=== PATIENT | male | born 1965 | race Caucasian/White ===

== ENCOUNTER 2020-06-16 08:06 | Outpatient (RCR) | payer OTHER, SELFPAY | END 2020-07-05 09:11 | disposition home or self-care (01) | LOC: HO.WCC 08:06 | PROVIDERS: PCP Internal Medicine; Visit Provider Physician Assistant | DX: E11.621 Type 2 diabetes mellitus with foot ulcer (principal); L97.522 Non-pressure chronic ulcer of other part of left foot with fat layer exposed; E11.65 Type 2 diabetes mellitus with hyperglycemia; E11.40 Type 2 diabetes mellitus with diabetic neuropathy, unspecified; I10 Essential (primary) hypertension; L08.9 Local infection of the skin and subcutaneous tissue, unspecified; L84 Corns and callosities; F17.210 Nicotine dependence, cigarettes, uncomplicated; F12.90 Cannabis use, unspecified, uncomplicated; Z72.89 Other problems related to lifestyle; Z71.6 Tobacco abuse counseling | CPT/HCPCS: 97597; 99212 ==

== ENCOUNTER 2020-07-17 09:23 | Emergency (ER) | payer OTHER, SELFPAY ==
--- NOTE | ~2020-07-17 | XR_ITS ---
EXAMINATION: XR FOOT, LEFT CLINICAL INFORMATION: [Toe osteomyelitis. COMPARISON: None TECHNIQUE: AP, lateral, and oblique views of the left foot. FINDINGS: There is no visible acute fracture, periosteal thickening or lytic process. Mild soft tissue swelling seen surrounding the left great toe and first MTP joint. Rest of the left foot is unremarkable. The ankle mortise and subtalar joints are normal. There is a small calcaneal heel and retrocalcaneal enthesophytes. Mild dorsal talonavicular and posterior cuboid spurring is seen. XR/XR foot LT min 3V IMPRESSION: No evidence of osteomyelitis left foot except for mild medial great toe soft tissue swelling. Small calcaneal heel and retrocalcaneal enthesophytes.
[2020-07-17 09:27] VITALS: BP 142/80; PULSE 94; RESP 16; TEMP 37.4; O2SAT 94; BMI 44.4
--- NOTE | 2020-07-17 10:51 | ED_ITS ---
HPI - General Adult General Chief complaint: Wound/Laceration Stated complaint: TOE INFECTION Time Seen by Provider: 07/17/20 10:33 Source: patient Mode of arrival: ambulatory Limitations: no limitations History of Present Illness HPI narrative: Patient presents to ED for left big toes redness since yesterday with fever. Patient has history of cellulitis that he states improved with antibiotics 20 days ago but then came back yesterday. Patient is a diabetic. Patient states his glucose has been well controlled. Patient denies any recent trauma to the foot. Patient admits to ulcer on plantar surface of big toe but negative for any weeping or drainage. Related Data Previous Rx's Medication Instructions Recorded cephalexin 500 mg PO QID #28 cap 07/17/20 doxycycline hyclate 100 mg PO BID #14 cap 07/17/20 Allergies Allergy/AdvReac Type Severity Reaction Status Date / Time bee pollen [BEE STINGS] Allergy Unknown UNKNOWN Unverified 11/04/19 16:32 penicillin V Allergy Unknown Verified 01/31/15 00:00 Penicillins [PENICILLINS] Allergy Unknown UNKNOWN Unverified 11/04/19 16:32 Review of Systems Review of Systems: Yes all other systems are reviewed and are negative Constitutional: Constitutional: Reports as per HPI and Reports no additional constitutional complaints Eyes: Eyes: Reports as per HPI and Reports no additional eye complaints ENT: Reports system reviewed and no additional complaints, except as documented and Reports as per HPI Cardiovascular: Cardiovascular: Reports as per HPI and Reports no additional cardiovascular complaints Respiratory: Respiratory: Reports as per HPI and Reports no additional respiratory complaints Gastrointestinal: Gastrointestinal: Reports as per HPI and Reports no a dditional gastrointestinal complaints Genitourinary: Genitourinary: Reports no additional male genitourinary complaints and Reports as per HPI Musculoskeletal: Musculoskeletal: Reports no additional musculoskeletal compl aints, Reports as per HPI and Reports arthralgias (Left big toe/redness/swelling) Neurologic: Reports system reviewed and no additional complaints, except as documented and Reports as per HPI Psychiatric: Psychiatric: Reports no additional psychiatric complaints and Reports as per HPI [facility] Past Medical History Medical History (Updated 07/17/20 @ 13:25 by RYANN Hall) Diabetic neuropathy Social History Social History Alcohol intake: current Alcohol intake frequency: 0-2 drinks per day Patient Tobacco Use Status: Current everyday Tobacco user Use of substances other than those prescribed or required for medical reasons: Yes Substance Use Type: Marijuana Advance Directives: Yes Advance Directives Information Provided: Yes Advance Directives on File: No Physical Exam Vital Signs: Vital Signs: Last Vital Signs Temp 99.0 F 07/17/20 13:36 Pulse 98 07/17/20 13:36 Resp 18 07/17/20 13:36 BP 121/76 07/17/20 13:36 Pulse Ox 93 07/17/20 13:36 Body Mass Index 44.4 Const: General: cooperative, healthy appearing, comfortable, no acute dist ress, well developed, alert and awake; No Physically active Orientation/consciousness: patient oriented x3 HENMT: Head: Yes normal to inspection, Yes No palpable skull fracture present, Yes normocephalic, Yes atraumatic, No abrasion, No Acrocyanosis present, No Hurd's sign, No contusion, No cranial bruits, No hematoma, No laceration, No occipital foramen tenderness, No palpable skull fracture, No raccoon eyes, No scalp lesion, No scalp tenderness, No Temporal artery tenderness present and No periorbital ecchymosis Eyes: General: appearance normal, both eyes and all related structures Neck: Neck: Yes normal visual inspection, Yes full ROM, Yes no lymphadenopathy, Yes no meningeal signs, Yes trachea midline, Yes supple and No tender Chest: Chest palpation & inspection: normal inspection of the chest and normal palpation of entire chest wall Resp: Effort & Inspection: normal respiratory effort and able to speak in complete sentences Auscultation: clear to auscultation bilaterally Cardio: Jugular venous distension: no JVD Heart sounds: S1 normal heart sound present and S2 normal heart sound present GI: Inspection: Yes normal to inspection Palpation (GI): Soft to palpation, not firm, nontender, no guarding and not rigid : General: No CVA tenderness and Yes no CVA tenderness Back/Spine/Pelvis: Back: no CVA tenderness, No CVA tenderness and No back tenderness Skin: Other: Left big pills cellulitis/redness Neuro: General: patient oriented x3, no meningeal signs and CN's II-XI intact bilaterally Cranial nerves: Yes CN's II-XII intact bilaterally Extrem: Other: left big toe Have been to cellulitis/redness Psych: Appearance: grossly normal, well kempt and not disheveled Course Course Course Narrative: Will order labs, x-ray, lactate, and blood cultures. Patient most likely will need IV antibiotics. Reevaluation(s) Reevaluation #1: Patient does not want to be admitted for IV antibiotics. ESR CRP not elevated. X-ray negative for osteomyelitis but and believe patient still could benefit for IV antibiotics for foot cellulitis as recommended by his associate medical director. Patient is a diabetic This was discussed with patient he refused. Patient states if he worsens he will he will come back tomorrow. Markers made around wound. Patient agreed to sign out against medical advice knowing risk of , sepsis/infection, disability, and decreased quality of life. Medical Decision Making MDM Narrative Medical decision making narrative: Cellulitis Lab Data Result diagrams: 07/17/20 11:02 07/17/20 11:03 Labs: Lab Results 07/17/20 07/17/20 07/17/20 Range/Units 11:02 11:02 11:02 WBC 8.6 (4.8-10.8) X10*3/uL RBC 5.17 (4.60-5.80) X10*6/uL Hgb 16.3 (14.0-18.0) g/dl Hct 49.0 (42-52) % MCV 94.8 (80-98) fL MCH 31.5 (27.0-33.0) pg MCHC 33.3 (31.0-36.0) g/dl RDW 12.4 (11.0-16.0) % Plt Count 181 (160-400) X10*3/uL MPV 9.1 L (9.4-12.4) fL Immature Gran % (Auto) 0.2 (0.0-0.4) % Neut % (Auto) 66.5 (45-73) % Lymph % (Auto) 17.1 L (20-40) % Tyrrell % (Auto) 15.7 H (2-11) % Eos % (Auto) 0.1 (0-4) % Baso % (Auto) 0.4 (0-2) % Lymph # (Auto) 1.5 (1.2-4.9) X10*3/uL Tyrrell # (Auto) 1.3 H (0.1-1.2) X10*3/uL Eos # (Auto) 0.0 (0.0-0.4) X10*3/uL Baso # (Auto) 0.0 (0.0-0.2) X10*3/uL Abs Immat Gran (auto) 0.02 (0.00-0.03) X10*3/uL Absolute Neuts (auto) 5.7 (2.0-8.3) X10*3/uL Absolute Nucleated RBC 0.000 (0.0-0.012) X10*3/uL Nucleated RBC % (auto) 0.0 (0.0-0.2) /100WBC ESR 8 (0-15) MM/HR PT (10.8-13.0) SEC INR (0.9-1.1) APTT (24.1-38.0) SEC Sodium (135-145) mmol/L Potassium (3.3-5.1) mmol/L Chloride (96-108) mmol/L Carbon Dioxide (22-29) mmol/L Anion Gap (12-20) BUN (9-16) mg/dL Creatinine (0.5-1.4) mg/dL Estim Creat Clear Calc Estimated GFR Random Glucose (60-115) mg/dL Lactic Acid 1.5 (0.5-2.0) mmol/L Calcium (8.4-10.2) mg/dL Total Bilirubin (0.0-1.0) mg/dL AST (5-37) U/L ALT (0-40) U/L Alkaline Phosphatase (39-117) U/L C-Reactive Protein (< or = 0.50) mg/dL Total Protein (6.5-8.0) g/dL Albumin (3.5-5.0) g/dL 07/17/20 07/17/20 Range/Units 11:02 11:03 WBC (4.8-10.8) X10*3/uL RBC (4.60-5.80) X10*6/uL Hgb (14.0-18.0) g/dl Hct (42-52) % MCV (80-98) fL MCH (27.0-33.0) pg MCHC (31.0-36.0) g/dl RDW (11.0-16.0) % Plt Count (160-400) X10*3/uL MPV (9.4-12.4) fL Immature Gran % (Auto) (0.0-0.4) % Neut % (Auto) (45-73) % Lymph % (Auto) (20-40) % Tyrrell % (Auto) (2-11) % Eos % (Auto) (0-4) % Baso % (Auto) (0-2) % Lymph # (Auto) (1.2-4.9) X10*3/uL Tyrrell # (Auto) (0.1-1.2) X10*3/uL Eos # (Auto) (0.0-0.4) X10*3/uL Baso # (Auto) (0.0-0.2) X10*3/uL Abs Immat Gran (auto) (0.00-0.03) X10*3/uL Absolute Neuts (auto) (2.0-8.3) X10*3/uL Absolute Nucleated RBC (0.0-0.012) X10*3/uL Nucleated RBC % (auto) (0.0-0.2) /100WBC ESR (0-15) MM/HR PT 13.2 H (10.8-13.0) SEC INR 1.1 (0.9-1.1) APTT 30.5 (24.1-38.0) SEC Sodium 136 (135-145) mmol/L Potassium 4.3 (3.3-5.1) mmol/L Chloride 99 (96-108) mmol/L Carbon Dioxide 28 (22-29) mmol/L Anion Gap 13 (12-20) BUN 13 (9-16) mg/dL Creatinine 0.88 (0.5-1.4) mg/dL Estim Creat Clear Calc 162.9 Estimated GFR > 60 Random Glucose 223 H (60-115) mg/dL Lactic Acid (0.5-2.0) mmol/L Calcium 9.2 (8.4-10.2) mg/dL Total Bilirubin 0.4 (0.0-1.0) mg/dL AST 21 (5-37) U/L ALT 32 (0-40) U/L Alkaline Phosphatase 67 (39-117) U/L C-Reactive Protein 10.61 H (< or = 0.50) mg/dL Total Protein 7.1 (6.5-8.0) g/dL Albumin 4.1 (3.5-5.0) g/dL Discharge Plan Discharge Clinical Impression: Cellulitis Patient Disposition: Left Against Medical Advice Instructions: Cellulitis (ED) Additional Instructions: Return to ED for worsening swelling, redness, spreading of redness beyond marker, leg swelling, calf pain, red streaks, fever, chills, chest pain, latoya rtness of breath, or any other concerning symptoms. Prescriptions: New doxycycline hyclate 100 mg capsule 100 mg PO BID Qty: 14 RF: 0 cephalexin 500 mg capsule 500 mg PO QID Qty: 28 RF: 0 Referrals: Dm Mckeon MD [Primary Care Provider] - 2 days (Left toe cellulitis) Stand Alone Forms: Against Medical Advice Interventions: ED Discharge Assessment Last Done: 07/17/20 13:32 Discharge Date/Time: 07/17/20 13:34 Print Language: Cook Islander
[2020-07-17 11:08] LABS: MANUAL DIFF FLAG NO
[2020-07-17 11:10] LABS: Basophils Percent Auto 0.4 % (0-2); Eosinophils Percent Auto 0.1 % (0-4); Hemoglobin 16.3 g/dl (14.0-18.0); Imm Gran Abs Auto 0.02 X10*3/uL (0.00-0.03); Imm Gran Pct Auto 0.2 % (0.0-0.4); Lymphocytes Absolute Auto 1.5 X10*3/uL (1.2-4.9); Lymphocytes Percent Auto 17.1 % (20-40); Mean Corpuscular HGB Conc 33.3 g/dl (31.0-36.0); Mean Corpuscular Hemoglobin 31.5 pg (27.0-33.0); Mean Corpuscular Volume 94.8 fL (80-98); Mean Platelet Volume 9.1 fL (9.4-12.4); Monocytes Absolute Auto 1.3 X10*3/uL (0.1-1.2); Monocytes Percent Auto 15.7 % (2-11); Neutrophils Absolute Auto 5.7 X10*3/uL (2.0-8.3); Neutrophils Percent Auto 66.5 % (45-73); Platelet Count 181 X10*3/uL (160-400); Red Blood Count 5.17 X10*6/uL (4.60-5.80); Red Cell Distribution Width 12.4 % (11.0-16.0); White Blood Count 8.6 X10*3/uL (4.8-10.8)
[2020-07-17 11:19] LABS: INTERNATIONAL NORM RATIO 1.1 (0.9-1.1); Prothrombin Time 13.2 SEC (10.8-13.0)
[2020-07-17 11:22] LABS: Partial Thromboplastin Time 30.5 SEC (24.1-38.0)
[2020-07-17 11:32] LABS: Lactic Acid 1.5 mmol/L (0.5-2.0)
--- NOTE | 2020-07-17 11:33 | PC.NURSE ---
dry necrotic shallow wound underside of lateral right great toe. entire toe is red, swollen, warm.
[2020-07-17 11:36] LABS: Alanine Aminotransferase 32 U/L (0-40); Albumin Level 4.1 g/dL (3.5-5.0); Alkaline Phosphatase 67 U/L (39-117); Anion Gap 13 (12-20); Aspartate Amino Transferase 21 U/L (5-37); Bilirubin Total 0.4 mg/dL (0.0-1.0); Blood Urea Nitrogen 13 mg/dL (9-16); C Reactive Protein 10.61 mg/dL (< or = 0.50); Calcium 9.2 mg/dL (8.4-10.2); Carbon Dioxide 28 mmol/L (22-29); Chloride 99 mmol/L (96-108); Creatinine Clr Calc Pharmacy 162.9; Estimated Glomerular Filt Rate > 60; Glucose Random 223 mg/dL (60-115); Potassium 4.3 mmol/L (3.3-5.1); Sodium 136 mmol/L (135-145); Total Protein 7.1 g/dL (6.5-8.0)
[2020-07-17 11:38] VITALS: BP 129/83; PULSE 97; RESP 18; TEMP 37.4; O2SAT 93
[2020-07-17 12:05] LABS: Erythrocyte Sedimentation Rate 8 MM/HR (0-15)
[2020-07-17 13:36] VITALS: BP 121/76; PULSE 98; RESP 18; TEMP 37.2; O2SAT 93
== END 2020-07-17 13:34 | disposition left against medical advice (07) ==
PROVIDERS: Physician Assistant; Emergency Provider Emergency Medicine Emergency Medical Services; PCP Internal Medicine
DX: L03.032 Cellulitis of left toe (principal); E11.9 Type 2 diabetes mellitus without complications; F17.210 Nicotine dependence, cigarettes, uncomplicated; F12.90 Cannabis use, unspecified, uncomplicated
CPT/HCPCS: 36415; 73630; 80053; 83605; 85025; 85610; 85652; 85730; 86140; 87040; 99284; 99285

== ENCOUNTER 2020-09-11 12:50 | Outpatient (RCR) | payer OTHER, SELFPAY ==
[2020-09-26 12:58] LABS: MANUAL DIFF FLAG NO
[2020-09-26 13:06] LABS: Basophils Absolute Auto 0.1 X10*3/uL (0.0-0.2); Basophils Percent Auto 0.7 % (0-2); Eosinophils Absolute Auto 0.2 X10*3/uL (0.0-0.4); Eosinophils Percent Auto 2.1 % (0-4); Hematocrit 49.2 % (42-52); Hemoglobin 16.3 g/dl (14.0-18.0); Imm Gran Abs Auto 0.02 X10*3/uL (0.00-0.03); Imm Gran Pct Auto 0.3 % (0.0-0.4); Lymphocytes Absolute Auto 2.3 X10*3/uL (1.2-4.9); Lymphocytes Percent Auto 31.9 % (20-40); Mean Corpuscular HGB Conc 33.1 g/dl (31.0-36.0); Mean Corpuscular Hemoglobin 30.9 pg (27.0-33.0); Mean Corpuscular Volume 93.4 fL (80-98); Monocytes Percent Auto 14.5 % (2-11); Neutrophils Absolute Auto 3.6 X10*3/uL (2.0-8.3); Neutrophils Percent Auto 50.5 % (45-73); Platelet Count 259 X10*3/uL (160-400); Red Blood Count 5.27 X10*6/uL (4.60-5.80); Red Cell Distribution Width 12.8 % (11.0-16.0); White Blood Count 7.1 X10*3/uL (4.8-10.8)
[2020-09-26 13:15] LABS: Estimated Average Glucose 183 mg/dL
[2020-09-26 13:28] LABS: Anion Gap 13 (12-20); Blood Urea Nitrogen 15 mg/dL (9-16); C Reactive Protein 0.73 mg/dL (< or = 0.50); Calcium 10.1 mg/dL (8.4-10.2); Carbon Dioxide 32 mmol/L (22-29); Chloride 99 mmol/L (96-108); Estimated Glomerular Filt Rate > 60; Glucose Random 193 mg/dL (60-115); Potassium 4.8 mmol/L (3.3-5.1); Sodium 139 mmol/L (135-145)
[2020-09-26 13:50] LABS: Erythrocyte Sedimentation Rate 4 MM/HR (0-15)
== END 2020-10-12 10:42 | disposition home or self-care (01) ==
LOC: HO.WCC 12:50
PROVIDERS: PCP Internal Medicine; Visit Provider Physician Assistant
DX: E11.621 Type 2 diabetes mellitus with foot ulcer (principal); L97.522 Non-pressure chronic ulcer of other part of left foot with fat layer exposed; S80.811A Abrasion, right lower leg, initial encounter; I10 Essential (primary) hypertension; F17.210 Nicotine dependence, cigarettes, uncomplicated; I87.2 Venous insufficiency (chronic) (peripheral); L84 Corns and callosities; Z71.6 Tobacco abuse counseling
CPT/HCPCS: 11042; 36415; 80048; 83036; 84134; 85025; 85652; 86140; 99212

== ENCOUNTER 2020-10-24 11:03 | Outpatient (RCR) | payer OTHER, SELFPAY | END 2020-11-01 15:46 | disposition home or self-care (01) | LOC: HO.WCC 11:03 | PROVIDERS: PCP Internal Medicine; Visit Provider Physician Assistant | DX: E11.621 Type 2 diabetes mellitus with foot ulcer (principal); L97.522 Non-pressure chronic ulcer of other part of left foot with fat layer exposed; E11.40 Type 2 diabetes mellitus with diabetic neuropathy, unspecified; E11.51 Type 2 diabetes mellitus with diabetic peripheral angiopathy without gangrene; I10 Essential (primary) hypertension; R60.0 Localized edema; Z72.89 Other problems related to lifestyle; F12.90 Cannabis use, unspecified, uncomplicated; I87.2 Venous insufficiency (chronic) (peripheral); F17.210 Nicotine dependence, cigarettes, uncomplicated; Z79.2 Long term (current) use of antibiotics | CPT/HCPCS: 11042; 99212 ==

== ENCOUNTER 2020-10-26 12:58 | Outpatient (REF) | payer OTHER, SELFPAY ==
--- NOTE | ~2020-10-26 | US_ITS ---
EXAMINATION: BILATERAL LOWER EXTREMITY VENOUS ULTRASOUND (Reflux Exam) CLINICAL INDICATION: This is a 55-year-old male with venous insufficiency and varicose veins appear COMPARISON: None. TECHNIQUE: Color flow triplex imaging and compression Doppler was performed to evaluate both the deep and the superficial systems bilaterally. To evaluate the superficial system, the examination was performed in the upright position. Color-flow Doppler ultrasound and compression ultrasound were utilized. In addition, maneuvers were utilized to demonstrate reflux. FINDINGS: 1. DEEP VENOUS ULTRASOUND OF THE RIGHT LOWER EXTREMITY: Common Femoral Vein: Compressible, normal respiratory variation and augmented flow. Femoral vein: Compressible, normal color flow and augmentation. Popliteal Vein: There is reflux within the left popliteal vein with the reflux time of 1012 ms. Deep Reflux: There is no evidence of reflux in the deep system in the left popliteal vein only. There is no evidence of a Ugalde's cyst. 2. SUPERFICIAL ULTRASOUND WITH DOPPLER OF RIGHT LOWER EXTREMITY GREAT SAPHENOUS VEIN: Saphenofemoral junction: 1.2 cm. There is reflux at the junction with the reflux time of 580 ms. Mid thigh: 0.6 cm. There is no reflux. Above knee: 0.3 cm. There is no reflux. Below knee: 0.3 cm. There is no reflux. Mid calf: 0.3 cm. The reflux time is 2900 ms. Ankle: 0.4 cm. There is no reflux. GSV REFLUX: There is reflux in the great saphenous vein at the saphenofemoral junction. DUPLICATED GREAT SAPHENOUS VEIN: There is a 0.6 cm lateral duplicated great saphenous vein without reflux SMALL SAPHENOUS VEIN: Upper: 0.3 cm Lower: Your 0.3 cm SSV REFLUX: No evidence of reflux. VEIN OF GIACOMINI: None Imaged. PERFORATORS: There are 0.3 cm perforators without reflux. VARICOSITIES: There are 0.4 cm mid thigh varicose veins without reflux. There are 0.3 cm mid calf varicose veins without reflux. 3. DEEP VENOUS ULTRASOUND OF THE LEFT LOWER EXTREMITY: Common Femoral Vein: Compressible, normal respiratory variation and augmented flow. Femoral vein: Compressible, normal color flow and augmentation. Popliteal Vein: Compressible, normal augmentation. Deep Reflux: There is no evidence of reflux in the deep system in either the common femoral vein or the popliteal vein. There is no evidence of a Ugalde's cyst. 4. SUPERFICIAL ULTRASOUND WITH DOPPLER OF LEFT LOWER EXTREMITY GREAT SAPHENOUS VEIN: Saphenofemoral junction: 1.2 cm. There is no reflux. Mid thigh: 0.4 cm. There is no reflux. Above knee: 0.3 cm. There is no reflux. Below knee: 0.5 cm. There is no reflux. Mid calf: 0.2 cm Ankle: 0.5 cm GSV REFLUX: There is a short segment of reflux at the knee. Otherwise, there is no significant reflux in the great saphenous vein. DUPLICATED GREAT SAPHENOUS VEIN: There is a 0.5 cm lateral duplicated great saphenous vein without evidence of reflux. SMALL SAPHENOUS VEIN: Upper: 0.4 cm Lower: 0.2 cm SSV REFLUX: No evidence of reflux. VEIN OF GIACOMINI: None Imaged. PERFORATORS: There is a 0.4 cm distal calf varicose vein without evidence of reflux to VARICOSITIES: There are 0.4 cm proximal thigh varicose veins without reflux. US/US venous duplex LE BI IMPRESSION: 1. There is a patent right great saphenous vein with reflux at the saphenofemoral junction. Below that level there is no reflux until there is a short segment in the mid calf. 2. There is a duplicated right lateral great saphenous vein without reflux. 3. There is a right small saphenous vein without evidence of reflux. 4. There are varicose veins measuring 0.4 cm in the mid thigh without reflux. 5. There is a patent left great saphenous vein without evidence of reflux at the junction or in the thigh. 6. There is a duplicated left lateral great saphenous vein without evidence of reflux. 7. There is a patent left small saphenous vein without evidence of reflux. 8. There are proximal left thigh varicose veins without evidence of reflux.
== END 2020-10-26 12:59 | disposition home or self-care (01) ==
LOC: HO.US 12:58
PROVIDERS: PCP Internal Medicine; Visit Provider Physician Assistant
DX: I87.2 Venous insufficiency (chronic) (peripheral) (principal)
CPT/HCPCS: 93970

== ENCOUNTER 2020-12-12 19:15 | Inpatient (IN) | payer OTHER, SELFPAY ==
[2020-12-12] VITALS (7 sets, daily range): BP systolic 73–96; BP diastolic 44–63; PULSE 95–132; RESP 16–22; TEMP 37.2–39.4; O2SAT 90–96; BMI 43.4
--- NOTE | 2020-12-12 | ECG_ITS ---
Test Reason : R/O SEPSIS Blood Pressure : / mmHG Vent. Rate : 119 BPM Atrial Rate : 119 BPM P-R Int : 148 ms QRS Dur : 100 ms QT Int : 324 ms P-R-T Axes : 050 -23 058 degrees QTc Int : 455 ms Sinus tachycardia Intra-ventricular conduction delay Inferior infarct (cited on or before 22-APR-2006) Abnormal ECG When compared with ECG of 22-APR-2006 15:50, No significant change was found Referred By: Melany Rosenthal Electronically Signed By:PHIL CLARK MD
--- NOTE | ~2020-12-12 | CT_ITS ---
EXAMINATION: CT FOOT, LEFT WITH CONTRAST CLINICAL INFORMATION: Rule out osteomyelitis. COMPARISON: 12/12/2020 TECHNIQUE: Multidetector volumetric imaging of the left foot is performed after administration of 85 mL of Omnipaque 350 IV contrast. Coronal and sagittal reformatted images are obtained and reviewed. This CT examination was performed using dose optimization techniques as appropriate, variously including the following: *Automated exposure control *Adjustment of mA and/or kV according to patient size (this includes techniques or standardized protocols for targeted exams where dose is matched to indication/reason for exam; i.e. extremities or head) *Use of iterative reconstruction technique DLP: 233 mGy-cm FINDINGS: There is no fracture. Alignment is anatomic. Joint spaces are maintained. Degenerative changes at the talonavicular joint with osteophyte formation noted. No osseous erosions. Moderate hypertrophic spurring at the plantar aponeurosis and Achilles insertion to the calcaneus. There is mild dorsal soft tissue swelling of the forefoot. Soft tissue swelling surrounds the ankle. The visualized ankle tendons appear grossly intact. There is also focal soft tissue swelling along the plantar aspect of the foot near the first and fifth metatarsal heads.. There is focal soft tissue swelling of the first digit with small ulceration medially and internal focus of gas as seen on series 5 image 548. No underlying bony changes. CT/CT foot LT w con IMPRESSION: Diffuse soft tissue swelling with the most focal area along the medial aspect of the first digit with associated soft tissue gas suggestive of ulceration. No underlying osseous erosion.
--- NOTE | ~2020-12-12 | CT_ITS ---
EXAMINATION: CT ANGIOGRAM OF THE CHEST WITH AND WITHOUT CONTRAST (CT PULMONARY ANGIOGRAM FOR PE) CLINICAL INFORMATION: Reason for Exam hypoxia COMPARISON: Chest x-ray 12/12/2020 TECHNIQUE: Prior to contrast administration, noncontrast localization images were obtained. Subsequently, multidetector volumetric imaging was performed from the thoracic inlet to below the diaphragms following the administration of 85 mL Omnipaque 350 intravenous contrast. No contrast reaction reported Sagittal, coronal, and MIP oblique sagittal reformatted images were obtained on the CT workstation, uploaded to PACS, and reviewed. This CT examination was performed using dose optimization techniques as appropriate, variously including the following: *Automated exposure control *Adjustment of mA and/or kV according to patient size (this includes techniques or standardized protocols for targeted exams where dose is matched to indication/reason for exam; i.e. extremities or head) *Use of iterative reconstruction technique Total exam dose-length product 1139 mGy-cm FINDINGS: QUALITY OF STUDY/CONTRAST BOLUS: Suboptimal. PULMONARY ARTERIES: Suboptimal assessment due to bolus timing. While no central pulmonary embolus is seen, the possibility of segmental or subsegmental emboli cannot be excluded. THORACIC AORTA: No aneurysm or dissection. LUNG: Limited detailed assessment of the lung parenchyma in some regions due to motion artifact. No regions of consolidation identified bilaterally. There is a 5 mm lateral right lower lobe nodule on image 271/588. PLEURA: No pleural effusion or pneumothorax. MEDIASTINUM: Partially visualized thyroid gland appears grossly unremarkable. There are subcentimeter mediastinal lymph nodes within the range of normal variation. Cardiac size is within normal limits; no pericardial effusion. Coronary artery calcifications are present. No evidence of septal bowing or right heart strain. CHEST WALL/AXILLA: No axillary or internal mammary lymphadenopathy. OSSEOUS STRUCTURES: There are changes of diffuse idiopathic skeletal hyperostosis in the spine. UPPER ABDOMEN: There is hypoattenuation of the liver suggesting steatosis. An approximately 1 cm hypodensity in the spleen is nonspecific and may represent a cyst. No reflux of contrast into the hepatic veins to suggest elevated right heart pressures. CT/CT angio chest PE protocol IMPRESSION: 1. No central pulmonary embolus identified. However, the possibility of segmental or subsegmental emboli cannot be excluded, as exam quality is suboptimal due to bolus timing. 2. Coronary artery calcifications. Correlation with cardiac risk factors is recommended. 3. Nonspecific right lower lobe 5 mm lung nodule. According to the UPDATED 2017 Fleischner Society recommendations, the advised follow-up imaging for solid nodules < 6 mm is: LOW RISK PATIENT: No routine follow-up. HIGH RISK PATIENT: Optional CT at 12 months. VTE: negative
--- NOTE | ~2020-12-12 | XR_ITS ---
EXAMINATION: XR FOOT, LEFT CLINICAL INFORMATION: Foot pain. COMPARISON: 07/17/2020 TECHNIQUE: AP, lateral, and oblique views of the left foot. FINDINGS: Moderate sized enthesopathic spurs are present at the Achilles tendon insertion and plantar fascial origin on the calcaneus. There is soft tissue swelling at the great toe with mild osteoarthritis of the IP joint. There is mild multifocal osteoarthritis at other interphalangeal joints as well. Old healed second toe proximal phalangeal fracture. Mild multifocal osteoarthritis in the midfoot is most notable at the talonavicular joint with subchondral cystic change at the navicular. No acute fractures are identified. XR/XR foot LT 2V IMPRESSION: Mild multifocal osteoarthritis in the foot, especially at the talonavicular joint and interphalangeal joints. Soft tissue swelling at the great toe.
--- NOTE | ~2020-12-12 | IR_ITS ---
PROCEDURE: IR INSERTION OF PICC CLINICAL INFORMATION: Foot infection. Long-term IV antibiotic requirement. COMPARISON: None. TECHNIQUE: Procedure risks and benefits including bleeding, infection and blood clot were discussed with the patient and informed consent was obtained. All elements of maximal sterile barrier technique followed including use of cap, mask, sterile gown, sterile gloves, a sterile full body drape and hand hygiene. Also followed skin preparation with 2% chlorhexidine for cutaneous antisepsis, and sterile ultrasound preparation with sterile gel and probe cover when applicable. The right upper arm was prepped and draped in usual sterile fashion. The skin and soft tissues were anesthetized with 1% lidocaine plain. Using ultrasound guidance, right basilic vein access was obtained. Over a 0.018 wire through a peel-away sheath, a single [place] PICC line was positioned. Catheter tip is in the SVC. Catheter length is 60 cm. Real-time ultrasound guidance was used to document vein patency and for needle entry. A formal ultrasound picture was recorded. Fluoroscopy time 0.1 minutes. 1 saved fluoroscopic image. DAP 513 cGy-cm2. FINDINGS: There is a right upper extremity PICC line with catheter tip projecting over the SVC. IR/IR cvc insert peripheral IMPRESSION: Right upper extremity PICC line placement.
--- NOTE | ~2020-12-12 | XR_ITS ---
EXAMINATION: XR CHEST CLINICAL INFORMATION: Shortness of breath COMPARISON: Chest x-ray April 22, 2006 TECHNIQUE: Frontal portable view of the chest was obtained. 2024 FINDINGS: No significant abnormality is noted involving the heart, lungs, mediastinum, bony thorax or soft tissues. XR/XR chest 1V IMPRESSION: Unremarkable examination.
[2020-12-12 19:49] LABS: Basophils Percent Auto 0.3 % (0-2); Hematocrit 48.5 % (42-52); Hemoglobin 16.5 g/dl (14.0-18.0); Imm Gran Abs Auto 0.12 X10*3/uL (0.00-0.03); Imm Gran Pct Auto 0.8 % (0.0-0.4); Lymphocytes Absolute Auto 0.3 X10*3/uL (1.2-4.9); Lymphocytes Percent Auto 1.6 % (20-40); MANUAL DIFF FLAG SCAN; Mean Corpuscular Hemoglobin 31.8 pg (27.0-33.0); Mean Corpuscular Volume 93.4 fL (80-98); Mean Platelet Volume 9.1 fL (9.4-12.4); Monocytes Percent Auto 6.3 % (2-11); Neutrophils Absolute Auto 14.2 X10*3/uL (2.0-8.3); Platelet Count 159 X10*3/uL (160-400); Red Blood Count 5.19 X10*6/uL (4.60-5.80); Red Cell Distribution Width 12.2 % (11.0-16.0); SCAN SMEAR FLAG 1; White Blood Count 15.6 X10*3/uL (4.8-10.8)
[2020-12-12] MEDS: Acetaminophen 325 MG TABLET 975 MG PO (19:55)
[2020-12-12 20:06] LABS: SLIDE REVIEW VERIFIED
[2020-12-12 20:09] LABS: Alanine Aminotransferase 47 U/L (0-40); Alkaline Phosphatase 57 U/L (39-117); Anion Gap 15 (12-20); Aspartate Amino Transferase 28 U/L (5-37); Bilirubin Total 0.6 mg/dL (0.0-1.0); Blood Urea Nitrogen 18 mg/dL (9-16); Calcium 9.3 mg/dL (8.4-10.2); Carbon Dioxide 26 mmol/L (22-29); Chloride 100 mmol/L (96-108); Creatinine Clr Calc Pharmacy 116.7; Estimated Glomerular Filt Rate > 60; Glucose Random 157 mg/dL (60-115); Potassium 4.5 mmol/L (3.3-5.1); Sodium 136 mmol/L (135-145)
[2020-12-12 20:12] LABS: COVID-19 Test Negative (Negative)
[2020-12-12] MEDS: cefEPime HCl 2 GM in 0.9 % Sodium Chloride 50 ML IV (20:46)
[2020-12-12] MEDS: vancomycin HCL 1,000 MG in 0.9 % Sodium Chloride 250 ML 270 MG IV (20:53)
[2020-12-12 20:59] LABS: Lactic Acid 2.7 mmol/L (0.5-2.0)
--- NOTE | 2020-12-12 21:11 | ED_ITS ---
HPI - Fever General Chief Complaint: Fever Stated Complaint: possible sepsis Time Seen by Provider: 12/12/20 19:35 History of Present Illness HPI Narrative: Patient is a 55-year-old male with a long history of diabetes. History of cellulitis. History of hypertension. History of smoking. Complaining of generalized malaise weakness. Pain to the left foot worsen the great toe. Patient from home. Positive generalized malaise. Noted by triage have a low blood pressure. Patient also noted positive coughing. This is been fairly chronic for patient. He has been immunized for COVID x3. Related Data Previous Rx's Medication Instructions Recorded cephalexin 500 mg capsule 500 mg PO QID #28 cap 07/17/20 doxycycline hyclate 100 mg capsule 100 mg PO BID #14 cap 07/17/20 Allergies Allergy/AdvReac Type Severity Reaction Status Date / Time bee pollen [BEE STINGS] Allergy Unknown UNKNOWN Verified 12/12/20 19:52 Review of Systems Review of Systems: Positive fever positive generalized malaise positive redness to the left toe. Yes all other systems are reviewed and are negative PMFSH Past Medical History Attestation statement: The following information was validated with the patient. Medical History Diabetic neuropathy Social History Social History Alcohol intake: never Patient Tobacco Use Status: Current everyday Tobacco user Use of substances other than those prescribed or required for medical reasons: No Substance Use Type: Marijuana Advance Directives: No Advance Directives Information Provided: Yes Physical Exam Vital Signs: Vital Signs: Last Vital Signs Temp 98.7 F 12/13/20 00:15 Pulse 89 12/13/20 00:15 Resp 18 12/13/20 00:15 BP 84/58 L 12/13/20 00:15 Pulse Ox 95 12/13/20 00:15 Body Mass Index 43.4 Appearance: Alert. Oriented X3. No acute distress. Eyes: Pupils equal, round and reactive to light. ENT: Pharynx normal. Neck: Normal inspection. Neck supple. No lymph nodes noted. No crepitus CVS: Normal heart rate and rhythm. Pulses normal. Normal S1 and S2 Respiratory: No respiratory distress. Breath sounds normal. No Wheezing. No rales Abdomen: Soft and nontender. No rigidity. No distention. good BS x4 Skin: Skin warm and dry. Normal skin color. Normal skin turgor. Extremities: No lower extremity edema. Neurovascular intact to all extremities. No Lacerations. Positive redness to the left great toe, 2nd 3rd 4th toe. There is an ulcer to the plantar aspect. This seems to be scarred over. Neuro: Oriented X 3. No motor deficit. No sensory deficit. Moving all extermities. No slurred speech MDM - Fever MDM Narrative Medical decision making narrative: Patient had an elevated white count of 16. Had low blood pressure with a high fever. Lactate was elevated at 2.7. 30 cc/kilos IV fluids started. Patient started on vancomycin and cefepime for possible cellulitis/osteomyelitis. Blood pressure improving. Heart rate is coming down to 115 range. Blood pressure still remained low. Will monitor very carefully. Patient given 30 cc/kilos of IV fluid. Blood pressure improved to 95/50. Patient's repeat lactate is now 1.7. He is trying to urinate. He ate here. Symptom improved dramatically. Will admit for cellulitis. Chest x-ray was negative for infiltrate. Currently in stable condition waiting admissions. Differential Diagnosis Differential diagnosis: Likely cellulitis Medical Records Attestation: I reviewed the patient's medical records. Lab Data Attestation: I reviewed the patient's lab results. Result diagrams: 12/12/20 19:38 12/12/20 19:38 Labs: Lab Results 12/12/20 12/12/20 12/12/20 Range/Units 19:37 19:38 19:38 WBC 15.6 H (4.8-10.8) X10*3/uL RBC 5.19 (4.60-5.80) X10*6/uL Hgb 16.5 (14.0-18.0) g/dl Hct 48.5 (42-52) % MCV 93.4 (80-98) fL MCH 31.8 (27.0-33.0) pg MCHC 34.0 (31.0-36.0) g/dl RDW 12.2 (11.0-16.0) % Plt Count 159 L D (160-400) X10*3/uL MPV 9.1 L (9.4-12.4) fL Immature Gran % (Auto) 0.8 H (0.0-0.4) % Neut % (Auto) 91.0 H (45-73) % Lymph % (Auto) 1.6 L (20-40) % [place]utherford % (Auto) 6.3 (2-11) % Eos % (Auto) 0.0 (0-4) % Baso % (Auto) 0.3 (0-2) % Lymph # (Auto) 0.3 L (1.2-4.9) X10*3/uL [place]ford # (Auto) 1.0 (0.1-1.2) X10*3/uL Eos # (Auto) 0.0 (0.0-0.4) X10*3/uL Baso # (Auto) 0.0 (0.0-0.2) X10*3/uL Abs Immat Gran (auto) 0.12 H (0.00-0.03) X10*3/uL Absolute Neuts (auto) 14.2 H (2.0-8.3) X10*3/uL Absolute Nucleated RBC 0.000 (0.0-0.012) X10*3/uL Nucleated RBC % (auto) 0.0 (0.0-0.2) /100WBC Smear Tech's Comments VERIFIED ESR (0-15) MM/HR Sodium 136 (135-145) mmol/L Potassium 4.5 (3.3-5.1) mmol/L Chloride 100 (96-108) mmol/L Carbon Dioxide 26 (22-29) mmol/L Anion Gap 15 (12-20) BUN 18 H (9-16) mg/dL Creatinine 1.20 (0.5-1.4) mg/dL Estim Creat Clear Calc 116.7 Estimated GFR > 60 Random Glucose 157 H (60-115) mg/dL Lactic Acid (0.5-2.0) mmol/L Lactic Acid Fup @ 2Hr (0.5-2.0) mmol/L Calcium 9.3 D (8.4-10.2) mg/dL Total Bilirubin 0.6 (0.0-1.0) mg/dL AST 28 (5-37) U/L ALT 47 H (0-40) U/L Alkaline Phosphatase 57 (39-117) U/L C-Reactive Protein (< or = 0.50) mg/dL Total Protein 7.0 (6.5-8.0) g/dL Albumin 4.0 (3.5-5.0) g/dL COVID-19 (SRINIVASA) Negative (Negative) COVID-19 Clin Com See Note 12/12/20 12/12/20 12/12/20 Range/Units 20:17 20:17 20:25 WBC (4.8-10.8) X10*3/uL RBC (4.60-5.80) X10*6/uL Hgb (14.0-18.0) g/dl Hct (42-52) % MCV (80-98) fL MCH (27.0-33.0) pg MCHC (31.0-36.0) g/dl RDW (11.0-16.0) % Plt Count (160-400) X10*3/uL MPV (9.4-12.4) fL Immature Gran % (Auto) (0.0-0.4) % Neut % (Auto) (45-73) % Lymph % (Auto) (20-40) % [place]utherford % (Auto) (2-11) % Eos % (Auto) (0-4) % Baso % (Auto) (0-2) % Lymph # (Auto) (1.2-4.9) X10*3/uL [place] # (Auto) (0.1-1.2) X10*3/uL Eos # (Auto) (0.0-0.4) X10*3/uL Baso # (Auto) (0.0-0.2) X10*3/uL Abs Immat Gran (auto) (0.00-0.03) X10*3/uL Absolute Neuts (auto) (2.0-8.3) X10*3/uL Absolute Nucleated RBC (0.0-0.012) X10*3/uL Nucleated RBC % (auto) (0.0-0.2) /100WBC Smear Tech's Comments ESR 2 (0-15) MM/HR Sodium (135-145) mmol/L Potassium (3.3-5.1) mmol/L Chloride (96-108) mmol/L Carbon Dioxide (22-29) mmol/L Anion Gap (12-20) BUN (9-16) mg/dL Creatinine (0.5-1.4) mg/dL Estim Creat Clear Calc Estimated GFR Random Glucose (60-115) mg/dL Lactic Acid 2.7 H* (0.5-2.0) mmol/L Lactic Acid Fup @ 2Hr (0.5-2.0) mmol/L Calcium (8.4-10.2) mg/dL Total Bilirubin (0.0-1.0) mg/dL AST (5-37) U/L ALT (0-40) U/L Alkaline Phosphatase (39-117) U/L C-Reactive Protein 5.80 H (< or = 0.50) mg/dL Total Protein (6.5-8.0) g/dL Albumin (3.5-5.0) g/dL COVID-19 (SRINIVASA) (Negative) COVID-19 Clin Com 12/12/20 Range/Units 22:43 WBC (4.8-10.8) X10*3/uL RBC (4.60-5.80) X10*6/uL Hgb (14.0-18.0) g/dl Hct (42-52) % MCV (80-98) fL MCH (27.0-33.0) pg MCHC (31.0-36.0) g/dl RDW (11.0-16.0) % Plt Count (160-400) X10*3/uL MPV (9.4-12.4) fL Immature Gran % (Auto) (0.0-0.4) % Neut % (Auto) (45-73) % Lymph % (Auto) (20-40) % [place] % (Auto) (2-11) % Eos % (Auto) (0-4) % Baso % (Auto) (0-2) % Lymph # (Auto) (1.2-4.9) X10*3/uL [place] # (Auto) (0.1-1.2) X10*3/uL Eos # (Auto) (0.0-0.4) X10*3/uL Baso # (Auto) (0.0-0.2) X10*3/uL Abs Immat Gran (auto) (0.00-0.03) X10*3/uL Absolute Neuts (auto) (2.0-8.3) X10*3/uL Absolute Nucleated RBC (0.0-0.012) X10*3/uL Nucleated RBC % (auto) (0.0-0.2) /100WBC Smear Tech's Comments ESR (0-15) MM/HR Sodium (135-145) mmol/L Potassium (3.3-5.1) mmol/L Chloride (96-108) mmol/L Carbon Dioxide (22-29) mmol/L Anion Gap (12-20) BUN (9-16) mg/dL Creatinine (0.5-1.4) mg/dL Estim Creat Clear Calc Estimated GFR Random Glucose (60-115) mg/dL Lactic Acid (0.5-2.0) mmol/L Lactic Acid Fup @ 2Hr 1.7 (0.5-2.0) mmol/L Calcium (8.4-10.2) mg/dL Total Bilirubin (0.0-1.0) mg/dL AST (5-37) U/L ALT (0-40) U/L Alkaline Phosphatase (39-117) U/L C-Reactive Protein (< or = 0.50) mg/dL Total Protein (6.5-8.0) g/dL Albumin (3.5-5.0) g/dL COVID-19 (SRINIVASA) (Negative) COVID-19 Clin Com Critical Care Time Critical Care Time Total Critical Care Time: 40 Attestation: I have personally provided 40 minutes of critical care time exclusive of time spent on separately billable procedures. Time includes review of lab data, radiology results, discussion with consultants, and monitoring for potential decompensation. Interventions were performed as documented above Discharge Plan Discharge Clinical Impression: Cellulitis Patient Disposition: Admitted As Inpatient
[2020-12-12] MEDS: Ketorolac Tromethamine 15 MG/ML VIAL 30 MG IVPUSH (21:13)
[2020-12-12 21:19] LABS: Erythrocyte Sedimentation Rate 2 MM/HR (0-15)
[2020-12-12 22:28] LABS: Reflex Lactate? Lactic Acid Added
[2020-12-12 22:56] LABS: ~Lactic Acid-LAB USE ONLY 1.7 mmol/L (0.5-2.0)
[2020-12-12] MEDS: Nicotine 21 MG PATCH.TD24 TRANSDERMA (23:01)
[2020-12-12] MEDS: 0.9 % Sodium Chloride 1,000 ML 999 ML IV (23:19)
[2020-12-13] VITALS (10 sets, daily range): BP systolic 84–168; BP diastolic 54–87; PULSE 89–117; RESP 16–20; TEMP 36.8–39.5; O2SAT 90–95; BMI 46.9
--- NOTE | 2020-12-13 | P.HPHOSP_ITS ---
History of Present Illness Date of Service: 12/13/20 Chief Complaint: Fever 55-year-old male with a past medical history of hypertension, diabetes, obesity, diabetic neuropathy, history of diabetic foot ulcer presented to the hospital with a chief complaint of fever. Patient reported that he was doing fine until this morning when he suddenly developed chills/fever and he slept all day; the his notices fever was 105? F and subsequently called EMS and brought into the hospital for further evaluation. Patient reports that he feels tired and exhausted. Denies any cough or sputum production. Reports he smokes cigarettes. And has smoker's cough. Denies having history of COPD; denies using any home oxygen. Patient reports that he has diabetic foot ulcer on the left great toe and is following with the wound clinic. Which is currently healing. Mentions that he had an MRI done for the foot about a month ago and was negative for bone infection as per the patient. Patient also showed the pictures of right great toe cellulitis/ulcer in the past-the pictures showed the left great toe was red angry looking at an open ulcer; reports these pictures were weeks to months ago. Currently denies any new complaints with the left great toe; Denies any sick contacts. Mentioned that he has COVID-19 vaccinated. A review of all other systems is negative except mentioned above ER course: ER team Dr Rosenthal mentioned the patient on presentation noted a temperature of 103? F; appear dry; blood pressure was 89/-->73/48; patient was given 30 cc/kg of IV fluids. With improvement in blood pressure to 95/44; evgeny jonny initially had a lactate of 2.5 which subsequently improved. Patient was given IV vancomycin and cefepime given Concern for cellulitis of the foot. A had a foot x-ray done which showed no acute findings except for soft tissue swelling. Chest x-ray was negative.. COVID-19 was negative. UA was negative. Spoke to the DAIRY NUTRITION CONSULTANT; patient after some time she became hypoxic and was saturating 88-90 %; patient was subsequently placed on supplemental oxygen. [facility] Medical History (Updated 12/14/20 @ 10:51 by Gee Juan MD) Diabetes mellitus Diabetic foot ulcer Diabetic neuropathy HTN (hypertension) Morbid obesity Severe sepsis Pertinent family history: Denies any family history of chronic medical conditions; reports his mother has bowel surgery Social History Household Members: Spouse Housing: House Do you presently have visiting nurse or other home services: No Alcohol intake: never Patient Tobacco Use Status: Current everyday Tobacco user Tobacco use type: Cigarette Cigarette Packs Per Day: 1 Cigarettes Per Day: 20.0 Years Smoked: 40 Substance Use Type: Marijuana service: No Current occupational status: unemployed Meds Allergies Allergy/AdvReac Type Severity Reaction Status Date / Time bee pollen [BEE STINGS] Allergy Unknown UNKNOWN Verified 12/12/20 19:52 Penicillins Allergy Unknown Unknown Verified 12/13/20 08:37 Active Medications: Current Medications Sodium Chloride (Ns) 1,000 mls @ 999 mls/hr IV .Q1H1M ZEFERINO Stop: 12/13/20 00:15 Last Admin: 12/12/20 23:19 Dose: 999 mls/hr Documented by: Pharmacy Consult (Consult Rx Perform Med Rec) 1 each MISCELLANE ONCE PRN PRN Reason: Consult order Home Medications Medication Instructions Recorded Confirmed Last Taken Type canagliflozin 300 mg tablet 1 tab PO DAILY 12/13/20 12/13/20 Unknown History (Invokana) gabapentin 300 mg capsule 600 mg PO BEDTIME 12/13/20 12/13/20 Unknown History hydrochlorothiazide 25 mg tablet 1 tab PO DAILY 12/13/20 12/13/20 Unknown History insulin glargine 100 unit/mL (3 51 unit SUBCUT DAILY 12/13/20 12/13/20 Unknown History mL) subcutaneous pen (Lantus Solostar U-100 Insulin) lisinopril 20 mg tablet 1 tab PO BID 12/13/20 12/13/20 Unknown History metformin 1,000 mg tablet 1 tab PO BID 12/13/20 12/13/20 Unknown History qxcmdgxzdkro-tzgsgiqi-yyxjne tablet 1 tab PO DAILY 12/13/20 12/13/20 Unknown History omega-3 fatty acids 1,000 mg PO DAILY 12/13/20 12/13/20 Unknown History Physical Exam Vital Signs and Narrative: Vital Signs: Last Vital Signs Temp 99 F 12/12/20 22:23 Pulse 95 12/12/20 23:19 Resp 18 12/12/20 23:19 BP 95/44 L 12/12/20 23:19 Pulse Ox 96 12/12/20 23:19 Body Mass Index 43.4 Gen: Appears be in no acute distress; obese. On supplemental oxygen. Breathing comfortable. Speaks in full sentences. Obese HEENT: NCAT, Moist mucosa. Pulmonary: Vesicular breath sounds, fair air entry; no wheezing noted. CVS: Normal S1-S2 Abdomen: BS+, Soft, Nontender Extremities: Warm well perfused; left great toe noted to have mildly swollen; had healing granulation tissue; no erythema; no warmth or tenderness noted. Neuro: Alert and awake.. Grossly nonfocal Results Labs CBC and Chem 7: 12/15/20 06:14 12/18/20 06:56 Labs: Laboratory Results - last 24 hr 12/12/20 12/12/20 12/12/20 19:37 19:38 19:38 MCV 93.4 MCH 31.8 MCHC 34.0 RDW 12.2 Plt Count 159 L D MPV 9.1 L Immature Gran % (Auto) 0.8 H Neut % (Auto) 91.0 H Lymph % (Auto) 1.6 L [place] % (Auto) 6.3 Eos % (Auto) 0.0 Baso % (Auto) 0.3 Lymph # (Auto) 0.3 L [place] # (Auto) 1.0 Eos # (Auto) 0.0 Baso # (Auto) 0.0 Abs Immat Gran (auto) 0.12 H Absolute Neuts (auto) 14.2 H Absolute Nucleated RBC 0.000 Nucleated RBC % (auto) 0.0 Smear Tech's Comments VERIFIED ESR Anion Gap 15 Estim Creat Clear Calc 116.7 Estimated GFR > 60 Random Glucose 157 H Lactic Acid Lactic Acid Fup @ 2Hr Calcium 9.3 D Total Bilirubin 0.6 AST 28 ALT 47 H Alkaline Phosphatase 57 C-Reactive Protein Total Protein 7.0 Albumin 4.0 COVID-19 (SRINIVASA) Negative COVID-19 Clin Com See Note 12/12/20 12/12/20 12/12/20 20:17 20:17 20:25 MCV MCH MCHC RDW Plt Count MPV Immature Gran % (Auto) Neut % (Auto) Lymph % (Auto) [place] % (Auto) Eos % (Auto) Baso % (Auto) Lymph # (Auto) [place] # (Auto) Eos # (Auto) Baso # (Auto) Abs Immat Gran (auto) Absolute Neuts (auto) Absolute Nucleated RBC Nucleated RBC % (auto) Smear Tech's Comments ESR 2 Anion Gap Estim Creat Clear Calc Estimated GFR Random Glucose Lactic Acid 2.7 H* Lactic Acid Fup @ 2Hr Calcium Total Bilirubin AST ALT Alkaline Phosphatase C-Reactive Protein 5.80 H Total Protein Albumin COVID-19 (SRINIVASA) COVID-19 Clin Com 12/12/20 22:43 MCV MCH MCHC RDW Plt Count MPV Immature Gran % (Auto) Neut % (Auto) Lymph % (Auto) [place] % (Auto) Eos % (Auto) Baso % (Auto) Lymph # (Auto) [place] # (Auto) Eos # (Auto) Baso # (Auto) Abs Immat Gran (auto) Absolute Neuts (auto) Absolute Nucleated RBC Nucleated RBC % (auto) Smear Tech's Comments ESR Anion Gap Estim Creat Clear Calc Estimated GFR Random Glucose Lactic Acid Lactic Acid Fup @ 2Hr 1.7 Calcium Total Bilirubin AST ALT Alkaline Phosphatase C-Reactive Protein Total Protein Albumin COVID-19 (SRINIVASA) COVID-19 Clin Com Imaging Radiologist's Impressions: Impressions Chest X-Ray 12/12/20 19:42 IMPRESSION: Unremarkable examination. Foot X-Ray 12/12/20 20:29 IMPRESSION: Mild multifocal osteoarthritis in the foot, especially at the talonavicular joint and interphalangeal joints. Soft tissue swelling at the great toe. Assessment and Plan (1) Severe sepsis: Status: Acute 55-year-old male with a past medical history of hypertension, diabetes, obesity, diabetic neuropathy, history of diabetic foot ulcer presented to the hospital with a chief complaint of fever. Fever: Unclear source. Patient had prior history of diabetic foot ulcer of the left great toe. Currently does not appear to be infected (patient showed features of left great toe few weeks back when it was infected- he was red, angry-looking with an ulcer in the base); currently has healing granulation tissue. Continue IV vancomycin and cefepime. Id consult for further recommendations. Follow-up cultures Severe sepsis: Patient on presentation noted to be hypotensive, tachycardic, has lactic acidosis. Received fluids at 30 cc/kg in the ER. Blood pressure currently improved. Latest being 108/60. Patient denies any lightheadedness or dizziness. Will closely monitor vitals. Hypoxia: Patient was saturating 88-90% on room air after all the above treatments. Will obtain a CT chest Patient currently not in respiratory distress. Will continue to monitor. Supplemental oxygen p.r.n.. History of diabetes: Will give the patient on Lantus 20 units and insulin sliding scale. History of hypertension: Will hold home lisinopril for now given hypotension on presentation. Tobacco dependence: Counseled on smoking cessation DVT prophylaxis: Lovenox Code status: Full code Off note: Things to follow by the day hospitalist once care resumed at 7:00 a.m. on 12/13/2020: ID recommendations Close monitoring of vitals CT results pending Quality Stroke Does the patient have a stroke diagnosis?: No VTE Prior VTE?: No VTE Risk Level:: Medical - low VTE Device Contraindication: Treatment Not Indicated VTE Drug Contraindication: Treatment Not Indicated
[2020-12-13] MEDS: 0.9 % Sodium Chloride 1,000 ML 100 ML IVCONT (00:18)
[2020-12-13] MEDS: 0.9 % Sodium Chloride Flush 3 ML SYRINGE IVFLUSH ×2 (00:19→20:07)
[2020-12-13] MEDS: Enoxaparin Sodium 40 MG/0.4 ML SYRINGE SUBCUT (01:12)
[2020-12-13 02:21] LABS: Appearance Urine CLEAR; Color Urine YELLOW; Glucose Urine UA 500 MG/DL (NEG); Leukocyte Esterase Urine NEG (NEG); Nitrite Urine NEG (NEG); PH 5.5 (5.0-8.0); UACC Culture Trigger NO; Urine Blood NEG (NEG); Urine Ketones 5 MG/DL (NEG); Urine Protein 1+ MG/DL (NEG-TRACE)
[2020-12-13 02:29] LABS: Amorphous Sediment Urine 1+ /LPF; Granular Casts Urine 0-2 /LPF; Hyaline Casts Urine 0-2 /LPF; Mucus Urine 2+ /LPF; RBC Urine 0 /HPF (0); Squamous Epithelial Cell Urine 1+ /LPF; WBC Urine 0-2 /HPF (0-4)
[2020-12-13] MEDS: Acetaminophen 325 MG TABLET 650 MG PO (03:20)
[2020-12-13] MEDS: vancomycin HCL 1,000 MG in 0.9 % Sodium Chloride 250 ML 270 MG IV ×2 (03:22→14:59)
[2020-12-13] MEDS: iohexoL 350 MG/ML 100 ML INFUS..BTL 85 ML IV (03:53)
--- NOTE | 2020-12-13 05:41 | PC.NURSE ---
PT REPORT FROM [facility] AT 03:00. PT CAME IN BY EMS FROM HOME. SLIGHT DISCOMFORT TO LEFT BIG TOE FOR WEEKS. REPORTS HE WAS CONFUSED AT HOME AND A FEVER OF 105. PT HYPOTENTIVE AND TACHYCARDIC UPON ARRIVAL, SPO2 89% ROOM AIR. PT SPIKED A TEMP 103 RECTAL, AFTER HE WAS FOUND SHIVERING AROUND 3AM. PT'S BP HAS IMPROVED FOLLOWING SEVERAL LITERS OF NORMAL SALINE. PT ABLE TO HYDRATE, HAS ALREADY CONSUMED 2 BIG PITCHERS OF WATER. OUTPUT DOES NOT MATCH INPUT. PT IS UNCOMFORTABLE. RESTLESS DUE TO FEVER. PT'S LATEST TEMPERATURE WAS 100, PT NO LONGER FEELING CHILLED AND IS SWEATING. PT ABLE TO USE URINAL, SEATED ON SIDE OF BED. PT DENIES DIZZINESS OR FEELING LIGHTHEADED. PT HAS REQUESTED AND CONSUMED 3 SANDWICHES.
--- NOTE | 2020-12-13 05:56 | PC.NURSE ---
PT REPORT GIVEN TO RN ON FLOOR, PT READY FOR TRANSPORT.
--- NOTE | 2020-12-13 07:10 | PHA.PROG ---
Admission Date/Time: December 12, 2020 23:58 Indication: FEVER - UNCLEAR SOURCE Weight in k.6 kg Adjusted body weight in K.3 [place] body weight in K.1 Obesity Dosing Indication % IBW: Serum Creatinine - Last 168 Hours 12/12/20 19:38 Creatinine 1.20 Estimated CrCl and GFR - Last 168 Hours 12/12/20 19:38 Estim Creat Clear Calc 116.7 Estimated GFR > 60 Vancomycin Loading Dose: 1000 MG GIVEN IN ED ON 12/12 @2052 AND 1000 MG 12/13 @0322 ( 6 HOURS APART) Current Vancomycin Dosing Regimen: 1000 MG Q 12H Vancomycin Monitoring using AUC goal of 400 - 600 range with trough as surrogate marker: PREDICTED AUC OF 455,TROUGH 12.2 Date and Time for next Vancomycin Level to be drawn: 12/14/20 @0200 Pharmacist Comments on Vancomycin Plan: CALLED AND VERIFIED HT AND WT WITH CHIVO MATIAS. WAITING ON SCR FOR 12/13 Vancomycin dosing will take advantage of [employer] as a clinical decision support tool that uses Bayesian modeling to calculate individual patient's pharmacokinetic parameters and forecast the patient's drug concentration time course with the target goal AUC 24 range of 400 - 600 mg/L/hr.
[2020-12-13 07:18] LABS: Glucose, Whole Blood 142 mg/dL (60-115)
[2020-12-13] MEDS: cefEPime HCl 1 GM in 0.9 % Sodium Chloride 50 ML IV ×3 (07:38→22:31)
[2020-12-13 08:07] LABS: Basophils Percent Auto 0.3 % (0-2); Eosinophils Absolute Auto 0.1 X10*3/uL (0.0-0.4); Eosinophils Percent Auto 0.6 % (0-4); Hematocrit 44.4 % (42-52); Hemoglobin 14.7 g/dl (14.0-18.0); Imm Gran Abs Auto 0.06 X10*3/uL (0.00-0.03); Imm Gran Pct Auto 0.5 % (0.0-0.4); Lymphocytes Absolute Auto 0.4 X10*3/uL (1.2-4.9); Lymphocytes Percent Auto 3.3 % (20-40); MANUAL DIFF FLAG SCAN; Mean Corpuscular HGB Conc 33.1 g/dl (31.0-36.0); Mean Corpuscular Hemoglobin 31.4 pg (27.0-33.0); Mean Corpuscular Volume 94.9 fL (80-98); Mean Platelet Volume 9.4 fL (9.4-12.4); Monocytes Absolute Auto 0.6 X10*3/uL (0.1-1.2); Neutrophils Absolute Auto 10.8 X10*3/uL (2.0-8.3); Neutrophils Percent Auto 90.3 % (45-73); Platelet Count 149 X10*3/uL (160-400); Red Blood Count 4.68 X10*6/uL (4.60-5.80); Red Cell Distribution Width 12.8 % (11.0-16.0); SCAN SMEAR FLAG 1
[2020-12-13 08:20] LABS: Anion Gap 13 (12-20); Blood Urea Nitrogen 22 mg/dL (9-16); Calcium 8.1 mg/dL (8.4-10.2); Carbon Dioxide 25 mmol/L (22-29); Chloride 103 mmol/L (96-108); Creatinine Clr Calc Pharmacy 134.1; Estimated Glomerular Filt Rate > 60; Glucose Random 142 mg/dL (60-115); Potassium 4.5 mmol/L (3.3-5.1); Sodium 136 mmol/L (135-145)
--- NOTE | 2020-12-13 08:40 | PHA.MEDREC ---
Pharmacy Consult ? Medication Reconciliation Pharmacy has completed the medication reconciliation. I spoke to the patient who states he is allergic to bee stings and PCN. He states he was taking metformin before the CT Scan along with Lantus.
[2020-12-13 08:41] LABS: SLIDE REVIEW VERIFIED
--- NOTE | 2020-12-13 09:52 | MHC.CM.PN ---
pt lives c in their home. he reports that he is independent in his care. his can help him if he needs it and will include a ride home at dc. pt denies the need for vna at dc . dc plan is home no svcs. cm to cont. to follow.
[2020-12-13 11:19] LABS: Glucose, Whole Blood 161 mg/dL (60-115)
[2020-12-13] MEDS: Insulin Lispro 100 UNIT/ML 3 ML VIAL SUBCUT ×3 (12:20→20:05)
[2020-12-13] MEDS: guaiFENesin LA 600 MG TAB.ER.12H PO ×2 (14:59→20:05)
[2020-12-13 16:04] LABS: Glucose, Whole Blood 161 mg/dL (60-115)
[2020-12-13] MEDS: iohexoL 350 MG/ML 100 ML INFUS..BTL IV (18:01)
[2020-12-13 19:22] LABS: Glucose, Whole Blood 188 mg/dL (60-115)
[2020-12-13] MEDS: Insulin Glargine,Hum.rec.anlog 100 UNIT/ML 10 ML VIAL 20 UNIT SUBCUT (20:05)
[2020-12-13] MEDS: Gabapentin 300 MG CAPSULE 600 MG PO (20:06)
[2020-12-13] MEDS: Nicotine 21 MG PATCH.TD24 TRANSDERMA (20:08)
--- NOTE | 2020-12-13 21:26 | W.PM.IDCN ---
History of Present Illness Data of Consult Service Date: 12/13/20 Requesting physician: Gee Juan Primary Care Provider: Dm Mckeon MD HPI Reason for consult: left foot redness He presents with weakness and fever to 105 He has hypotension on arrival. He has left foot redness left great toe where ulcer is He has had several recurrences with po antibiotics and sees Wound Care for debridements. Review of Systems Review of Systems: Yes all other systems are reviewed and are negative PMFSH Past Medical History Medical History (Updated 12/14/20 @ 10:51 by Gee Juan MD) Diabetes mellitus Diabetic foot ulcer Diabetic neuropathy HTN (hypertension) Morbid obesity Severe sepsis Social History Social History Household Members: Spouse Housing: House Do you presently have visiting nurse or other home services: No Alcohol intake: never Patient Tobacco Use Status: Current everyday Tobacco user Tobacco use type: Cigarette Cigarette Packs Per Day: 1 Cigarettes Per Day: 20.0 Years Smoked: 40 Substance Use Type: Marijuana service: No Current occupational status: unemployed Meds Allergies Allergy/AdvReac Type Severity Reaction Status Date / Time bee pollen [BEE STINGS] Allergy Unknown UNKNOWN Verified 12/12/20 19:52 Penicillins Allergy Unknown Unknown Verified 12/13/20 08:37 Active Medications: Current Medications Acetaminophen (Acetaminophen 325 Mg Tablet) 650 mg PO Q6H PRN PRN Reason: Pain, Mild (Pain Scale 1-3) Last Admin: 12/13/20 03:20 Dose: 650 mg Documented by: Dextrose (Dextrose 50 % 25 Gm/50 Ml Vial) 25 gm IVPUSH Q15M PRN; Protocol PRN Reason: per Hypoglycemia Standing Ord. Enoxaparin Sodium (Enoxaparin Sodium 40 Mg/0.4 Ml Syringe) 40 mg SUBCUT Q24H [facility] Last Admin: 12/13/20 01:12 Dose: 40 mg Documented by: Gabapentin (Gabapentin 300 Mg Capsule) 600 mg PO BEDTIME ZEFERINO Last Admin: 12/13/20 20:06 Dose: 600 mg Documented by: Glucose (Glucose Gel 15 Gm Gel..Gram.) 15 gm PO Q15M PRN; Protocol PRN Reason: per Hypoglycemia Standing Ord. Guaifenesin (Guaifenesin La 600 Mg Tab.Er.12h) 600 mg PO BID [facility] Last Admin: 12/13/20 20:05 Dose: 600 mg Documented by: Cefepime HCl 1 gm/ Sodium (Chloride) 50 mls @ 100 mls/hr IV Q8H [facility] Last Infusion: 12/13/20 14:57 Dose: Infused Documented by: Vancomycin HCl 1,000 mg/ (Sodium Chloride) 270 mls @ 270 mls/hr IV Q12H [facility] Last Infusion: 12/13/20 16:00 Dose: Infused Documented by: Insulin Glargine (Insulin Glargine,Hum.Rec.Anlog 100 Unit/Ml 10 Ml Vial) 20 unit SUBCUT BEDTIME [facility] Last Admin: 12/13/20 20:05 Dose: 20 unit Documented by: Insulin Human Lispro (Insulin Lispro 100 Unit/Ml 3 Ml Vial) 0 unit SUBCUT QIDACHS [facility]; Protocol Last Admin: 12/13/20 20:05 Dose: 2 unit Documented by: Melatonin (Melatonin 3 Mg Tablet) 6 mg PO BEDTIME PRN PRN Reason: Insomnia Nicotine (Nicotine 21 Mg Patch.Td24) 21 mg TRANSDERMA DAILY [facility] Last Admin: 12/13/20 20:08 Dose: 21 mg Documented by: Pharmacy Consult (Consult Rx Perform Med Rec) 1 each MISCELLANE ONCE PRN PRN Reason: Consult order Pharmacy Consult (Consult Rx Vancomycin Dosing) 1 each MISCELLANE DAILY PRN PRN Reason: Consult order Senna (Sennosides 8.6 Mg Tablet) 17.2 mg PO BEDTIME PRN PRN Reason: Constipation Sodium Chloride (0.9 % Sodium Chloride Flush 3 Ml Syringe) 3 ml IVFLUSH QSHIFT [facility] Last Admin: 12/13/20 20:07 Dose: 3 ml Documented by: Home Medications Medication Instructions Recorded Confirmed Last Taken Type canagliflozin 300 mg tablet 1 tab PO DAILY 12/13/20 12/13/20 Unknown History (Invokana) gabapentin 300 mg capsule 600 mg PO BEDTIME 12/13/20 12/13/20 Unknown History hydrochlorothiazide 25 mg tablet 1 tab PO DAILY 12/13/20 12/13/20 Unknown History insulin glargine 100 unit/mL (3 51 unit SUBCUT DAILY 12/13/20 12/13/20 Unknown History mL) subcutaneous pen (Lantus Solostar U-100 Insulin) lisinopril 20 mg tablet 1 tab PO BID 12/13/20 12/13/20 Unknown History metformin 1,000 mg tablet 1 tab PO BID 12/13/20 12/13/20 Unknown History eqlnxolafzxy-emwdfkag-zfyvov tablet 1 tab PO DAILY 12/13/20 12/13/20 Unknown History omega-3 fatty acids 1,000 mg PO DAILY 12/13/20 12/13/20 Unknown History Physical Exam Vital Signs: Vital Signs: Last Vital Signs Temp 99.4 F 12/13/20 19:16 Pulse 97 12/13/20 19:16 Resp 18 12/13/20 19:16 BP 129/63 12/13/20 19:16 Pulse Ox 92 12/13/20 19:16 Body Mass Index 46.9 Const: General: cooperative HENMT: Head: Yes normal to inspection Mouth: Normal oral and palatal mucosa present Resp: Effort & Inspection: normal respiratory effort Cardio: Rate: regular rate Rhythm: regular rhythm GI: Palpation (GI): Soft to palpation and nontender Extrem: Other: redness and swelling left great toe with ulcer plantar Results Labs CBC & Chem 7: 12/15/20 06:14 12/18/20 06:56 Labs: Short CBC 12/13/20 Range/Units 07:54 WBC 12.0 H (4.8-10.8) X10*3/uL Hgb 14.7 (14.0-18.0) g/dl Hct 44.4 (42-52) % Plt Count 149 L (160-400) X10*3/uL BMP 12/13/20 07:54 Sodium 136 Potassium 4.5 Chloride 103 Carbon Dioxide 25 BUN 22 H Creatinine 1.09 Calcium 8.1 L D Urine 12/13/20 Range/Units 02:10 Urine Color YELLOW Urine Appearance CLEAR Urine pH 5.5 (5.0-8.0) Ur Specific [place] 1.020 (1.005-1.025) Urine Protein 1+ H (NEG-TRACE) MG/DL Urine Glucose (UA) 500 H (NEG) MG/DL Microbiology Microbiology Results: Microbiology 12/12/20 20:17 Blood - Venous Blood Culture - Preliminary Gram positive cocci 12/12/20 19:47 Blood - Venous Blood Culture - Preliminary Prelim: GPC Gram Stain only Assessment and Plan (1) Cellulitis: Status: Acute He has cellulitis with gas foot He has ulcer Although it doesnt show osteomyelitis on CT there is concern over deep infection Would continue Vancomycin and Cefepime at this time Would have Vascular see patient due to possible gas in toe. There is suspicion for deep infection even with low ESR He may need six weeks Vancomycin and Levaquin with two weeks Metronidazole.
[2020-12-14] MEDS: Enoxaparin Sodium 40 MG/0.4 ML SYRINGE SUBCUT (00:18)
[2020-12-14 02:25] LABS: Vancomycin Trough 3.3 mcg/mL (10.0-20.0)
[2020-12-14] MEDS: vancomycin HCL 1,000 MG in 0.9 % Sodium Chloride 250 ML 270 MG IV (02:29)
[2020-12-14 03:47] VITALS: BP 152/81; PULSE 99; RESP 19; TEMP 36.7; O2SAT 92
--- NOTE | 2020-12-14 04:42 | PC.NURSE ---
At 2:20 am pt. alerted me to his left great toe bleeding. Area was cleaned and a band aid was placed on the area. Pt reports no pain in toe.
[2020-12-14] MEDS: cefEPime HCl 1 GM in 0.9 % Sodium Chloride 50 ML IV ×3 (05:47→22:35)
[2020-12-14 06:28] LABS: Uric Acid 5.9 mg/dL (3.4-7.0)
[2020-12-14 07:08] VITALS: BP 155/90; PULSE 68; RESP 20; TEMP 37.5; O2SAT 93
[2020-12-14 07:15] LABS: Glucose, Whole Blood 166 mg/dL (60-115)
--- NOTE | 2020-12-14 07:30 | CA_ITS ---
Transthoracic Echocardiogram Patient (Last, First, Middle): Jeff Romero C Gender: Male Date of : 1965 Age: 55 Procedure Date: 12/14/2020 Procedure Type: Transthoracic Echocardiogram [place] [facility] [place] Height: 195.58 cm Weight: 179.17 kg BSA: 2.99 m2 Heart Rate: bpm BP: 152 / 81 mmHg Dry Talc Racker: BHAVYA Suresh MD: Gee Juan MD Symptoms: gram positive bacteremia Study Quality: Technically Difficult/Contrast Conclusions: - Technically limited study. - In limited views LV and RV function appears preserved. - RWMA not excluded. - Limited assessment of cardiac valves. Findings Procedure Information Contrast agent, definity, is being given per protocol without apparent complications. Left Ventricle Normal left ventricular size, thickness, and systolic function. The visually estimated ejection fraction is between 55-60%. Regional wall motion abnormalities can not be excluded due to suboptimal endocardial definition. Diastolic function is normal for age. Right Ventricle The right ventricle was not well visualized. Atria Both atria are normal in size. Aortic Valve The aortic valve was not well visualized. There is no aortic valve stenosis. There is no aortic valve regurgitation. Mitral Valve The mitral valve was not well visualized. Pulmonic Valve The pulmonic valve was not well visualized. Tricuspid Valve The tricuspid valve was not well visualized. Great Vessels There is mild dilatation of the ascending aorta. Venous The inferior vena cava was not well visualized. Pericardium/Pleural There is no evidence of pericardial effusion. Prior Study Comparison No prior study available for comparison. Measurements 2D Linear Measurements IVSd: 1.08 0.6-0.9/0.6-1.0 cm LVIDd: 5.55 3.9-5.3/4.2-5.9 cm LVIDd Index: 1.86 2.4-3.2/2.2-3.1 cm/m2 LVIDs: 4.21 2.0-3.6 cm LVPWd: 1.09 0.7-1.1 cm Ao Root: 3.70 2.1-3.5 cm LA Diam: 4.40 2.7-3.8/3.0-4.0 cm LAIDs Index: 1.47 1.5-2.3 cm/m2 LV Mass: 300.71 67-162/88-224 g LV Mass Index: 100.57 43-95/49-115 g/m2 LVOT Diam: 2.30 3.0+(-)1.3 cm Mitral Valve MV Pk E: 0.90 MV PK A: 0.75 MV Decel Time: 206.00 E/A: 1.20 E'Lateral: 11.40 E'Medial: 9.46 E/E' Med: 9.50 E/E' Lat: 7.90 PHT: 60.00 MVA PHT: 3.67 Decel [place]: 4.36 Aortic Valve AoV Pk Vijay: 1.62 AoV Mn Vijay: 1.17 AoV VTI: 0.27 AoV Pk Grad: 10.00 Aov Mn Grad: 6.00 CARYL Cont.VTI: 2.24 LVOT LVOT Pk Vijay: 0.84 LVOT Mn Vijay: 0.60 LVOT VTI: 0.15 LVOT Pk Grad: 3.00 LVOT Mn Grad: 2.00 LVOT Diam: 2.30 LVOT Area: 4.15 Diastolic Function MV Pk E: 0.90 MV Pk A: 0.75 E/A: 1.20 E'Medial: 9.46 E/E' Med: 9.50 E' Laterial: 11.40 E/E' Lat: 7.90 Right Ventricle TAPSE (mm): 2.01 TVS' Vijay: 11.10 Tricuspid Valve RA Press: 8.00 Great Vessels Aorta Ao Root-2D: 3.70 2.0-3.7 cm Ao Asc: 3.70 2.1-3.4 cm Updated in Other Vendor System with Status of Final Jerry Turner MD electronically signed on 12/14/2020 8:45:37 PM with status of Final
[2020-12-14] MEDS: Insulin Lispro 100 UNIT/ML 3 ML VIAL SUBCUT ×3 (07:37→16:33)
[2020-12-14] MEDS: guaiFENesin LA 600 MG TAB.ER.12H PO ×2 (07:48→20:24)
[2020-12-14] MEDS: Nicotine 21 MG PATCH.TD24 TRANSDERMA (07:48)
[2020-12-14] MEDS: 0.9 % Sodium Chloride Flush 3 ML SYRINGE IVFLUSH ×3 (07:48→20:29)
[2020-12-14 08:44] LABS: Creatinine Clr Calc Pharmacy 180.4; Estimated Glomerular Filt Rate > 60
--- NOTE | 2020-12-14 09:42 | P.CDIC_ITS ---
CDI Concurrent Query Documentation Clarification: PHYSICIAN'S DOCUMENTATION REQUEST Date of Query: 12/14/20 0943 Patient Name: Jeff Romero Admit Date: 12/12/20 Dear Doctor, A review of the medical record indicates additional documentation may be needed. Please review below and update the documentation accordingly. Clinical Indicators: Risk Factors/Clinical Indicators/Treatments Sepsis Diabetes with left great toe ulcer. ID: Cellulitis with gas foot. IV Vancomycin, Levaquin. POC glucose 188 H Insulin 20 units subcu. Please clarify the following regarding Diabetes Mellitus (DM): Type/Etiology: * Type I DM * Type II DM * Other type of DM (please specify) * Unable to determine Complications of DM: Cellulitis/left toe ulcer * Hypoglycemia * Hyperglycemia * Inadequately controlled, poorly controlled, uncontrolled * Other complication ? please specify * Unable to determine Use of terms such as suspected, likely, concern for, or probable (associated with a specific diagnosis that is being evaluated, monitored, or treated as if it exists) are acceptable and can be coded in the inpatient setting, when documented at the time of discharge. Thank you, Margo Ch [facility], CDIS Extension: [phone] Please use your independent medical judgment in providing your response. THIS QUERY IS PART OF THE PERMANENT MEDICAL RECORD Provider Response: Other Other Diagnosis: DM 2 associated with foot ulcer
--- NOTE | 2020-12-14 10:19 | PHA.PROG ---
Admission Date/Time: December 12, 2020 23:58 Indication: Skin infection Weight in k.6 kg Adjusted body weight in K.3 [place] body weight in K.1 Obesity Dosing Indication % IBW: Serum Creatinine - Last 168 Hours 12/12/20 12/13/20 12/14/20 19:38 07:54 05:38 Creatinine 1.20 1.09 0.81 Estimated CrCl and GFR - Last 168 Hours 12/12/20 12/13/20 12/14/20 19:38 07:54 05:38 Estim Creat Clear Calc 116.7 134.1 180.4 Estimated GFR > 60 > 60 > 60 Vancomycin Loading Dose: Current Vancomycin Dosing Regimen: Vancomycin Monitoring using AUC goal of 400 - 600 range with trough as surrogate marker: Date and Time for next Vancomycin Level to be drawn: Vancomycin Trough 3.3 mcg/mL (10.0-20.0) L 12/14/20 01:51 Pharmacist Comments on Vancomycin Plan: Increase dose since level was 3.3 after getting two doses of vanco 6 hours apart. Per pt is at risk for deep infection. Patients renal function has also improved. Increase dose, watch scr. Vancomycin dosing will take advantage of [employer] as a clinical decision support tool that uses Bayesian modeling to calculate individual patient's pharmacokinetic parameters and forecast the patient's drug concentration time course with the target goal AUC 24 range of 400 - 600 mg/L/hr.
--- NOTE | 2020-12-14 10:35 | P.PNIM_ITS ---
Subjective Subjective Date of Service: 12/14/20 Interval History: cc: fever, chills interval history: still febrile yesterday, but overall feeling better Respiratory Respiratory: Reports no additional respiratory complaints Gastrointestinal Gastrointestinal: Reports no additional gastrointestinal complaints Physical Exam Vital Signs: Vital Signs: Last Vital Signs Temp 99.5 F 12/14/20 07:08 Pulse 68 12/14/20 07:08 Resp 20 12/14/20 07:08 BP 155/90 H 12/14/20 07:08 Pulse Ox 93 12/14/20 07:08 Body Mass Index 46.9 General: AO X 3, no acute distress Resp: CTA bilateral, no accessory muscles used CVS: S1,S2,RRR GI: soft, non tender, non distended Neuro: motor grossly intact, alert Psych: appropriate affect, appropriate insight left first toe ulcer and erythema Objective Data Active Medications Acetaminophen (Acetaminophen 325 Mg Tablet) 650 mg PO Q6H PRN PRN Reason: Pain, Mild (Pain Scale 1-3) Last Admin: 12/13/20 03:20 Dose: 650 mg Documented by: ORACIO Dextrose (Dextrose 50 % 25 Gm/50 Ml Vial) 25 gm IVPUSH Q15M PRN; Protocol PRN Reason: per Hypoglycemia Standing Ord. Enoxaparin Sodium (Enoxaparin Sodium 40 Mg/0.4 Ml Syringe) 40 mg SUBCUT Q24H [facility] Last Admin: 12/14/20 00:18 Dose: 40 mg Documented by: GRAYSON Gabapentin (Gabapentin 300 Mg Capsule) 600 mg PO BEDTIME [facility] Last Admin: 12/13/20 20:06 Dose: 600 mg Documented by: GRAYSON Glucose (Glucose Gel 15 Gm Gel..Gram.) 15 gm PO Q15M PRN; Protocol PRN Reason: per Hypoglycemia Standing Ord. Guaifenesin (Guaifenesin La 600 Mg Tab.Er.12h) 600 mg PO BID [facility] Last Admin: 12/14/20 07:48 Dose: 600 mg Documented by: MAX Cefepime HCl 1 gm/ Sodium (Chloride) 50 mls @ 100 mls/hr IV Q8H [facility] Last Infusion: 12/14/20 06:16 Dose: 0 mls/hr Documented by: GRAYSON Vancomycin HCl 1,500 mg/ (Sodium Chloride) 500 mls @ 333.333 mls/hr IV Q12H [facility] Insulin Glargine (Insulin Glargine,Hum.Rec.Anlog 100 Unit/Ml 10 Ml Vial) 20 unit SUBCUT BEDTIME [facility] Last Admin: 12/13/20 20:05 Dose: 20 unit Documented by: GRAYSON Insulin Human Lispro (Insulin Lispro 100 Unit/Ml 3 Ml Vial) 0 unit SUBCUT QIDACHS [facility]; Protocol Last Admin: 12/14/20 07:37 Dose: 2 unit Documented by: MAX Melatonin (Melatonin 3 Mg Tablet) 6 mg PO BEDTIME PRN PRN Reason: Insomnia Nicotine (Nicotine 21 Mg Patch.Td24) 21 mg TRANSDERMA DAILY [facility] Last Admin: 12/14/20 07:48 Dose: 21 mg Documented by: MAX Pharmacy Consult (Consult Rx Perform Med Rec) 1 each MISCELLANE ONCE PRN PRN Reason: Consult order Pharmacy Consult (Consult Rx Vancomycin Dosing) 1 each MISCELLANE DAILY PRN PRN Reason: Consult order Senna (Sennosides 8.6 Mg Tablet) 17.2 mg PO BEDTIME PRN PRN Reason: Constipation Sodium Chloride (0.9 % Sodium Chloride Flush 3 Ml Syringe) 3 ml IVFLUSH QSHIFT [facility] Last Admin: 12/14/20 07:48 Dose: 3 ml Documented by: MAX Labs CBC & Chem 7: 12/13/20 07:54 12/14/20 05:38 Labs: Laboratory Results - last 24 hr 12/13/20 12/13/20 12/13/20 11:15 16:01 19:18 Estim Creat Clear Calc Estimated GFR POC Glucose 161 H 161 H 188 H Uric Acid Vancomycin Trough 12/14/20 12/14/20 12/14/20 01:51 05:38 07:08 Estim Creat Clear Calc 180.4 Estimated GFR > 60 POC Glucose 166 H Uric Acid 5.9 Vancomycin Trough 3.3 L Microbiology Microbiology Results: Microbiology 12/12/20 19:47 Blood Culture - Preliminary Blood - Venous Prelim: GPC Gram Stain only 12/12/20 20:17 Blood Culture - Preliminary Blood - Venous Gram positive cocci Assessment and Plan (1) Cellulitis: Status: Acute (2) Diabetes mellitus: Status: Acute (3) Diabetic foot ulcer: Status: Acute (4) Morbid obesity: Status: Acute (5) HTN (hypertension): Status: Acute (6) Severe sepsis: Status: Acute (7) Bacteremia: Status: Acute Assessment and Plan: 55M presented with fever, chills severe sepsis due to Diabetic foot ulcer complicated by gram positive bacteremia continue vanco, cefepime, follow up cultures, ID, vascular monitor vanc trough DM basal bolus insulin HTN lisinopril initially held for hypotension, monitor, restart if BP persistently high acute hyoxic repsiraotry failure transient, due to sepsis, no primary pulmonary process at this time, now on room air dvt prophylaxis - lovenox full code Quality Stroke Does the patient have a stroke diagnosis?: No VTE Prior VTE?: No VTE Risk Level:: Medical - low VTE Device Contraindication: Treatment Not Indicated VTE Drug Contraindication: Treatment Not Indicated
[2020-12-14 11:06] VITALS: BP 158/77; PULSE 96; RESP 19; TEMP 38; O2SAT 94
[2020-12-14 11:11] LABS: Glucose, Whole Blood 177 mg/dL (60-115)
--- NOTE | 2020-12-14 13:22 | PM.CNGS ---
History of Present Illness Consult details Consult date: 12/14/20 Reason for consult: wound care Narrative: Pleasant morbidly obese diabetic 55-year-old gentleman presented the hospital with acute onset sepsis from a nonhealing left great toe ulcer. He had been in his usual state of health with this recurrent ulcer of the left great toe it has been going on and off for the last 6 months and he reports that it has closed nearly 5 times and then subsequently reopened is. This time he had high fever and noted some chills which caused his to call paramedics and he was subsequently admitted to the hospital. He has been worked up by the medical team. He is currently on antibiotics. He reports he is doing much better. He now presents for vascular evaluation. Review of Systems ENT: Reports Normal hearing present Neurologic: Reports Normal hearing present [facility] Past Medical History Medical History (Updated 12/14/20 @ 10:51 by Gee Juan MD) Diabetes mellitus Diabetic foot ulcer Diabetic neuropathy HTN (hypertension) Morbid obesity Severe sepsis Social History Social History Household Members: Spouse Housing: House Do you presently have visiting nurse or other home services: No Alcohol intake: never Patient Tobacco Use Status: Current everyday Tobacco user Tobacco use type: Cigarette Cigarette Packs Per Day: 1 Cigarettes Per Day: 20.0 Years Smoked: 40 Smoked in Last 30 Days: Yes Patient Interested in Nicotine Replacement: Yes Patient Given Instructions on How to Stop Smoking: No (pt states not interested in quitting) Use of substances other than those prescribed or required for medical reasons: No Substance Use Type: Marijuana Substance Use Type Other:: edibles daily Substance Use Frequency: Daily Last Used Substance: Days (ago) Currently Displaying Signs/Symptoms of Drug Intoxication Withdrawal: No Have you been hit, kicked, punched, or otherwise hurt by someone within the past year? If so, by whom?: No Do you feel safe in your current relationship?: Yes Is there a partner from a previous relationship who is making you feel unsafe now?: No Are you made to feel afraid or neglected: No Advance Directives: No Advance Directives Information Provided: Yes Do you have thoughts of harming others: None Do you have a plan to hurt others: No Plan Recently lost weight without trying: No Nutrition Risks: No Nutritional Risk Poor oral hygiene: No service: No Current occupational status: unemployed Meds Allergies Allergy/AdvReac Type Severity Reaction Status Date / Time bee pollen [BEE STINGS] Allergy Unknown UNKNOWN Verified 12/12/20 19:52 Penicillins Allergy Unknown Unknown Verified 12/13/20 08:37 Active Medications: Current Medications Acetaminophen (Acetaminophen 325 Mg Tablet) 650 mg PO Q6H PRN PRN Reason: Pain, Mild (Pain Scale 1-3) Last Admin: 12/13/20 03:20 Dose: 650 mg Documented by: Dextrose (Dextrose 50 % 25 Gm/50 Ml Vial) 25 gm IVPUSH Q15M PRN; Protocol PRN Reason: per Hypoglycemia Standing Ord. Enoxaparin Sodium (Enoxaparin Sodium 40 Mg/0.4 Ml Syringe) 40 mg SUBCUT Q24H [facility] Last Admin: 12/14/20 00:18 Dose: 40 mg Documented by: Gabapentin (Gabapentin 300 Mg Capsule) 600 mg PO BEDTIME [facility] Last Admin: 12/13/20 20:06 Dose: 600 mg Documented by: Glucose (Glucose Gel 15 Gm Gel..Gram.) 15 gm PO Q15M PRN; Protocol PRN Reason: per Hypoglycemia Standing Ord. Guaifenesin (Guaifenesin La 600 Mg Tab.Er.12h) 600 mg PO BID [facility] Last Admin: 12/14/20 07:48 Dose: 600 mg Documented by: Cefepime HCl 1 gm/ Sodium (Chloride) 50 mls @ 100 mls/hr IV Q8H [facility] Last Infusion: 12/14/20 06:16 Dose: Infused Documented by: Vancomycin HCl 1,500 mg/ (Sodium Chloride) 500 mls @ 333.333 mls/hr IV Q12H [facility] Insulin Glargine (Insulin Glargine,Hum.Rec.Anlog 100 Unit/Ml 10 Ml Vial) 20 unit SUBCUT BEDTIME [facility] Last Admin: 12/13/20 20:05 Dose: 20 unit Documented by: Insulin Human Lispro (Insulin Lispro 100 Unit/Ml 3 Ml Vial) 0 unit SUBCUT QIDACHS [facility]; Protocol Last Admin: 12/14/20 11:25 Dose: 2 unit Documented by: Melatonin (Melatonin 3 Mg Tablet) 6 mg PO BEDTIME PRN PRN Reason: Insomnia Nicotine (Nicotine 21 Mg Patch.Td24) 21 mg TRANSDERMA DAILY [facility] Last Admin: 12/14/20 07:48 Dose: 21 mg Documented by: Pharmacy Consult (Consult Rx Perform Med Rec) 1 each MISCELLANE ONCE PRN PRN Reason: Consult order Pharmacy Consult (Consult Rx Vancomycin Dosing) 1 each MISCELLANE DAILY PRN PRN Reason: Consult order Senna (Sennosides 8.6 Mg Tablet) 17.2 mg PO BEDTIME PRN PRN Reason: Constipation Sodium Chloride (0.9 % Sodium Chloride Flush 3 Ml Syringe) 3 ml IVFLUSH QSHIFT [facility] Last Admin: 12/14/20 07:48 Dose: 3 ml Documented by: Home Medications Medication Instructions Recorded Confirmed Last Taken Type canagliflozin 300 mg tablet 1 tab PO DAILY 12/13/20 12/13/20 Unknown History (Invokana) gabapentin 300 mg capsule 600 mg PO BEDTIME 12/13/20 12/13/20 Unknown History hydrochlorothiazide 25 mg tablet 1 tab PO DAILY 12/13/20 12/13/20 Unknown History insulin glargine 100 unit/mL (3 51 unit SUBCUT DAILY 12/13/20 12/13/20 Unknown History mL) subcutaneous pen (Lantus Solostar U-100 Insulin) lisinopril 20 mg tablet 1 tab PO BID 12/13/20 12/13/20 Unknown History metformin 1,000 mg tablet 1 tab PO BID 12/13/20 12/13/20 Unknown History ajtudtzlsxte-phanbnno-nuzjan tablet 1 tab PO DAILY 12/13/20 12/13/20 Unknown History omega-3 fatty acids 1,000 mg PO DAILY 12/13/20 12/13/20 Unknown History Physical Exam Vital Signs: Vital Signs: Last Vital Signs Temp 100.4 F 12/14/20 11:06 Pulse 96 12/14/20 11:06 Resp 19 12/14/20 11:06 BP 158/77 H 12/14/20 11:06 Pulse Ox 94 12/14/20 11:06 Body Mass Index 46.9 Const: General: cooperative, healthy appearing and comfortable Orientation/consciousness: oriented to person, oriented to place and oriented to time HENMT: Head: Yes normal to inspection Neck: Neck: Yes normal visual inspection Carotids: no bruits Chest: Chest palpation & inspection: normal inspection of the chest Resp: Effort & Inspection: normal respiratory effort and able to speak in complete sentences Auscultation: clear to auscultation bilaterally, no crackles, no rales, no rhonchi and no wheezes Cardio: Rate: regular rate Rhythm: regular rhythm Heart sounds: S1 normal heart sound present and S2 normal heart sound present Bruits: no carotid bruits Peripheral pulses: Peripheral pulses 2+ throughout GI: Inspection: Yes normal to inspection Skin: Wounds: wounds noted (Left great toe approximately 0.5 cm in diameter) Hair: normal Neuro: General: oriented to person, oriented to place and oriented to time Cranial nerves: Yes CN's II-XII intact bilaterally and Yes Normal hearing present Cognition (Neuro): normal cognition Motor exam (neuro): 5/5 motor strength present throughout Extrem: Other: venous exam: No significant superficial varicosities or spider telangiectasias, minimal edema General: No clubbing, No cyanosis and No edema Psych: Appearance: grossly normal Mental Status: mental status grossly normal Speech and movement: Normal speech and movement present Results Labs Result diagrams: 12/13/20 07:54 12/14/20 05:38 Labs: Abnormal lab results 12/13/20 12/13/20 12/14/20 Range/Units 16:01 19:18 01:51 POC Glucose 161 H 188 H (60-115) mg/dL Vancomycin Trough 3.3 L (10.0-20.0) mcg/mL 12/14/20 12/14/20 Range/Units 07:08 11:07 POC Glucose 166 H 177 H (60-115) mg/dL Vancomycin Trough (10.0-20.0) mcg/mL BMP 12/14/20 05:38 Creatinine 0.81 Urine 12/13/20 Range/Units 02:10 Urine Color YELLOW Urine Appearance CLEAR Urine pH 5.5 (5.0-8.0) Ur Specific [place] 1.020 (1.005-1.025) Urine Protein 1+ H (NEG-TRACE) MG/DL Urine Glucose (UA) 500 H (NEG) MG/DL All other labs normal. Assessment and Plan (1) Diabetic foot ulcer: Status: Acute In short patient has nonhealing left great toe ulcer. The patient has palpable arterial pulses. In addition has had prior venous insufficiency testing which has shown to be negative. I do believe that this is truly a diabetic foot ulcer. I did discuss with him the importance of meticulous wound care and offloading as much as possible. The patient will follow up with us on an as-needed basis. Thank you for allowing us to assist in his care. If there are any questions or concerns please do not hesitate to contact us Procedures Date of Service Date of Service: 12/14/20
[2020-12-14] MEDS: vancomycin HCL 1,500 MG in 0.9 % Sodium Chloride 500 ML 333.33 MG IV (14:40)
[2020-12-14 15:33] VITALS: BP 150/81; PULSE 88; RESP 18; TEMP 36.6; O2SAT 93
[2020-12-14 16:18] LABS: Glucose, Whole Blood 196 mg/dL (60-115)
--- NOTE | 2020-12-14 18:03 | PC.NURSE ---
DENIES PAIN. WOUND RN BEDSIDE TO DRESS WOUND: SILVER ALGINATE, GAUZE AND GAUZE ROLL. CURRENT DRESSING C/D/I.
[2020-12-14 20:00] VITALS: BP 158/80; PULSE 90; RESP 16; TEMP 37.3; O2SAT 93
[2020-12-14] MEDS: Gabapentin 300 MG CAPSULE 600 MG PO (20:24)
[2020-12-14] MEDS: Insulin Glargine,Hum.rec.anlog 100 UNIT/ML 10 ML VIAL 20 UNIT SUBCUT (20:25)
[2020-12-15] VITALS (7 sets, daily range): BP systolic 137–172; BP diastolic 64–88; PULSE 82–99; RESP 18–22; TEMP 36–38.4; O2SAT 90–94
[2020-12-15] MEDS: vancomycin HCL 1,500 MG in 0.9 % Sodium Chloride 500 ML 333.33 MG IV ×2 (01:49→13:47)
[2020-12-15] MEDS: Enoxaparin Sodium 40 MG/0.4 ML SYRINGE SUBCUT (01:51)
[2020-12-15] MEDS: Acetaminophen 325 MG TABLET 650 MG PO (01:53)
[2020-12-15] MEDS: cefEPime HCl 1 GM in 0.9 % Sodium Chloride 50 ML IV (06:06)
[2020-12-15 07:05] LABS: Hematocrit 44.1 % (42-52); Hemoglobin 14.6 g/dl (14.0-18.0); Mean Corpuscular HGB Conc 33.1 g/dl (31.0-36.0); Mean Corpuscular Hemoglobin 31.4 pg (27.0-33.0); Mean Corpuscular Volume 94.8 fL (80-98); Mean Platelet Volume 10.1 fL (9.4-12.4); Platelet Count 118 X10*3/uL (160-400); Red Blood Count 4.65 X10*6/uL (4.60-5.80); Red Cell Distribution Width 12.5 % (11.0-16.0); White Blood Count 8.9 X10*3/uL (4.8-10.8)
[2020-12-15 07:13] LABS: Glucose, Whole Blood 183 mg/dL (60-115)
[2020-12-15 07:14] LABS: Anion Gap 13 (12-20); Blood Urea Nitrogen 11 mg/dL (9-16); Calcium 8.3 mg/dL (8.4-10.2); Carbon Dioxide 25 mmol/L (22-29); Chloride 102 mmol/L (96-108); Creatinine Clr Calc Pharmacy 189.8; Estimated Glomerular Filt Rate > 60; Glucose Fasting 164 mg/dL (60-99); Potassium 4.1 mmol/L (3.3-5.1); Sodium 136 mmol/L (135-145)
[2020-12-15] MEDS: guaiFENesin LA 600 MG TAB.ER.12H PO ×2 (08:00→21:23)
[2020-12-15] MEDS: Nicotine 21 MG PATCH.TD24 TRANSDERMA (08:01)
[2020-12-15] MEDS: Insulin Lispro 100 UNIT/ML 3 ML VIAL SUBCUT ×4 (08:02→21:24)
[2020-12-15] MEDS: 0.9 % Sodium Chloride Flush 3 ML SYRINGE IVFLUSH ×3 (08:17→21:24)
[2020-12-15 11:10] LABS: Glucose, Whole Blood 167 mg/dL (60-115)
--- NOTE | 2020-12-15 11:10 | MHC.CM.PN ---
dc plan is home c picc, iv abx x 6wks via bioscripts, and hvna. refs for vna and abx vendor have been made. cm to cont. to follow.
[2020-12-15 16:11] LABS: Glucose, Whole Blood 210 mg/dL (60-115)
[2020-12-15 20:47] LABS: Glucose, Whole Blood 214 mg/dL (60-115)
[2020-12-15] MEDS: Gabapentin 300 MG CAPSULE 600 MG PO (21:23)
[2020-12-15] MEDS: Insulin Glargine,Hum.rec.anlog 100 UNIT/ML 10 ML VIAL 20 UNIT SUBCUT (21:23)
[2020-12-16] VITALS (7 sets, daily range): BP systolic 136–172; BP diastolic 65–97; PULSE 80–93; RESP 16–20; TEMP 35.9–37.4; O2SAT 88–97
[2020-12-16 01:25] LABS: Vancomycin Trough 5.3 mcg/mL (10.0-20.0)
[2020-12-16] MEDS: Enoxaparin Sodium 40 MG/0.4 ML SYRINGE SUBCUT (02:45)
[2020-12-16] MEDS: vancomycin HCL 1,500 MG in 0.9 % Sodium Chloride 500 ML 333.33 MG IV (02:45)
--- NOTE | 2020-12-16 06:58 | PHA.PROG ---
Admission Date/Time: December 12, 2020 23:58 Indication: Weight in k.6 kg Adjusted body weight in K KG Robson body weight in K KG Obesity Dosing Indication % IBW: Serum Creatinine - Last 168 Hours 12/12/20 12/13/20 12/14/20 19:38 07:54 05:38 Creatinine 1.20 1.09 0.81 12/15/20 06:14 Creatinine 0.77 Estimated CrCl and GFR - Last 168 Hours 12/12/20 12/13/20 12/14/20 19:38 07:54 05:38 Estim Creat Clear Calc 116.7 134.1 180.4 Estimated GFR > 60 > 60 > 60 12/15/20 06:14 Estim Creat Clear Calc 189.8 Estimated GFR > 60 Vancomycin Loading Dose: Current Vancomycin Dosing Regimen: 1500 MG Q12H Vancomycin Monitoring using AUC goal of 400 - 600 range with trough as surrogate marker: Date and Time for next Vancomycin Level to be drawn: Vancomycin Trough 5.3 mcg/mL (10.0-20.0) L 12/16/20 00:48 Pharmacist Comments on Vancomycin Plan: NEW LEVEL DRAWN OVERNIGHT; PATIENT STILL WELL BELOW WHERE WE NEED TO BE FOR THERAPEUTIC EFFECT (5.5). GOING TO CONTACT ID MD AT A MORE REASONABLE HOUR TO CONSIDER CHANGING PATIENT TO DAPTOMYCIN. Vancomycin dosing will take advantage of [employer] as a clinical decision support tool that uses Bayesian modeling to calculate individual patient's pharmacokinetic parameters and forecast the patient's drug concentration time course with the target goal AUC 24 range of 400 - 600 mg/L/hr.
[2020-12-16 07:42] LABS: Glucose, Whole Blood 193 mg/dL (60-115)
[2020-12-16 08:19] LABS: Creatinine Clr Calc Pharmacy 189.8; Estimated Glomerular Filt Rate > 60
[2020-12-16] MEDS: Insulin Lispro 100 UNIT/ML 3 ML VIAL SUBCUT (08:25)
[2020-12-16] MEDS: 0.9 % Sodium Chloride Flush 3 ML SYRINGE IVFLUSH ×2 (08:25→20:31)
[2020-12-16] MEDS: Nicotine 21 MG PATCH.TD24 TRANSDERMA (08:26)
[2020-12-16] MEDS: guaiFENesin LA 600 MG TAB.ER.12H PO (08:26)
--- NOTE | 2020-12-16 15:12 | HO.PM.IMPN ---
Subjective Subjective Date of Service: 12/15/20 Interval History: cc: fever interval history: back to baseline Cardiovascular Cardiovascular: Reports no additional cardiovascular complaints Respiratory Respiratory: Reports no additional respiratory complaints Physical Exam Vital Signs: Vital Signs: Last Vital Signs Temp 97.2 F 12/16/20 12:00 Pulse 88 12/16/20 12:00 Resp 19 12/16/20 12:00 BP 162/93 H 12/16/20 12:00 Pulse Ox 93 12/16/20 12:00 Body Mass Index 46.9 General: AO X 3, no acute distress Resp:? CTA bilateral, no accessory muscles used CVS: S1,S2,RRR GI: soft, non tender, non distended Neuro:? motor grossly intact, alert Psych: appropriate affect, appropriate insight? left first toe ulcer and erythema Objective Data Active Medications Acetaminophen (Acetaminophen 325 Mg Tablet) 650 mg PO Q6H PRN PRN Reason: Pain, Mild (Pain Scale 1-3) Last Admin: 12/15/20 01:53 Dose: 650 mg Documented by: GRAYSON Dextrose (Dextrose 50 % 25 Gm/50 Ml Vial) 25 gm IVPUSH Q15M PRN; Protocol PRN Reason: per Hypoglycemia Standing Ord. Enoxaparin Sodium (Enoxaparin Sodium 40 Mg/0.4 Ml Syringe) 40 mg SUBCUT Q24H [facility] Last Admin: 12/16/20 02:45 Dose: 40 mg Documented by: DERIAN Gabapentin (Gabapentin 300 Mg Capsule) 600 mg PO BEDTIME [facility] Last Admin: 12/15/20 21:23 Dose: 600 mg Documented by: DERIAN Glucose (Glucose Gel 15 Gm Gel..Gram.) 15 gm PO Q15M PRN; Protocol PRN Reason: per Hypoglycemia Standing Ord. Guaifenesin (Guaifenesin La 600 Mg Tab.Er.12h) 600 mg PO BID [facility] Last Admin: 12/16/20 08:26 Dose: 600 mg Documented by: EDE Daptomycin 750 mg/ Sodium (Chloride) 65 mls @ 130 mls/hr IV Q24H [facility] Last Infusion: 12/16/20 11:33 Dose: 0 mls/hr Documented by: EDE Insulin Glargine (Insulin Glargine,Hum.Rec.Anlog 100 Unit/Ml 10 Ml Vial) 20 unit SUBCUT BEDTIME [facility] Last Admin: 12/15/20 21:23 Dose: 20 unit Documented by: DERIAN Insulin Human Lispro (Insulin Lispro 100 Unit/Ml 3 Ml Vial) 0 unit SUBCUT QIDACHS [facility]; Protocol Last Admin: 12/16/20 11:32 Dose: Not Given Documented by: EDE Non-Admin Reason: Patient Refused Melatonin (Melatonin 3 Mg Tablet) 6 mg PO BEDTIME PRN PRN Reason: Insomnia Nicotine (Nicotine 21 Mg Patch.Td24) 21 mg TRANSDERMA DAILY [facility] Last Admin: 12/16/20 08:26 Dose: 21 mg Documented by: EDE Pharmacy Consult (Consult Rx Perform Med Rec) 1 each MISCELLANE ONCE PRN PRN Reason: Consult order Senna (Sennosides 8.6 Mg Tablet) 17.2 mg PO BEDTIME PRN PRN Reason: Constipation Sodium Chloride (0.9 % Sodium Chloride Flush 3 Ml Syringe) 3 ml IVFLUSH QSHIFT [facility] Last Admin: 12/16/20 12:58 Dose: Not Given Documented by: EDE Non-Admin Reason: Patient Refused Labs CBC & Chem 7: 12/15/20 06:14 12/16/20 06:33 Labs: Laboratory Results - last 24 hr 12/15/20 12/15/20 12/16/20 16:02 20:43 00:48 Estim Creat Clear Calc Estimated GFR POC Glucose 210 H 214 H Vancomycin Trough 5.3 L 12/16/20 12/16/20 06:33 07:35 Estim Creat Clear Calc 189.8 Estimated GFR > 60 POC Glucose 193 H Vancomycin Trough Microbiology Microbiology Results: Microbiology 12/12/20 20:17 Blood Culture - Final Blood - Venous Methicillin Res Staph Aureus Streptococcus mitis/oralis 12/12/20 19:47 Blood Culture - Final Blood - Venous Methicillin Res Staph Aureus Streptococcus mitis/oralis 12/14/20 05:38 Blood Culture - Preliminary Blood - Venous No growth after 48 hours. 12/14/20 05:38 Blood Culture - Preliminary Blood - Venous No growth after 48 hours. Assessment and Plan (1) Cellulitis: Status: Acute (2) Diabetes mellitus: Status: Acute (3) Diabetic foot ulcer: Status: Acute (4) Morbid obesity: Status: Acute (5) HTN (hypertension): Status: Acute (6) Severe sepsis: Status: Acute (7) Bacteremia: Status: Acute Assessment and Plan: 55M presented with fever, chills severe sepsis due to Diabetic foot ulcer complicated by gram positive bacteremia continue vanco follow up cultures monitor vanc trough DM basal bolus insulin HTN lisinopril initially held for hypotension, monitor, restart if BP persistently high acute hyoxic repsiraotry failure transient, due to sepsis, no primary pulmonary process at this time, now on room air dvt prophylaxis - lovenox full code Quality Stroke Does the patient have a stroke diagnosis?: No VTE Prior VTE?: No VTE Risk Level:: Medical - low VTE Device Contraindication: Treatment Not Indicated VTE Drug Contraindication: Treatment Not Indicated
--- NOTE | 2020-12-16 15:15 | HO.PM.IMPN ---
Subjective Subjective Date of Service: 12/16/20 Interval History: cc: fever interval history: back to baseline Cardiovascular Cardiovascular: Reports no additional cardiovascular complaints Respiratory Respiratory: Reports no additional respiratory complaints Physical Exam Vital Signs: Vital Signs: Last Vital Signs Temp 97.2 F 12/16/20 12:00 Pulse 88 12/16/20 12:00 Resp 19 12/16/20 12:00 BP 162/93 H 12/16/20 12:00 Pulse Ox 93 12/16/20 12:00 Body Mass Index 46.9 General: AO X 3, no acute distress Resp:? CTA bilateral, no accessory muscles used CVS: S1,S2,RRR GI: soft, non tender, non distended Neuro:? motor grossly intact, alert Psych: appropriate affect, appropriate insight? left first toe ulcer and erythema Objective Data Active Medications Acetaminophen (Acetaminophen 325 Mg Tablet) 650 mg PO Q6H PRN PRN Reason: Pain, Mild (Pain Scale 1-3) Last Admin: 12/15/20 01:53 Dose: 650 mg Documented by: GRAYSON Dextrose (Dextrose 50 % 25 Gm/50 Ml Vial) 25 gm IVPUSH Q15M PRN; Protocol PRN Reason: per Hypoglycemia Standing Ord. Enoxaparin Sodium (Enoxaparin Sodium 40 Mg/0.4 Ml Syringe) 40 mg SUBCUT Q24H [facility] Last Admin: 12/16/20 02:45 Dose: 40 mg Documented by: DERIAN Gabapentin (Gabapentin 300 Mg Capsule) 600 mg PO BEDTIME [facility] Last Admin: 12/15/20 21:23 Dose: 600 mg Documented by: DERIAN Glucose (Glucose Gel 15 Gm Gel..Gram.) 15 gm PO Q15M PRN; Protocol PRN Reason: per Hypoglycemia Standing Ord. Guaifenesin (Guaifenesin La 600 Mg Tab.Er.12h) 600 mg PO BID [facility] Last Admin: 12/16/20 08:26 Dose: 600 mg Documented by: EDE Daptomycin 750 mg/ Sodium (Chloride) 65 mls @ 130 mls/hr IV Q24H [facility] Last Infusion: 12/16/20 11:33 Dose: 0 mls/hr Documented by: EDE Insulin Glargine (Insulin Glargine,Hum.Rec.Anlog 100 Unit/Ml 10 Ml Vial) 20 unit SUBCUT BEDTIME [facility] Last Admin: 12/15/20 21:23 Dose: 20 unit Documented by: DERIAN Insulin Human Lispro (Insulin Lispro 100 Unit/Ml 3 Ml Vial) 0 unit SUBCUT QIDACHS [facility]; Protocol Last Admin: 12/16/20 11:32 Dose: Not Given Documented by: EDE Non-Admin Reason: Patient Refused Melatonin (Melatonin 3 Mg Tablet) 6 mg PO BEDTIME PRN PRN Reason: Insomnia Nicotine (Nicotine 21 Mg Patch.Td24) 21 mg TRANSDERMA DAILY [facility] Last Admin: 12/16/20 08:26 Dose: 21 mg Documented by: EDE Pharmacy Consult (Consult Rx Perform Med Rec) 1 each MISCELLANE ONCE PRN PRN Reason: Consult order Senna (Sennosides 8.6 Mg Tablet) 17.2 mg PO BEDTIME PRN PRN Reason: Constipation Sodium Chloride (0.9 % Sodium Chloride Flush 3 Ml Syringe) 3 ml IVFLUSH QSHIFT [facility] Last Admin: 12/16/20 12:58 Dose: Not Given Documented by: EDE Non-Admin Reason: Patient Refused Labs CBC & Chem 7: 12/15/20 06:14 12/16/20 06:33 Labs: Laboratory Results - last 24 hr 12/15/20 12/15/20 12/16/20 16:02 20:43 00:48 Estim Creat Clear Calc Estimated GFR POC Glucose 210 H 214 H Vancomycin Trough 5.3 L 12/16/20 12/16/20 06:33 07:35 Estim Creat Clear Calc 189.8 Estimated GFR > 60 POC Glucose 193 H Vancomycin Trough Microbiology Microbiology Results: Microbiology 12/12/20 20:17 Blood Culture - Final Blood - Venous Methicillin Res Staph Aureus Streptococcus mitis/oralis 12/12/20 19:47 Blood Culture - Final Blood - Venous Methicillin Res Staph Aureus Streptococcus mitis/oralis 12/14/20 05:38 Blood Culture - Preliminary Blood - Venous No growth after 48 hours. 12/14/20 05:38 Blood Culture - Preliminary Blood - Venous No growth after 48 hours. Assessment and Plan (1) Cellulitis: Status: Acute (2) Diabetes mellitus: Status: Acute (3) Diabetic foot ulcer: Status: Acute (4) Morbid obesity: Status: Acute (5) HTN (hypertension): Status: Acute (6) Severe sepsis: Status: Acute (7) Bacteremia: Status: Acute Assessment and Plan: 55M presented with fever, chills severe sepsis due to Diabetic foot ulcer complicated by MRSA and strep mitis/oralis bacteremia Blood cultures from 12/14/20 Difficult to get proper Vanco trough, therefore switched to daptomycin Plan for 6 weeks of IV, day 3 of 42, end 01/24/2021. awaiting picc, plan to do antibiotics at home echo unremarkable DM basal bolus insulin HTN bp now elevated, will restart hctz, lisinopril dvt prophylaxis - lovenox full code Quality Stroke Does the patient have a stroke diagnosis?: No VTE Prior VTE?: No VTE Risk Level:: Medical - low VTE Device Contraindication: Treatment Not Indicated VTE Drug Contraindication: Treatment Not Indicated
[2020-12-16] MEDS: Gabapentin 300 MG CAPSULE 600 MG PO (20:31)
[2020-12-16] MEDS: lisinopriL 20 MG TABLET PO (20:31)
[2020-12-17 03:35] VITALS: BP 168/83; PULSE 81; RESP 18; TEMP 36.4; O2SAT 95
[2020-12-17 08:00] VITALS: BP 168/89; PULSE 79; RESP 18; TEMP 36.4; O2SAT 95
--- NOTE | 2020-12-17 10:23 | P.PNIM_ITS ---
Subjective Subjective Date of Service: 12/17/20 Interval History: cc: toe redness, fever interval history: feels well Cardiovascular Cardiovascular: Reports no additional cardiovascular complaints Respiratory Respiratory: Reports no additional respiratory complaints Physical Exam Vital Signs: Vital Signs: Last Vital Signs Temp 97.6 F 12/17/20 08:00 Pulse 79 12/17/20 08:00 Resp 18 12/17/20 08:00 BP 168/89 H 12/17/20 08:00 Pulse Ox 95 12/17/20 08:00 Body Mass Index 46.9 General: AO X 3, no acute distress Resp:? CTA bilateral, no accessory muscles used CVS: S1,S2,RRR GI: soft, non tender, non distended Neuro:? motor grossly intact, alert Psych: appropriate affect, appropriate insight? left first toe ulcer and erythema Objective Data Active Medications Acetaminophen (Acetaminophen 325 Mg Tablet) 650 mg PO Q6H PRN PRN Reason: Pain, Mild (Pain Scale 1-3) Last Admin: 12/15/20 01:53 Dose: 650 mg Documented by: GRAYSON Dextrose (Dextrose 50 % 25 Gm/50 Ml Vial) 25 gm IVPUSH Q15M PRN; Protocol PRN Reason: per Hypoglycemia Standing Ord. Enoxaparin Sodium (Enoxaparin Sodium 40 Mg/0.4 Ml Syringe) 40 mg SUBCUT Q24H [facility] Last Admin: 12/16/20 20:33 Dose: Not Given Documented by: DERIAN Non-Admin Reason: Patient Refused Gabapentin (Gabapentin 300 Mg Capsule) 600 mg PO BEDTIME [facility] Last Admin: 12/16/20 20:31 Dose: 600 mg Documented by: DERIAN Glucose (Glucose Gel 15 Gm Gel..Gram.) 15 gm PO Q15M PRN; Protocol PRN Reason: per Hypoglycemia Standing Ord. Guaifenesin (Guaifenesin La 600 Mg Tab.Er.12h) 600 mg PO BID [facility] Last Admin: 12/16/20 20:32 Dose: Not Given Documented by: DERIAN Non-Admin Reason: Patient Refused Hydrochlorothiazide (Hydrochlorothiazide 25 Mg Tablet) 25 mg PO DAILY [facility]; Protocol Daptomycin 750 mg/ Sodium (Chloride) 65 mls @ 130 mls/hr IV Q24H [facility] Last Infusion: 12/16/20 11:33 Dose: 0 mls/hr Documented by: EDE Insulin Glargine (Insulin Glargine,Hum.Rec.Anlog 100 Unit/Ml 10 Ml Vial) 20 unit SUBCUT BEDTIME [facility] Last Admin: 12/16/20 20:33 Dose: Not Given Documented by: DERIAN Non-Admin Reason: not given pt refusing POC Insulin Human Lispro (Insulin Lispro 100 Unit/Ml 3 Ml Vial) 0 unit SUBCUT QIDACHS [facility]; Protocol Last Admin: 12/17/20 07:58 Dose: Not Given Documented by: HENRY Non-Admin Reason: Patient Refused Lisinopril (Lisinopril 20 Mg Tablet) 20 mg PO BID [facility]; Protocol Last Admin: 12/16/20 20:31 Dose: 20 mg Documented by: DERIAN Melatonin (Melatonin 3 Mg Tablet) 6 mg PO BEDTIME PRN PRN Reason: Insomnia Nicotine (Nicotine 21 Mg Patch.Td24) 21 mg TRANSDERMA DAILY [facility] Last Admin: 12/16/20 08:26 Dose: 21 mg Documented by: EDE Pharmacy Consult (Consult Rx Perform Med Rec) 1 each MISCELLANE ONCE PRN PRN Reason: Consult order Senna (Sennosides 8.6 Mg Tablet) 17.2 mg PO BEDTIME PRN PRN Reason: Constipation Sodium Chloride (0.9 % Sodium Chloride Flush 3 Ml Syringe) 3 ml IVFLUSH QSHIFT [facility] Last Admin: 12/16/20 20:31 Dose: 3 ml Documented by: DERIAN Labs CBC & Chem 7: 12/15/20 06:14 12/16/20 06:33 Microbiology Microbiology Results: Microbiology 12/12/20 20:17 Blood Culture - Final Blood - Venous Methicillin Res Staph Aureus Streptococcus mitis/oralis 12/12/20 19:47 Blood Culture - Final Blood - Venous Methicillin Res Staph Aureus Streptococcus mitis/oralis 12/14/20 05:38 Blood Culture - Preliminary Blood - Venous No growth after 48 hours. 12/14/20 05:38 Blood Culture - Preliminary Blood - Venous No growth after 48 hours. Assessment and Plan (1) Cellulitis: Status: Acute (2) Diabetes mellitus: Status: Acute (3) Diabetic foot ulcer: Status: Acute (4) Morbid obesity: Status: Acute (5) HTN (hypertension): Status: Acute (6) Severe sepsis: Status: Acute (7) Bacteremia: Status: Acute Assessment and Plan: 55M presented with fever, chills severe sepsis due to Diabetic foot ulcer complicated by MRSA and strep jules is/oralis bacteremia Blood cultures from 12/14/20 Difficult to get proper Vanco trough, therefore switched to daptomycin Plan for 6 weeks of IV, day 4 of 42, end 01/24/2021. awaiting picc, plan to do antibiotics at home echo unremarkable DM basal bolus insulin HTN hctz, lisinopril dvt prophylaxis - lovenox full code Quality Stroke Does the patient have a stroke diagnosis?: No VTE Prior VTE?: No VTE Risk Level:: Medical - low VTE Device Contraindication: Treatment Not Indicated VTE Drug Contraindication: Treatment Not Indicated
[2020-12-17] MEDS: hydroCHLOROthiazide 25 MG TABLET PO (11:07)
[2020-12-17] MEDS: lisinopriL 20 MG TABLET PO ×2 (11:07→21:21)
[2020-12-17] MEDS: 0.9 % Sodium Chloride Flush 3 ML SYRINGE IVFLUSH ×3 (11:08→21:23)
[2020-12-17] MEDS: Nicotine 21 MG PATCH.TD24 TRANSDERMA (11:08)
[2020-12-17] MEDS: guaiFENesin LA 600 MG TAB.ER.12H PO (11:08)
--- NOTE | 2020-12-17 11:18 | MHC.CM.PN ---
Male 55 DX DM toe ulcer/infection DP is IV ABX @ home. 12/15/20 Contact [facility] for pt's financial responsibility 6 Weeks Dapto. There is no cost to patient. No response from [facility] thru [employer]. The Prescription has been faxed. Met with the patient who is extremely anxious to leave. T/W explained the process for IV ABX administration. T/W will continue to reach out to the [facility] for confirmation SOC.
[2020-12-17 11:54] VITALS: BP 173/93; PULSE 73; RESP 18; TEMP 36.4; O2SAT 94
--- NOTE | 2020-12-17 12:25 | PC.NURSE ---
Pt noncompliant with hospital policy and left floor 08:00 to meet his at the front door of the hospital. Nurse stated expectation to stay on the floor due to IV placement and hospital policy. Patient left the unit and went to meet his . Security and Executive Coach called and made aware. made aware. Pt returned to room 08:20. Nurse reinforced teaching of hospital safety and hospital environment. Pt seen by case management and explained plan to place IV PICC line when procedure can be scheduled. Pt received IV antibiotics Daptomycin 750mg. Upon ending the infusion 12:10, patient was reminded of care plan and expectation to stay on medical floor. Pt again left the floor and stated he was going outside and will return. Security called and cook room supervisor notified. notified
[2020-12-17 15:09] VITALS: BP 175/93; PULSE 73; RESP 20; TEMP 36.4; O2SAT 94
--- NOTE | 2020-12-17 21:20 | PC.NURSE ---
Addendum entered by Mitchell Jones RN 12/17/20 21:41: Patient then agreed to take lantus even though refusing POC blood sugars. Patient reports takes 51 units a night and does not test blood sugar at home. Patient having large snack - 20 units given. Unable to scan wristband for meds - have to enter manually - patient refusing new name band at this time. Patient educated about plan for PICC line in morning. Patient cooperative with plan. Original Note: Patient refusing vital signs at 2000 & POC - patient reports being very frustrated about not getting pICC on Friday and having to stay through weekend. Attempted to encourage and educate patient about need to check BP r/t being so high at 3pm reading, but patient still refusing. Patient did agree to take lisinopril & gabapentin and able to flush IV. Reports does not want vital signs done through night. Holding insulin r/t unable to check blood sugars.
[2020-12-17] MEDS: Gabapentin 300 MG CAPSULE 600 MG PO (21:22)
[2020-12-17] MEDS: Insulin Glargine,Hum.rec.anlog 100 UNIT/ML 10 ML VIAL 20 UNIT SUBCUT (21:36)
[2020-12-18 03:03] VITALS: BP 156/84; PULSE 90; RESP 16; TEMP 36.1; O2SAT 92
[2020-12-18 06:58] VITALS: BP 168/83; PULSE 85; RESP 19; TEMP 36.2; O2SAT 92
[2020-12-18 07:46] LABS: Estimated Glomerular Filt Rate > 60
[2020-12-18 08:09] VITALS: BP 168/83; PULSE 85
[2020-12-18] MEDS: 0.9 % Sodium Chloride Flush 3 ML SYRINGE IVFLUSH (08:09)
[2020-12-18] MEDS: lisinopriL 20 MG TABLET PO (08:09)
[2020-12-18] MEDS: guaiFENesin LA 600 MG TAB.ER.12H PO (08:09)
[2020-12-18] MEDS: hydroCHLOROthiazide 25 MG TABLET PO (08:10)
--- NOTE | 2020-12-18 10:21 | W.MHC.F2F ---
Service Date Service Date: 12/18/20 Encounter Date of encounter: 12/18/20 Reasons for Services Reason for senior living: CV/CP assess and/or care, medication management, medication treatment and teach disease management Homebound: Leaving the home is medically contraindicated at this time without the asist of a device and/or another person due th the listed conditions above and below. Certification: Based on the above findings, I certify that this patient is confined to the home and needs intermittent senior living care, physical therapy and/or speech therapy, or continues to need occupational therapy. The patient is under my care, and I have initiated the establishment of the plan of care. The patient will be followed by a physician who will periodically review the plan of care.
--- NOTE | 2020-12-18 10:22 | PM.DS ---
DS: Providers Provider Date of Service: 12/18/20 Date of admission: 12/12/20 23:58 Primary care physician: Dm Mckeon MD Consults: 12/13/20 02:14 Consult to Infectious Diseases Routine Consulting Provider: Tali Russo Reason for consultation: hx DM foot infection; now p/w Fever/hypotension; ?source 12/14/20 09:28 Consult to Vascular Surgery Routine Consulting Provider: Carroll Antunez Reason for consultation: Diabetic toe infection, bacterenmia, gas on CT DS: Diagnosis Discharge Diagnosis (1) Cellulitis: Status: Acute (2) Diabetes mellitus: Status: Acute (3) Diabetic foot ulcer: Status: Acute (4) Morbid obesity: Status: Acute (5) HTN (hypertension): Status: Acute (6) Severe sepsis: Status: Acute (7) Bacteremia: Status: Acute DS: Summary Hospital Course Hospital Course: Patient was admitted for severe sepsis due to diabetic foot ulcer complicated by MRSA and strep mitis/oralis bacteremia. Patient was initially treated with vancomycin, but due to difficulty maintaining therapeutic trough this was changed to daptomycin. Patient's blood cultures have been negative since 12/14/2020, and he has been afebrile since that date as well. He is feeling much better. His diabetic foot ulcer was seen by vascular who recommended continuing systemic treatment with IV antibiotics, patient did not require any debridement, his pulses were good. Patient will continue IV daptomycin and tele 01/24/2021. He will complete antibiotic course at home. He should have weekly labs and follow-up with infectious disease. Time Spent with Patient Time attestation: Total time spent providing and/or coordinating discharge services: Discharge coordination time: Greater than 30 minutes Quality: Stroke Does the patient have a stroke diagnosis?: No Physical Exam Vital Signs: Vital Signs: Last Vital Signs Temp 97.2 F 12/18/20 06:58 Pulse 85 12/18/20 08:09 Resp 19 12/18/20 06:58 BP 168/83 H 12/18/20 08:09 Pulse Ox 92 12/18/20 06:58 Body Mass Index 46.9 General: AO X 3, no acute distress Resp:? CTA bilateral, no accessory muscles used CVS: S1,S2,RRR GI: soft, non tender, non distended Neuro:? motor grossly intact, alert Psych: appropriate affect, appropriate insight? left first toe ulcer and erythema DS: Data Data Completed and Pending Labs on day of discharge: Laboratory Results - last 24 hr 12/18/20 06:56 Creatinine 0.79 Estim Creat Clear Calc 185.0 Estimated GFR > 60 Preliminary micro results at discharge 12/14/20 05:38 Blood Culture - Preliminary Blood - Venous No growth after 48 hours. 12/14/20 05:38 Blood Culture - Preliminary Blood - Venous No growth after 48 hours. Discharge Plan Discharge Patient Disposition: Home Health Service Discharge Diagnosis: sepsis, bacteremia Referrals: Tali Russo MD [Physician] - 1 Week Dm Mckeon MD [Primary Care Provider] - 1 Week Discharge Medications: New daptomycin 500 mg recon soln 750 mg IV Q24H 37 Days Qty: 10 RF: 0 Continued lisinopril 20 mg tablet 1 tab PO BID RF: 0 gabapentin 300 mg capsule 600 mg PO BEDTIME RF: 0 hydrochlorothiazide 25 mg tablet 1 tab PO DAILY RF: 0 Lantus Solostar U-100 Insulin 100 unit/mL (3 mL) insulin pen 51 unit subcut DAILY RF: 0 Invokana 300 mg tablet 1 tab PO DAILY RF: 0 metformin 1,000 mg tablet 1 tab PO BID RF: 0 [id number]-wuvviezd-ugitvk Tablet 1 tab PO DAILY RF: 0 omega-3 fatty acids Capsule 1,000 mg PO DAILY RF: 0 Discharge Orders: Discharge Order (Routine); Ordered 12/18/20 Ordered By: Gee Juan Diet: advance to usual diet Activity on Discharge: As tolerated Stand Alone Forms: Patient Portal Discharge page Care Plan Goals: Recovery Health Concerns: Bacteremia Plan of Treatment: 6 weeks dapto IV, weekly labs, follow up with ID Assessment: see above
--- NOTE | 2020-12-18 11:05 | HO.RADPN ---
RADIOLOGY Narrative Narrative: 5Fr single lumen right Picc line placed. catheter tip in SVC. Catheter length 60 cm.
== END 2020-12-18 12:47 | disposition home health service (06) | DRG 720 ==
LOC: HO.ED 21:17 → HO.EDOVER 12-13 00:03 → HO.IMC 12-13 05:26
PROVIDERS: Admitting Provider Hospitalist; Emergency Provider Emergency Medicine Emergency Medical Services; PCP Internal Medicine; Visit Provider Internal Medicine
DX: A41.02 Sepsis due to Methicillin resistant Staphylococcus aureus (principal); J96.01 Acute respiratory failure with hypoxia; L97.529 Non-pressure chronic ulcer of other part of left foot with unspecified severity; E11.40 Type 2 diabetes mellitus with diabetic neuropathy, unspecified; E11.621 Type 2 diabetes mellitus with foot ulcer; L03.032 Cellulitis of left toe; R65.20 Severe sepsis without septic shock; F17.210 Nicotine dependence, cigarettes, uncomplicated; Z20.822 Contact with and (suspected) exposure to COVID-19; E66.01 Morbid (severe) obesity due to excess calories; Z68.42 Body mass index [BMI] 45.0-49.9, adult; Z23 Encounter for immunization; Z71.6 Tobacco abuse counseling; Z88.0 Allergy status to penicillin; Z79.4 Long term (current) use of insulin; Z79.899 Other long term (current) drug therapy
CPT/HCPCS: 36415; 36573; 71045; 71275; 73620; 73701; 80048; 80053; 80202; 81001; 82565; 82947; 83605; 84550; 85025; 85027; 85652; 86140; 87040; 87077; 87147; 87186; 87205; 87635; 90686; 93005; 93306; 96361; 96365; 96375; 99285; 99291; C1751; J0692; J0878; J1650; J1885; J3370; Q9957; Q9967

== ENCOUNTER 2020-12-25 09:00 | Outpatient (RCR) | payer OTHER, SELFPAY | END 2021-01-16 09:17 | disposition home or self-care (01) | LOC: HO.WCC 09:00 | PROVIDERS: PCP Internal Medicine; Visit Provider Physician Assistant | DX: E11.621 Type 2 diabetes mellitus with foot ulcer (principal); E11.51 Type 2 diabetes mellitus with diabetic peripheral angiopathy without gangrene; L97.522 Non-pressure chronic ulcer of other part of left foot with fat layer exposed; E11.69 Type 2 diabetes mellitus with other specified complication; M86.272 Subacute osteomyelitis, left ankle and foot; E11.40 Type 2 diabetes mellitus with diabetic neuropathy, unspecified; F17.210 Nicotine dependence, cigarettes, uncomplicated; I10 Essential (primary) hypertension; Z79.2 Long term (current) use of antibiotics | CPT/HCPCS: 11042; 99212 ==

== ENCOUNTER 2020-12-26 11:55 | Outpatient (REF) | payer OTHER, SELFPAY ==
[2020-12-26 11:59] LABS: MANUAL DIFF FLAG NO
[2020-12-26 12:08] LABS: Basophils Absolute Auto 0.1 X10*3/uL (0.0-0.2); Basophils Percent Auto 0.7 % (0-2); Eosinophils Absolute Auto 0.2 X10*3/uL (0.0-0.4); Eosinophils Percent Auto 1.8 % (0-4); Hematocrit 50.3 % (42.0-52.0); Hemoglobin 16.7 g/dl (14.0-18.0); Imm Gran Abs Auto 0.04 X10*3/uL (0.00-0.03); Imm Gran Pct Auto 0.5 % (0.0-0.4); Lymphocytes Absolute Auto 2.4 X10*3/uL (1.2-4.9); Lymphocytes Percent Auto 28.2 % (20-40); Mean Corpuscular HGB Conc 33.2 g/dl (31.0-36.0); Mean Corpuscular Hemoglobin 31.2 pg (27.0-33.0); Mean Corpuscular Volume 93.8 fL (80.0-98.0); Mean Platelet Volume 9.6 fL (9.4-12.4); Monocytes Absolute Auto 1.2 X10*3/uL (0.1-1.2); Monocytes Percent Auto 13.8 % (2-11); Neutrophils Absolute Auto 4.6 x10*3/uL (2.0-8.3); Platelet Count 375 X10*3/uL (160-400); Red Blood Count 5.36 X10*6/uL (4.60-5.80); Red Cell Distribution Width 12.1 % (11.0-16.0); White Blood Count 8.3 X10*3/uL (4.8-10.8)
[2020-12-26 12:34] LABS: Alanine Aminotransferase 76 U/L (0-40); Albumin Level 3.9 g/dL (3.5-5.0); Alkaline Phosphatase 70 U/L (39-117); Anion Gap 16 (12-20); Aspartate Amino Transferase 49 U/L (5-37); Bilirubin Total 0.7 mg/dL (0.0-1.0); Blood Urea Nitrogen 15 mg/dL (9-16); C Reactive Protein 0.69 mg/dL (< or = 0.50); Calcium 9.1 mg/dL (8.4-10.2); Carbon Dioxide 26 mmol/L (22-29); Chloride 99 mmol/L (96-108); Estimated Glomerular Filt Rate > 60; Glucose Random 163 mg/dL (60-115); Potassium 5.3 mmol/L (3.3-5.1); Sodium 136 mmol/L (135-145); Total Protein 7.5 g/dL (6.5-8.0)
== END 2020-12-26 11:56 | disposition home or self-care (01) ==
LOC: HO.HVNA 11:55
PROVIDERS: Visit Provider Internal Medicine
DX: A41.02 Sepsis due to Methicillin resistant Staphylococcus aureus (principal)
CPT/HCPCS: 36415; 80053; 85025; 86140

== ENCOUNTER 2021-01-02 18:31 | Outpatient (REF) | payer OTHER, SELFPAY ==
[2021-01-02 18:35] LABS: MANUAL DIFF FLAG NO
[2021-01-02 18:54] LABS: Alanine Aminotransferase 66 U/L (0-40); Albumin Level 3.9 g/dL (3.5-5.0); Alkaline Phosphatase 62 U/L (39-117); Anion Gap 15 (12-20); Aspartate Amino Transferase 44 U/L (5-37); Basophils Absolute Auto 0.1 X10*3/uL (0.0-0.2); Bilirubin Total 0.2 mg/dL (0.0-1.0); Blood Urea Nitrogen 13 mg/dL (9-16); Calcium 9.2 mg/dL (8.4-10.2); Carbon Dioxide 26 mmol/L (22-29); Chloride 101 mmol/L (96-108); Eosinophils Absolute Auto 0.1 X10*3/uL (0.0-0.4); Estimated Glomerular Filt Rate > 60; Glucose Random 134 mg/dL (60-115); Hematocrit 48.9 % (42.0-52.0); Hemoglobin 16.5 g/dl (14.0-18.0); Imm Gran Abs Auto 0.04 X10*3/uL (0.00-0.03); Imm Gran Pct Auto 0.6 % (0.0-0.4); Lymphocytes Absolute Auto 2.4 X10*3/uL (1.2-4.9); Lymphocytes Percent Auto 33.3 % (20-40); Mean Corpuscular HGB Conc 33.7 g/dl (31.0-36.0); Mean Corpuscular Hemoglobin 31.6 pg (27.0-33.0); Mean Corpuscular Volume 93.7 fL (80.0-98.0); Monocytes Absolute Auto 0.9 X10*3/uL (0.1-1.2); Monocytes Percent Auto 12.3 % (2-11); Neutrophils Absolute Auto 3.6 x10*3/uL (2.0-8.3); Neutrophils Percent Auto 50.8 % (45-73); Platelet Count 291 X10*3/uL (160-400); Potassium 4.8 mmol/L (3.3-5.1); Red Blood Count 5.22 X10*6/uL (4.60-5.80); Red Cell Distribution Width 12.3 % (11.0-16.0); Sodium 137 mmol/L (135-145); Total Protein 7.5 g/dL (6.5-8.0); White Blood Count 7.1 X10*3/uL (4.8-10.8)
== END 2021-01-02 18:32 | disposition home or self-care (01) ==
LOC: HO.HVNA 18:31
PROVIDERS: Visit Provider Internal Medicine
DX: A41.02 Sepsis due to Methicillin resistant Staphylococcus aureus (principal)
CPT/HCPCS: 36415; 80053; 82550; 85025

== ENCOUNTER 2021-01-09 11:35 | Outpatient (REF) | payer OTHER, SELFPAY ==
[2021-01-09 11:40] LABS: MANUAL DIFF FLAG NO
[2021-01-09 11:45] LABS: Basophils Percent Auto 0.6 % (0-2); Eosinophils Absolute Auto 0.2 X10*3/uL (0.0-0.4); Eosinophils Percent Auto 2.8 % (0-4); Hematocrit 47.6 % (42.0-52.0); Hemoglobin 15.8 g/dl (14.0-18.0); Imm Gran Abs Auto 0.04 X10*3/uL (0.00-0.03); Imm Gran Pct Auto 0.6 % (0.0-0.4); Lymphocytes Absolute Auto 2.1 X10*3/uL (1.2-4.9); Lymphocytes Percent Auto 29.9 % (20-40); Mean Corpuscular HGB Conc 33.2 g/dl (31.0-36.0); Mean Corpuscular Hemoglobin 31.5 pg (27.0-33.0); Mean Corpuscular Volume 94.8 fL (80.0-98.0); Mean Platelet Volume 9.6 fL (9.4-12.4); Monocytes Absolute Auto 0.9 X10*3/uL (0.1-1.2); Monocytes Percent Auto 12.1 % (2-11); Neutrophils Absolute Auto 3.8 x10*3/uL (2.0-8.3); Platelet Count 189 X10*3/uL (160-400); Red Blood Count 5.02 X10*6/uL (4.60-5.80); Red Cell Distribution Width 12.5 % (11.0-16.0); White Blood Count 7.1 X10*3/uL (4.8-10.8)
[2021-01-09 12:04] LABS: Alanine Aminotransferase 57 U/L (0-40); Albumin Level 3.9 g/dL (3.5-5.0); Alkaline Phosphatase 58 U/L (39-117); Anion Gap 17 (12-20); Aspartate Amino Transferase 44 U/L (5-37); Bilirubin Total 0.3 mg/dL (0.0-1.0); Blood Urea Nitrogen 12 mg/dL (9-16); Calcium 9.4 mg/dL (8.4-10.2); Carbon Dioxide 25 mmol/L (22-29); Chloride 100 mmol/L (96-108); Estimated Glomerular Filt Rate > 60; Glucose Random 262 mg/dL (60-115); Potassium 5.5 mmol/L (3.3-5.1); Sodium 136 mmol/L (135-145); Total Protein 7.6 g/dL (6.5-8.0)
== END 2021-01-09 11:36 | disposition home or self-care (01) ==
LOC: HO.LNP 11:35
PROVIDERS: Visit Provider Internal Medicine
DX: A41.02 Sepsis due to Methicillin resistant Staphylococcus aureus (principal)
CPT/HCPCS: 80053; 82550; 85025

== ENCOUNTER 2021-01-16 10:41 | Outpatient (REF) | payer OTHER, SELFPAY ==
[2021-01-16 10:45] LABS: MANUAL DIFF FLAG NO
[2021-01-16 10:53] LABS: Basophils Percent Auto 0.6 % (0-2); Eosinophils Absolute Auto 0.2 X10*3/uL (0.0-0.4); Eosinophils Percent Auto 2.7 % (0-4); Hematocrit 48.8 % (42.0-52.0); Hemoglobin 16.3 g/dl (14.0-18.0); Imm Gran Abs Auto 0.01 X10*3/uL (0.00-0.03); Imm Gran Pct Auto 0.1 % (0.0-0.4); Lymphocytes Absolute Auto 2.3 X10*3/uL (1.2-4.9); Lymphocytes Percent Auto 33.3 % (20-40); Mean Corpuscular HGB Conc 33.4 g/dl (31.0-36.0); Mean Corpuscular Hemoglobin 31.4 pg (27.0-33.0); Mean Platelet Volume 9.3 fL (9.4-12.4); Monocytes Absolute Auto 1.1 X10*3/uL (0.1-1.2); Neutrophils Absolute Auto 3.4 x10*3/uL (2.0-8.3); Neutrophils Percent Auto 48.3 % (45-73); Platelet Count 211 X10*3/uL (160-400); Red Blood Count 5.19 X10*6/uL (4.60-5.80); Red Cell Distribution Width 12.8 % (11.0-16.0)
[2021-01-16 11:38] LABS: Alanine Aminotransferase 48 U/L (0-40); Albumin Level 3.6 g/dL (3.5-5.0); Alkaline Phosphatase 53 U/L (39-117); Anion Gap 15 (12-20); Aspartate Amino Transferase 37 U/L (5-37); Bilirubin Total 0.4 mg/dL (0.0-1.0); Blood Urea Nitrogen 14 mg/dL (9-16); Calcium 8.8 mg/dL (8.4-10.2); Carbon Dioxide 25 mmol/L (22-29); Chloride 105 mmol/L (96-108); Estimated Glomerular Filt Rate > 60; Glucose Random 175 mg/dL (60-115); Potassium 5.1 mmol/L (3.3-5.1); Sodium 140 mmol/L (135-145); Total Protein 6.9 g/dL (6.5-8.0)
== END 2021-01-16 10:42 | disposition home or self-care (01) ==
LOC: HO.HVNA 10:41
PROVIDERS: Visit Provider Internal Medicine
DX: A41.02 Sepsis due to Methicillin resistant Staphylococcus aureus (principal)
CPT/HCPCS: 36415; 80053; 82550; 85025

== ENCOUNTER 2021-06-14 07:03 | Emergency (ER) | payer OTHER, SELFPAY ==
--- NOTE | ~2021-06-14 | CT_ITS ---
EXAMINATION: CT ABDOMEN AND PELVIS WITHOUT CONTRAST CLINICAL INFORMATION: Right flank pain COMPARISON: CT angiogram chest from 12/13/2020 TECHNIQUE: Multidetector volumetric imaging was performed from the superior aspect of the liver through the pubic symphysis. Sagittal and coronal reformatted images were obtained on the technologist's workstation. This CT examination was performed using dose optimization techniques as appropriate, variously including the following: *Automated exposure control *Adjustment of mA and/or kV according to patient size (this includes techniques or standardized protocols for targeted exams where dose is matched to indication/reason for exam; i.e. extremities or head) *Use of iterative reconstruction technique DLP: 1462 mGy-cm FINDINGS: LUNG BASES: Heart is not enlarged. No pericardial effusion no large pleural effusion. LIVER, GALLBLADDER, AND BILIARY TREE: The liver is enlarged and demonstrates decreased hepatic attenuation suggesting hepatic steatosis with regions of focal fatty sparing adjacent to the gallbladder fossa. No focal hepatic lesion or biliary ductal dilatation is present. Intraluminal gallbladder calculi are noted without wall thickening or pericholecystic fluid PANCREAS: Unremarkable. SPLEEN: Redemonstration of a hypodense focus in the upper pole of the spleen, stable. ADRENAL GLANDS: Unremarkable. KIDNEYS AND URETERS: Nonobstructive calculus in the right renal pole measuring 3 mm without hydronephrosis. No left-sided nephrolithiasis or hydronephrosis. BLADDER: Unremarkable. GASTROINTESTINAL TRACT: Small hiatal hernia. The small and large bowel are unremarkable. The appendix is unremarkable. ABDOMINAL WALL: Small fat filled umbilical hernia. LYMPH NODES: No enlarged lymph nodes per size criteria. VASCULAR: Abdominal aorta is nonaneurysmal. Atherosclerotic calcifications of the abdominal aorta and its branches. PELVIC VISCERA: Prostate measures 5.2 cm with coarse calcifications within its body. OSSEOUS STRUCTURES: Moderate to severe multilevel degenerative changes of the thoracolumbar lumbosacral spine greatest at L4-L5 with disc space narrowing, endplate sclerosis, vacuum disc phenomenon, osteophyte formation, and facet arthropathy. Levocurvature of the upper lumbar spine. No large lytic or blastic lesions are noted. Degenerative changes of the bilateral sacroiliac joints, right greater than left. CT/CT abdomen pelvis wo con IMPRESSION: 1. No acute process of the abdomen and pelvis identified. 2. Enlarged liver with decreased hepatic attenuation suggesting hepatic steatosis with regions of focal fatty sparing adjacent to the gallbladder fossa. 3. Cholelithiasis without acute cholecystitis. 4. Hypodense focus in the superior pole of the spleen, stable. 5. Right-sided nephrolithiasis measuring up to 3 mm without hydronephrosis. 6. Enlarged prostate measuring up to 5.2 cm with coarse calcifications within its body. 7. Moderate to severe multilevel degenerative changes of the thoracolumbar lumbosacral spine greatest at L4-L5.
[2021-06-14 07:07] VITALS: BP 189/103; PULSE 102; RESP 18; TEMP 37.3; O2SAT 100; BMI 45.6
--- NOTE | 2021-06-14 07:12 | ED.BACK ---
HPI - Back Pain/Injury General Chief Complaint: Back Pain/Injury Stated Complaint: lower back pain Time Seen by Provider: 06/14/21 07:11 Source: patient and old records reviewed Mode of arrival: ambulatory Limitations: no limitations History of Present Illness MD elicited complaint: back pain Onset (ago): week(s) (1) Timing: progressively worsening Severity: severe Similar Symptoms Previously: No Quality: sharp Location: lumbar spine Radiation: none Exacerbating factors: movement, walking and coughing/sneezing Relieving factors: none Context: unknown Associated symptoms: denies other symptoms Treatments prior to arrival: NSAIDS Work related injury: No Related Data Home Medications Medication Instructions Recorded Confirmed canagliflozin 300 mg tablet 1 tab PO DAILY 12/13/20 12/13/20 (Invokana) gabapentin 300 mg capsule 600 mg PO BEDTIME 12/13/20 12/13/20 hydrochlorothiazide 25 mg tablet 1 tab PO DAILY 12/13/20 12/13/20 insulin glargine 100 unit/mL (3 51 unit SUBCUT DAILY 12/13/20 12/13/20 mL) subcutaneous pen (Lantus Solostar U-100 Insulin) lisinopril 20 mg tablet 1 tab PO BID 12/13/20 12/13/20 metformin 1,000 mg tablet 1 tab PO BID 12/13/20 12/13/20 ihoaxkdykxyp-nutsiwqj-utfwpf tablet 1 tab PO DAILY 12/13/20 12/13/20 omega-3 fatty acids 1,000 mg PO DAILY 12/13/20 12/13/20 Previous Rx's Medication Instructions Recorded daptomycin 500 mg intravenous 750 mg IV Q24H 37 Days #10 ea 12/17/20 solution diazepam 5 mg tablet (Valium) 5 mg PO TID PRN #12 tab 06/14/21 lidocaine 5 % topical patch 1 patch TOPICAL DAILY PRN #30 ea 06/14/21 (Lidoderm) morphine 15 mg immediate release 15 mg PO Q6H PRN #15 tab 06/14/21 tablet prednisone 20 mg tablet 20 mg PO DAILY 5 Days #5 tab 06/14/21 Allergies Allergy/AdvReac Type Severity Reaction Status Date / Time bee pollen [BEE STINGS] Allergy Unknown UNKNOWN Verified 12/12/20 19:52 Penicillins Allergy Unknown Unknown Verified 12/13/20 08:37 Review of Systems Review of Systems: Constitutional : No Weight loss, No Fever, No Chills, ENT/Mouth : No Hearing loss, No Ear Pain, No Nasal Congestion, No Sinus Pain, No Hoarseness, No sore throat, No Rhinorrhea, No Swallowing Difficulty Cardiovascular : No Chest Pain, No SOB Respiratory : No Cough, No Dyspnea Gastrointestinal : No Nausea, No Vomiting, No Diarrhea, No abdominal Pain, No Hematochezia, No Melena Genitourinary : No Dysuria, No Urinary Frequency, No Hematuria, No Urinary Incontinence, Musculoskeletal : positive back pain Skin : No Skin Lesions, No rash Neuro : No Weakness, No Numbness, No Paresthesias, no loss of bowel or bladder incontinence, no saddle anesthesia All other systems reviewed and are negative [facility] Past Medical History Attestation statement: The following information was validated with the patient. Medical History Diabetes mellitus Diabetic foot ulcer Diabetic neuropathy HTN (hypertension) Morbid obesity Severe sepsis Social History Social History Household Members: Spouse Housing: House Do you presently have visiting nurse or other home services: No Alcohol intake: current Alcohol intake frequency: 0-2 drinks per day Alcohol type: beer Patient Tobacco Use Status: Current everyday Tobacco user Tobacco use type: Cigarette Cigarette Packs Per Day: 1 Cigarettes Per Day: 20.0 Years Smoked: 40 Smoked in Last 30 Days: Yes Use of substances other than those prescribed or required for medical reasons: Yes Substance Use Type: Marijuana Advance Directives: No Advance Directives Information Provided: No service: No Current occupational status: unemployed Physical Exam Vital Signs: Vital Signs: Last Vital Signs Temp 99.1 F 06/14/21 07:07 Pulse 96 06/14/21 07:30 Resp 20 06/14/21 07:30 BP 144/82 H 06/14/21 08:12 Pulse Ox 94 06/14/21 07:30 BMI result Body Mass Index 45.6 Appearance: Alert. Oriented X3. No acute distress. Eyes: Pupils equal, round and reactive to light. ENT: Pharynx normal. Neck: Normal inspection. Neck supple. CVS: Normal heart rate and rhythm. Pulses normal. Respiratory: No respiratory distress. Breath sounds normal. Abdomen: Soft and nontender. obese Back: localized ttp along R iliac crest into posterior lower lumbar area no midline ttp Skin: Skin warm and dry. Normal skin color. Normal skin turgor. Extremities: No lower extremity edema. No calf ttp Neuro: Oriented X 3. No motor deficit. No sensory deficit. antalgic gait, L5 5/5 in RLE, 2+ DP pulse in RLE 2+ DTR in achilles and patella in RLE, SILT both inner thigh Course Course Course Narrative: does feel better suspect disc disease with spasm MDM - Back Pain/Injury MDM Narrative Medical decision making narrative: 55 yo male with hx of HTN, obesity, DM, cellulitis here with atraumatic R lower lumbar pain with no AC therapy, IVDA, no b/b incontinence/saddle anesthesia. He is distally neuro intact. He has pain anytime he tries to move. Contrary to the triage it is not radicular and is well localized to the R lower lumbar and flank area. At this time seems possibly a spasm - will obtain labs, PO medications and CT scan for renal colic. Dispo per results and findings. Lab Data Result diagrams: 06/14/21 07:33 06/14/21 07:33 Labs: Lab Results 06/14/21 06/14/21 06/14/21 Range/Units 07:33 07:33 10:15 WBC 6.9 (4.8-10.8) X10*3/uL RBC 5.60 (4.60-5.80) X10*6/uL Hgb 17.3 (14.0-18.0) g/dl Hct 52.6 H (42.0-52.0) % MCV 93.9 (80.0-98.0) fL MCH 30.9 (27.0-33.0) pg MCHC 32.9 (31.0-36.0) g/dl RDW 12.4 (11.0-16.0) % Plt Count 258 (160-400) X10*3/uL MPV 8.6 L (9.4-12.4) fL Immature Gran % (Auto) 0.7 H (0.0-0.4) % Neut % (Auto) 51.0 (45-73) % Lymph % (Auto) 29.5 (20-40) % Lamar % (Auto) 14.5 H (2-11) % Eos % (Auto) 3.6 (0-4) % Baso % (Auto) 0.7 (0-2) % Lymph # (Auto) 2.0 (1.2-4.9) X10*3/uL Lamar # (Auto) 1.0 (0.1-1.2) X10*3/uL Eos # (Auto) 0.3 (0.0-0.4) X10*3/uL Baso # (Auto) 0.1 (0.0-0.2) X10*3/uL Abs Immat Gran (auto) 0.05 H (0.00-0.03) X10*3/uL Absolute Neuts (auto) 3.5 (2.0-8.3) x10*3/uL Absolute Nucleated RBC 0.000 (0.0-0.012) X10*3/uL Nucleated RBC % (auto) 0.0 (0.0-0.2) /100WBC Sodium 139 (135-145) mmol/L Potassium 5.4 H (3.3-5.1) mmol/L Chloride 99 (96-108) mmol/L Carbon Dioxide 31 H (22-29) mmol/L Anion Gap 14 (12-20) BUN 12 (9-16) mg/dL Creatinine 0.88 (0.5-1.4) mg/dL Estim Creat Clear Calc 159.2 Estimated GFR > 60 Random Glucose 219 H (60-115) mg/dL Calcium 9.9 D (8.4-10.2) mg/dL Urine Color YELLOW Urine Appearance CLEAR Urine pH 6.0 (5.0-8.0) Ur Specific [place] 1.025 (1.005-1.025) Urine Protein NEG (NEG-TRACE) MG/DL Urine Glucose (UA) >=1000 H (NEG) MG/DL Urine Ketones NEG (NEG) MG/DL Urine Blood NEG (NEG) Urine Nitrite NEG (NEG) Ur Leukocyte Esterase NEG (NEG) Discharge Plan Discharge Clinical Impression: DDD (degenerative disc disease), lumbosacral, Muscle spasm Patient Disposition: Home, Self-Care Instructions: Muscle Spasm (ED), Degenerative Disc Disease (ED) Additional Instructions: return to ED for any worsening symptoms or concerns follow up incidental findings with your doctor be very careful mixing valium and pain medications do not take both before bed Prescriptions: New diazepam [Valium] 5 mg tablet 5 mg PO TID PRN (Reason: muscle spasm) Qty: 12 0RF lidocaine [Lidoderm] 5 % adhesive patch,medicated 1 patch topical DAILY PRN (Reason: pain) Qty: 30 0RF Rx Instructions: leave on most painful area for up to 12 hrs prednisone 20 mg tablet 20 mg PO DAILY 5 Days Qty: 5 0RF morphine 15 mg tablet 15 mg PO Q6H PRN (Reason: pain) Qty: 15 0RF No Action lisinopril 20 mg tablet 1 tab PO BID 0RF gabapentin 300 mg capsule 600 mg PO BEDTIME 0RF hydrochlorothiazide 25 mg tablet 1 tab PO DAILY 0RF Lantus Solostar U-100 Insulin 100 unit/mL (3 mL) insulin pen 51 unit subcut DAILY 0RF Invokana 300 mg tablet 1 tab PO DAILY 0RF metformin 1,000 mg tablet 1 tab PO BID 0RF ipcyrfcgigng-uorpwvlf-usevbd Tablet 1 tab PO DAILY 0RF omega-3 fatty acids Capsule 1,000 mg PO DAILY 0RF daptomycin 500 mg recon soln 750 mg IV Q24H 37 Days Qty: 10 0RF Rx Instructions: administer over 30 mins end jan 24, 2021 Referrals: Dm Mckeon MD [Primary Care Provider] - 5 days (if not better get MRI) Stand Alone Forms: Work/School Release
[2021-06-14] MEDS: Morphine Sulfate Immed Release 15 MG TABLET PO (07:29)
[2021-06-14] MEDS: diazePAM 2 MG TABLET 5 MG PO (07:29)
[2021-06-14 07:30] VITALS: PULSE 96; RESP 20; O2SAT 94
[2021-06-14 07:37] LABS: MANUAL DIFF FLAG NO
[2021-06-14 07:38] LABS: Basophils Absolute Auto 0.1 X10*3/uL (0.0-0.2); Basophils Percent Auto 0.7 % (0-2); Eosinophils Absolute Auto 0.3 X10*3/uL (0.0-0.4); Eosinophils Percent Auto 3.6 % (0-4); Hematocrit 52.6 % (42.0-52.0); Hemoglobin 17.3 g/dl (14.0-18.0); Imm Gran Abs Auto 0.05 X10*3/uL (0.00-0.03); Imm Gran Pct Auto 0.7 % (0.0-0.4); Lymphocytes Percent Auto 29.5 % (20-40); Mean Corpuscular HGB Conc 32.9 g/dl (31.0-36.0); Mean Corpuscular Hemoglobin 30.9 pg (27.0-33.0); Mean Corpuscular Volume 93.9 fL (80.0-98.0); Mean Platelet Volume 8.6 fL (9.4-12.4); Monocytes Percent Auto 14.5 % (2-11); Neutrophils Absolute Auto 3.5 x10*3/uL (2.0-8.3); Platelet Count 258 X10*3/uL (160-400); Red Cell Distribution Width 12.4 % (11.0-16.0); White Blood Count 6.9 X10*3/uL (4.8-10.8)
[2021-06-14 07:55] LABS: Anion Gap 14 (12-20); Blood Urea Nitrogen 12 mg/dL (9-16); Calcium 9.9 mg/dL (8.4-10.2); Carbon Dioxide 31 mmol/L (22-29); Chloride 99 mmol/L (96-108); Creatinine Clr Calc Pharmacy 159.2; Estimated Glomerular Filt Rate > 60; Glucose Random 219 mg/dL (60-115); Potassium 5.4 mmol/L (3.3-5.1); Sodium 139 mmol/L (135-145)
[2021-06-14] MEDS: Sodium Zirconium Cyclosilicate 5 GM POWD.PACK PO (08:09)
[2021-06-14 08:12] VITALS: BP 144/82
[2021-06-14] MEDS: Ketorolac Tromethamine 60 MG/2 ML VIAL IM (10:12)
[2021-06-14 10:45] LABS: Appearance Urine CLEAR; Color Urine YELLOW; Glucose Urine UA >=1000 MG/DL (NEG); Leukocyte Esterase Urine NEG (NEG); Nitrite Urine NEG (NEG); Specific Gravity - Urine 1.025 (1.005-1.025); Urine Blood NEG (NEG); Urine Ketones NEG (NEG); Urine Protein NEG (NEG-TRACE)
[2021-06-14 11:16] LABS: Squamous Epithelial Cell Urine TRACE /LPF
[2021-06-14 11:17] LABS: RBC Urine 0 /HPF (0); WBC Urine 0-2 /HPF (0-4)
== END 2021-06-14 11:12 | disposition home or self-care (01) ==
PROVIDERS: Emergency Provider Emergency Medicine; PCP Internal Medicine
DX: M51.37 Other intervertebral disc degeneration, lumbosacral region (principal); M62.830 Muscle spasm of back; E11.9 Type 2 diabetes mellitus without complications; I10 Essential (primary) hypertension
CPT/HCPCS: 36415; 74176; 80048; 81001; 85025; 96372; 99284; J1885

== ENCOUNTER 2024-03-20 08:54 | Inpatient (IN) | payer BC, SELFPAY ==
[2024-03-20] VITALS (7 sets, daily range): BP systolic 119–153; BP diastolic 70–86; PULSE 101–106; RESP 16–20; TEMP 36.6–37.4; O2SAT 92–97; BMI 48.4
--- NOTE | ~2024-03-20 | XR_ITS ---
CLINICAL HISTORY: LLE wound r o osteo 2 views left tibia-fibula Comparison: None Findings: No fractures or malalignment. No periostitis or bony destruction. Normal bone mineralization. Incidental phleboliths. Soft tissue swelling around the ankle. No soft tissue gas or soft tissue defects. No radiopaque foreign body. Impression: 1. No bony destructive processes to suggest osteomyelitis. This document has been electronically signed by: Terry Anguiano MD on 03/20/2024 12:29:49
--- NOTE | ~2024-03-20 | US_ITS ---
CLINICAL HISTORY: LLE sweling erythema, pain Bilateral lower extremity duplex venous Doppler Comparison: US/MT - US VENOUS DUPLEX LE BI - 10/26/20 13:22 EDT Technique: Grayscale/Color/Duplex Doppler sonographic evaluation of the deep venous system within both lower extremities. Findings: Right lower extremity Common femoral vein: Patent CFV/GSV junction: Patent Femoral vein: Patent Popliteal vein: Patent Infrapopliteal veins: Patent where seen Soft tissue: Calf edema. Left lower extremity Common femoral vein: Patent CFV/GSV junction: Patent Femoral vein: Patent Popliteal vein: Patent Infrapopliteal veins: Patent where seen Soft tissues: Enlarged left inguinal lymph node measuring 4.6 x 2.2 x 1.1 cm. Calf edema Impression: 1. Negative for bilateral lower extremity DVT 2. No Ugalde's cyst 3. Bilateral calf edema. 4. Enlarged left inguinal lymph node with benign morphologic features. This document has been electronically signed by: Terry Anguiano MD on 03/20/2024 11:53:58
--- NOTE | ~2024-03-20 | US_ITS ---
EXAMINATION: US VENOUS ULTRASOUND WITH DOPPLER LOWER EXTREMITY, LEFT CLINICAL INFORMATION: Venous insufficiency, stasis ulcers; please evaluate for superficial venous stasis. COMPARISON: DVT US assessment bilateral lower extremities to 02/19/2024. TECHNIQUE: Ultrasound of the deep veins is performed from the LEFT hip to the calf with compression sonography and color and pulse Doppler assessment. Spectral analysis with color-flow imaging is performed. FINDINGS: LEFT SIDE: GREATER SAPHENOUS VEIN: The left saphenofemoral junction diameter is 0.7 cm. There is no reflux. The left proximal thigh diameter is 0.5 cm. There is no reflux. The left mid thigh diameter is 0.6 cm. There is no reflux. The left above-knee diameter is 0.3 cm. There is no reflux. The left at-knee diameter is 0.3 cm. There is no reflux. The left below-knee diameter is 0.2 cm. There is no reflux. The left mid calf diameter is 0.1 cm. There is no reflux. The left ankle is not visualized. MEDIAL ACCESSORY GREATER SAPHENOUS VEIN: The left saphenofemoral junction diameter is 0.5 cm. There is no reflux The left mid thigh diameter is 0.5 cm. There is no reflux. LESSER SAPHENOUS VEIN: The left saphenopopliteal junction diameter is 0.3 cm. There is no reflux. The left mid calf diameter is 0.3 cm. There is no reflux. The left distal calf diameter is 0.3 cm. There is no reflux. LEFT DEEP VENOUS SYSTEMS: There is no reflux on the left. OTHER: -Left greater saphenous vein within the distal calf not visualized due to overlying bandages. The patient refused bandage removal. -There is left subcutaneous calf edema. US/US venous duplex LE IMPRESSION: 1. No hemodynamically significant reflux is seen of the left greater or lesser saphenous veins. Electronically signed by: Leonides Bajwa MD 03/22/2024 10:28 AM [facility]
--- NOTE | ~2024-03-20 | XR_ITS ---
CLINICAL HISTORY: cough 2 view chest x-ray. Comparison: None Findings: Normal lung volumes. Interstitial and bronchial wall thickening. No pneumothorax or pleural effusion. Heart size normal. Subsegmental atelectasis left lower lobe No midline shift or tracheal deviation. No acute fracture. Impression: 1. Interstitial and bronchial wall thickening. Subsegmental atelectasis left This document has been electronically signed by: Terry Anguiano MD on 03/20/2024 10:35:26
[2024-03-20 09:36] LABS: MANUAL DIFF FLAG NO
--- OUTSIDE RECORDS SUMMARY | 2024-03-20 09:37 | XMS_ITS | Encounter Summary ---
Author Organization [facility] Address [address] [place] [address] Care Team Providers Care Truck Assembler Name Role Phone Dm Mckeon MD Primary Care Provider [phone] Reason for Visit * Reason Comments Follow-up Hallux rigidus of ri ght foot (Primary Dx); Diabetic mononeuropathy simplex (HCC); Type II diabetes mellitus with peripheral circulatory disorder (HCC); Hallux rigidus of left foot; Dermatophytosis of nail; Pain in toe of right foot; Pain in toe of left foot; Corns and callosities Encounter Details Date Type Department Care Team (Late st Contact Info) Description 03/09/2024 8:30 AM EST Office Visit Orthopedic Surgery - [place] [address] [phone] Jon Bryson DPM [address] [address] 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) (Primary Dx); Peripheral venous insufficiency; Dermatophytosis of nail; Pain in toe of right foot; Pain in toe of left foot; Corns and callosities; Type II diabetes mellitus with peripheral circulatory disorder (CMS/HCC); Diabetic mononeuropathy simplex (CMS/HCC); Metatarsalgia of both feet; Hammer toe of left foot; Acquired hammer toe of right foot; Arthritis of both ankles Social History Tobacco Use Types Packs/Day Years Used Date Smoking Tobacco: Every Day Smokeless Tobacco: Current Sex and Gender Information Value Date Recorded Sex Assigned at Not on file Gender Identity Not on file Sexual Orientation Not on file Job Start Date Occupation Industry Not on file Not on file Not on file documented as of this encounter Progress Notes * Jon Bryson DPM - 03/09/2024 8:30 AM EST Last PCP visit: Dr lianet LORENZO 08/27/23 S Patient presents today complaining of pain in his feet he reports that he has missed several follow-up appointments does have a new wound on the outside of his left foot and leg he states that he went to vacation in [place] and it had become more inflamed irritated he states he is worried about is been going on for several months greater than 2-3 his nails are long and painful thickened his calluses are painful thickened does have a history of need to be admitted for IV antibiotics from infection denies nausea vomit fever chills shortness of breath ROS: GENERAL: Pt denies nausea, fever, vomiting, chills, or shortness of breath. Pt in NAD. CARDIOLOGY: pt denies chest pain, palpitations LUNGS: pt denies shortness of breath MUSCULOSKELETAL: See HPI, otherwise no joint pain or swelling, back pain, or muscle pain. SKIN: see HPI, otherwise no lesions, rash or itching NEURO: No persistent headache, weakness or numbness The remainder of the review of systems is noncontributory PAST MEDICAL HISTORY: There is no problem list on file for this patient. SOCIAL HISTORY: Social History Tobacco Use Smoking status: Every Day Smokeless tobacco: Current Substance Use Topics Alcohol use: Not on file History Last Reviewed by Jazmyn Bustillos on 01/02/2021 at 1:42 PM Sections Reviewed Tobacco, Family, Medical, Surgical, Alcohol, Drug Use ACTIVE MEDICATIONS: Current Outpatient Medications Medication Sig Dispense Refill ammonium lactate (LAC-HYDRIN) 12 % lotion Apply to soles of feet daily. At night wear socks to bed 400 g 2 lisinopril (PRINIVIL,ZESTRIL) 20 MG tablet Take 20 mg by mouth 2 times daily. metformin (GLUCOPHAGE) 1000 MG tablet Take 1,000 mg by mouth 2 times daily (with meals). Canagliflozin 300 MG Tab Take 300 mg by mouth 2 times daily. hydrochlorothiazide (MICROZIDE) 12.5 MG capsule Take 10 mg by mouth daily. insulin glargine (LANTUS) 100 UNIT/ML injection Inject 50 Units into the skin at bedtime. Insulin Glargine (Lantus SoloStar) 100 UNIT/ML Solution Pen-injector Inject 50 Units into the skin. Multiple Vitamins-Minerals (Centrum Silver 50+Men) Tab Take by mouth. MegaRed [place]-3 Krill Oil 350 MG Cap Take by mouth. gabapentin (NEURONTIN) 600 MG tablet Take 600 mg by mouth daily. No current facility-administered medications for this visit. ALLERGIES: Bees [bee stings] and Penicillins PHYSICAL EXAM: Height 6' 5 (1.956 m), weight 355 lb (161 kg). Estimated body mass index is 42.1 kg/m?? as calculated from the following: Height as of this encounter: 6' 5 (1.956 m). Weight as of this encounter: 355 lb (161 kg). BMI PLAN BMI BMI is greater than 25.0 (above the normal range) - see Plan PODIATRIC EXAMINATION: GENERAL: Patient appears well nourished, with NAD. VASCULAR: Dorsalis pedis pulses are 0/4 bilaterally and Posterior tibial pulses are 2/4 bilaterally. Capillary filling time within normal limits the digits. No pallor on elevation or rubor on dependency. Absent hair growth. No varicosities. Denies rest pain or claudication pain. Blue discoloration bilateral toes feet are cool to touch skin is thinning and texture shiny in appearance NEUROLOGICAL: Sharp/dull sensation , protective sensation 0/10 with 5.07 semmes galilea bilaterally, vibratory sensation with tuning fork intact to the tibial tuberosity. ORTHOPEDIC: Good muscle strength 5/5 of all flexors and extensors. Dorsi flexion of ankle ,10 degrees, plantar flexion WNL. No muscle atrophy. DERMATOLOGICAL:. Ulceration left leg measuring 5 cm x 1 cm x 3 mm with subcutaneous tissue exposed centrally severe venous stasis disease Callus formation subfirst metatarsal bilaterally subfifth metatarsal bilateral subheel bilaterally Total of 6 lesions Toenails: Left Toenail(s) 1-5: Crumbling upon debridement, subungual debris, discoloration, dystrophy, elongation, mycotic appearance, onychomycosis, pain and thickening. Right Toenail(s) 1-5: Crumbling upon debridement, subungual debris, discoloration, dystrophy, elongation, mycotic appearance, onychomycosis, pain and thickening. BIOMECHANICS: STJ ROM wnl, MTJ ROM wnl, 1st MPJ ROM limitus bilaterally. [facility] Result Report Patient: Jeff Romero Date of Service: 01/02/21 Patient Gender: Male Ordering Provider: Jon Bryson : 1965 Final ORTHO X-RAY FOOT (3 VIEWS) Exam Date: 01/02/2021 1:35 PM Ordering Diagnosis: Foot pain, left 3 views left foot Relatively rectus normal foot type there is increased prominence of the distal phalanx of the hallux proximal portion medial condyle which is hypertrophied Heel spurs Findings Relatively normal radiographs left foot with heel spurring Reading Physician: Signed by: Jon Bryson DPM on 01/02/2021 1:50 PM This report was sent to: Jon Bryson at [address] [place] [address] [place] [id number] I personally viewed the MRI study from the patient's CD from [place] I do not know any osseous changes or signs of osteomyelitis of the sesamoidal apparatus of the first metatarsophalangeal joint imaging study of the bones appears to be normal without signs of increased swelling of the bones of the foot IMPRESSION: 1. 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) 2. Peripheral venous insufficiency 3. Dermatophytosis of nail 4. Pain in toe of right foot 5. Pain in toe of left foot 6. Corns and callosities 7. Type II diabetes mellitus with peripheral circulatory disorder (CMS/HCC) 8. Diabetic mononeuropathy simplex (CMS/HCC) 9. Metatarsalgia of both feet 10. Hammer toe of left foot 11. Acquired hammer toe of right foot 12. Arthritis of both ankles ' PLAN: Pt was seen and examined, history reviewed. New worsening problem ulcer of left leg with venous congestive disease discussed and reviewed Treatment options were discussed patient states he follows with vascular service After lengthy discussion of treatment options would recommend Unna boot application and compression Diabetic insoles recommended patient printout given from [place] [facility] Discussed with patient surgical wound to be pursued would recommend exostectomy removal of hypertrophied bone formation Discussed with patient that if he gets another infection he should present himself like he did lasttime to the hospital system if he chooses to present himself to the [facility] I will beconsulted on his admission Discussed with patient regarding proper glucose control, exercise, and diet. Explained to patient proper shoe gear, and importance of daily foot checks. I reviewed neuropathy and why it occurs in diabetics. I educated the patient on proper blood sugar control and the importance of an HgBA1c of less than 7.0%. I reviewed the signs and symptoms of neuropathy with the patient Follow-up in 1 week Ammonium lactate prescribed for xerosis Radiographs reviewed printed with patient in detail patient has very mild great toe arthritis is limitus is most likely consistent with functional limitus he does have significant midfoot arthritis noted but visualized on lateral view but otherwise has pretty normal joint space alignment of his forefoot plain radiographs reviewed in detail his arthritis predominantly is driven in the midtarsal joint and TN joint at this time his pain is minimal secondary to baseline neuropathy of both feet arthritic treatment options include steroid injections as well as surgical decompression removal of heterotrophic bone which should only be pursued for symptomatic relief Procedure 1 Hyperkeratotic tissue debrided pared #15 scalpel blade x6 2 Debridement of mycotic toenails 6-10: Verbal informed consent was obtained from the patient. 3 Greater than 6 nails were aseptically debrided in thickness and length with nail nippers 4 Unna boot application to left lower extremity secured with Coban 5 Open wound Open wound selective debridement of devitalized soft tissue, fibrin, epidermis, dermis, thru skin and subcutaneous tissue, first 20 sq cm or less, using sterile sharp dissection #15 scalpel blade. Pt. deferred anesthesia. . Devitalized tissue was not sent to pathology. Jon Bryson DPM documented in this encounter Plan of Treatment Upcoming Encounters Date Type Department Care Team (Late st Contact Info) Description 04/07/2024 8:45 AM EST Office Visit Orthopedic Surgery - [place] [address] [phone] Jon Bryson DPM [address] [phone] documented as of this encounter Visit Diagnoses Diagnosis 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)- Primary Peripheral venous insufficiency Unspecified venous (peripheral) insufficiency Dermatophytosis of nail Pain in toe of right foot Pain in soft tissues of limb Pain in toe of left foot Pain in soft tissues of limb Corns and callosities Type II diabetes mellitus with peripheral circulatory disorder (CMS/HCC) Type II or unspecified type diabetes mellitus with peripheral circulatory disorders, not stated as uncontrolled Diabetic mononeuropathy simplex (CMS/HCC) Type II or unspecified type diabetes mellitus with neurological manifestations, not stated as uncontrolled Metatarsalgia of both feet Hammer toe of left foot Acquired hammer toe of right foot Arthritis of both ankles documented in this encounter Care Teams Truck Assembler Relationship Specialty Start Date End Date Dm Mckeon MD 100 [facility] [address] [place], [place] PCP - General Internal Medicine 12/25/20 documented as of this encounter
--- OUTSIDE RECORDS SUMMARY | 2024-03-20 09:37 | XMS_ITS | Encounter Summary ---
Author Organization [facility] Address [address] [place] [address] Care Team Providers Care Development Disability Specialist Name Role Phone Dm Mckeon MD Primary Care Provider [phone] Reason for Visit * Reason Comments Follow-up Left foot wound chec k Encounter Details Date Type Department Care Team (Late st Contact Info) Description 03/16/2024 8:15 AM EST Office Visit Orthopedic Surgery - [place] [address] [phone] Jon Bryson DPM [address] [address] Peripheral venous insufficiency (Primary Dx); 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); Metatarsalgia of both feet Social History Tobacco Use Types Packs/Day Years Used Date Smoking Tobacco: Every Day Smokeless Tobacco: Current Sex and Gender Information Value Date Recorded Sex Assigned at Not on file Gender Identity Not on file Sexual Orientation Not on file Job Start Date Occupation Industry Not on file Not on file Not on file documented as of this encounter Last Filed Vital Signs Vital Sign Reading Time Taken Comments Blood Pressure - - Pulse - - Temperature - - Respiratory Rate - - Oxygen Saturation - - Inhaled Oxygen Concentration - - Weight 161 kg (355 lb) 03/16/2024 8:13 AM EST Height 195.6 cm (6' 5 ) 03/16/2024 8:13 AM EST Body Mass Index 42.1 03/16/2024 8:13 AM EST documented in this encounter Ordered Prescriptions Prescription Sig Dispensed Refills Start Date End Da te silver sulfADIAZINE (Silvadene) 1 % cream Apply topically 1 (one) time each day. 50 g 03/16/2024 03/16/2025 documented in this encounter Progress Notes * Jon Bryson DPM - 03/16/2024 8:15 AM EST Last PCP visit: Dr lianet LORENZO 08/27/23 S Patient presents today states he has been somewhat better he does note that his left leg is hopefulthat the wound has healed he states that is very difficult for him to not believe not get his feet or legs wet denies nausea vomit fever chills does not he has been able to tolerate the Unna boot application his left lower extremity still has baseline numbness burning tingling both feet ROS: GENERAL: Pt denies nausea, fever, vomiting, [...] Silver 50+Men) Tab Take by mouth. MegaRed [place]-3 Krill Oil 350 MG Cap Take by [...] muscle atrophy. DERMATOLOGICAL:. Ulceration left leg measuring 4 cm x 1 cm x 3 mm [...] wnl, 1st MPJ ROM limitus bilaterally. IMAGING: [facility] [id number] Imaging Result Report Patient: Jeff Romero Date [...] report was sent to: Jon Bryson at 175 [facility] [address] [place] [address] I personally viewed the MRI study from the patient's CD from [place] I do not know any osseous changes or signs of osteomyelitis of the sesamoidal apparatus of the first metatarsophalangeal joint imaging study of the bones appears to be normal without signs of increased swelling of the bones of the foot IMPRESSION: 1. Peripheral venous insufficiency 2. 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) 3. Ulcer of toe of right foot, limited to breakdown of skin (CMS/HCC) 4. Metatarsalgia of both feet ' PLAN: Pt was seen and examined, history reviewed. ulcer of left leg with venous congestive disease discussed and reviewed Treatment options were discussed patient states he follows with vascular service After lengthy discussion of treatment options would recommend Unna boot application and compressionpatient declined -Silvadene prescribed Bilayer Constantin bandage applied to be reapplied at home Discussed with patient regarding proper glucose control, exercise, and diet. Explained to patient proper shoe gear, and importance of daily foot checks. I reviewed neuropathy and why it occurs in diabetics. I educated the patient on proper blood sugar control and the importance of an HgBA1c of less than 7.0%. I reviewed the signs and symptoms of neuropathy with the patient Follow-up in 1-2week Procedure 1 Open wound Open wound selective debridement of [...] AM EST Office Visit Orthopedic Surgery - [place] [address] 175 [facility] [address] [place] [phone] Jon Bryson DPM 175 [facility] 250 [place] [address] documented as of this encounter Visit Diagnoses Diagnosis Peripheral venous insufficiency- Primary Unspecified venous (peripheral) insufficiency 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) Metatarsalgia of both feet documented in this encounter Care Teams Development Disability Specialist Relationship Specialty Start Date End Date Dm Mckeon MD 100 [facility] [address] [place], [place] PCP - General Internal Medicine 12/25/20 documented as of this encounter
--- OUTSIDE RECORDS SUMMARY | 2024-03-20 09:37 | XMS_ITS | Clinical Summary ---
Author Organization [address] [place] [address] Address 175 [place] [address] Phone Care Team Providers Care Preassembler Printed Circuit Board Name Role Phone Dm Mckeon MD Primary Care Provider [phone] Allergies Active Allergy Reactions Criticality Noted Date Comments Bee Venom Protein (Honey Bee) 2020 Penicillins 01/02/2021 Medications Medication Sig Dispensed Refills Start Date End Date Status ammonium lactate (LAC-HYDRIN) 12 % lotion Apply to soles of feet daily. At night wear socks to bed 10/01/2023 Active canagliflozin (INVOKANA) 300 mg tablet Take 300 mg by mouth 2 times daily. Active gabapentin (NEURONTIN) 600 mg tablet Take 600 mg by mouth daily. Active hydroCHLOROthiazide (MICROZIDE) 12.5 mg capsule Take 10 mg by mouth daily. Active insulin glargine (Lantus Solostar U-100 Insulin) 100 unit/mL (3 mL) injection pen Inject 50 Units into the skin. Active insulin glargine (LANTUS) 100 unit/mL injection Inject 50 Units into the skin at bedtime. Active lisinopriL (PRINIVIL,ZESTRIL) 20 mg tablet Take 20 mg by mouth 2 times daily. Active metFORMIN (GLUCOPHAGE) 1,000 mg tablet Take 1,000 mg by mouth 2 times daily (with meals). Active mv-min/folic/K1/lycop en/lutein (CENTRUM SILVER MEN ORAL) Take by mouth. Acti ve nzfvv-uk-1-dha-epa-ph ospho-ast (MegaRed [place]-3 Krill Oil) 799-64-51-50 mg capsule Take by mouth. Active silver sulfADIAZINE (Silvadene) 1 % cream Apply topically 1 (one) time each day. 50 g 03/16/2024 03/16/2025 Active Encounters Date Type Department Care Team Description 03/16/2024 8:15 AM EST Office Visit Orthopedic [facility] [address] [phone] Jon Bryson DPM Peripheral venous insufficiency (Primary Dx); 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); Metatarsalgia of both feet 03/09/2024 8:30 AM EST Office Visit Orthopedic [facility] [address] [phone] Jon Bryson DPM Non-pressure chronic ulcer of left ankle with [...] of right foot; Arthritis of both ankles from Last 3 Months Social History Tobacco Use Types Packs/Day Years Used Date Smoking Tobacco: Every Day Smokeless Tobacco: Current Sex and Gender Information Value Date Recorded Sex Assigned at Not on file Gender Identity Not on file Sexual Orientation Not on file Job Start Date Occupation Industry Not on file Not on file Not on file Obstetrics History Last Filed Vital Signs Vital Sign Reading Time Taken Comments Blood Pressure - - Pulse - - Temperature - - Respiratory Rate - - Oxygen Saturation - - Inhaled Oxygen Concentration - - Weight 161 kg (355 lb) 03/16/2024 8:13 AM EST Height 195.6 cm (6' 5 ) 03/16/2024 8:13 AM EST Body Mass Index 42.1 03/16/2024 8:13 AM EST Plan of Treatment Upcoming Encounters Date Type Department Care Team (Late st Contact Info) Description 04/07/2024 8:45 AM EST Office Visit Orthopedic [place] [address] [phone] Jon Bryson DPM [address] [address] Health Maintenance Due Date Last Done Comments Diabetes: Annual GFR (Glomerular Filtration Rate) 1965 Pneumococcal Vaccine: Pediatrics (0 to 5 Years) and At-Risk Patients (6 to 64 Years) (1 of 2 - PCV) 1970 Diabetes: Annual Foot Exam 1974 Diabetes: Annual Retina Eye Exam 1974 Hepatitis A Vaccines (1 of 2 - Risk 2-dose series) 09/05/1983 Hepatitis B Vaccines (1 of 3 - 19+ 3-dose series) 09/05/1983 Zoster Vaccines (1 of 2) 2014 Cholesterol Screening (Lipid Panel) 01/16/2022 Colorectal Cancer Screening: Colonoscopy 01/16/2022 Depression Screening 01/16/2022 HIV Screening 01/16/2022 Hepatitis C Screening 01/16/2022 Social Influencers of Health Screening 01/16/2022 Diabetes: Annual Urine Albumin-Creatinine Ratio (uACR) 12/01/2023 Diabetes: Blood Sugar Control Test (HGBA1C) 12/01/2023 Hypertension/CHF/CAD Annual BMP Blood Test 03/09/2024 DTaP,Tdap,and Td Vaccines (2 - Td or Tdap) 05/15/2028 05/15/2018 RSV Immunization Patients 60+ Years Old (1 - 1-dose 75+ series) 09/05/2039 COVID-19 Vaccine Completed 12/02/2023, 03/2022, 12/05/2021, Additional history exists Influenza Vaccine Completed 12/02/2023, , 12/05/2021, Additional history exists HIB Vaccines Aged Out No longer eligi ble based on patient's age to complete this topic HPV Vaccines Aged Out No longer eligi ble based on patient's age to complete this topic IPV Vaccines Aged Out No longer eligi ble based on patient's age to complete this topic MMR Vaccines Aged Out No longer eligi ble based on patient's age to complete this topic Meningococcal ACWY Vaccine Aged Out N o longer eligible based on patient's age to complete this topic RSV Immunization Patients Under 20 months Aged Out No longer eligible based on patient's age to complete this topic Varicella Vaccines Aged Out No longer eligible based on patient's age to complete this topic Care Teams Preassembler Printed Circuit Board Relationship Specialty Start Date End Date Dm Mckeon MD 100 [facility] [address] [place], [place] PCP - General Internal Medicine 12/25/20
[2024-03-20 09:50] LABS: Anion Gap 14 (12-20); Blood Urea Nitrogen 14 mg/dL (9-16); Calcium 9.5 mg/dL (8.4-10.2); Carbon Dioxide 30 mmol/L (22-29); Chloride 98 mmol/L (96-108); Estimated Glomerular Filt Rate > 60; Glucose Random 180 mg/dL (60-115); Potassium 4.4 mmol/L (3.3-5.1); Sodium 138 mmol/L (135-145)
[2024-03-20 10:10] LABS: Basophils Percent Auto 0.3 % (0-2); Eosinophils Absolute Auto 0.1 X10*3/uL (0.0-0.4); Eosinophils Percent Auto 1.3 % (0-4); Hemoglobin 16.1 g/dl (14.0-18.0); Imm Gran Abs Auto 0.03 X10*3/uL (0.00-0.03); Imm Gran Pct Auto 0.3 % (0.0-0.4); Lymphocytes Percent Auto 21.8 % (20-40); Mean Corpuscular HGB Conc 32.9 g/dl (31.0-36.0); Mean Corpuscular Hemoglobin 31.5 pg (27.0-33.0); Mean Corpuscular Volume 95.9 fL (80.0-98.0); Mean Platelet Volume 9.1 fL (9.4-12.4); Monocytes Absolute Auto 1.5 X10*3/uL (0.1-1.2); Monocytes Percent Auto 16.1 % (2-11); Neutrophils Absolute Auto 5.5 x10*3/uL (2.0-8.3); Neutrophils Percent Auto 60.2 % (45-73); Platelet Count 203 X10*3/uL (160-400); Red Blood Count 5.11 X10*6/uL (4.60-5.80); Red Cell Distribution Width 12.4 % (11.0-16.0); White Blood Count 9.1 X10*3/uL (4.8-10.8)
[2024-03-20 10:20] LABS: Influenza A PCR NEGATIVE (Negative); Influenza B PCR NEGATIVE (Negative); Resp Syncy Virus RNA Qual PCR NEGATIVE (Negative); SARS COV2 PCR INHOUSE NEGATIVE (Negative)
--- NOTE | 2024-03-20 10:51 | ED.LOWEXIN ---
HPI - Extremity Injury (Lower) General Chief Complaint: Extremity Injury, Lower Stated Complaint: l leg inj Time Seen by Provider: 03/20/24 10:10 Source: patient, RN notes reviewed and old records reviewed Mode of arrival: ambulatory History of Present Illness ED Provider: Anupama Nj PA-C HPI Narrative: 58-year-old male with a past medical history of HTN, obesity, diabetes, presenting to the ED complaining of worsening LLE wound since January s/p scraping leg on pool bar stool while in [facility]. 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 Reports increasing redness/swelling and drainage over the past few days. Denies known fever, chills, weakness, SOB. Related Data Home Medications ?Medication ?Instructions ?Recorded ?Confirmed canagliflozin 300 mg tablet 1 tab PO DAILY 12/13/20 12/13/20 (Invokana) gabapentin 300 mg capsule 600 mg PO BEDTIME 12/13/20 12/13/20 hydrochlorothiazide 25 mg tablet 1 tab PO DAILY 12/13/20 12/13/20 insulin glargine 100 unit/mL (3 51 unit subcut DAILY 12/13/20 12/13/20 mL) subcutaneous pen (Lantus Solostar U-100 Insulin) lisinopril 20 mg tablet 1 tab PO BID 12/13/20 12/13/20 metformin 1,000 mg tablet 1 tab PO BID 12/13/20 12/13/20 lptihzobgics-gfllhfwl-pkhvku tablet 1 tab PO DAILY 12/13/20 12/13/20 omega-3 fatty acids 1,000 mg PO DAILY 12/13/20 12/13/20 Previous Rx's ?Medication ?Instructions ?Recorded daptomycin 500 mg intravenous 750 mg IV Q24H 37 days #10 ea 12/17/20 solution diazepam 5 mg tablet (Valium) 5 mg PO TID PRN muscle spasm #12 06/14/21 tabs lidocaine 5 % topical patch 1 patch topical DAILY PRN pain #30 06/14/21 (Lidoderm) ea morphine 15 mg immediate release 15 mg PO Q6H PRN pain #15 tabs 06/14/21 tablet prednisone 20 mg tablet 20 mg PO DAILY 5 days #5 tabs 06/14/21 Allergies Allergy/AdvReac Type Severity Reaction Status Date / Time bee pollen [BEE STINGS] Allergy Unknown UNKNOWN Verified 03/20/24 08:58 Penicillins Allergy Unknown Unknown Verified 03/20/24 08:58 Review of Systems Review of Systems: Yes all other systems are reviewed and are negative Constitutional: Constitutional: Reports as per [facility] Past Medical History Attestation statement: The following information was validated with the patient. Source: old records reviewed Medical History Severe sepsis HTN (hypertension) Morbid obesity Diabetic foot ulcer Diabetes mellitus Diabetic neuropathy Social History Social History Household Members: Spouse Housing: House Do you presently have visiting nurse or other home services: No Alcohol intake: current Alcohol intake frequency: 3 or more drinks per day Alcohol type: beer Patient Tobacco Use Status: Current everyday Tobacco user Tobacco use type: Cigarette Cigarette Packs Per Day: 1 Cigarettes Per Day: 20.0 Years Smoked: 40 Smoked in Last 30 Days: No Use of substances other than those prescribed or required for medical reasons: Yes Substance Use Type: Marijuana Substance Use Frequency: Daily Last Used Substance: Days (ago) Advance Directives: No Advance Directives Information Provided: No service: No Current occupational status: unemployed Physical Exam Vital Signs: Vital Signs: Last Vital Signs Temp 98.3 F 03/20/24 10:06 Pulse 105 H 03/20/24 12:21 Resp 20 03/20/24 12:21 BP 131/77 03/20/24 12:21 Pulse Ox 95 03/20/24 12:21 O2 Del Method Room Air 03/20/24 12:21 BMI result Body Mass Index 48.4 Const: General: cooperative, healthy appearing and no acute distress Orientation/consciousness: patient oriented x3 Limitations: no limitations HEENT: Head: Yes normal to inspection and Yes atraumatic Ears: hearing grossly normal bilaterally General nose exam: Normal external nose present Face and sinus: Yes normal facial exam Eyes: General: appearance normal, both eyes and all related structures EOM: EOMs intact bilaterally Neck: Neck: Yes normal visual inspection and Yes no meningeal signs Resp: Effort & Inspection: normal respiratory effort and no respiratory distress Auscultation: clear to auscultation bilaterally Cardio: Rate: regular rate Heart sounds: S1 normal heart sound present and S2 normal heart sound present GI: Inspection: Yes normal to inspection Palpation (GI): Soft to palpation, nontender, no guarding and not rigid Skin: Rashes: no rashes Neuro: General: patient oriented x3, tone normal and no meningeal signs Cranial nerves: Yes CN's II-XII intact bilaterally Gait exam (Neuro): Normal gait present Extrem: Other: Please refer to images above. Bilateral LE pitting edema > LLE. Appreciable wound surrounding hematoma, bloody/serosanguineous drainage. Exquisitely tender to palpation. Neurovascularly intact distally. Warm. Erythema is circumferential. No fluctuance or induration Course Course Course Narrative: -1057--no leukocytosis. AST/ALT mildly elevated. CRP elevated to 9.1 XR chest 2V Impression: 1. Interstitial and bronchial wall thickening. Subsegmental atelectasis left -1306--BNP WNL US venous duplex LE BI Impression: 1. Negative for bilateral lower extremity DVT 2. No Ugalde's cyst 3. Bilateral calf edema. 4. Enlarged left inguinal lymph node with benign morphologic features. XR tibia fibula LT 2V Impression: 1. No bony destructive processes to suggest osteomyelitis. > plan to admit for further management Medications Administered Discontinued Medications Generic Name Dose Route Start Last Admin Trade Name Freq PRN Reason Stop Dose Admin Ceftriaxone Sodium 1 gm 03/20/24 10:34 03/20/24 11:17 Ceftriaxone Sodium 1 Gm Vial IVPUSH 03/20/24 10:35 1 gm ONCE ONE Administration Vancomycin HCl 2,000 mg in 500 mls @ 250 mls/hr 03/20/24 10:47 03/20/24 11:18 Vancomycin/Ns IV 03/20/24 12:46 250 mls/hr ONCE ONE Administration Medical Decision Making Medical Decision Making [facility] Narrative: 58-year-old male with a past medical history of HTN, obesity, diabetes, presenting to the ED complaining of worsening LLE wound since January s/p scraping leg on pool bar stool while in [facility]. On exam tachycardic, NAD, nontoxic appearing, physical exam as noted above, please refer to images. Concern for persistent cellulitis vs osteomyelitis vs DVT vs CHF. Lower suspicion for acute abscess or drainable collection at this time. Compartments soft. Low suspicion for severe sepsis at this time Plan: Labs, blood Cx, x-ray, ultrasound, empiric IV antibiotics, anticipated admission Please refer to course for remaining clinical decision making, interpretation of labs/imaging results, and discussions with consultants and/or family members. Differential Diagnosis Differential Diagnoses: The differential diagnosis associated with the presentation includes As above Admission/Observation Consideration of admission/observation: Escalation of care including admission/observation considered Consult Healthcare Provider Management of the patient was discussed with: Hospitalist Lab Data MDM Lab Attestation statement: I reviewed the patient's lab results. 03/20/24 09:18 03/20/24 09:18 Labs: Lab Results 03/20/24 03/20/24 Range/Units 09:18 11:12 WBC 9.1 (4.8-10.8) X10*3/uL RBC 5.11 (4.60-5.80) X10*6/uL Hgb 16.1 (14.0-18.0) g/dl Hct 49.0 (42.0-52.0) % MCV 95.9 (80.0-98.0) fL MCH 31.5 (27.0-33.0) pg MCHC 32.9 (31.0-36.0) g/dl RDW 12.4 (11.0-16.0) % Plt Count 203 (160-400) X10*3/uL MPV 9.1 L (9.4-12.4) fL Immature Gran % (Auto) 0.3 (0.0-0.4) % Neut % (Auto) 60.2 (45-73) % Lymph % (Auto) 21.8 (20-40) % [place] % (Auto) 16.1 H (2-11) % Eos % (Auto) 1.3 (0-4) % Baso % (Auto) 0.3 (0-2) % Lymph # (Auto) 2.0 (1.2-4.9) X10*3/uL [place] # (Auto) 1.5 H (0.1-1.2) X10*3/uL Eos # (Auto) 0.1 (0.0-0.4) X10*3/uL Baso # (Auto) 0.0 (0.0-0.2) X10*3/uL Abs Immat Gran (auto) 0.03 (0.00-0.03) X10*3/uL Absolute Neuts (auto) 5.5 (2.0-8.3) x10*3/uL Absolute Nucleated RBC 0.000 (0.0-0.012) X10*3/uL Nucleated RBC % (auto) 0.0 (0.0-0.2) /100WBC ESR 13 (0-15) MM/HR Sodium 138 (135-145) mmol/L Potassium 4.4 (3.3-5.1) mmol/L Chloride 98 (96-108) mmol/L Carbon Dioxide 30 H (22-29) mmol/L Anion Gap 14 (12-20) BUN 14 (9-16) mg/dL Creatinine 0.81 (0.5-1.4) mg/dL Estim Creat Clear Calc 177.0 Estimated GFR > 60 Random Glucose 180 H (60-115) mg/dL Calcium 9.5 (8.4-10.2) mg/dL Magnesium 2.3 (1.6-2.6) mg/dL Total Bilirubin 0.6 (0.0-1.0) mg/dL Direct Bilirubin 0.3 (0.0-0.5) mg/dL AST 38 H (5-37) U/L ALT 59 H (0-40) U/L Alkaline Phosphatase 72 (39-117) U/L C-Reactive Protein 9.19 H (< or = 0.50) mg/dL B-Natriuretic Peptide 22 (<100) pg/mL Total Protein 8.2 H (6.5-8.0) g/dL Albumin 4.2 (3.5-5.0) g/dL Influenza Type A (PCR) NEGATIVE (Negative) Influenza Type B (PCR) NEGATIVE (Negative) RSV RNA Qual (PCR) NEGATIVE (Negative) SARS-CoV-2 RNA (RT-PCR) NEGATIVE (Negative) Independent Interpretation I performed an independent interpretation of an: Plain X-Ray and Ultrasound Radiology Impression Discussion of test interpretation with radiology: I have reviewed the radiologist's reading. Independent Historian Clinical information obtained from an independent historian. History obtained from or confirmed by: Spouse External Record Review External record reviewed: Inpatient record, Office record, Outpatient record, Prior outpatient labs, Prior outpatient radiology, Primary care record and Outside ED record Tests considered The following testing was considered but not selected: As above Prescription Management I considered prescription management with: Pain Medication and Antibiotic Chronic Conditions Patient?s care impacted by: Diabetes, Hypertension and Other Social Determinants Patient?s care significantly limited by Social Determinants of Health including: Other Social Determinant of Health Critical Care Time Critical Care Time Critical Care Time: Yes Total Critical Care Time: 35 Attestation: I have personally provided critical care time exclusive of time spent on separately billable procedures. Time includes review of lab data, radiology results, discussion with consultants, and monitoring for potential decompensation. Intervention performed as documented. Discharge Plan Discharge Clinical Impression: Cellulitis, Edema, pitting Prescriptions: No Action lisinopril 20 mg tablet 1 tab PO BID gabapentin 300 mg capsule 600 mg PO BEDTIME hydrochlorothiazide 25 mg tablet 1 tab PO DAILY Lantus Solostar U-100 Insulin 100 unit/mL (3 mL) insulin pen 51 unit subcut DAILY Invokana 300 mg tablet 1 tab PO DAILY metformin 1,000 mg tablet 1 tab PO BID yrafcveiljle-kycjyztp-vwndkv Tablet 1 tab PO DAILY omega-3 fatty acids Capsule 1,000 mg PO DAILY daptomycin 500 mg recon soln 750 mg IV Q24H 37 Days Qty: 10 0RF Rx Instructions: administer over 30 mins end jan 24, 2021 diazepam [Valium] 5 mg tablet 5 mg PO TID PRN (Reason: muscle spasm) Qty: 12 0RF lidocaine [Lidoderm] 5 % adhesive patch,medicated 1 patch topical DAILY PRN (Reason: pain) Qty: 30 0RF Rx Instructions: leave on most painful area for up to 12 hrs prednisone 20 mg tablet 20 mg PO DAILY 5 Days Qty: 5 0RF morphine 15 mg tablet 15 mg PO Q6H PRN (Reason: pain) Qty: 15 0RF Print Language: Lithuanian
[2024-03-20 10:56] LABS: Alanine Aminotransferase 59 U/L (0-40); Albumin Level 4.2 g/dL (3.5-5.0); Alkaline Phosphatase 72 U/L (39-117); Aspartate Amino Transferase 38 U/L (5-37); Bilirubin Direct 0.3 mg/dL (0.0-0.5); Bilirubin Total 0.6 mg/dL (0.0-1.0); C Reactive Protein 9.19 mg/dL (< or = 0.50); Magnesium 2.3 mg/dL (1.6-2.6); Total Protein 8.2 g/dL (6.5-8.0)
[2024-03-20] MEDS: cefTRIAXone sodium 1 GM VIAL IVPUSH (11:17)
[2024-03-20] MEDS: vancomycin/NS 2,000 MG/500 ML PLAST..BAG 250 MG IV (11:18)
[2024-03-20 11:19] LABS: Erythrocyte Sedimentation Rate 13 MM/HR (0-15)
[2024-03-20 11:37] LABS: B Type Natriuretic Peptide 22 pg/mL (<100)
--- NOTE | 2024-03-20 13:42 | PM.IMHP ---
History of Present Illness Date of Service: 03/20/24 Attending physician on admission: [facility] Chief Complaint: Left leg cellulitis Pt is a 58-year-old male with a PMH significant for HTN, insulin-dependent type 2 diabetes, and peripheral neuropathy who presents to the ED for evaluation of worsening left lower leg wound. Pt reports initially sustained injury on 02/13/2024 when he scraped his leg on a stool at a swim-up bar while vacationing in [facility] in the [facility]. Pull was chlorinated and fresh water. Did not enter the ocean during his trip. Initially no significant pain or erythema, but wound did not heal over the next few weeks and pt did not seek any medical evaluation until Podiatry appointment on 03/09/2024. Podiatry thought wound was not healing secondary to chronic edema and separation of skin layers, so placed pt in a Unna boot x1 week. Wound was then re-evaluated by Podiatry and noted to have no improvement but still no signs of infection, so pt was treated with silver sulfasalazine and wrapped in an Constantin wrapping. Two days ago wound began worsening with developing erythema, mild pain, and drainage. Pt separately complains of mild non-productive cough and mild URI symptoms. No fever or chills. Shortness or breath or difficulty breathing. No chest pain/pressure, palpitations. Denies nausea, vomiting, abdominal pain. In the ED pt was tachycardic up to 106 vitals otherwise stable. Labs were significant for AST 38, ALT 59, and CRP 9.19. No leukocytosis. Stable H&H. No significant electrolyte abnormalities. Renal function baseline. Tested negative for flu, COVID, RSV. CXR showed interstitial and bronchial wall thickening and left subsegmental atelectasis. Bilateral venous duplex negative for DVT, but showed bilateral calf edema. X-ray of left tibia and fibula negative for evidence of osteomyelitis. Pt was treated with vancomycin and ceftriaxone. Pt will be admitted to the hospital for treatment and further evaluation of worsening left lower extremity cellulitis from chronic wound that has failed outpatient therapy. Review of Systems Review of Systems: Negative except for that which is stated in the [facility] Medical History Severe sepsis HTN (hypertension) Morbid obesity Diabetic foot ulcer Diabetes mellitus Diabetic neuropathy Social History Household Members: Spouse Housing: House Do you presently have visiting nurse or other home services: Yes Alcohol intake: current Alcohol intake frequency: 3 or more drinks per day Alcohol type: beer Patient Tobacco Use Status: Never used Tobacco Tobacco use type: Cigarette Cigarette Packs Per Day: 1 Cigarettes Per Day: 20.0 Years Smoked: 40 Smoked in Last 30 Days: No e-Cigarette/Vaping Use: Former Use Use of substances other than those prescribed or required for medical reasons: Yes Substance Use Type: Marijuana Substance Use Frequency: Daily Last Used Substance: Days (ago) Currently Displaying Signs/Symptoms of Drug Intoxication Withdrawal: No Have you been hit, kicked, punched, or otherwise hurt by someone within the past year? If so, by whom?: No Do you feel safe in your current relationship?: No Current Relationship Is there a partner from a previous relationship who is making you feel unsafe now?: No Are you made to feel afraid or neglected: No Advance Directives: No Advance Directives Information Provided: No Do you have a plan to hurt others: No Plan Recently lost weight without trying: No How much weight loss: Not applicable Eating poorly because of decreased appetite: No Nutrition screen score: 0 Nutrition Risks: No Nutritional Risk Poor oral hygiene: No service: No Current occupational status: unemployed Meds Allergies Allergy/AdvReac Type Severity Reaction Status Date / Time bee pollen [BEE STINGS] Allergy Unknown UNKNOWN Verified 03/20/24 08:58 Penicillins Allergy Unknown Unknown Verified 03/20/24 08:58 Home Medications ?Medication ?Instructions ?Recorded ?Confirmed ?Last Taken ?Type gabapentin 300 mg capsule 300 mg PO BID 12/13/20 03/20/24 03/20/24 History hydrochlorothiazide 25 mg tablet 1 tab PO DAILY 12/13/20 03/20/24 03/20/24 History insulin glargine 100 unit/mL (3 51 unit subcut DAILY@0900 12/13/20 03/20/24 03/20/24 History mL) subcutaneous pen (Lantus Solostar U-100 Insulin) lisinopril 20 mg tablet 1 tab PO BID 12/13/20 03/20/24 03/20/24 History metformin 1,000 mg tablet 1 tab PO BID 10/03/20/24 03/20/24 History albuterol sulfate 90 mcg/actuation 2 puff inhalation QID PRN wheezing 03/20/24 03/20/24 Unknown History aerosol inhaler dapagliflozin propanediol 10 mg 10 mg PO DAILY 03/20/24 03/20/24 03/20/24 History tablet (Farxiga) multivitamin 1 tab PO DAILY 03/20/24 03/20/24 03/20/24 History omega 7-kzz-ghv-fish oil 1,000 mg 1 cap PO DAILY 03/20/24 03/20/24 03/20/24 History (120 mg-180 mg) capsule (Fish Oil) rosuvastatin 10 mg tablet 10 mg PO DAILY 03/20/24 03/20/24 03/20/24 History semaglutide 2 mg/dose (8 mg/3 mL) 2 mg subcut SA 03/20/24 03/20/24 03/20/24 History subcutaneous pen injector (Ozempic) silver sulfadiazine 1 % topical 1 appl topical ONCE 03/20/24 03/20/24 03/20/24 History cream Physical Exam Vital Signs and Narrative: Vital Signs: Last Vital Signs Temp 98.3 F 03/20/24 10:06 Pulse 105 H 03/20/24 12:21 Resp 20 03/20/24 12:21 BP 131/77 03/20/24 12:21 Pulse Ox 95 03/20/24 12:21 O2 Del Method Room Air 03/20/24 12:21 BMI result Body Mass Index 48.4 General: AOx3, no acute distress Resp: CTA bilaterally CVS: S1, S2, RRR GI: +BS, NT, no distention Skin: Warm, dry Neuro: Cranial nerves II-XII grossly intact bilaterally. Motor grossly intact bilaterally Extremities: Bilateral pitting edema of lower extremities, L>R. Left leg with wound with serosanguineous and bloody discharge, with surrounding erythema, edema, warmth, and tenderness. As pictured below Psych: Appropriate affect Results Labs 03/20/24 09:18 03/21/24 07:02 Labs: Laboratory Results - last 24 hr 03/20/24 03/20/24 09:18 11:12 MCV 95.9 MCH 31.5 MCHC 32.9 RDW 12.4 Plt Count 203 MPV 9.1 L Immature Gran % (Auto) 0.3 Neut % (Auto) 60.2 Lymph % (Auto) 21.8 [place] % (Auto) 16.1 H Eos % (Auto) 1.3 Baso % (Auto) 0.3 Lymph # (Auto) 2.0 [place] # (Auto) 1.5 H Eos # (Auto) 0.1 Baso # (Auto) 0.0 Abs Immat Gran (auto) 0.03 Absolute Neuts (auto) 5.5 Absolute Nucleated RBC 0.000 Nucleated RBC % (auto) 0.0 ESR 13 Anion Gap 14 Estim Creat Clear Calc 177.0 Estimated GFR > 60 Random Glucose 180 H Calcium 9.5 Magnesium 2.3 Total Bilirubin 0.6 Direct Bilirubin 0.3 AST 38 H ALT 59 H Alkaline Phosphatase 72 C-Reactive Protein 9.19 H B-Natriuretic Peptide 22 Total Protein 8.2 H Albumin 4.2 Influenza Type A (PCR) NEGATIVE Influenza Type B (PCR) NEGATIVE RSV RNA Qual (PCR) NEGATIVE SARS-CoV-2 RNA (RT-PCR) NEGATIVE Assessment and Plan (1) Cellulitis: Qualifiers: Laterality: left Site of cellulitis: extremity Site of cellulitis of extremity: lower extremity Qualified Code(s): L03.116 - Cellulitis of left lower limb Status: Acute Plan Pt is a 58-year-old male with a PMH significant for HTN, insulin-dependent type 2 diabetes, and peripheral neuropathy who presents to the ED for evaluation of worsening left lower leg wound. Pt will be admitted to the hospital for treatment and further evaluation of worsening left lower extremity cellulitis from chronic wound that has failed outpatient therapy. Left leg cellulitis Secondary to wound sustained on 02/13/2024 that did not heal Seen by Podiatry on 03/09/2024, initially wrapped in Unna boot x1 week and then with silver sulfadiazine and Constantin wrapping to little effect Two days ago developed erythema drainage from No sepsis: Tachycardia, but no fever, leukocytosis, or tachypnea Will treat with ceftriaxone and vancomycin, started 04/08/2024 General surgery consult for possible debridement and wound care recommendations Insulin-dependent type 2 diabetes Hold Farxiga and Metformin Sliding-scale insulin, Lantus Diabetic diet Hypertension Continue hydrochlorothiazide, lisinopril Peripheral neuropathy Continue gabapentin Alcoholic dependence Pt reports drinking 3 beers daily Monitor on CIWA Full Code Attending:?Dr. Guerrero DVT Prophylaxis: Lovenox Pt will require a hospitalization of at least two nights for treatment of?left lower extremity cellulitis in the setting of nonhealing wound. Given the extent of cellulitis and worsening patient's nonhealing wound, they will require hospital level care for administration of IV antibiotics as well as specialist consultation with General surgery for possible debridement. Quality Stroke Does the patient have a stroke diagnosis?: No VTE Prior VTE?: No VTE Risk Level:: Medical - moderate - high VTE Device Contraindication: Treatment Not Indicated VTE Drug Contraindication: N/A - Med Ordered
[2024-03-20] MEDS: Enoxaparin Sodium 40 MG/0.4 ML SYRINGE SUBCUT (15:01)
--- NOTE | 2024-03-20 15:03 | PHA.PROG ---
Admission Date/Time: March 20, 2024 14:45 Indication: Skin Weight in k kg Adjusted body weight in Kg: [place] body weight in Kg: Obesity Dosing Indication % IBW: Serum Creatinine - Last 168 Hours 03/20/24 09:18 Creatinine 0.81 Estimated CrCl and GFR - Last 168 Hours 03/20/24 09:18 Estim Creat Clear Calc 177.0 Estimated GFR > 60 Vancomycin Loading Dose: 2000mg x 1 Current Vancomycin Dosing Regimen: 1500mg Q12H Vancomycin Monitoring using AUC goal of 400 - 600 range with trough as surrogate marker: 438 mg/L Date and Time for next Vancomycin Level to be drawn: 03/21 @2100 Pharmacist Comments on Vancomycin Plan: Predicted trough of 12.8 mg/L. Obese model being used Vancomycin dosing will take advantage of [employer] as a clinical decision support tool that uses Bayesian modeling to calculate individual patient's pharmacokinetic parameters and forecast the patient's drug concentration time course with the target goal AUC 24 range of 400 - 600 mg/L/hr.
--- NOTE | 2024-03-20 15:19 | PHA.MEDREC ---
Addendum entered by Krsitina Gross RPh 03/20/24 15:39: [facility] reviewed Original Note: Pharmacy Consult ? Medication Reconciliation Pharmacy has completed the medication reconciliation. Spoke with patient to confirm medications. He reports 51 units of lantus in the morning. Ozempic 2 mg is on Saturdays, administered this morning. He took all of his medications today.
[2024-03-20 17:29] LABS: Glucose, Whole Blood 136 mg/dL (60-115)
[2024-03-20] MEDS: 0.9 % Sodium Chloride Flush 3 ML SYRINGE IVFLUSH ×2 (17:59→20:26)
[2024-03-20] MEDS: lisinopriL 20 MG TABLET PO (20:25)
[2024-03-20] MEDS: Gabapentin 300 MG CAPSULE PO (20:25)
[2024-03-20] MEDS: metFORMIN HCl 1,000 MG TABLET 1000 MG PO (20:52)
[2024-03-20] MEDS: vancomycin HCL 1,500 MG in 0.9 % Sodium Chloride 500 ML 333.33 MG IV (23:02)
[2024-03-21 05:50] VITALS: BP 145/81; PULSE 95; RESP 18; TEMP 36.8; O2SAT 92
[2024-03-21 07:56] LABS: Creatinine Clr Calc Pharmacy 183.8; Estimated Glomerular Filt Rate > 60
--- NOTE | 2024-03-21 07:59 | HO.PM.IMPN ---
Subjective Subjective Date of Service: 03/21/24 Interval History: f/u on cellulitis of the left leg no new issues Physical Exam Vital Signs: Vital Signs: Last Vital Signs Temp 98.2 F 03/21/24 05:50 Pulse 95 03/21/24 05:50 Resp 18 03/21/24 05:50 BP 145/81 H 03/21/24 05:50 Pulse Ox 92 03/21/24 05:50 O2 Del Method Room Air 03/21/24 05:50 BMI result Body Mass Index 48.4 Const: Other: General: AO X 3, no acute distress Resp: CTA bilateral CVS: S1,S2,RRR GI: +BS, NT, no distention Skin: see pic from h and p Neuro: motor grossly intact Psych: appropriate affect Objective Data Active Medications Acetaminophen (Acetaminophen 325 Mg Tablet) 650 mg PO Q6H PRN PRN Reason: Pain, Mild 1-3,fever,headache Albuterol Sulfate (Albuterol Sulfate 90 Mcg 8 Gm Inhaler) 2 puff INHALE QID PRN PRN Reason: wheezing Atorvastatin Calcium (Atorvastatin Calcium 40 Mg Tablet) 40 mg PO DAILY [facility] Calcium Carbonate (Calcium Carbonate 750 Mg Tab.Chew) 750 mg PO Q4H PRN PRN Reason: Heartburn Ceftriaxone Sodium (Ceftriaxone Sodium 1 Gm Vial) 1 gm IVPUSH Q24H [facility] Dextrose (Dextrose 50 % 25 Gm/50 Ml Syringe) 25 gm IVPUSH Q15M PRN; Protocol PRN Reason: per Hypoglycemia Standing Ord. Enoxaparin Sodium (Enoxaparin Sodium 40 Mg/0.4 Ml Syringe) 40 mg SUBCUT Q24H [facility] Last Admin: 03/20/24 15:01 Dose: 40 mg Documented By: JULISSA Gabapentin (Gabapentin 300 Mg Capsule) 300 mg PO BID [facility] Last Admin: 03/20/24 20:25 Dose: 300 mg Documented By: JULISSA Glucose (Glucose Gel 15 Gm Gel..Gram.) 15 gm PO Q15M PRN; Protocol PRN Reason: per Hypoglycemia Standing Ord. Hydrochlorothiazide (Hydrochlorothiazide 25 Mg Tablet) 25 mg PO DAILY [facility]; Protocol Vancomycin HCl 1,500 mg/ (Sodium Chloride) 500 mls @ 333.333 mls/hr IV Q12H [facility] Last Infusion: 03/21/24 00:33 Dose: Infused Documented By: JULISSA Insulin Glargine (Insulin Glargine,Hum.Rec.Anlog 100 Unit/Ml 10 Ml Vial) 35 unit SUBCUT DAILY [facility] Insulin Glargine (Insulin Glargine,Hum.Rec.Anlog 100 Unit/Ml 10 Ml Vial) 35 unit SUBCUT DAILY@0900 [facility] Insulin Human Lispro (Insulin Lispro 100 Unit/Ml 3 Ml Vial) 0 unit SUBCUT QIDACHS [facility]; Protocol Ketorolac Tromethamine (Ketorolac Tromethamine 30 Mg/Ml Vial) 30 mg IVPUSH Q6H PRN PRN Reason: Pain, Moderate(Pain Scale 4-6) Stop: 03/25/24 14:44 Lisinopril (Lisinopril 20 Mg Tablet) 20 mg PO BID [facility]; Protocol Last Admin: 03/20/24 20:25 Dose: 20 mg Documented By: JULISSA Magnesium Hydroxide (Milk Of Magnesia 30 Ml Oral.Susp) 30 ml PO DAILY PRN PRN Reason: Constipation Melatonin (Melatonin 3 Mg Tablet) 6 mg PO BEDTIME PRN PRN Reason: Insomnia Metformin HCl (Metformin Hcl 1,000 Mg Tablet) 1,000 mg PO BID [facility] Last Admin: 03/20/24 20:52 Dose: 1,000 mg Documented By: JULISSA Multivitamins/Vitamin C (Multivitamin Tablet) 1 tab PO DAILY [facility] Ondansetron HCl (Ondansetron Hcl 4 Mg/2 Ml Vial) 4 mg IVPUSH Q8H PRN PRN Reason: Nausea and Vomiting Pharmacy Consult (Consult Rx Vancomycin Dosing) 1 each MISCELLANE DAILY PRN PRN Reason: Consult order Sodium Chloride (0.9 % Sodium Chloride Flush 3 Ml Syringe) 3 ml IVFLUSH QSHIFT [facility] Last Admin: 03/20/24 20:26 Dose: 3 ml Documented By: JULISSA Labs 03/20/24 09:18 03/21/24 07:02 Labs: Laboratory Results - last 24 hr 03/20/24 03/20/24 03/20/24 09:18 11:12 17:25 MCV 95.9 MCH 31.5 MCHC 32.9 RDW 12.4 Plt Count 203 MPV 9.1 L Immature Gran % (Auto) 0.3 Neut % (Auto) 60.2 Lymph % (Auto) 21.8 [place] % (Auto) 16.1 H Eos % (Auto) 1.3 Baso % (Auto) 0.3 Lymph # (Auto) 2.0 [place] # (Auto) 1.5 H Eos # (Auto) 0.1 Baso # (Auto) 0.0 Abs Immat Gran (auto) 0.03 Absolute Neuts (auto) 5.5 Absolute Nucleated RBC 0.000 Nucleated RBC % (auto) 0.0 ESR 13 Anion Gap 14 Estim Creat Clear Calc 177.0 Estimated GFR > 60 POC Glucose 136 H Random Glucose 180 H Calcium 9.5 Magnesium 2.3 Total Bilirubin 0.6 Direct Bilirubin 0.3 AST 38 H ALT 59 H Alkaline Phosphatase 72 C-Reactive Protein 9.19 H B-Natriuretic Peptide 22 Total Protein 8.2 H Albumin 4.2 Influenza Type A (PCR) NEGATIVE Influenza Type B (PCR) NEGATIVE RSV RNA Qual (PCR) NEGATIVE SARS-CoV-2 RNA (RT-PCR) NEGATIVE 03/21/24 07:02 MCV MCH MCHC RDW Plt Count MPV Immature Gran % (Auto) Neut % (Auto) Lymph % (Auto) [place] % (Auto) Eos % (Auto) Baso % (Auto) Lymph # (Auto) [place] # (Auto) Eos # (Auto) Baso # (Auto) Abs Immat Gran (auto) Absolute Neuts (auto) Absolute Nucleated RBC Nucleated RBC % (auto) ESR Anion Gap Estim Creat Clear Calc 183.8 Estimated GFR > 60 POC Glucose Random Glucose Calcium Magnesium Total Bilirubin Direct Bilirubin AST ALT Alkaline Phosphatase C-Reactive Protein B-Natriuretic Peptide Total Protein Albumin Influenza Type A (PCR) Influenza Type B (PCR) RSV RNA Qual (PCR) SARS-CoV-2 RNA (RT-PCR) Assessment and Plan (1) Cellulitis: Status: Acute Plan 58-year-old male with a PMH significant for HTN, insulin-dependent type 2 diabetes, and peripheral neuropathy admit for left lower extremity cellulitis from chronic wound that has failed outpatient therapy. Left leg cellulitis d/t wound sustained on 02/13/2024 that did not heal, Seen by Podiatry on 03/09/2024, initially wrapped in Unna boot x1 week and then with silver sulfadiazine and Constantin wrapping to little effect vanco and ceftriaxone started 03/20 surgery consutl for possible debridment Insulin-dependent type 2 diabetes Hold Wyatt Baker if able to bring from home Sliding-scale insulin, Lantus Diabetic diet Hypertension Continue hydrochlorothiazide, lisinopril Peripheral neuropathy Continue gabapentin Alcoholic dependence Pt reports drinking 3 beers daily Monitor on CIWA Full Code DVT Prophylaxis: Lovenox Pt will require a hospitalization of at least two nights for treatment of?left lower extremity cellulitis in the setting of nonhealing wound. Given the extent of cellulitis and worsening patient's nonhealing wound, they will require hospital level care for administration of IV antibiotics as well as specialist consultation with General surgery for possible debridement. Quality Stroke Does the patient have a stroke diagnosis?: No VTE Prior VTE?: No VTE Risk Level:: Medical - moderate - high VTE Device Contraindication: Treatment Not Indicated VTE Drug Contraindication: N/A - Med Ordered
[2024-03-21 08:31] LABS: Glucose, Whole Blood 160 mg/dL (60-115)
--- NOTE | 2024-03-21 08:46 | PM.CNGS ---
History of Present Illness Consult details Consult date: 03/21/24 Requesting physician: Tee Guerrero Narrative: 58-year-old male patient with morbid obesity, type 2 diabetes, hypertension, peripheral neuropathy and chronic left lower leg wounds presenting for worsening left leg cellulitis. This apparently began in January while on vacation in the [facility] [place]. He was initially treated by Podiatry with an Unna boot which did not help followed by Silvadene which seemed to aggravate his wounds. He has a long history of bilateral leg swelling left greater than right but denies a history of varicosities. He was previously evaluated by vascular surgery in 2020 and felt not to have venous stasis. Recently Doppler studies of the deep venous system was negative for DVT. No recent superficial venous Dopplers are noted. Surgical consultation was requested for wound management of his left leg cellulitis. He was admitted to the hospitalist service for IV antibiotics. Review of Systems Review of Systems: Yes all other systems are reviewed and are negative PMFSH Past Medical History Medical History Severe sepsis HTN (hypertension) Morbid obesity Diabetic foot ulcer Diabetes mellitus Diabetic neuropathy Social History Social History Household Members: Spouse Housing: House Do you presently have visiting nurse or other home services: Yes Alcohol intake: current Alcohol intake frequency: 3 or more drinks per day Alcohol type: beer Patient Tobacco Use Status: Never used Tobacco Tobacco use type: Cigarette Cigarette Packs Per Day: 1 Cigarettes Per Day: 20.0 Years Smoked: 40 Smoked in Last 30 Days: No e-Cigarette/Vaping Use: Former Use Use of substances other than those prescribed or required for medical reasons: Yes Substance Use Type: Marijuana Substance Use Frequency: Daily Last Used Substance: Days (ago) Currently Displaying Signs/Symptoms of Drug Intoxication Withdrawal: No Have you been hit, kicked, punched, or otherwise hurt by someone within the past year? If so, by whom?: No Do you feel safe in your current relationship?: No Current Relationship Is there a partner from a previous relationship who is making you feel unsafe now?: No Are you made to feel afraid or neglected: No Advance Directives: No Advance Directives Information Provided: No Do you have a plan to hurt others: No Plan Recently lost weight without trying: No How much weight loss: Not applicable Eating poorly because of decreased appetite: No Nutrition screen score: 0 Nutrition Risks: No Nutritional Risk Poor oral hygiene: No service: No Current occupational status: unemployed Meds Allergies Allergy/AdvReac Type Severity Reaction Status Date / Time bee pollen [BEE STINGS] Allergy Unknown UNKNOWN Verified 03/20/24 08:58 Penicillins Allergy Unknown Unknown Verified 03/20/24 08:58 Active Medications: Current Medications Acetaminophen (Acetaminophen 325 Mg Tablet) 650 mg PO Q6H PRN PRN Reason: Pain, Mild 1-3,fever,headache Albuterol Sulfate (Albuterol Sulfate 90 Mcg 8 Gm Inhaler) 2 puff INHALE QID PRN PRN Reason: wheezing Atorvastatin Calcium (Atorvastatin Calcium 40 Mg Tablet) 40 mg PO DAILY [facility] OF [facility] Calcium Carbonate (Calcium Carbonate 750 Mg Tab.Chew) 750 mg PO Q4H PRN PRN Reason: Heartburn Ceftriaxone Sodium (Ceftriaxone Sodium 1 Gm Vial) 1 gm IVPUSH Q24H [facility] Dextrose (Dextrose 50 % 25 Gm/50 Ml Syringe) 25 gm IVPUSH Q15M PRN; Protocol PRN Reason: per Hypoglycemia Standing Ord. Enoxaparin Sodium (Enoxaparin Sodium 40 Mg/0.4 Ml Syringe) 40 mg SUBCUT Q24H [facility] Last Admin: 03/20/24 15:01 Dose: 40 mg Gabapentin (Gabapentin 300 Mg Capsule) 300 mg PO BID [facility] Last Admin: 03/20/24 20:25 Dose: 300 mg Glucose (Glucose Gel 15 Gm Gel..Gram.) 15 gm PO Q15M PRN; Protocol PRN Reason: per Hypoglycemia Standing Ord. Hydrochlorothiazide (Hydrochlorothiazide 25 Mg Tablet) 25 mg PO DAILY [facility]; Protocol Vancomycin HCl 1,500 mg/ (Sodium Chloride) 500 mls @ 333.333 mls/hr IV Q12H [facility] Last Infusion: 03/21/24 00:33 Dose: Infused Insulin Glargine (Insulin Glargine,Hum.Rec.Anlog 100 Unit/Ml 10 Ml Vial) 35 unit SUBCUT DAILY [facility] Insulin Glargine (Insulin Glargine,Hum.Rec.Anlog 100 Unit/Ml 10 Ml Vial) 35 unit SUBCUT DAILY@0900 [facility] OF [facility] Insulin Human Lispro (Insulin Lispro 100 Unit/Ml 3 Ml Vial) 0 unit SUBCUT QIDACHS [facility]; Protocol Ketorolac Tromethamine (Ketorolac Tromethamine 30 Mg/Ml Vial) 30 mg IVPUSH Q6H PRN PRN Reason: Pain, Moderate(Pain Scale 4-6) Stop: 03/25/24 14:44 Lisinopril (Lisinopril 20 Mg Tablet) 20 mg PO BID [facility]; Protocol Last Admin: 03/20/24 20:25 Dose: 20 mg Magnesium Hydroxide (Milk Of Magnesia 30 Ml Oral.Susp) 30 ml PO DAILY PRN PRN Reason: Constipation Melatonin (Melatonin 3 Mg Tablet) 6 mg PO BEDTIME PRN PRN Reason: Insomnia Metformin HCl (Metformin Hcl 1,000 Mg Tablet) 1,000 mg PO BID [facility] Last Admin: 03/20/24 20:52 Dose: 1,000 mg Multivitamins/Vitamin C (Multivitamin Tablet) 1 tab PO DAILY [facility] Ondansetron HCl (Ondansetron Hcl 4 Mg/2 Ml Vial) 4 mg IVPUSH Q8H PRN PRN Reason: Nausea and Vomiting Pharmacy Consult (Consult Rx Vancomycin Dosing) 1 each MISCELLANE DAILY PRN PRN Reason: Consult order Sodium Chloride (0.9 % Sodium Chloride Flush 3 Ml Syringe) 3 ml IVFLUSH QSHIFT ON [facility] Last Admin: 03/20/24 20:26 Dose: 3 ml Home Medications ?Medication ?Instructions ?Recorded ?Confirmed ?Last Taken ?Type gabapentin 300 mg capsule 300 mg PO BID 12/13/20 03/20/24 03/20/24 History hydrochlorothiazide 25 mg tablet 1 tab PO DAILY 12/13/20 03/20/24 03/20/24 History insulin glargine 100 unit/mL (3 51 unit subcut DAILY@0900 12/13/20 03/20/24 03/20/24 History mL) subcutaneous pen (Lantus Solostar U-100 Insulin) lisinopril 20 mg tablet 1 tab PO BID 12/13/20 03/20/24 03/20/24 History metformin 1,000 mg tablet 1 tab PO BID 12/13/20 03/20/24 03/20/24 History albuterol sulfate 90 mcg/actuation 2 puff inhalation QID PRN wheezing 03/20/24 03/20/24 Unknown History aerosol inhaler dapagliflozin propanediol 10 mg 10 mg PO DAILY 03/20/24 03/20/24 03/20/24 History tablet (Farxiga) multivitamin 1 tab PO DAILY 03/20/24 03/20/24 03/20/24 History omega 1-syk-rjs-fish oil 1,000 mg 1 cap PO DAILY 03/20/24 03/20/24 03/20/24 History (120 mg-180 mg) capsule (Fish Oil) rosuvastatin 10 mg tablet 10 mg PO DAILY 03/20/24 03/20/24 03/20/24 History semaglutide 2 mg/dose (8 mg/3 mL) 2 mg subcut SA 03/20/24 03/20/24 03/20/24 History subcutaneous pen injector (Ozempic) silver sulfadiazine 1 % topical 1 appl topical ONCE 03/20/24 03/20/24 03/20/24 History cream Physical Exam Vital Signs: Vital Signs: Last Vital Signs Temp 98.2 F 03/21/24 05:50 Pulse 95 03/21/24 05:50 Resp 18 03/21/24 05:50 BP 145/81 H 03/21/24 05:50 Pulse Ox 92 03/21/24 05:50 O2 Del Method Room Air 03/21/24 05:50 BMI result Body Mass Index 48.4 Const: General: no acute distress Nutritional Appearance: obese Orientation/consciousness: patient oriented x3 Resp: Effort & Inspection: normal respiratory effort GI: Inspection: Yes normal to inspection Skin: Other: Warm and dry Neuro: General: patient oriented x3 Extrem: Other: Bilateral leg edema left greater than right; brawny edema involving the left lower extremity [id number] with open wound as previously documented. Varicosities are difficult to see on the left leg however on the right side a markedly dilated great saphenous vein is easily identified extending below the knee with superficial varicosities. Results Labs 03/20/24 09:18 03/21/24 07:02 Labs: Abnormal lab results 03/20/24 03/20/24 03/21/24 Range/Units 09:18 17:25 08:22 MPV 9.1 L (9.4-12.4) fL Nash % (Auto) 16.1 H (2-11) % Nash # (Auto) 1.5 H (0.1-1.2) X10*3/uL Carbon Dioxide 30 H (22-29) mmol/L POC Glucose 136 H 160 H (60-115) mg/dL Random Glucose 180 H (60-115) mg/dL AST 38 H (5-37) U/L ALT 59 H (0-40) U/L C-Reactive Protein 9.19 H (< or = 0.50) mg/dL Total Protein 8.2 H (6.5-8.0) g/dL Short CBC 03/20/24 Range/Units 09:18 WBC 9.1 (4.8-10.8) X10*3/uL Hgb 16.1 (14.0-18.0) g/dl Hct 49.0 (42.0-52.0) % Plt Count 203 (160-400) X10*3/uL BMP 03/20/24 03/21/24 09:18 07:02 Sodium 138 Potassium 4.4 Chloride 98 Carbon Dioxide 30 H BUN 14 Creatinine 0.81 0.78 Calcium 9.5 Liver Function 03/20/24 Range/Units 09:18 Total Bilirubin 0.6 (0.0-1.0) mg/dL Direct Bilirubin 0.3 (0.0-0.5) mg/dL AST 38 H (5-37) U/L ALT 59 H (0-40) U/L Alkaline Phosphatase 72 (39-117) U/L Albumin 4.2 (3.5-5.0) g/dL All other labs normal. Assessment and Plan (1) Venous stasis ulcer of left lower leg: Status: Acute Plan 58-year-old markedly obese male patient with diabetes and evidence of chronic venous stasis with ulceration of the left leg after an injury while in [facility]. There is marked edema in the left leg compared to the right leg. Recommend wound care consultation. Would benefit from venous Doppler studies of the superficial veins (not deep venous system) to re-evaluate for venous insufficiency. If this is present, he may benefit from venous ablation by vascular surgery. Procedures Date of Service Date of Service: 03/21/24
[2024-03-21 09:01] VITALS: BP 149/76
[2024-03-21] MEDS: hydroCHLOROthiazide 25 MG TABLET PO (09:01)
[2024-03-21] MEDS: metFORMIN HCl 1,000 MG TABLET 1000 MG PO ×2 (09:01→21:16)
[2024-03-21] MEDS: Multivitamin TABLET 1 TAB PO (09:01)
[2024-03-21] MEDS: Gabapentin 300 MG CAPSULE PO ×2 (09:01→21:16)
[2024-03-21] MEDS: lisinopriL 20 MG TABLET PO ×2 (09:02→21:16)
[2024-03-21] MEDS: Insulin Glargine,Hum.rec.anlog 100 UNIT/ML 10 ML VIAL 35 UNIT SUBCUT (09:02)
[2024-03-21] MEDS: 0.9 % Sodium Chloride Flush 3 ML SYRINGE IVFLUSH ×3 (09:12→22:03)
[2024-03-21 09:30] VITALS: BP 149/76; PULSE 94; RESP 18; TEMP 36.4; O2SAT 93
[2024-03-21 09:59] LABS: Anion Gap 15 (12-20); Carbon Dioxide 30 mmol/L (22-29); Chloride 99 mmol/L (96-108); Potassium 4.3 mmol/L (3.3-5.1); Sodium 140 mmol/L (135-145)
--- NOTE | 2024-03-21 10:22 | MHC.CM.PN ---
CM met with Patient and his /HCP/Charis at bedside. Patient lives in a house with his and required no DME [employer]. Patient's goal is home with [facility] vs new [facility]; CM has initiated and will follow for dc planning. PCP is Dr. Dm Mckeon and will transport home.
[2024-03-21] MEDS: vancomycin HCL 1,500 MG in 0.9 % Sodium Chloride 500 ML 333.33 MG IV (11:32)
[2024-03-21] MEDS: cefTRIAXone sodium 1 GM VIAL IVPUSH (11:33)
[2024-03-21] MEDS: DAPAGLIFLOZIN PROPANEDIOL 10 MG 10 EACH PO (11:49)
[2024-03-21] MEDS: Acetaminophen 325 MG TABLET 650 MG PO (14:56)
[2024-03-21] MEDS: Enoxaparin Sodium 40 MG/0.4 ML SYRINGE SUBCUT (14:57)
[2024-03-21 16:00] VITALS: BP 155/81; PULSE 90; RESP 20; TEMP 37.3; O2SAT 94
[2024-03-21 19:40] VITALS: BP 127/81; PULSE 93; RESP 20; O2SAT 94
[2024-03-21] MEDS: Atorvastatin Calcium 40 MG TABLET PO (21:16)
[2024-03-21 21:32] LABS: Vancomycin Trough 8.4 mcg/mL (10.0-20.0)
--- NOTE | 2024-03-21 21:38 | HE.PHANOTE ---
RE: vanco Trough on 03/21 came back at 8.4; increased dose to 1250mg Q8H with predicted trough of 14.6, AUC of 454. Next level to be drawn 03/22 @2100. Due to patient's BMI, cautious of dose dumping
[2024-03-21] MEDS: vancomycin HCL 1,250 MG in 0.9 % Sodium Chloride 250 ML 166.67 MG IV (22:02)
[2024-03-22] VITALS (7 sets, daily range): BP systolic 145–159; BP diastolic 74–87; PULSE 86–97; RESP 16–20; TEMP 36–37.6; O2SAT 92–94
[2024-03-22 06:30] LABS: Creatinine Clr Calc Pharmacy 201.9; Estimated Glomerular Filt Rate > 60
[2024-03-22] MEDS: vancomycin HCL 1,250 MG in 0.9 % Sodium Chloride 250 ML 166.67 MG IV ×3 (06:44→21:59)
[2024-03-22 07:44] LABS: Glucose, Whole Blood 141 mg/dL (60-115)
[2024-03-22 08:16] LABS: MANUAL DIFF FLAG NO
[2024-03-22] MEDS: metFORMIN HCl 1,000 MG TABLET 1000 MG PO ×2 (08:16→19:47)
[2024-03-22] MEDS: Gabapentin 300 MG CAPSULE PO ×2 (08:16→19:47)
[2024-03-22] MEDS: lisinopriL 20 MG TABLET PO ×2 (08:16→19:47)
[2024-03-22] MEDS: hydroCHLOROthiazide 25 MG TABLET PO (08:16)
[2024-03-22] MEDS: Multivitamin TABLET 1 TAB PO (08:16)
[2024-03-22] MEDS: DAPAGLIFLOZIN PROPANEDIOL 10 MG 10 EACH PO (08:17)
[2024-03-22] MEDS: Insulin Glargine,Hum.rec.anlog 100 UNIT/ML 10 ML VIAL 35 UNIT SUBCUT (08:18)
[2024-03-22 08:22] LABS: Basophils Percent Auto 0.5 % (0-2); Eosinophils Absolute Auto 0.2 X10*3/uL (0.0-0.4); Eosinophils Percent Auto 3.2 % (0-4); Hematocrit 46.8 % (42.0-52.0); Hemoglobin 15.6 g/dl (14.0-18.0); Imm Gran Abs Auto 0.02 X10*3/uL (0.00-0.03); Imm Gran Pct Auto 0.3 % (0.0-0.4); Lymphocytes Absolute Auto 1.5 X10*3/uL (1.2-4.9); Lymphocytes Percent Auto 20.2 % (20-40); Mean Corpuscular HGB Conc 33.3 g/dl (31.0-36.0); Mean Corpuscular Hemoglobin 31.9 pg (27.0-33.0); Mean Corpuscular Volume 95.7 fL (80.0-98.0); Mean Platelet Volume 8.9 fL (9.4-12.4); Monocytes Absolute Auto 1.4 X10*3/uL (0.1-1.2); Monocytes Percent Auto 19.3 % (2-11); Neutrophils Absolute Auto 4.2 x10*3/uL (2.0-8.3); Neutrophils Percent Auto 56.5 % (45-73); Platelet Count 214 X10*3/uL (160-400); Red Blood Count 4.89 X10*6/uL (4.60-5.80); Red Cell Distribution Width 12.1 % (11.0-16.0); White Blood Count 7.5 X10*3/uL (4.8-10.8)
[2024-03-22 08:27] LABS: Anion Gap 14 (12-20); Carbon Dioxide 29 mmol/L (22-29); Chloride 100 mmol/L (96-108); Potassium 3.8 mmol/L (3.3-5.1); Sodium 139 mmol/L (135-145)
--- NOTE | 2024-03-22 11:09 | HO.PM.IMPN ---
Subjective Subjective Date of Service: 03/22/24 Interval History: f/u on cellulitis of the left leg no new issues, leg looks better Physical Exam Vital Signs: Vital Signs: Last Vital Signs Temp 96.8 F 03/22/24 07:11 Pulse 90 03/22/24 07:11 Resp 18 03/22/24 07:11 BP 145/79 H 03/22/24 08:16 Pulse Ox 93 03/22/24 07:11 O2 Del Method Room Air 03/22/24 07:11 BMI result Body Mass Index 48.4 Const: Other: General: AO X 3, no acute distress Resp: CTA bilateral CVS: S1,S2,RRR GI: +BS, NT, no distention Skin: 2/3 Neuro: motor grossly intact Psych: appropriate affect Objective Data Active Medications Acetaminophen (Acetaminophen 325 Mg Tablet) 650 mg PO Q6H PRN PRN Reason: Pain, Mild 1-3,fever,headache Last Admin: 03/21/24 14:56 Dose: 650 mg Documented By: BEJNI Albuterol Sulfate (Albuterol Sulfate 90 Mcg 8 Gm Inhaler) 2 puff INHALE QID PRN PRN Reason: wheezing Atorvastatin Calcium (Atorvastatin Calcium 40 Mg Tablet) 40 mg PO BEDTIME [facility] Last Admin: 03/21/24 21:16 Dose: 40 mg Documented By: DAVID Calcium Carbonate (Calcium Carbonate 750 Mg Tab.Chew) 750 mg PO Q4H PRN PRN Reason: Heartburn Ceftriaxone Sodium (Ceftriaxone Sodium 1 Gm Vial) 1 gm IVPUSH Q24H [facility] Last Admin: 03/21/24 11:33 Dose: 1 gm Documented By: BENJI Dextrose (Dextrose 50 % 25 Gm/50 Ml Syringe) 25 gm IVPUSH Q15M PRN; Protocol PRN Reason: per Hypoglycemia Standing Ord. Enoxaparin Sodium (Enoxaparin Sodium 40 Mg/0.4 Ml Syringe) 40 mg SUBCUT Q24H [facility] Last Admin: 03/21/24 14:57 Dose: 40 mg Documented By: BENJI Gabapentin (Gabapentin 300 Mg Capsule) 300 mg PO BID [facility] Last Admin: 03/22/24 08:16 Dose: 300 mg Documented By: JENNIFER Glucose (Glucose Gel 15 Gm Gel..Gram.) 15 gm PO Q15M PRN; Protocol PRN Reason: per Hypoglycemia Standing Ord. Hydrochlorothiazide (Hydrochlorothiazide 25 Mg Tablet) 25 mg PO DAILY [facility]; Protocol Last Admin: 03/22/24 08:16 Dose: 25 mg Documented By: JENNIFER Vancomycin HCl 1,250 mg/ (Sodium Chloride) 250 mls @ 166.667 mls/hr IV Q8H [facility] Last Infusion: 03/22/24 08:21 Dose: Infused Documented By: JENNIFER Insulin Glargine (Insulin Glargine,Hum.Rec.Anlog 100 Unit/Ml 10 Ml Vial) 35 unit SUBCUT DAILY [facility] Last Admin: 03/22/24 08:18 Dose: 35 unit Documented By: JENNIFER Insulin Human Lispro (Insulin Lispro 100 Unit/Ml 3 Ml Vial) 0 unit SUBCUT QIDACHS [facility]; Protocol Last Admin: 03/22/24 07:59 Dose: Not Given Documented By: JENNIFER Non-Admin Reason: No Insulin Coverage Ketorolac Tromethamine (Ketorolac Tromethamine 30 Mg/Ml Vial) 30 mg IVPUSH Q6H PRN PRN Reason: Pain, Moderate(Pain Scale 4-6) Stop: 03/25/24 14:44 Lisinopril (Lisinopril 20 Mg Tablet) 20 mg PO BID [facility]; Protocol Last Admin: 03/22/24 08:16 Dose: 20 mg Documented By: JENNIFER Magnesium Hydroxide (Milk Of Magnesia 30 Ml Oral.Susp) 30 ml PO DAILY PRN PRN Reason: Constipation Melatonin (Melatonin 3 Mg Tablet) 6 mg PO BEDTIME PRN PRN Reason: Insomnia Metformin HCl (Metformin Hcl 1,000 Mg Tablet) 1,000 mg PO BID [facility] Last Admin: 03/22/24 08:16 Dose: 1,000 mg Documented By: JENNIFER Multivitamins/Vitamin C (Multivitamin Tablet) 1 tab PO DAILY [facility] Last Admin: 03/22/24 08:16 Dose: 1 tab Documented By: JENNIFER Pt Own Medication ( Dapagliflozin Propanediol [Farxiga ] 10 Mg Tablet) 10 mg PO DAILY [facility] Last Admin: 03/22/24 08:17 Dose: 10 mg Documented By: JENNIFER Ondansetron HCl (Ondansetron Hcl 4 Mg/2 Ml Vial) 4 mg IVPUSH Q8H PRN PRN Reason: Nausea and Vomiting Pharmacy Consult (Consult Rx Vancomycin Dosing) 1 each MISCELLANE DAILY PRN PRN Reason: Consult order Sodium Chloride (0.9 % Sodium Chloride Flush 3 Ml Syringe) 3 ml IVFLUSH QSHIFT [facility] Last Admin: 03/22/24 07:14 Dose: Not Given Documented By: JENNIFER Non-Admin Reason: IV Running Labs 03/22/24 05:38 03/22/24 05:38 Labs: Laboratory Results - last 24 hr 03/21/24 03/22/24 03/22/24 21:02 05:38 07:15 MCV 95.7 MCH 31.9 MCHC 33.3 RDW 12.1 Plt Count 214 MPV 8.9 L Immature Gran % (Auto) 0.3 Neut % (Auto) 56.5 Lymph % (Auto) 20.2 Fajardo % (Auto) 19.3 H Eos % (Auto) 3.2 Baso % (Auto) 0.5 Lymph # (Auto) 1.5 Fajardo # (Auto) 1.4 H Eos # (Auto) 0.2 Baso # (Auto) 0.0 Abs Immat Gran (auto) 0.02 Absolute Neuts (auto) 4.2 Absolute Nucleated RBC 0.000 Nucleated RBC % (auto) 0.0 Hold Purple Top SEE NOTE Anion Gap 14 Estim Creat Clear Calc 201.9 Estimated GFR > 60 POC Glucose 141 H Vancomycin Trough 8.4 L Microbiology Microbiology Results: Microbiology 03/20/24 11:12 Blood Culture - Preliminary Blood - Venous No growth after 24 hours. 03/20/24 10:54 Blood Culture - Preliminary Blood - Venous No growth after 24 hours. Assessment and Plan (1) Cellulitis: Status: Acute Plan 58-year-old male with a PMH significant for HTN, insulin-dependent type 2 diabetes, and peripheral neuropathy admit for left lower extremity cellulitis from chronic wound that has failed outpatient therapy. Left leg cellulitis d/t wound sustained on 02/13/2024 that did not heal, Seen by Podiatry on 03/09/2024, initially wrapped in Unna boot x1 week and then with silver sulfadiazine and Constantin wrapping to little effect vanco and ceftriaxone started 03/20 surgery consutl for possible debridment id consult, wound care consult Insulin-dependent type 2 diabetes Wyatt Baker if able to bring from home Sliding-scale insulin, Lantus at reduced dose Diabetic diet Hypertension Continue hydrochlorothiazide, lisinopril Peripheral neuropathy Continue gabapentin Alcoholic dependence Pt reports drinking 3 beers daily Monitor on CIWA Full Code DVT Prophylaxis: Lovenox Pt will require a hospitalization of at least two nights for treatment of?left lower extremity cellulitis in the setting of nonhealing wound. Given the extent of cellulitis and worsening patient's nonhealing wound, they will require hospital level care for administration of IV antibiotics as well as specialist consultation with General surgery for possible debridement. Quality Stroke Does the patient have a stroke diagnosis?: No VTE Prior VTE?: No VTE Risk Level:: Medical - moderate - high VTE Device Contraindication: Treatment Not Indicated VTE Drug Contraindication: N/A - Med Ordered
[2024-03-22] MEDS: cefTRIAXone sodium 1 GM VIAL IVPUSH (11:49)
--- NOTE | 2024-03-22 11:56 | MHC.CM.PN ---
Per MD rounds patient not medically cleared for dc. CM will continue to follow.
--- NOTE | 2024-03-22 11:58 | PC.NURSE ---
Patient is refusing all POC's except one before breakfast, pt educated on reason for POC and need for insulin but still refusing. Dr. Guerrero made aware
[2024-03-22] MEDS: Enoxaparin Sodium 40 MG/0.4 ML SYRINGE SUBCUT (15:03)
[2024-03-22] MEDS: 0.9 % Sodium Chloride Flush 3 ML SYRINGE IVFLUSH ×2 (15:05→21:59)
[2024-03-22 16:11] LABS: Glucose, Whole Blood 122 mg/dL (60-115)
--- NOTE | 2024-03-22 16:29 | W.PM.IDCN ---
History of Present Illness Data of Consult Service Date: 03/22/24 Requesting physician: [facility] Primary Care Provider: Dm Mckeon MD HPI Reason for consult: reddened left leg He has left leg swollen and reddened midshaft since January 2024 scraped on stool. He has seen Dr Bryson Trash Man and had UNNa boot 03/09-03/15 and no better. He has been putting silver alginate wound dressing he thinks. Blood cultures are negative. I had seen him 11/2020 for MRSA bacteremia. He has no DVT or OM seen. He is on Ceftriaxone and Vancomycin. Review of Systems Review of Systems: Yes all other systems are reviewed and are negative PMFSH Past Medical History Medical History Severe sepsis HTN (hypertension) Morbid obesity Diabetic foot ulcer Diabetes mellitus Diabetic neuropathy Family History Family history: reviewed and not pertinent Social History Social History Household Members: Spouse Housing: House Do you presently have visiting nurse or other home services: Yes Alcohol intake: current Alcohol intake frequency: 3 or more drinks per day Alcohol type: beer Patient Tobacco Use Status: Never used Tobacco Tobacco use type: Cigarette Cigarette Packs Per Day: 1 Cigarettes Per Day: 20.0 Years Smoked: 40 Smoked in Last 30 Days: No e-Cigarette/Vaping Use: Former Use Use of substances other than those prescribed or required for medical reasons: Yes Substance Use Type: Marijuana Substance Use Frequency: Daily Last Used Substance: Days (ago) Currently Displaying Signs/Symptoms of Drug Intoxication Withdrawal: No Have you been hit, kicked, punched, or otherwise hurt by someone within the past year? If so, by whom?: No Do you feel safe in your current relationship?: No Current Relationship Is there a partner from a previous relationship who is making you feel unsafe now?: No Are you made to feel afraid or neglected: No Advance Directives: No Advance Directives Information Provided: No Do you have a plan to hurt others: No Plan Recently lost weight without trying: No How much weight loss: Not applicable Eating poorly because of decreased appetite: No Nutrition screen score: 0 Nutrition Risks: No Nutritional Risk Poor oral hygiene: No service: No Current occupational status: unemployed Meds Allergies Allergy/AdvReac Type Severity Reaction Status Date / Time bee pollen [BEE STINGS] Allergy Unknown UNKNOWN Verified 03/20/24 08:58 Penicillins Allergy Unknown Unknown Verified 03/20/24 08:58 Active Medications: Current Medications Acetaminophen (Acetaminophen 325 Mg Tablet) 650 mg PO Q6H PRN PRN Reason: Pain, Mild 1-3,fever,headache Last Admin: 03/21/24 14:56 Dose: 650 mg Albuterol Sulfate (Albuterol Sulfate 90 Mcg 8 Gm Inhaler) 2 puff INHALE QID PRN PRN Reason: wheezing Atorvastatin Calcium (Atorvastatin Calcium 40 Mg Tablet) 40 mg PO BEDTIME [facility] Last Admin: 03/21/24 21:16 Dose: 40 mg Calcium Carbonate (Calcium Carbonate 750 Mg Tab.Chew) 750 mg PO Q4H PRN PRN Reason: Heartburn Ceftriaxone Sodium (Ceftriaxone Sodium 1 Gm Vial) 1 gm IVPUSH Q24H [facility] Last Admin: 03/22/24 11:49 Dose: 1 gm Dextrose (Dextrose 50 % 25 Gm/50 Ml Syringe) 25 gm IVPUSH Q15M PRN; Protocol PRN Reason: per Hypoglycemia Standing Ord. Enoxaparin Sodium (Enoxaparin Sodium 40 Mg/0.4 Ml Syringe) 40 mg SUBCUT Q24H [facility] Last Admin: 03/22/24 15:03 Dose: 40 mg Gabapentin (Gabapentin 300 Mg Capsule) 300 mg PO BID [facility] Last Admin: 03/22/24 08:16 Dose: 300 mg Glucose (Glucose Gel 15 Gm Gel..Gram.) 15 gm PO Q15M PRN; Protocol PRN Reason: per Hypoglycemia Standing Ord. Hydrochlorothiazide (Hydrochlorothiazide 25 Mg Tablet) 25 mg PO DAILY [facility]; Protocol Last Admin: 03/22/24 08:16 Dose: 25 mg Vancomycin HCl 1,250 mg/ (Sodium Chloride) 250 mls @ 166.667 mls/hr IV Q8H [facility] Last Admin: 03/22/24 15:04 Dose: 166.67 mls/hr Insulin Glargine (Insulin Glargine,Hum.Rec.Anlog 100 Unit/Ml 10 Ml Vial) 35 unit SUBCUT DAILY [facility] Last Admin: 03/22/24 08:18 Dose: 35 unit Insulin Human Lispro (Insulin Lispro 100 Unit/Ml 3 Ml Vial) 0 unit SUBCUT QIDACHS [facility]; Protocol Last Admin: 03/22/24 16:14 Dose: Not Given Ketorolac Tromethamine (Ketorolac Tromethamine 30 Mg/Ml Vial) 30 mg IVPUSH Q6H PRN PRN Reason: Pain, Moderate(Pain Scale 4-6) Stop: 03/25/24 14:44 Lisinopril (Lisinopril 20 Mg Tablet) 20 mg PO BID [facility]; Protocol Last Admin: 03/22/24 08:16 Dose: 20 mg Magnesium Hydroxide (Milk Of Magnesia 30 Ml Oral.Susp) 30 ml PO DAILY PRN PRN Reason: Constipation Melatonin (Melatonin 3 Mg Tablet) 6 mg PO BEDTIME PRN PRN Reason: Insomnia Metformin HCl (Metformin Hcl 1,000 Mg Tablet) 1,000 mg PO BID [facility] Last Admin: 03/22/24 08:16 Dose: 1,000 mg Multivitamins/Vitamin C (Multivitamin Tablet) 1 tab PO DAILY [facility] Last Admin: 03/22/24 08:16 Dose: 1 tab Pt Own Medication ( Dapagliflozin Propanediol [Farxiga ] 10 Mg Tablet) 10 mg PO DAILY [facility] Last Admin: 03/22/24 08:17 Dose: 10 mg Ondansetron HCl (Ondansetron Hcl 4 Mg/2 Ml Vial) 4 mg IVPUSH Q8H PRN PRN Reason: Nausea and Vomiting Pharmacy Consult (Consult Rx Vancomycin Dosing) 1 each MISCELLANE DAILY PRN PRN Reason: Consult order Sodium Chloride (0.9 % Sodium Chloride Flush 3 Ml Syringe) 3 ml IVFLUSH QSHIFT [facility] Last Admin: 03/22/24 15:05 Dose: 3 ml Home Medications ?Medication ?Instructions ?Recorded ?Confirmed ?Last Taken ?Type gabapentin 300 mg capsule 300 mg PO BID 12/13/20 03/20/24 03/20/24 History hydrochlorothiazide 25 mg tablet 1 tab PO DAILY 12/13/20 03/20/24 03/20/24 History insulin glargine 100 unit/mL (3 51 unit subcut DAILY@0900 12/13/20 03/20/24 03/20/24 History mL) subcutaneous pen (Lantus Solostar U-100 Insulin) lisinopril 20 mg tablet 1 tab PO BID 12/13/20 03/20/24 03/20/24 History metformin 1,000 mg tablet 1 tab PO BID 12/13/20 03/20/24 03/20/24 History albuterol sulfate 90 mcg/actuation 2 puff inhalation QID PRN wheezing 03/20/24 03/20/24 Unknown History aerosol inhaler dapagliflozin propanediol 10 mg 10 mg PO DAILY 03/20/24 03/20/24 03/20/24 History tablet (Farxiga) multivitamin 1 tab PO DAILY 03/20/24 03/20/24 03/20/24 History omega 6-hbu-ywc-fish oil 1,000 mg 1 cap PO DAILY 03/20/24 03/20/24 03/20/24 History (120 mg-180 mg) capsule (Fish Oil) rosuvastatin 10 mg tablet 10 mg PO DAILY 03/20/24 03/20/24 03/20/24 History semaglutide 2 mg/dose (8 mg/3 mL) 2 mg subcut SA 03/20/24 03/20/24 03/20/24 History subcutaneous pen injector (Ozempic) silver sulfadiazine 1 % topical 1 appl topical ONCE 03/20/24 03/20/24 03/20/24 History cream Physical Exam Vital Signs: Vital Signs: Last Vital Signs Temp 97.2 F 03/22/24 15:20 Pulse 86 03/22/24 15:20 Resp 18 03/22/24 15:20 BP 148/82 H 03/22/24 16:12 Pulse Ox 93 03/22/24 15:20 O2 Del Method Room Air 03/22/24 15:20 BMI result Body Mass Index 48.4 Const: General: cooperative HEENT: Head: Yes normal to inspection Face and sinus: Yes normal facial exam Mouth: Normal oral and palatal mucosa present Teeth and gingiva: dentition normal Eyes: General: appearance normal, both eyes and all related structures Pupils: Equal, round and reactive pupils present Resp: Effort & Inspection: normal respiratory effort Cardio: Rate: regular rate Rhythm: regular rhythm GI: Palpation (GI): Soft to palpation and nontender : General: Yes no CVA tenderness Back/Spine/Pelvis: Back: no CVA tenderness Skin: General skin exam: no rashes or lesions noted Neuro: General: moves all extremities Cranial nerves: Yes Equal, round and reactive pupils present Extrem: Other: reddened LLE with eschar bilateral leg swelling and pannus Psych: Appearance: grossly normal Results Labs 03/22/24 05:38 03/22/24 05:38 Labs: Short CBC 03/22/24 Range/Units 05:38 WBC 7.5 (4.8-10.8) X10*3/uL Hgb 15.6 (14.0-18.0) g/dl Hct 46.8 (42.0-52.0) % Plt Count 214 (160-400) X10*3/uL BMP 03/22/24 05:38 Sodium 139 Potassium 3.8 Chloride 100 Carbon Dioxide 29 Creatinine 0.71 Microbiology Microbiology Results: Microbiology 03/20/24 11:12 Blood - Venous Blood Culture - Preliminary No growth after 48 hours. 03/20/24 10:54 Blood - Venous Blood Culture - Preliminary No growth after 48 hours. Assessment and Plan (1) Venous stasis ulcer of left lower leg: Status: Acute (2) Edema, pitting: Status: Acute Plan He has longstanding open area tibia. He has possible staph/strep/MRSA. He is on Ceftriaxone and Vancomycin. Would continue local care. Follow Wound Clinic. Would consider switch to linezolid 600 mg bid and stop Vancomycin and Ceftriaxone more rapid decrease bacterial burden and toxin. Lotrimin cream between toes.
[2024-03-22] MEDS: Acetaminophen 325 MG TABLET 650 MG PO (16:43)
--- NOTE | 2024-03-22 17:49 | HO.WOUND ---
Wound Consult: Initial 58yr old? male admitted to [facility] on 03/20/24 - See progress notes and H&P for detailed history.? Wound consult placed for Left Lower Leg.? Patient agreeable to assessment and photo documentation.? Left Lower Leg Left Leg Etiology: Venous Wound Measurements: 9cm x 6cm x 0.2cm Wound Bed: scattered areas of full thickness tissue loss some pale white slough noted - the immediate periwound is macerated and fluid logged unable to appreciate wound bed assessment at this time. Drainage / Odor: yellow serous drainage noted at the time of my consult - no odor moderate amount Edges: ? irregular Iris wound: red firm swelling noted - macerated tissue with purple pigmentaiton noted No Induration, Fluctuance or Warmth noted Pain: denies pain Goals of Treatment: ? Elevate lower leg - durafiber for moisture management and constantin wrap to act as compression until able to get one own compression Of note patient was educated on the importance of blood sugar control and wound healing. He was educated on the effects of nicotine gum and smoking on wound healing and blood flow. He was also educated on the impacts of swelling to the lower legs and wound healing. Patient encouraged to follow up outside providers for compression therapy. 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 Patient reports he is not able to take time off of work at this time however his who was present throughout my consult reported he was able but that he did not want to take time off of work unclear - they were advised to discuss and come up with abelan they are both comfortable with interms of his return to work. If to return to work patient advised to take breaks elevate lower leg and wear compression socks. Recommendations: 1. Provide adequate and supplemental nutrition.? 2. Maintain blood glucose levels per Providers order. Patient educated to allow for blood sugar monitoring as he has been refusing POC except first thing in the morning. 3. Left Lower Leg - Elevate on pillows throughout day. Cleanse wound bed with NS, moist gauze. Apply skin prep to periwound. Cover wound bed with Durafiber AG, followed by dry gauze, ABD pad and gauze wrap. Change every other day. Followed by Constantin wrap to aid in fluid mobilization. Do not leave legs in dependent position as this will worsen swelling. Periodically ambulated to move blood flow and initiate calf pump to help mobilize fluid. Encourage to wear compression on the right leg if available from home, suspect will not fit left leg yet apply once it fits. Recommend follow up out patient Wound Clinic at [address] [place] [address] and to call for an appointment at time of discharge. [phone].? Patient should follow up outpt with OT for Lymphedema and compression therapy.? [facility] [address] [place] [address] . Re-consult wound care Nurse for wound deterioration or wound changes.
[2024-03-22] MEDS: Atorvastatin Calcium 40 MG TABLET PO (19:47)
[2024-03-22 20:52] LABS: Glucose, Whole Blood 147 mg/dL (60-115)
--- NOTE | 2024-03-22 21:44 | HE.PHANOTE ---
Re: Car Renal function is improving. Trough returned at 12.0. Pt is therapeutic. Continue current dose 1250mg q8h with predicted AUC 417, predicted trough 13.1. Next trough 2/4 @ 2100.
[2024-03-23 06:22] LABS: Creatinine Clr Calc Pharmacy 181.5; Estimated Glomerular Filt Rate > 60
[2024-03-23] MEDS: vancomycin HCL 1,250 MG in 0.9 % Sodium Chloride 250 ML 166.67 MG IV (06:36)
[2024-03-23 07:46] VITALS: BP 163/60; PULSE 76; RESP 18; TEMP 36.4; O2SAT 98
[2024-03-23 07:54] LABS: Glucose, Whole Blood 151 mg/dL (60-115)
--- NOTE | 2024-03-23 08:09 | PM.EVENT ---
Event Note Date of Service: 03/23/24 Event Note: Doppler studies reviewed for superficial venous system. No evidence of venous reflux to indicate venous insufficiency although clinically wounds do appear consistent with venous stasis. Appreciate wound care evaluation. Agree with local wound care with dura fiber Ag, compression and leg elevation. Patient will follow-up with wound care center upon discharge. Time Spent With Patient Time: Total time managing care of this patient today ____ minutes.
[2024-03-23] MEDS: Insulin Glargine,Hum.rec.anlog 100 UNIT/ML 10 ML VIAL 35 UNIT SUBCUT (08:12)
[2024-03-23] MEDS: hydroCHLOROthiazide 25 MG TABLET PO (08:14)
[2024-03-23] MEDS: Gabapentin 300 MG CAPSULE PO (08:14)
[2024-03-23] MEDS: lisinopriL 20 MG TABLET PO (08:14)
[2024-03-23] MEDS: Multivitamin TABLET 1 TAB PO (08:14)
[2024-03-23] MEDS: metFORMIN HCl 1,000 MG TABLET 1000 MG PO (08:14)
[2024-03-23] MEDS: 0.9 % Sodium Chloride Flush 3 ML SYRINGE IVFLUSH (08:16)
--- NOTE | 2024-03-23 10:30 | MHC.CM.PN ---
Per MD rounds patient medically cleared for dc home w/ [facility] for SN/wound care. Patient reports he is homebound as he is unable to sit in a car w/ legs down. at bedside to transport.
[2024-03-23] MEDS: Linezolid 600 MG TABLET PO (10:46)
[2024-03-23 11:40] LABS: Glucose, Whole Blood 150 mg/dL (60-115)
--- NOTE | 2024-03-23 12:43 | W.MHC.F2F ---
Service Date Service Date: 03/23/24 Encounter Date of encounter: 03/23/24 Encounter: leg cellulitis Reasons for Services Signs and symptoms assessed: any drainage or fever or worsening erythema Reason for chcf: wound care, medication management, medication treatment and teach disease management MD Overseeing Care: Dm Marcos Mckeon Homebound: Leaving the home is medically contraindicated at this time without the asist of a device and/or another person due th the listed conditions above and below. Reason homebound: weakness related to hospital stay Homebound supporting statement: Patient is generalised weak post hospitlisation and need help with going to appointments and medical management and wound care. Certification: Based on the above findings, I certify that this patient is confined to the home and needs intermittent chcf care, physical therapy and/or speech therapy, or continues to need occupational therapy. The patient is under my care, and I have initiated the establishment of the plan of care. The patient will be followed by a physician who will periodically review the plan of care. Time Spent With Patient Time: Total time managing care of this patient today ____ minutes.
--- NOTE | 2024-03-23 12:49 | P.DS_ITS ---
DS: Providers Provider Date of Service: 03/23/24 Date of admission: 03/20/24 14:45 Date of discharge: 03/23/24 Primary care physician: Dm Mckeon MD Consults: 03/20/24 14:45 Consult to General Surgery Routine Consulting Provider: [facility] [place] [facility] Reason for consultation: Non-healing LLE wound, +cellulitis, +DM 03/20/24 17:57 Consult to Wound Care Routine Reason for consultation: left leg cellulitis with open area and drainage 03/22/24 11:11 Consult to Infectious Diseases Routine Consulting Provider: [facility] [place] [facility] Reason for consultation: cellulitis of left leg Attending physician on discharge: Zoë Bach Discharging clinician: Zoë Bach DS: Diagnosis Discharge Diagnosis (1) Venous stasis ulcer of left lower leg: Status: Acute (2) Edema, pitting: Status: Acute DS: Summary Hospital Course Hospital Course: HPI:58-year-old male with a PMH significant for HTN, insulin-dependent type 2 diabetes, and peripheral neuropathy who presents to the ED for evaluation of worsening left lower leg wound. Pt reports initially sustained injury on 02/13/2024 when he scraped his leg on a stool at a swim-up bar while vacationing in [facility] in [place] [facility]. Pull was chlorinated and fresh water. Did not enter the ocean during his trip. Initially no significant pain or erythema, but wound did not heal over the next few weeks and pt did not seek any medical evaluation until Podiatry appointment on 03/09/2024. Podiatry thought wound was not healing secondary to chronic edema and separation of skin layers, so placed pt in a Unna boot x1 week. Wound was then re-evaluated by Podiatry and noted to have no improvement but still no signs of infection, so pt was treated with silver sulfasalazine and wrapped in an Constantin wrapping. Two days ago wound began worsening with developing erythema, mild pain, and drainage. Pt s eparately complains of mild non-productive cough and mild URI symptoms. No fever or chills. Shortness or breath or difficulty breathing. No chest pain/pressure, palpitations. Denies nausea, vomiting, abdominal pain. In the ED pt was tachycardic up to 106 vitals otherwise stable. Labs were significant for AST 38, ALT 59, and CRP 9.19. No leukocytosis. Stable H&H. No significant electrolyte abnormalities. Renal function baseline. Tested negative for flu, COVID, RSV. CXR showed interstitial and bronchial wall thickening and left subsegmental atelectasis. Bilateral venous duplex negative for DVT, but showed bilateral calf edema. X-ray of left tibia and fibula negative for evidence of osteomyelitis. Pt was treated with vancomycin and ceftriaxone. Pt will be admitted to the hospital for treatment and further evaluation of worsening left lower extremity cellulitis from chronic wound that has failed outpatient therapy. Hospital course: Patient with insulin-dependent type 2 diabetes, and peripheral neuropathy admit for left lower extremity cellulitis from chronic wound that has failed outpatient therapy-Left leg cellulitis d/t wound -started on IV antibiotics vancomycin and ceftriaxone, surgery saw the patient-Doppler studies reviewed for superficial venous system.No evidence of venous reflux to indicate venous insufficiency although clinically wounds do appear consistent with venous stasis. Patient blood culture negative at 48 hours.Patient seen by infectious disease recommended to switch to linezolid 600 mg b.i.d. for 1 week. Please see wound care instructions above. Patient is to follow-up with wound care outpatient. plan: Complete linezolid 600 mg b.i.d. for 1 week. wound care as above, compression and leg elevation. Patient is to follow-up with wound care outpatient. Above management discussed with the patient and his in detail length both understand and in agreement with the above plan, time spent 40 min. Time Attestation Total time managing care of this patient today: 40 mintues. Discharge Coordination Time (in mins): 40 min Quality: Safe Use of Opioids Does Pt have an Active Cancer Diagnosis on the Problem List?: No Quality: Stroke Does the patient have a stroke diagnosis?: No Physical Exam Vital Signs: Vital Signs: Last Vital Signs Temp 97.5 F 03/23/24 07:46 Pulse 76 03/23/24 07:46 Resp 18 03/23/24 07:46 BP 163/60 H 03/23/24 07:46 Pulse Ox 98 03/23/24 07:46 O2 Del Method Room Air 03/23/24 07:46 BMI result Body Mass Index 48.4 General: AO X 3, no acute distress Resp: CTA bilateral CVS: S1,S2,RRR GI: +BS, NT, no distention skin-venous stasis changes ,erythema improved,wound area wrapped( pic on wound care reviewed ) . DS: Data Data Completed and Pending Completed studies during hospitalization [Text1]: Procedures Insertion of Infusion Device into Superior Vena Cava, Percutaneous Approach (12/12/20) Labs on day of discharge: Laboratory Results - last 24 hr 03/22/24 03/22/24 03/22/24 16:07 20:40 21:10 Hold Purple Top Creatinine Estim Creat Clear Calc Estimated GFR POC Glucose 122 H 147 H Vancomycin Trough 12.0 03/23/24 03/23/24 03/23/24 05:48 07:49 11:12 Hold Purple Top SEE NOTE Creatinine 0.79 Estim Creat Clear Calc 181.5 Estimated GFR > 60 POC Glucose 151 H 150 H Vancomycin Trough Preliminary micro results at discharge 03/20/24 11:12 Blood Culture - Preliminary Blood - Venous No growth after 48 hours. 03/20/24 10:54 Blood Culture - Preliminary Blood - Venous No growth after 48 hours. Imaging Chest x-ray: Radiologist's impression: ITS Impressions Venous Duplex 03/22/24 09:02 IMPRESSION: 1. No hemodynamically significant reflux is seen of the left greater or lesser saphenous veins. Electronically signed by: Leonides Bajwa MD 03/22/2024 10:28 AM [facility] [place] Plan Discharge Anticipated Discharge Date/Time: 03/23/24 12:36 Patient Disposition: Home Health Service Discharge Diagnosis: leg cellulitis Referrals: [facility] [Outside] - 3-5 Days ([facility] will call you to schedule nursing appointments) [facility] [place] [facility] [Outside] - 1 Week (call wound clinic to schedule an appointment ) Dm Mckeon MD [Primary Care Provider] - 1 Week Discharge Medications: New linezolid 600 mg Tablet 600 mg PO Q12H Qty: 14 0RF Continued lisinopril 20 mg tablet 1 tab PO BID gabapentin 300 mg capsule 300 mg PO BID hydrochlorothiazide 25 mg tablet 1 tab PO DAILY insulin glargine [Lantus Solostar U-100 Insulin] 100 unit/mL (3 mL) insulin pen 51 unit subcut DAILY@0900 metformin 1,000 mg tablet 1 tab PO BID multivitamin Tablet 1 tab PO DAILY silver sulfadiazine 1 % cream 1 appl topical ONCE albuterol sulfate 90 mcg/actuation HFA aerosol inhaler 2 puff inhalation QID PRN (Reason: wheezing) rosuvastatin 10 mg tablet 10 mg PO DAILY omega 8-avi-jwo-fish oil [Fish Oil] 1,000 (120-180) mg Capsule 1 cap PO DAILY dapagliflozin propanediol [Farxiga] 10 mg tablet 10 mg PO DAILY Ozempic 2 mg/dose (8 mg/3 mL) pen injector 2 mg subcut SA Discharge Orders: Discharge Order (Routine); Ordered 03/23/24 Ordered By: Zoë Bach Diet: Advance to usual diet Activity on Discharge: As tolerated Stand Alone Forms: Patient Portal Discharge page Print Language: Citizen Of [place] Activity Restrictions/Additional Instructions: Topical wound care recommendations: Left Lower Leg - Elevate on pillows throughout day. Cleanse wound bed with NS, moist gauze. Apply skin prep to periwound. Cover wound bed with Durafiber AG, followed by dry gauze, ABD pad and gauze wrap. Change every other day. Followed by Constantin wrap to aid in fluid mobilization. Do not leave legs in dependent position as this will worsen swelling. Periodically ambulated to move blood flow and initiate calf pump to help mobilize fluid. Encourage to wear compression on the right leg if available from home, suspect will not fit left leg yet apply once it fits. Recommend follow up out patient Wound Clinic at [address] [place] [address] and to call for an appointment at time of discharge. [phone].? Patient should follow up outpt with OT for Lymphedema and compression therapy.? [facility] [place] [facility] [address] [place] [address] . Care Plan Goals: 58-year-old male with a PMH significant for HTN, insulin-dependent type 2 diabetes, and peripheral neuropathy admit for left lower extremity cellulitis from chronic wound that has failed outpatient therapy-Left leg cellulitis d/t wound -started on IV antibiotics vancomycin and ceftriaxone, surgery saw the patient-Doppler studies reviewed for superficial venous system.No evidence of venous reflux to indicate venous insufficiency although clinically wounds do appear consistent with venous stasis. Patient blood culture negative at 48 hours. Patient seen by infectious disease recommended to switch to linezolid 600 mg b.i.d. for 1 week. Please see wound care instructions above. Patient is to follow-up with wound care outpatient. Health Concerns: As above. Plan of Treatment: Complete linezolid 600 mg b.i.d. for 1 week. wound care as above, compression and leg elevation Assessment: As above.
[2024-03-23 14:20] VITALS: BP 153/83; PULSE 91; RESP 18; TEMP 36.3; O2SAT 93
== END 2024-03-23 14:15 | disposition home health service (06) | DRG 383 ==
LOC: HO.ED 13:24 → HO.EDOVER 14:57 → HO.S3 16:12
PROVIDERS: Internal Medicine; Physician Assistant; Admitting Provider Student in an Organized Health Care Education/Training Program; Emergency Provider Emergency Medicine; PCP Internal Medicine; Visit Provider Internal Medicine
DX: L03.116 Cellulitis of left lower limb (principal); E11.42 Type 2 diabetes mellitus with diabetic polyneuropathy; L97.829 Non-pressure chronic ulcer of other part of left lower leg with unspecified severity; I87.2 Venous insufficiency (chronic) (peripheral); I10 Essential (primary) hypertension; F10.20 Alcohol dependence, uncomplicated; Z20.822 Contact with and (suspected) exposure to COVID-19; Z79.4 Long term (current) use of insulin; Z79.84 Long term (current) use of oral hypoglycemic drugs; Z79.899 Other long term (current) drug therapy
CPT/HCPCS: 0241U; 36415; 71046; 73590; 80048; 80051; 80076; 80202; 82565; 82947; 83735; 83880; 85025; 85652; 86140; 87040; 93970; 93971; 99285; J0696; J1650; J3370; J3371

== ENCOUNTER → 2024-03-20 09:03 | Outpatient (BNV) | payer BC, SELFPAY | PROVIDERS: Emergency Provider Emergency Medicine; PCP Internal Medicine; Visit Provider Radiology Diagnostic Radiology | DX: R59.0 Localized enlarged lymph nodes (principal); R05.9 Cough, unspecified; I83.028 Varicose veins of left lower extremity with ulcer other part of lower leg | CPT/HCPCS: 71046; 73590; 93970 ==

== ENCOUNTER 2024-03-20 14:45 | Outpatient (BNV) | payer BC, SELFPAY | END 2024-03-22 09:02 | PROVIDERS: Admitting Provider Student in an Organized Health Care Education/Training Program; Emergency Provider Emergency Medicine; PCP Internal Medicine; Visit Provider Radiology Diagnostic Radiology | DX: I83.028 Varicose veins of left lower extremity with ulcer other part of lower leg (principal) | CPT/HCPCS: 93971 ==

== ENCOUNTER → 2024-03-20 14:45 | Outpatient (BNV) | payer BC, SELFPAY | PROVIDERS: Admitting Provider Student in an Organized Health Care Education/Training Program; Emergency Provider Emergency Medicine; PCP Internal Medicine; Visit Provider Internal Medicine | DX: I83.028 Varicose veins of left lower extremity with ulcer other part of lower leg (principal); R60.9 Edema, unspecified | CPT/HCPCS: 99222 ==

== ENCOUNTER → 2024-03-20 14:45 | Outpatient (BNV) | payer BC, SELFPAY | PROVIDERS: Admitting Provider Student in an Organized Health Care Education/Training Program; Emergency Provider Emergency Medicine; PCP Internal Medicine; Visit Provider Student in an Organized Health Care Education/Training Program | DX: L03.116 Cellulitis of left lower limb (principal); E11.628 Type 2 diabetes mellitus with other skin complications | CPT/HCPCS: 99222; 99232; 99233; 99239; G0180 ==

== ENCOUNTER 2024-04-19 08:10 | Outpatient (RCR) | payer BC, SELFPAY | END 2024-04-19 11:25 | disposition home or self-care (01) | LOC: HO.WCC 08:10 | PROVIDERS: PCP Internal Medicine; Visit Provider Surgery | DX: E11.628 Type 2 diabetes mellitus with other skin complications (principal); S81.812D Laceration without foreign body, left lower leg, subsequent encounter; E11.40 Type 2 diabetes mellitus with diabetic neuropathy, unspecified; I10 Essential (primary) hypertension; F12.90 Cannabis use, unspecified, uncomplicated; Z87.891 Personal history of nicotine dependence | CPT/HCPCS: 11042; 97597; 99212 ==

== ENCOUNTER 2024-10-04 10:11 | Outpatient (RCR) | payer BC, SELFPAY | END 2025-01-03 12:34 | disposition home or self-care (01) | LOC: HO.OT 10:11 | PROVIDERS: PCP Internal Medicine; Visit Provider Internal Medicine | DX: I89.0 Lymphedema, not elsewhere classified (principal) | CPT/HCPCS: 97140; 97165; 97166; 97535 ==

== ENCOUNTER 2025-01-17 10:59 | Inpatient (IN) | payer BC, SELFPAY ==
[2025-01-17] VITALS (10 sets, daily range): BP systolic 118–188; BP diastolic 61–98; PULSE 99–118; RESP 19–115; TEMP 38.7–40.2; O2SAT 82–99; BMI 46.7
--- NOTE | 2025-01-17 | ECG_ITS ---
Test Reason : TACHY Blood Pressure : */* mmHG Vent. Rate : 116 BPM Atrial Rate : 116 BPM P-R Int : 164 ms QRS Dur : 116 ms QT Int : 340 ms P-R-T Axes : 39 -24 83 degrees QTcB Int : 472 ms Sinus tachycardia Minimal voltage criteria for LVH, may be normal variant ( [place] product ) Borderline ECG When compared with ECG of 12-Dec-2020 19:48, No significant change was found Referred By: Peter Powell Electronically Signed By: ANIKET COYLE
--- NOTE | ~2025-01-17 | US_ITS ---
CLINICAL HISTORY: Swelling, erythema, rule out DVT Venous duplex ultrasound right lower extremity Comparison: US - US VENOUS DUPLEX DOREEN LT - 03/20/24 10:49 EST, [place] - US VENOUS DUPLEX LE BI - 10/26/2020 01:22 PM EDT Findings: The right peroneus vein is not well evaluated due to soft tissue edema. Otherwise, the visualized deep veins are fully compressible with normal Doppler color flow and spectral tracings. IMPRESSION: 1. Negative for right lower extremity deep vein thrombosis. This document has been electronically signed by: Doreen Carter MD on 01/17/2025 19:32:51
--- NOTE | ~2025-01-17 | CT_ITS ---
CLINICAL HISTORY: RUQ, RLQ tender, fever, R O cholecystitis, appendi CT abdomen and pelvis with IV contrast. COMPARISON: None provided. FINDINGS: Minimal atelectasis along the posterior lower lobes. Coronary artery calcifications and/or stents present within LAD, circumflex and RCA. Hepatic steatosis. Liver is enlarged with right lobe measuring 25.7 cm. Gallbladder is contracted. Normal spleen. Normal pancreas. Left adrenal nodule measuring 2.0 cm, indeterminate. Symmetric renal enhancement. No hydronephrosis. Nonobstructing 4 mm right renal calculus. Normal appendix. Ojlj-ig-audmtyqk colonic stool burden. No bowel obstruction. No mesenteric or retroperitoneal lymphadenopathy. Mild aortoiliac atherosclerotic vascular calcifications. Normal appearance of the urinary bladder. Likely rectal thermometer present. Prostate calcifications present. Several prominent right inguinal and groin lymph nodes present. For example right inguinal lymph node measuring 1.6 x 3.6 x 3.7 cm. Flowing marginal osteophytes present along the lower thoracic and lumbar spine. Moderate to advanced multilevel spondylosis. IMPRESSION: 1. No evidence of appendicitis. No bowel obstruction. 2. Several prominent and enlarged right inguinal and groin lymph nodes, nonspecific. 3. Hepatomegaly with hepatic steatosis. 4. Coronary artery atherosclerosis. 5. Indeterminate left adrenal nodule measuring 2.0 cm. Recommend comparison with prior imaging if available. If none available, recommend adrenal protocol CT or MR for further characterization. This document has been electronically signed by: Clive Paz MD on 01/17/2025 17:46:47
--- NOTE | ~2025-01-17 | CT_ITS ---
CLINICAL HISTORY: Cough, fever, chest pain, R O PE versus pneumonia CT ANGIOGRAPHY CHEST WITH CONTRAST. 3D POSTPROCESSING. Comparison: None provided Findings: The heart is normal size. RV/LV ratio is normal. Questionable coronary stent artifact. No thoracic aortic aneurysm or dissection. No acute pulmonary embolus. Probable mild thyromegaly with asymmetrically larger left lobe. Multiple nonenlarged mediastinal lymph nodes are nonspecific. No consolidation, pleural effusion or pneumothorax. Bilateral lower lobe atelectasis, right greater than left. Hepatomegaly and hepatic steatosis. No acute fractures. IMPRESSION: 1. No pulmonary embolus. 2. No consolidation. This document has been electronically signed by: Sasha Mai DO on 01/17/2025 17:56:42
--- NOTE | ~2025-01-17 | XR_ITS ---
EXAMINATION: XR FOOT 3 OR MORE VIEWS RIGHT HISTORY: fifth toe ulcer COMPARISON: There are no prior studies available for comparison. FINDINGS: Four views of the right foot are submitted. There is ill-defined lucency and cortical irregularity involving the head of the 5th metatarsal and the base of the 5th proximal phalanx. Findings are suspicious for osteomyelitis. There is overlying soft tissue swelling. There is no fracture or dislocation. There is mild degenerative change of the intertarsal and tarsometatarsal joints as well as the MTP and interphalangeal joints of the great toe. There are calcaneal spurs at the plantar aspect and at the insertion of the Achilles tendon. XR/XR foot RT min 3V IMPRESSION: Findings suspicious for osteomyelitis involving the head of the 5th metatarsal and the 5th proximal phalanx. This could be confirmed with MRI. Electronically signed by: Dheeraj Gordon MD 01/19/2025 12:07 PM [facility]
--- NOTE | ~2025-01-17 | XR_ITS ---
EXAMINATION: XR CHEST CLINICAL INFORMATION: Fever, cough, rule out pneumonia COMPARISON: March 20, 2024. TECHNIQUE: Portable AP semiupright position view of the chest was obtained. FINDINGS: Mild prominence of the interstitial markings. No consolidation pleural effusion or pneumothorax. Poor inspiration. Cardiomediastinal silhouette size is normal. Calcified plaque aortic arch. Multilevel thoracic spondylosis. Degenerative changes in the right acromioclavicular joint. XR/XR chest 1V IMPRESSION: Concerning mild interstitial edema versus acute small airway inflammatory process. Electronically signed by: Anam Puckett MD 01/17/2025 01:17 PM [facility]
--- NOTE | 2025-01-17 11:33 | ED.GENADULT ---
HPI - General Adult General Chief complaint: General Medical Stated complaint: ?sepsis?lower leg possible infection Time Seen by Provider: 01/17/25 11:14 Source: patient and family () Mode of arrival: ambulatory Limitations: no limitations History of Present Illness ED Provider: Dr. Peter Powell HPI narrative: 59-year-old male with a history diabetes mellitus, hypertension, cellulitis causing sepsis in the past who presents emergency department for evaluation of fever, abdominal pain, redness and pain of the right lower extremity. Patient states that he was feeling sick 1 week prior but refused to go to the hospital. According to his , he would not come to the hospitalist since he had to go to [place] for Thanksgiving to visit his 84-year-old mother. Patient returned from [place], 01/13/2025 and felt fine. Yesterday, he developed a fever in the afternoon of 102 degrees F. He also developed abdominal pain and points to his right upper abdomen when asked to localize the pain. Patient also noted redness and increased warmth in his right lower extremity today. Patient states that 2 weeks ago he fractured 2 dental implants and required oral surgery to remove the implant posts. The patient was treated with amoxicillin prior to the surgery and completed a course of amoxicillin around 1 week prior. Patient s noted a cut t to his MTP crease of the right great toe on December 24. 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 Patient states he does have a sore throat. He states that he has had a cough x1 week which is productive of thick white sputum with no blood in his sputum. Denied chest pain but complains of shortness of breath and dyspnea on exertion. He had nausea with no vomiting. He denied diarrhea. He has not noticed dark tarry stools or black stools. He denied dysuria, frequency or urgency. The patient smokes 2 packs of cigarettes per day for 45 years and he states that he quit smoking 2 years prior. Patient does vape marijuana in uses marijuana gummies. He states that he drinks 10 beers per day but he has not had any beer to drink in 2 days. Related Data Home Medications ?Medication ?Instructions ?Recorded ?Confirmed gabapentin 300 mg capsule 300 mg PO BID 12/13/20 01/17/25 hydrochlorothiazide 25 mg tablet 25 mg PO DAILY 12/13/20 01/17/25 insulin glargine 100 unit/mL (3 60 unit subcut DAILY@0900 12/13/20 01/17/25 mL) subcutaneous pen (Lantus Solostar U-100 Insulin) lisinopril 20 mg tablet 20 mg PO BID 12/13/20 01/17/25 metformin 1,000 mg tablet 1,000 mg PO BID 12/13/20 01/17/25 albuterol sulfate 90 mcg/actuation 2 puff inhalation QID PRN wheezing 03/20/24 01/17/25 aerosol inhaler dapagliflozin propanediol 10 mg 10 mg PO DAILY 03/20/24 01/17/25 tablet (Farxiga) multivitamin 1 tab PO DAILY 03/20/24 01/17/25 omega 1-xkl-geh-fish oil 1,000 mg 1 cap PO DAILY 03/20/24 01/17/25 (120 mg-180 mg) capsule (Fish Oil) rosuvastatin 10 mg tablet 10 mg PO BEDTIME 03/20/24 01/17/25 semaglutide 2 mg/dose (8 mg/3 mL) 2 mg subcut SA 03/20/24 01/17/25 subcutaneous pen injector (Ozempic) aspirin 81 mg tablet 81 mg PO BEDTIME 01/17/25 01/17/25 Allergies Allergy/AdvReac Type Severity Reaction Status Date / Time bee pollen (BEE STINGS) Allergy Unknown UNKNOWN Verified 01/17/25 11:22 Penicillins Allergy Unknown Unknown Verified 01/17/25 11:22 Review of Systems Review of Systems: Yes all other systems are reviewed and are negative [facility] Past Medical History [facility] Narrative: Social history: He is . He is here with a his . He is a former smoker, he has a 90 pack-year history of smoking and quit 2 years prior. The patient drinks 10 beers a day in his last drink was 2 days prior. Patient vapes THC products and 3-5 marijuana 5 mg gummies daily. Medical History Severe sepsis HTN (hypertension) Morbid obesity Diabetic foot ulcer Diabetes mellitus Diabetic neuropathy Social History Social History Household Members: Spouse Housing: House Do you presently have visiting nurse or other home services: Yes Alcohol intake: current Alcohol intake frequency: 3 or more drinks per day Alcohol type: beer Patient Tobacco Use Status: Never used Tobacco Tobacco use type: Cigarette Cigarette Packs Per Day: 1 Cigarettes Per Day: 20.0 Years Smoked: 40 Smoked in Last 30 Days: Yes e-Cigarette/Vaping Use: Former Use Use of substances other than those prescribed or required for medical reasons: Yes Substance Use Type: Marijuana Advance Directives: Yes Advance Directives Information Provided: Yes Advance Directives on File: No Do you have a plan to hurt others: No Plan service: No Current occupational status: unemployed Physical Exam ED Vital Signs: Vital Signs - 24 hr 01/17/25 11:08 01/17/25 11:22 01/17/25 11:44 Temperature 103.2 F H 104.4 F H Pulse Rate 114 H 116 H 115 H Respiratory Rate 115 H 35 H 30 H Blood Pressure 151/76 H 168/90 H 174/98 H Pulse Oximetry 90 L 94 96 Oxygen Delivery Method Nasal Cannula Nasal Cannula Oxygen Flow Rate 4 4 01/17/25 12:15 01/17/25 12:59 01/17/25 13:38 Temperature 104.2 F H 103.5 F H 102.5 F H Pulse Rate 113 H 109 H 108 H Respiratory Rate 24 H 29 H 28 H Blood Pressure 188/92 H 182/76 H 118/61 Pulse Oximetry 98 94 95 Oxygen Delivery Method Nasal Cannula Nasal Cannula Nasal Cannula Oxygen Flow Rate 4 4 4 01/17/25 13:43 01/17/25 15:39 Temperature 102.5 F H 101.7 F H Pulse Rate 104 H 99 Respiratory Rate 26 H 26 H Blood Pressure 118/61 152/78 H Pulse Oximetry 94 99 Oxygen Delivery Method Nasal Cannula Nasal Cannula Oxygen Flow Rate 4 4 BMI result Body Mass Index 46.7 Vital signs revealed an oral temperature of a 103.2 degrees F, elevated heart rate of 114, respiratory rate of 35, blood pressure 160/90. O2 saturation was 90% on room air 94% on 4 L via nasal cannula. Exam: General: Awake, alert in no distress, weight 178.7 kg, elevated BMI 46.7 kilograms/meters squared. Head: Normocephalic, atraumatic EENT: PERRL, sclera and conjunctiva are normal, mouth with no erythema or exudates Neck: Supple, no adenopathy Lung: breath sounds symmetric, no wheezing, no rales and no rhonchi Chest: symmetric movement, nontender Heart: regular rate and rhythm, normal S1, S2 no murmurs or rubs Abdomen: Moderate right upper quadrant tenderness, mild diffuse tenderness, no rebound, no voluntary or involuntary guarding, normoactive bowel sounds Back: no vertebral tenderness, no CVAT Extremities: Patient has an old nonhealing laceration to the MTP crease of the right great toe, patient has warm erythema of the right lower extremity involving the ankle to a proximally 10 cm below the knee. Skin: Patient does have erythema to his chest which is not warm Neuro: Awake, alert, oriented, normal speech, cranial nerves 2-12 intact, moves all extremities symmetrically Psych: Pleasant, cooperative Medications Administered Discontinued Medications Generic Name Dose Route Start Last Admin Trade Name Freq PRN Reason Stop Dose Admin Acetaminophen 975 mg 01/17/25 11:57 01/17/25 12:01 Acetaminophen 325 Mg Tablet PO 01/17/25 11:58 975 mg ONCE ONE Administration Sodium Chloride 1,000 mls @ 999 mls/hr 01/17/25 11:33 01/17/25 13:15 Ns IV 01/17/25 12:33 Infused .Q1H1M STA Infusion Vancomycin HCl 2,000 mg in 500 mls @ 250 mls/hr 01/17/25 11:48 01/17/25 15:00 Vancomycin/Ns IV 01/17/25 13:47 Infused ONCE ONE Infusion Piperacillin Sod/Tazobactam 100 mls @ 200 mls/hr 01/17/25 11:48 01/17/25 12:31 Sod 4.5 gm/ Sodium Chloride IV 01/17/25 12:17 Infused ONCE ONE Infusion Sodium Chloride 2,673 mls @ 2,673 mls/hr 01/17/25 11:48 01/17/25 13:15 Ns IV 01/17/25 12:47 Infused .Q1H STA Infusion Iohexol 100 ml 01/17/25 14:15 01/17/25 14:16 Iohexol 350 Mg/Ml 100 Ml Infus..Btl IV 01/17/25 14:16 100 ml ONCE ONE Administration Medical Decision Making Medical Decision Making MDM Narrative: 59-year-old male with a history diabetes mellitus, hypertension, cellulitis causing sepsis in the past who presents emergency department for evaluation of fever, right upper quadrant abdominal pain, redness and pain of the right lower extremity x2 days. Patient had oral surgery 1 or 2 weeks prior to remove implant posts and was on amoxicillin for 1 week. Patient noted a cut to right great toe MTP decreased 3 weeks prior. Patient had increased erythema and increased fever yesterday and today and came to the emergency department for evaluation. Vital signs revealed an elevated blood pressure, elevated heart rate of 114, elevated respiratory rate of 35 and a temperature of a 103.2 degrees F. physical exam did reveal right upper quadrant tenderness. Patient also had significant erythema of his right lower extremity from the ankle to approximately 10 cm [id number]. Patient also has a an old nonhealing laceration to the right great toe MTP crease. 11:33 Differential diagnosis: ?Includes but is not limited to cellulitis, pneumonia, acute cholecystitis, viral syndrome, COVID-19, influenza, RSV, hypothyroidism, anemia, electrolyte abnormalities Course: 11:33 The patient met sirs criteria. The patient was made a sepsis alert. Laboratory evaluation was ordered. The patient is obese with a an elevated BMI of 46.7 kilograms/meters squared therefore he was given a normal saline bolus based on his ideal body weight. He was treated with vancomycin 2 g IV and Zosyn 4.5 g IV (patient reported a penicillin allergy however he recently took amoxicillin without any difficulty). Patient was ordered to get a cooling blanket, he was given Tylenol 975 mg orally. 13:31 My interpretation patient's laboratory evaluation is as follows: WBC elevated 17,600. ESR elevated 18. CRP elevated 29.89. BUN elevated 17 with a normal creatinine 0.93. AST and ALT elevated at 56 and 78-unlikely to be related to his infection. Troponin detectable but not elevated at 22.4. Ethanol below detectable limits. COVID-19, influenza, RSV and rapid strep were negative. Chest x-ray difficult to interpret given the patient's large size but I do not see any clear infiltrates. Radiologist felt that there were increased interstitial markings. 18:20 hours The patient spiked a fever with tachycardia. I ask the nurse to place the patient back on the cooling blanket and I ordered Tylenol 975 mg orally. I also ordered Zosyn 4.5 g IV q.6 hours so the patient can get his neck this dose of the antibiotic on time. The patient needed a repeat CT scan chest and abdomen since the timing of the contrast was off. Patient was also ordered to get another L of normal saline IV. CT of the abdomen pelvis did not reveal any significant abnormalities to explain his abdominal pain. CT chest is revealed no acute disease. I did discuss admission over tiger text with the covering hospitalist, Dr. Sethi and the patient will be admitted to the hospitalist service for further treatment. Differential Diagnosis Differential Diagnoses: The differential diagnosis associated with the presentation includes (See above) Admission/Observation Consideration of admission/observation: Escalation of care including admission/observation considered (Yes) CT abdomen and pelvis with IV contrast. IMPRESSION: 1. No evidence of appendicitis. No bowel obstruction. 2. Several prominent and enlarged right inguinal and groin lymph nodes, nonspecific. 3. Hepatomegaly with hepatic steatosis. 4. Coronary artery atherosclerosis. 5. Indeterminate left adrenal nodule measuring 2.0 cm. Recommend comparison with prior imaging if available. If none available, recommend adrenal protocol CT or MR for further characterization. This document has been electronically signed by: Clive Paz MD on 01/17/2025 17:46:[address] [place] [id number] [address] Scan Report Signed Patient: Jeff Romero MR#: [id number] : 1965 Acct:[id number] Age/Sex: 59 / M ADM Date: 01/17/25 Loc: .ED Attending Dr: CT ANGIOGRAPHY CHEST WITH CONTRAST. 3D POSTPROCESSING. Hepatomegaly and hepatic steatosis. No acute fractures. IMPRESSION: 1. No pulmonary embolus. 2. No consolidation. This document has been electronically signed by: Sasha Mai DO on 01/17/2025 17:56:42 Consult Healthcare Provider Management of the patient was discussed with: Hospitalist (Dr. Sethi) Lab Data MDM Lab Attestation statement: I reviewed the patient's lab results. 01/17/25 11:39 01/17/25 12:08 Labs: Lab Results 01/17/25 01/17/25 01/17/25 Range/Units 11:39 11:46 12:08 WBC 17.6 H (4.8-10.8) X10*3/uL RBC 5.39 (4.60-5.80) X10*6/uL Hgb 16.3 (14.0-18.0) g/dl Hct 49.3 (42.0-52.0) % MCV 91.5 (80.0-98.0) fL MCH 30.2 (27.0-33.0) pg MCHC 33.1 (31.0-36.0) g/dl RDW 13.1 (11.0-16.0) % Plt Count 218 (160-400) X10*3/uL MPV 9.0 L (9.4-12.4) fL Immature Gran % (Auto) 1.4 H (0.0-0.4) % Neut % (Auto) 86.9 H (45-73) % Lymph % (Auto) 6.4 L (20-40) % [place] % (Auto) 5.1 (2-11) % Eos % (Auto) 0.0 (0-4) % Baso % (Auto) 0.2 (0-2) % Lymph # (Auto) 1.1 L (1.2-4.9) X10*3/uL [place] # (Auto) 0.9 (0.1-1.2) X10*3/uL Eos # (Auto) 0.0 (0.0-0.4) X10*3/uL Baso # (Auto) 0.0 (0.0-0.2) X10*3/uL Abs Immat Gran (auto) 0.24 H (0.00-0.03) X10*3/uL Absolute Neuts (auto) 15.3 H (2.0-8.3) x10*3/uL Absolute Nucleated RBC 0.000 (0.0-0.012) X10*3/uL Nucleated RBC % (auto) 0.0 (0.0-0.2) /100WBC ESR 18 H (0-15) MM/HR PT 15.8 H (11.2-13.5) SEC INR 1.3 H (0.9-1.1) APTT 29.3 (26.7-34.1) SEC VBG pH 7.45 H (7.32-7.43) VBG pCO2 45 mmHg VBG pO2 37 mmHg VBG HCO3 32 H (22-26) mmol/L VBG O2 Saturation 59.0 % VBG Base Excess 7.0 mmol/L Sodium 135 (135-145) mmol/L Potassium 4.1 (3.3-5.1) mmol/L Chloride 94 L (96-108) mmol/L Carbon Dioxide 29 (22-29) mmol/L Anion Gap 16 (12-20) BUN 17 H (9-16) mg/dL Creatinine 0.93 (0.5-1.4) mg/dL Estim Creat Clear Calc 149.2 Estimated GFR > 60 Random Glucose 174 H (60-115) mg/dL Lactic Acid 1.7 (0.5-2.0) mmol/L Calcium 9.9 (8.4-10.2) mg/dL Magnesium 2.1 (1.6-2.6) mg/dL Total Bilirubin 0.6 (0.0-1.0) mg/dL AST 56 H (5-37) U/L ALT 78 H (0-40) U/L Alkaline Phosphatase 78 (39-117) U/L Troponin I High Sens 22.4 (<3.5-35.0) ng/L C-Reactive Protein 29.89 H (< or = 0.50) mg/dL Total Protein 8.7 H (6.5-8.0) g/dL Albumin 4.8 (3.5-5.0) g/dL Lipase 37 (8-78) U/L TSH 0.17 L (0.32-4.0) uIU/mL Free T4 1.10 (0.71-1.85) ng/dL Ethyl Alcohol < 10 mg/dL Influenza Type A (PCR) NEGATIVE (Negative) Influenza Type B (PCR) NEGATIVE (Negative) RSV RNA Qual (PCR) NEGATIVE (Negative) SARS-CoV-2 RNA (RT-PCR) NEGATIVE (Negative) S. pyogenes GrpA ANGELA Negative (Negative) Independent Interpretation I performed an independent interpretation of an: EKG and Plain X-Ray Interpretation: My independent interpretation patient's chest surgically as follows: No acute infiltrates My independent interpretation patient's 12 EKG done on 01/17/2025 at 11:45 hours is as follows: Sinus tachycardia with a rate of 116, normal KS interval, prolonged QRS of 116 milliseconds, normal QTC, no ST segment elevation, no ST segment depression, nonspecific intraventricular conduction delay, Q-wave in lead 3, no PACs, no PVCs, no significant T-wave abnormalities. Radiology Impression Discussion of test interpretation with radiology: I have reviewed the radiologist's reading. Radiologist Impression: X R chest 1V IMPRESSION: Concerning mild interstitial edema versus acute small airway inflammatory process. Electronically signed by: Anam Puckett MD 01/17/2025 01:17 PM [facility] [place] Care Time Critical Care Time Critical Care Time: Yes Total Critical Care Time: 80 Attestation: Critical Care: The patient was critically ill with a high probability of imminent or life threatening deterioration. I spent greater than 30 minutes of discontinuous time evaluating the patient,delivering critical care at the bedside, discussing and evaluating pertinent data with consultants. Critical care time does not include time spent performing separately billable procedures or teaching. Total time spent performing critical care was 80 minutes. Discharge Plan Discharge Clinical Impression: Cellulitis of leg, right, Fever, Abdominal pain Print Language: Syriac
[2025-01-17 11:48] LABS: MANUAL DIFF FLAG NO
[2025-01-17 11:57] LABS: Hematocrit 49.3 % (42.0-52.0); Hemoglobin 16.3 g/dl (14.0-18.0); Imm Gran Abs Auto 0.24 X10*3/uL (0.00-0.03); Imm Gran Pct Auto 1.4 % (0.0-0.4); Lymphocytes Absolute Auto 1.1 X10*3/uL (1.2-4.9); Mean Corpuscular HGB Conc 33.1 g/dl (31.0-36.0); Mean Corpuscular Hemoglobin 30.2 pg (27.0-33.0); Mean Corpuscular Volume 91.5 fL (80.0-98.0); NRBC Abs Auto 0.000 X10*3/uL (0.0-0.012); NRBC Pct Auto 0.0 /100WBC (0.0-0.2); Platelet Count 218 X10*3/uL (160-400); Red Blood Count 5.39 X10*6/uL (4.60-5.80); White Blood Count 17.6 X10*3/uL (4.8-10.8)
[2025-01-17 11:58] LABS: IDNOW Serial# 55D5AD1C; INTERNATIONAL NORM RATIO 1.3 (0.9-1.1); Prothrombin Time 15.8 SEC (11.2-13.5); Strep A Nucleic Acid Negative (Negative)
--- NOTE | 2025-01-17 12:00 | PC.NURSE ---
pt BIBA as a sepsis alert d/t multiple complaints. patient reports feeling unwell since before [place] but did not want to get evaluated because i didn't want to miss [place] with my mother in [place]. multiple complaints including nonradiating RUQ pain associated n/v/fevers/chills x yesterday. redness/swelling/warmth to LE bilaterally. 2+ pitting edema. cut noted to underneath right big toe - seen by project administrator but sx worsened. pt also reporting increased RIDDLE w/ productive cough. upon ED arrival - pt a&ox4. tachycardic/tachypneic/hypertensive and febrile. rectal probe placed. attempted to place pt on RA but desatted to 89% on RA - pt placed back on 4L via NC w/ good effect. cooling blanket applied. 18gIV in the right forearm via EMS - patent/intact. additional 18gIV placed to the left hand. labs obtained/sent to lab. ekg performed by aj. MD bedside as pt presents as a sepsis alert. bedside for support. plan of care ongoing. call cole placed within reach.
[2025-01-17 12:01] LABS: Partial Thromboplastin Time 29.3 SEC (26.7-34.1)
[2025-01-17 12:05] LABS: VBG HCO3 32 mmol/L (22-26); VBG O2 % Saturation 59.0 %
[2025-01-17 12:05] LABS: Venous Blood Gas Refer to POC result
[2025-01-17 12:40] LABS: Alanine Aminotransferase 78 U/L (0-40); Albumin Level 4.8 g/dL (3.5-5.0); Alkaline Phosphatase 78 U/L (39-117); Anion Gap 16 (12-20); Aspartate Amino Transferase 56 U/L (5-37); Blood Urea Nitrogen 17 mg/dL (9-16); Calcium 9.9 mg/dL (8.4-10.2); Carbon Dioxide 29 mmol/L (22-29); Chloride 94 mmol/L (96-108); Creatinine Clr Calc Pharmacy 149.2; Estimated Glomerular Filt Rate > 60; Lipase 37 U/L (8-78); Magnesium 2.1 mg/dL (1.6-2.6); Potassium 4.1 mmol/L (3.3-5.1); Sodium 135 mmol/L (135-145); Total Protein 8.7 g/dL (6.5-8.0)
[2025-01-17 12:42] LABS: Troponin-I High Sensitivity 22.4 ng/L (<3.5-35.0)
[2025-01-17 12:42] LABS: Erythrocyte Sedimentation Rate 18 MM/HR (0-15)
[2025-01-17 12:49] LABS: Resp Syncy Virus RNA Qual PCR NEGATIVE (Negative); SARS COV2 PCR INHOUSE NEGATIVE (Negative)
[2025-01-17] MEDS: vancomycin/NS 2,000 MG/500 ML PLAST..BAG 250 MG IV (13:00)
--- NOTE | 2025-01-17 14:15 | PC.NURSE ---
pt transported to CT in main hospital at this time.
[2025-01-17] MEDS: iohexoL 350 MG/ML 100 ML INFUS..BTL IV (14:16)
[2025-01-17 14:18] LABS: Free T4 (Free Thyroxine) 1.10 ng/dL (0.71-1.85)
--- NOTE | 2025-01-17 15:24 | PHA.MEDREC ---
Addendum entered by Christine Cain RPh 01/17/25 16:43: REVIEWED BY PHARMACIST Original Note: Pharmacy Consult ? Medication Reconciliation Pharmacy has completed the medication reconciliation. Spoke with pt and he confirmed his medications. Pt confirmed he is not taking Desonide at this time; not giving pt results like he wanted, he is taking Lantus Solostar 60 units daily@0900 and he takes Ozempic once a week on Sa; Lt 01/15.
--- OUTSIDE RECORDS SUMMARY | 2025-01-17 16:05 | XMS_ITS | Encounter Summary ---
Author Organization [facility] Address [address] [place] [phone] Phone Care Team Providers Care [employer] Name Role Phone Pcp, Unknown Primary Care Provider Unavailabl e Reason for Referral * Consultation (Within 1 month) - Closed Specialty Diagnoses / Procedures Referred By Contac t Referred To Contact Endocrinology Diagnoses Type 2 diabetes mellitus without complication, unspecified whether terminal operations supervisor insulin use Dm Mckeon MD [address] [place] [id number] Phone: tel: fax: [address] [address] Phone: tel: Referral ID Status Reason Start Date Expiration Date Visits Re quested Visits Authorized [id number] Closed 04/19/2022 04/20/2023 1 1 Encounter Details Date Type Department Care Team (Latest Contact Info) Description 04/19/2022 Transcribe Orders G Endocrinology [address] [place] [id number] Elias Núñez DO [address] [place] [id number] [email or web address] Type 2 diabetes mellitus without complication, unspecified whether terminal operations supervisor insulin use (Primary Dx) Social History Tobacco Use Types Packs/Day Years Used Date Smoking Tobacco: Never Assessed Sex and Gender Information Value Date Recorded Sex Assigned at Not on file Legal Sex Male 10:29 AM EST Gender Identity Not on file Sexual Orientation Not on file documented as of this encounter Plan of Treatment Scheduled Referrals Name Type Priority Associated Diagnoses Order Schedule Ambulatory referral to [facility] Endocrinology Outpatient Referral Routine Type 2 diabetes mellitus without complication, unspecified whether terminal operations supervisor insulin use Ordered: 04/19/2022 documented as of this encounter Visit Diagnoses Diagnosis Type 2 diabetes mellitus without complication, unspecified whether skilled nursing insulin use- Primary documented in this encounter Care Teams [employer] Relationship Specialty Start Date End Date Pcp, Unknown PCP - General 04/15/22 documented as of this encounter Additional Source Comments The information contained in this document represents components of the legal health record. It is not the complete legal health record.Located Within [facility]
--- OUTSIDE RECORDS SUMMARY | 2025-01-17 16:06 | XMS_ITS | Clinical Summary ---
Author Organization [facility] Address [address] [place] [address] Phone Care Team Providers Care Tea Blender Name Role Phone Dm Mckeon MD Primary Care Provider Allergies Active Allergy Reactions Criticality Noted Date Comments Amlodipine 12/01/2024 Bee Venom Protein (Honey Bee) 2020 Penicillins 01/02/2021 Pravastatin 12/01/2024 Medications ammonium lactate (LAC-HYDRIN) 12 % lotion Apply to soles of feet daily. At night wear socks to bed Active canagliflozin (INVOKANA) 300 mg tablet Take 300 mg by mouth 2 times daily. Active gabapentin (NEURONTIN) 600 mg tablet Take 600 mg by mouth daily. Active insulin glargine (Lantus Solostar U-100 Insulin) 100 unit/mL (3 mL) injection pen Inject 50 Units into the skin. Active insulin glargine (LANTUS) 100 unit/mL injection Inject 50 Units into the skin at bedtime. Active lisinopriL (PRINIVIL,ZESTRIL ) 20 mg tablet Take 20 mg by mouth 2 times daily. Active metFORMIN (GLUCOPHAGE) 1,000 mg tablet Take 1,000 mg by mouth 2 times daily (with meals). Active mv-min/folic/K1/l ycopen/lutein (CENTRUM SILVER MEN ORAL) Take by mouth. Activ e qvmob-an-3-dha-ep l-ppijksy-abn (MegaRed [place]-3 Krill Oil) 571-17-67-50 mg capsule Take by mouth. Activ e silver sulfADIAZINE (Silvadene) 1 % cream Apply topically 1 (one) time each day. 50 g 5 03/16/19 26 Active albuterol HFA (PROAIR HFA ; PROVENTIL HFA ; VENTOLIN HFA) 90 mcg/actuation inhaler Inhale 2 puffs by mouth every 6 (six) hours if needed for shortness of breath. 5 Active aspirin 81 mg EC tablet Take 1 tablet (81 mg total) by mouth 1 (one) time each day. 3 Active Farxiga 10 mg tablet Take 1 tablet (10 mg total) by mouth 1 (one) time each day. 4 Active hydroCHLOROthiazi de (HYDRODIURIL) 25 mg tablet Take 1 tablet (25 mg total) by mouth 1 (one) time each day. 4 Active rosuvastatin (CRESTOR) 10 mg tablet Take 1 tablet (10 mg total) by mouth 1 (one) time each day. Active semaglutide (Ozempic) 2 mg/dose (8 mg/3 mL) injection pen Inject 2 mg under the skin every 7 (seven) days. Active Encounters Date Type Department Care Team Description 01/05/2025 9:00 AM EST Office Visit Orthopedic Surgery - [address] [place] [address] Jon Bryson DPM Arthritis of both ankles (Primary Dx); Hammer toe of left foot; Acquired hammer toe of right foot; Metatarsalgia of both feet; Ingrowing nail; Pain in toe of right foot; Dermatophytosis of nail; Type II diabetes mellitus with peripheral circulatory disorder (CMS/[facility] V24, CMS/[facility] V28); Diabetic mononeuropathy simplex (CMS/HCC V24, CMS/[facility] V28); Pain in toe of left foot; Corns and callosities; Peripheral venous insufficiency 11/09/2024 Telephone Gastroenterology - [facility] [address] [facility] [address] [place] [address] Favio Martinez MD from Last 3 Months Social History Tobacco Use Types Packs/Day Years Used Date Smoking Tobacco: Every Day Smokeless Tobacco: Current Sex and Gender Information Value Date Recorded Sex Assigned at Not on file Legal Sex Male 4:25 PM EST Gender Identity Not on file Sexual Orientation Not on file Obstetrics History Last Filed Vital Signs Vital Sign Reading Time Taken Comments Blood Pressure - - Pulse - - Temperature - - Respiratory Rate - - Oxygen Saturation - - Inhaled Oxygen Concentration - - Weight 161 kg (354 lb 15.1 oz) 10/05/2024 8:20 A M EDT Height 195.6 cm (6' 5.01 ) 10/05/2024 8:20 AM ED T Body Mass Index 42.08 10/05/2024 8:20 AM EDT Plan of Treatment Upcoming Encounters Date Type Department Care Team (Late st Contact Info) Description 02/04/2025 8:30 AM EST Appointment [facility] Endoscopy [address] [place] [phone] Favio Martinez MD [address] [facility] [address] [place] [address] 04/07/2025 9:30 AM EST Office Visit Orthopedic Surgery - [place] [address] [facility] [address] [place] [phone] Jon Bryson DPM [address] [facility] [address] [place] [address] Health Maintenance Due Date Last Done Comments Colorectal Cancer Screening: Colonoscopy 1964 Diabetes: Annual GFR (Glomerular Filtration Rate) 1964 Diabetes: Annual Foot Exam 1974 Diabetes: Annual Retina Eye Exam 1974 Hepatitis A Vaccines (1 of 2 - Risk 2-dose series) 09/05/1983 Pneumococcal Vaccine: 50+ Years (1 of 2 - PCV) 09/05/1983 Zoster Vaccines (1 of 2) 2014 Cholesterol Screening (Lipid Panel) 01/16/2022 HIV Screening 01/16/2022 Hepatitis C Screening 01/16/2022 Social Influencers of Health Screening 01/16/2022 Diabetes: Annual Urine Albumin-Creatinine Ratio (uACR) 12/01/2023 Diabetes: Blood Sugar Control Test (HGBA1C) 12/01/2023 Depression Screening 02/18/2024 Hypertension/CHF/CAD Annual BMP Blood Test 03/09/2024 Hepatitis B Vaccines (1 of 3 - Risk 3-dose series) 2024 DTaP,Tdap,and Td Vaccines (2 - Td or Tdap) 05/15/2028 05/15/2018 COVID-19 Vaccine Completed 12/16/2024, , 11/18/2022, Additional history exists Influenza Vaccine Completed 12/16/2024, , 11/18/2022, Additional history exists RSV Immunization Adult Patients Completed 12/16/2024 HIB Vaccines Aged Out No longer eligi [...] patient's age to complete this topic Meningococcal B Vaccine Aged Out No l onger eligible based on patient's age to complete this topic RSV Immunization Patients Under 20 months Aged Out No longer eligible based on patient's age to complete this topic Varicella Vaccines Aged Out No longer eligible based on patient's age to complete this topic Goals Goal Patient Goal Type Associated Problems Recent Progress Patient-Stated? Author Autogenerat ed Goal Care Plan Autogenerated Problem No Evelina Peters Additional Health Concerns Active Problems Noted Date Diagnosed Date Autogenerated Problem 12/20/2024 Insurance [facility] Care Teams Tea Blender Relationship Specialty Start Date End Date Dm Mckeon MD [address] [facility] [address] [place], [place] PCP - General Internal Medicine 12/25/20
--- OUTSIDE RECORDS SUMMARY | 2025-01-17 16:06 | XMS_ITS | Clinical Summary ---
Author Organization [facility] Address [address] [place] [address] Phone Care Team Providers Care Umbrella Tipper Name Role Phone Pcp, Unknown Primary Care Provider Unavailabl e Social History Tobacco Use Types Packs/Day Years Used Date Smoking Tobacco: Never Assessed Sex and Gender Information Value Date Recorded Sex Assigned at Not on file Legal Sex Male 10:29 AM EST Gender Identity Not on file Sexual Orientation Not on file Plan of Treatment Not on file Medical Devices Not on file [place] [address] [place] [address] [place], [place] [address] [place], [place] [address]O Care Teams Umbrella Tipper Relationship Specialty Start Date End Date Pcp, Unknown PCP - General 04/15/22 Additional Source Comments The information contained in this document represents components of the legal health record. It is not the complete legal health record.[facility]
--- NOTE | 2025-01-17 19:19 | P.HPHOSP_ITS ---
History of Present Illness Date of Service: 01/17/25 Chief Complaint: foot infection 59-year-old male with a past medical history HTN, HLD, dm, morbid obesity; presented to the hospital today with a chief complaint of fever. Patient mentioned that since Friday she has been having shortness of breath when he checked his oxygen levels at home it was pretty low. Denies any asthma or smoking history. Denies any COPD history. Denies any chest pain or palpitations. With past couple days he noted to have fevers. Has had right foot infection with wound. [facility] where they incised the bottom of the great toe; later he noted to have increased redness on his right leg. Denies any cough or sputum production. Denies any sick contacts. Review of all other systems is negative except mentioned above ER course: Per ER team, patient noted to have right foot wound on the plantar surface of the great toe and erythema extending into the leg up to upper 3rd of the leg; patient was febrile. Given IV fluids. Given antibiotics. Later patient was found to be hypoxic placed on supplemental oxygen. CTA chest showed evidence of pulmonary embolism or any acute pulmonary findings. No significant wheezing on exam. [facility] Medical History Severe sepsis HTN (hypertension) Morbid obesity Diabetic foot ulcer Diabetes mellitus Diabetic neuropathy Social History Household Members: Spouse Housing: House Do you presently have visiting nurse or other home services: Yes Alcohol intake: current Alcohol intake frequency: 3 or more drinks per day Alcohol type: beer Patient Tobacco Use Status: Never used Tobacco Tobacco use type: Cigarette Cigarette Packs Per Day: 1 Cigarettes Per Day: 20.0 Years Smoked: 40 Smoked in Last 30 Days: Yes e-Cigarette/Vaping Use: Former Use Use of substances other than those prescribed or required for medical reasons: Yes Substance Use Type: Marijuana Advance Directives: Yes Advance Directives Information Provided: Yes Advance Directives on File: No Do you have a plan to hurt others: No Plan service: No Current occupational status: unemployed Meds Allergies Allergy/AdvReac Type Severity Reaction Status Date / Time bee pollen (BEE STINGS) Allergy Unknown UNKNOWN Verified 01/17/25 11:22 Penicillins Allergy Unknown Unknown Verified 01/17/25 11:22 Active Medications: Current Medications Acetaminophen (Acetaminophen 325 Mg Tablet) 650 mg PO Q6H PRN PRN Reason: Pain, Mild 1-3,fever,headache Albuterol/Ipratropium (Albuterol/Iprat 2.5/0.5mg 3 Ml Ampul.Neb) 3 ml INHALE Q4H PRN PRN Reason: Shortness of Breath/Wheezing Atorvastatin Calcium (Atorvastatin Calcium 40 Mg Tablet) 40 mg PO BEDTIME [facility] Calcium Carbonate (Calcium Carbonate 750 Mg Tab.Chew) 750 mg PO Q4H PRN PRN Reason: Heartburn Dextrose (Dextrose 50 % 25 Gm/50 Ml Syringe) 25 gm IVPUSH Q15M PRN; Protocol PRN Reason: per Hypoglycemia Standing Ord. Enoxaparin Sodium (Enoxaparin Sodium 40 Mg/0.4 Ml Syringe) 40 mg SUBCUT Q24H [facility] Gabapentin (Gabapentin 300 Mg Capsule) 300 mg PO BID [facility] Glucose (Glucose Gel 15 Gm Gel..Gram.) 15 gm PO Q15M PRN; Protocol PRN Reason: per Hypoglycemia Standing Ord. Piperacillin Sod/Tazobactam (Sod 3.375 gm/ Sodium Chloride) 50 mls @ 100 mls/hr IV Q6H [facility] Insulin Glargine (Insulin Glargine,Hum.Rec.Anlog 100 Unit/Ml 10 Ml Vial) 40 unit SUBCUT DAILY@0900 [facility] Insulin Human Lispro (Insulin Lispro 100 Unit/Ml 3 Ml Vial) 0 unit SUBCUT QIDACHS [facility]; Protocol Magnesium Hydroxide (Milk Of Magnesia 30 Ml Oral.Susp) 30 ml PO DAILY PRN PRN Reason: Constipation Melatonin (Melatonin 3 Mg Tablet) 6 mg PO BEDTIME PRN PRN Reason: Insomnia Multivitamins/Vitamin C (Multivitamin Tablet) 1 tab PO DAILY [facility] Non-Formulary Medication (Aspirin) 81 mg PO BEDTIME [facility] Pharmacy Consult (Consult Rx Vancomycin Dosing) 1 each MISCELLANE DAILY PRN PRN Reason: Consult order Polyethylene Glycol (Polyethylene Glycol 3350 17 Gm Powd.Pack) 17 gm PO DAILY PRN PRN Reason: Constipation Sodium Chloride (0.9 % Sodium Chloride Flush 3 Ml Syringe) 3 ml IVFLUSH QSHIFT [facility] Home Medications ?Medication ?Instructions ?Recorded ?Confirmed ?Last Taken ?Type gabapentin 300 mg capsule 300 mg PO BID 12/13/2001/1701/16/25 History hydrochlorothiazide 25 mg tablet 25 mg PO DAILY 01/17/25 01/16/25 History insulin glargine 100 unit/mL (3 60 unit subcut DAILY@0 900 12/13/20 01/17/25 01/16/25 History mL) subcutaneous pen (Lantus Solostar U-100 Insulin) lisinopril 20 mg tablet 20 mg PO BID 12/13/2001/16/25 History metformin 1,000 mg tablet 1,000 mg PO BID 12/13/2003/1301/16/25 History albuterol sulfate 90 mcg/actuation 2 puff inhalation Q ID PRN wheezing 03/20/24 01/17/25 Unknown History aerosol inhaler dapagliflozin propanediol 10 mg 10 mg PO DAILY 5 01/17/25 01/16/25 History tablet (Farxiga) multivitamin 1 tab PO DAILY 03/20/24 12/03/1301/16/25 History omega 0-alk-jqh-fish oil 1,000 mg 1 cap PO DAILY 03/2001/17/25 01/16/25 History (120 mg-180 mg) capsule (Fish Oil) rosuvastatin 10 mg tablet 10 mg PO BEDTIME 03/20/2401/16/25 History semaglutide 2 mg/dose (8 mg/3 mL) 2 mg subcut SA 03/2001/17/25 01/15/25 History subcutaneous pen injector (Ozempic) aspirin 81 mg tablet 81 mg PO BEDTIME 01/17/2501/16/25 History Physical Exam 2 Vital Signs and Narrative: Vital Signs: Last Vital Signs Temp 104 F H 01/17/25 18:17 Pulse 118 H 01/17/25 18:17 Resp 21 H 01/17/25 18:17 BP 162/62 H 01/17/25 18:17 Pulse Ox 94 01/17/25 18:17 O2 Del Method Nasal Cannula 01/17/25 18:17 O2 Flow Rate 4 01/17/25 18:17 BMI result Body Mass Index 46.7 Gen: Appears be in no acute distress HEENT: NCAT, Moist mucosa. Pulmonary: Vesicular breath sounds, fair air entry CVS: Normal S1-S2 Abdomen: BS+, Soft, Nontender Extremities: Warm well perfused; right foot wound noted on the plantar surface of the great toe. No discharge. Erythema extending into the leg circumferentially up to the upper 3rd of the leg. Tender and warm. Neuro: Alert and awake. Results Labs 01/17/25 11:39 01/17/25 12:08 Labs: Laboratory Results - last 24 hr 01/17/25 01/17/25 01/17/25 11:39 11:46 12:08 MCV 91.5 MCH 30.2 MCHC 33.1 RDW 13.1 Plt Count 218 MPV 9.0 L Immature Gran % (Auto) 1.4 H Neut % (Auto) 86.9 H Lymph % (Auto) 6.4 L [place] % (Auto) 5.1 Eos % (Auto) 0.0 Baso % (Auto) 0.2 Lymph # (Auto) 1.1 L [place] # (Auto) 0.9 Eos # (Auto) 0.0 Baso # (Auto) 0.0 Abs Immat Gran (auto) 0.24 H Absolute Neuts (auto) 15.3 H Absolute Nucleated RBC 0.000 Nucleated RBC % (auto) 0.0 ESR 18 H PT 15.8 H INR 1.3 H APTT 29.3 VBG pH 7.45 H VBG pCO2 45 VBG pO2 37 VBG HCO3 32 H VBG O2 Saturation 59.0 VBG Base Excess 7.0 Anion Gap 16 Estim Creat Clear Calc 149.2 Estimated GFR > 60 Random Glucose 174 H Lactic Acid 1.7 Calcium 9.9 Magnesium 2.1 Total Bilirubin 0.6 AST 56 H ALT 78 H Alkaline Phosphatase 78 Troponin I High Sens 22.4 C-Reactive Protein 29.89 H Total Protein 8.7 H Albumin 4.8 Lipase 37 TSH 0.17 L Free T4 1.10 Ethyl Alcohol < 10 Influenza Type A (PCR) NEGATIVE Influenza Type B (PCR) NEGATIVE RSV RNA Qual (PCR) NEGATIVE SARS-CoV-2 RNA (RT-PCR) NEGATIVE S. pyogenes GrpA ANGELA Negative Imaging Radiologist's Impressions: Impressions Chest X-Ray 01/17/25 13:02 IMPRESSION: Concerning mild interstitial edema versus acute small airway inflammatory process. Electronically signed by: Anam Puckett MD 01/17/2025 01:17 PM EST Assessment and Plan (1) Diabetic foot ulcer: Qualifiers: Diabetic foot ulcer location: unspecified part of foot Diabetes mellitus type: type 2 Laterality: unspecified laterality Non-pressure ulcer stage: with other severity Qualified Code(s): E11.621 - Type 2 diabetes mellitus with foot ulcer; L97.508 - Non-pressure chronic ulcer of other part of unspecified foot with other specified severity Status: Acute Plan 59-year-old male with a past medical history HTN, HLD, dm, morbid obesity; presented to the hospital today with a chief complaint of fever. Admitted for following Sepsis: RLE cellulitis: Right diabetic foot infection: Continue IV vancomycin and Zosyn Follow-up cultures ID consult for further input Wound consult follow-up Acute hypoxic respiratory failure: No significant wheezing on exam CTA chest showed no evidence of PE or acute pulmonary findings. Noted to have bilateral lower lobe atelectasis. Concern for undiagnosed TERRIE versus OHS Supplemental oxygen p.r.n. Pulmonology consult Deanna p.r.n. Trending pulse oximetry when ready for discharge Echocardiogram Diabetes: Insulin sliding scale Home dose of Lantus reduced to 40 Follow-up POC glucose DVT prophylaxis: Lovenox Code status: Full code Quality Stroke Does the patient have a stroke diagnosis?: No VTE Prior VTE?: No VTE Risk Level:: Medical - moderate - high VTE Device Contraindication: Treatment Not Indicated VTE Drug Contraindication: N/A - Med Ordered
[2025-01-17 20:44] LABS: Glucose, Whole Blood 239 mg/dL (60-115)
[2025-01-18] VITALS (9 sets, daily range): BP systolic 129–149; BP diastolic 51–78; PULSE 99–110; RESP 12–22; TEMP 36.3–39.3; O2SAT 92–99
[2025-01-18] MEDS: 0.9 % Sodium Chloride Flush 3 ML SYRINGE IVFLUSH ×4 (01:04→21:06)
[2025-01-18] MEDS: vancomycin HCL 1,000 MG, vancomycin HCL 750 MG in 0.9 % Sodium Chloride 500 ML 267.5 MG IV (02:17)
[2025-01-18 04:08] LABS: MANUAL DIFF FLAG NO
[2025-01-18 04:11] LABS: Hematocrit 48.3 % (42.0-52.0); Hemoglobin 15.5 g/dl (14.0-18.0); Imm Gran Abs Auto 0.15 X10*3/uL (0.00-0.03); Imm Gran Pct Auto 0.9 % (0.0-0.4); Lymphocytes Absolute Auto 1.2 X10*3/uL (1.2-4.9); Mean Corpuscular HGB Conc 32.1 g/dl (31.0-36.0); Mean Corpuscular Hemoglobin 30.5 pg (27.0-33.0); Mean Corpuscular Volume 94.9 fL (80.0-98.0); NRBC Abs Auto 0.000 X10*3/uL (0.0-0.012); NRBC Pct Auto 0.0 /100WBC (0.0-0.2); Platelet Count 186 X10*3/uL (160-400); Red Blood Count 5.09 X10*6/uL (4.60-5.80); White Blood Count 15.9 X10*3/uL (4.8-10.8)
[2025-01-18 04:37] LABS: Alanine Aminotransferase 72 U/L (0-40); Albumin Level 4.0 g/dL (3.5-5.0); Alkaline Phosphatase 73 U/L (39-117); Anion Gap 14 (12-20); Aspartate Amino Transferase 71 U/L (5-37); Blood Urea Nitrogen 14 mg/dL (9-16); Calcium 8.4 mg/dL (8.4-10.2); Carbon Dioxide 27 mmol/L (22-29); Chloride 101 mmol/L (96-108); Creatinine Clr Calc Pharmacy 155.9; Estimated Glomerular Filt Rate > 60; Potassium 4.2 mmol/L (3.3-5.1); Sodium 138 mmol/L (135-145); Total Protein 7.2 g/dL (6.5-8.0)
--- NOTE | 2025-01-18 06:57 | PHA.PROG ---
Admission Date/Time: January 17, 2025 18:35 Indication: Skin Weight in k.7 kg Adjusted body weight in Kg: [place] body weight in Kg: Obesity Dosing Indication % IBW: Serum Creatinine - Last 168 Hours 01/17/25 01/18/25 12:08 03:54 Creatinine 0.93 0.89 Estimated CrCl and GFR - Last 168 Hours 01/17/25 01/18/25 12:08 03:54 Estim Creat Clear Calc 149.2 155.9 Estimated GFR > 60 > 60 Vancomycin Loading Dose: 2000mg x 1 Current Vancomycin Dosing Regimen: 1750mg x 1, then 1000mg q8h Vancomycin Monitoring using AUC goal of 400 - 600 range with trough as surrogate marker: 495 mg/L*hr trough of 16.5 mg/dL Date and Time for next Vancomycin Level to be drawn: 01/19/2025 @ 0800 Pharmacist Comments on Vancomycin Plan: Vancomycin dosing will take advantage of [employer] as a clinical decision support tool that uses Bayesian modeling to calculate individual patient's pharmacokinetic parameters and forecast the patient's drug concentration time course with the target goal AUC 24 range of 400 - 600 mg/L/hr.
--- NOTE | 2025-01-18 07:00 | CA_ITS ---
Transthoracic Echocardiogram Patient (Last, First, Middle): Jeff Romero C Gender: Male Date of : 1965 Age: 59 Procedure Date: 01/18/2025 Procedure Type: Transthoracic Echocardiogram Location: ER Height: 195.58 cm Weight: 179.17 kg BSA: 2.99 m2 Heart Rate: 100 bpm BP: 129 / 51 mmHg Information Systems Project Manager: Referring MD: Travon Malik MD Symptoms: Hypoxia Study Quality: Technically Difficult w/Contrast ECG Rhythm: Tachycardia Conclusions: - The left ventricular systolic function is normal. The calculated ejection fraction is 61% by biplane method. - No obvious valvular pathology seen on this study. Findings Procedure Information Contrast agent, definity, is being given per protocol without apparent complications. Left Ventricle Normal left ventricular cavity size. There is severely increased left ventricular wall thickness. The left ventricular systolic function is normal. The calculated ejection fraction is 61% by biplane method. Regional wall motion abnormalities can not be excluded due to suboptimal endocardial definition. Diastolic function is normal for age. Right Ventricle The right ventricle was not well visualized. Normal right ventricular cavity size. There is normal right ventricular systolic function. Atria Both atria are normal in size. Aortic Valve The aortic valve was not well visualized. There is no aortic valve stenosis. There is no aortic valve regurgitation. Mitral Valve The mitral valve was not well visualized. There is no mitral valve regurgitation. There is no mitral valve stenosis. Pulmonic Valve The pulmonic valve is likely normal. Tricuspid Valve There is trace tricuspid valve regurgitation. There is no evidence of pulmonary hypertension. Great Vessels The asc aorta is normal in size. Venous The inferior vena cava was not well visualized. The inferior vena cava is mildly dilated and collapses less than 50% with inspiration. Pericardium/Pleural There is no evidence of pericardial effusion. Recommendations, Care & Conclusions No obvious valvular pathology seen on this study. Measurements 2D Linear Measurements IVSd: 1.69 0.6-0.9/0.6-1.0 cm LVIDd: 5.68 3.9-5.3/4.2-5.9 cm LVIDd Index: 1.90 2.4-3.2/2.2-3.1 cm/m2 LVIDs: 3.51 2.0-3.6 cm LVPWd: 1.68 0.7-1.1 cm LA Diam: 4.20 2.7-3.8/3.0-4.0 cm LAIDs Index: 1.40 1.5-2.3 cm/m2 LV Mass: 580.29 67-162/88-224 g LV Mass Index: 194.08 43-95/49-115 g/m2 LVOT Diam: 2.70 3.0+(-)1.3 cm 2D Systolic Function EF 4C: 61.30 >55% EF 2C: 58.50 >55% EF BiP: 60.70 >55% Mitral Valve MV Pk E: 0.87 MV PK A: 0.84 MV Decel Time: 112.00 E/A: 1.00 E'Lateral: 12.30 E'Medial: 8.27 E/E' Med: 10.60 E/E' Lat: 7.10 PHT: 33.00 MVA PHT: 6.67 Decel [place]: 7.80 Aortic Valve AoV Pk Vijay: 1.60 AoV Mn Vijay: 1.12 AoV VTI: 0.29 AoV Pk Grad: 10.00 Aov Mn Grad: 6.00 CARYL Cont.VTI: 3.31 LVOT LVOT Pk Vijay: 0.84 LVOT Mn Vijay: 0.54 LVOT VTI: 0.17 LVOT Pk Grad: 3.00 LVOT Mn Grad: 1.00 LVOT Diam: 2.70 LVOT Area: 5.73 Diastolic Function MV Pk E: 0.87 MV Pk A: 0.84 E/A: 1.00 E'Medial: 8.27 E/E' Med: 10.60 E' Laterial: 12.30 E/E' Lat: 7.10 Right Ventricle TAPSE (mm): 30.60 TVS' Vijay: 13.60 Tricuspid Valve TR Pk Vijay: 1.94 TR Pk Grad: 15.00 Great Vessels Aorta Sinus of Valsalva: 3.70 2.0-3.5 cm Ao Asc: 3.70 2.1-3.4 cm Updated in Other Vendor System with Status of Final Rusty Hoffmann MD electronically signed on 01/19/2025 11:20:09 AM with status of Final
[2025-01-18 07:32] LABS: Glucose, Whole Blood 169 mg/dL (60-115)
--- NOTE | 2025-01-18 07:34 | PC.NURSE ---
pt due for tylenol, rectal temp now up to 101.5, however mar will not let me administer tylenol po as pt has exceeded the daily limit, MD Guerrero notified via tiger text.
--- NOTE | 2025-01-18 07:38 | PC.NURSE ---
assumed care of patient at 0715. report received from Cassie MATIAS.
[2025-01-18] MEDS: Insulin Glargine,Hum.rec.anlog 100 UNIT/ML 10 ML VIAL 40 UNIT SUBCUT (08:31)
--- NOTE | 2025-01-18 11:16 | HO.SKINPHOTO ---
Location: Category: Stage: Length: Width: Depth: cm Location: Category: Stage: Length: Width: Depth: cm Location: Category: Stage: Length: Width: Depth: cm Location: Category: Stage: Length: Width: Depth: cm Location: Category: Stage: Length: Width: Depth: cm Location: Category: Stage: Length: Width: Depth: cm
[2025-01-18 11:43] LABS: Glucose, Whole Blood 197 mg/dL (60-115)
--- NOTE | 2025-01-18 11:50 | PC.NURSE ---
Patient experienced brief nosebleed from right nostril. Patient stated that he felt a dry crust in his nose, went to pick it, then began bleeding. Nosebleed stopped with gauze & application of pressure. Dr. Cesar oleary.
[2025-01-18 12:19] LABS: Appearance Urine Clear; Glucose Urine UA >=1000 mg/dL (Negative); PH 6.5 (5.0-9.0); Specific Gravity - Urine >= 1.030 (1.005-1.025); UMIC TRIGGER UACC YES
--- NOTE | 2025-01-18 12:33 | PC.NURSE ---
Urine specimen collected and sent for analysis. All 3 IV sites are patent/intact. Right AC: 20g, Right Forearm: 18g, Left Forearm: 20g.
[2025-01-18] MEDS: Furosemide 20 MG/2 ML VIAL IVPUSH (14:10)
--- NOTE | 2025-01-18 14:12 | MHC.CM.PN ---
CM unable to wake Patient after multiple attempts/Patient snoring loudly and did not wake to his name. Patient appears to live with his , per chart review from previous admission. CM has initiated and will follow for dc planning. PCP is .
--- NOTE | 2025-01-18 16:16 | P.PNIM_ITS ---
Subjective Subjective Date of Service: 01/18/25 Interval History: f/u sepsis, cellulitis of the leg persistent fevers, but wbc going down Physical Exam 2 Vital Signs: Vital Signs: Last Vital Signs Temp 100.0 F 01/18/25 10:43 Pulse 99 01/18/25 10:43 Resp 19 01/18/25 10:43 BP 147/75 H 01/18/25 14:10 Pulse Ox 95 01/18/25 10:43 O2 Del Method Nasal Cannula 01/18/25 10:43 O2 Flow Rate 4 01/18/25 10:43 BMI result Body Mass Index 46.7 Objective Data Active Medications Acetaminophen (Acetaminophen 325 Mg Tablet) 650 mg PO Q6H PRN PRN Reason: Pain, Mild 1-3,fever,headache Last Admin: 01/18/25 01:03 Dose: 650 mg Documented By: RA Albuterol/Ipratropium (Albuterol/Iprat 2.5/0.5mg 3 Ml Ampul.Neb) 3 ml INHALE Q4H PRN PRN Reason: Shortness of Breath/Wheezing Aspirin (Aspirin 81 Mg Tab.Chew) 81 mg PO BEDTIME [facility] Last Admin: 01/17/25 20:55 Dose: 81 mg Documented By: RA Atorvastatin Calcium (Atorvastatin Calcium 40 Mg Tablet) 40 mg PO BEDTIME [facility] Last Admin: 01/17/25 20:55 Dose: 40 mg Documented By: RA Calcium Carbonate (Calcium Carbonate 750 Mg Tab.Chew) 750 mg PO Q4H PRN PRN Reason: Heartburn Dextrose (Dextrose 50 % 25 Gm/50 Ml Syringe) 25 gm IVPUSH Q15M PRN; Protocol PRN Reason: per Hypoglycemia Standing Ord. Enoxaparin Sodium (Enoxaparin Sodium 40 Mg/0.4 Ml Syringe) 40 mg SUBCUT Q24H [facility] Last Admin: 01/17/25 20:55 Dose: 40 mg Documented By: RA Gabapentin (Gabapentin 300 Mg Capsule) 300 mg PO BID [facility] Last Admin: 01/18/25 08:32 Dose: 300 mg Documented By: AROLDO Glucose (Glucose Gel 15 Gm Gel..Gram.) 15 gm PO Q15M PRN; Protocol PRN Reason: per Hypoglycemia Standing Ord. Piperacillin Sod/Tazobactam (Sod 3.375 gm/ Sodium Chloride) 50 mls @ 100 mls/hr IV Q6H [facility] Last Infusion: 01/18/25 13:14 Dose: Infused Documented By: JESÚS Vancomycin HCl 1,000 mg/ (Sodium Chloride) 270 mls @ 270 mls/hr IV Q8H [facility] Last Infusion: 01/18/25 11:00 Dose: Infused Documented By: JESÚS Ibuprofen (Ibuprofen 400 Mg Tablet) 400 mg PO Q6H PRN PRN Reason: Fever >101 Last Admin: 01/18/25 07:53 Dose: 400 mg Documented By: AROLDO Insulin Glargine (Insulin Glargine,Hum.Rec.Anlog 100 Unit/Ml 10 Ml Vial) 40 unit SUBCUT DAILY@0900 [facility] Last Admin: 01/18/25 08:31 Dose: 40 unit Documented By: AROLDO Insulin Human Lispro (Insulin Lispro 100 Unit/Ml 3 Ml Vial) 0 unit SUBCUT QIDACHS [facility]; Protocol Last Admin: 01/18/25 12:45 Dose: 2 unit Documented By: JESÚS Magnesium Hydroxide (Milk Of Magnesia 30 Ml Oral.Susp) 30 ml PO DAILY PRN PRN Reason: Constipation Melatonin (Melatonin 3 Mg Tablet) 6 mg PO BEDTIME PRN PRN Reason: Insomnia Multivitamins/Vitamin C (Multivitamin Tablet) 1 tab PO DAILY [facility] Last Admin: 01/18/25 08:32 Dose: 1 tab Documented By: AROLDO Pharmacy Consult (Consult Rx Vancomycin Dosing) 1 each MISCELLANE DAILY PRN PRN Reason: Consult order Polyethylene Glycol (Polyethylene Glycol 3350 17 Gm Powd.Pack) 17 gm PO DAILY PRN PRN Reason: Constipation Sodium Chloride (0.9 % Sodium Chloride Flush 3 Ml Syringe) 3 ml IVFLUSH QSHIFT [facility] Last Admin: 01/18/25 15:57 Dose: 3 ml Documented By: JESÚS Labs 01/18/25 03:54 01/19/25 06:52 Labs: Laboratory Results - last 24 hr 01/17/25 01/18/25 01/18/25 20:40 03:54 07:28 MCV 94.9 MCH 30.5 MCHC 32.1 RDW 13.3 Plt Count 186 MPV 8.9 L Immature Gran % (Auto) 0.9 H Neut % (Auto) 84.7 H Lymph % (Auto) 7.4 L Gem % (Auto) 6.7 Eos % (Auto) 0.0 Baso % (Auto) 0.3 Lymph # (Auto) 1.2 Gem # (Auto) 1.1 Eos # (Auto) 0.0 Baso # (Auto) 0.0 Abs Immat Gran (auto) 0.15 H Absolute Neuts (auto) 13.5 H Absolute Nucleated RBC 0.000 Nucleated RBC % (auto) 0.0 Anion Gap 14 Estim Creat Clear Calc 155.9 Estimated GFR > 60 POC Glucose 239 H 169 H Random Glucose 169 H Calcium 8.4 D Total Bilirubin 0.5 AST 71 H ALT 72 H Alkaline Phosphatase 73 Total Protein 7.2 Albumin 4.0 Urine Color Urine Appearance Urine pH Ur Specific [place] Urine Protein Urine Glucose (UA) Urine Ketones Urine Blood Urine Nitrite Ur Leukocyte Esterase Urine RBC Urine WBC Ur Squamous Epith Cells Urine Bacteria Hyaline Casts 01/18/25 01/18/25 11:38 12:12 MCV MCH MCHC RDW Plt Count MPV Immature Gran % (Auto) Neut % (Auto) Lymph % (Auto) Gem % (Auto) Eos % (Auto) Baso % (Auto) Lymph # (Auto) Gem # (Auto) Eos # (Auto) Baso # (Auto) Abs Immat Gran (auto) Absolute Neuts (auto) Absolute Nucleated RBC Nucleated RBC % (auto) Anion Gap Estim Creat Clear Calc Estimated GFR POC Glucose 197 H Random Glucose Calcium Total Bilirubin AST ALT Alkaline Phosphatase Total Protein Albumin Urine Color Yellow Urine Appearance Clear Urine pH 6.5 Ur Specific [place] >= 1.030 H Urine Protein 30 (1+) H Urine Glucose (UA) >=1000 H Urine Ketones Trace Urine Blood Negative Urine Nitrite Negative Ur Leukocyte Esterase Negative Urine RBC 0-2 Urine WBC 0-5 Ur Squamous Epith Cells 0-2 Urine Bacteria None Seen Hyaline Casts 0-2 Microbiology Microbiology Results: Microbiology 01/17/25 11:39 Blood Culture - Preliminary Blood - Venous No growth after 24 hours. 01/17/25 11:39 Blood Culture - Preliminary Blood - Venous No growth after 24 hours. Assessment and Plan (1) Severe sepsis: Status: Acute (2) Cellulitis: Status: Acute (3) Cellulitis of leg, right: Status: Acute Plan 59-year-old male with a past medical history HTN, HLD, dm, morbid obesity; presented to the hospital today with a chief complaint of fever. Admitted for following Sepsis d/t RLE cellulitis high grade fever Right diabetic foot infection: Continue IV vancomycin and Zosyn Follow-up cultures ID consult for further input Wound consult follow-up Acute hypoxic respiratory failure, likley from hypoventilation No significant wheezing on exam CTA chest showed no evidence of PE or acute pulmonary findings. Noted to have bilateral lower lobe atelectasis. Concern for undiagnosed TERRIE versus OHS Supplemental oxygen p.r.n. Pulmonology consult DuoNebs p.r.n. Trending pulse oximetry when ready for discharge Echocardiogram, EF 55 to 60 Diabetes: Insulin sliding scale Home dose of Lantus reduced to 40 Follow-up POC glucose DVT prophylaxis: Lovenox Code status: Full code Quality Stroke Does the patient have a stroke diagnosis?: No VTE Prior VTE?: No VTE Risk Level:: Medical - moderate - high VTE Device Contraindication: Treatment Not Indicated VTE Drug Contraindication: N/A - Med Ordered
--- NOTE | 2025-01-18 16:20 | PC.NURSE ---
Bed assignment: 452. Report entered, care ongoing by this RN. Alma MATIAS on I[facility] to care for the patient.
--- NOTE | 2025-01-18 16:47 | PC.NURSE ---
Voided urine: 780 mL & 680 mL since Lasix administration.
[2025-01-18 17:17] LABS: Glucose, Whole Blood 184 mg/dL (60-115)
[2025-01-18 20:56] LABS: Glucose, Whole Blood 161 mg/dL (60-115)
[2025-01-19] VITALS: BP 144/76; PULSE 100; RESP 16; TEMP 36.4; O2SAT 99
[2025-01-19 03:58] VITALS: BP 141/79; PULSE 102; RESP 18; TEMP 36.9; O2SAT 94
[2025-01-19 07:34] LABS: Creatinine Clr Calc Pharmacy 213.5; Estimated Glomerular Filt Rate > 60
[2025-01-19 07:48] VITALS: BP 136/73; PULSE 95; RESP 20; TEMP 36.6; O2SAT 94
[2025-01-19 07:49] LABS: Glucose, Whole Blood 147 mg/dL (60-115)
--- NOTE | 2025-01-19 08:03 | HE.PHANOTE ---
RE: VANCO Trough returned sub therapeutic @7.6. Renal function is stable, increasing dose to 1500 mg Q8H to ensure efficacy. Next trough due 01/20 @0800.
--- NOTE | 2025-01-19 09:19 | PM.CNPUL ---
History of Present Illness History of Present Illness Consult date: 01/19/25 Chief complaint: dm foot infection Narrative: This is an inpatient pulmonary consultation. The patient is a 59-year-old male with a past medical history HTN, HLD, dm, morbid obesity; presented to the hospital today with a chief complaint of fever. The patient has started noticing some swelling of his right lower extremity. He also noticed that before Thanksgiving his oxygen based on his pulse ox was decreased down to the 70s. He had plans to go to see his elderly mother for Thanksgiving so he was able to go to the bathroom in his oxygen did improve so therefore he decided not to go to the hospital to go for the Thanksgiving saturation with the mother. However symptoms got worse. Worsening lower extremity edema the patient came into the ER. He was noted to have a significant cellulitis of his right lower extremity. He had an open wound. Significant oozing from the leg. He had a lower extremity Doppler that was negative for DVT. He also underwent a CT scan of the abdomen demonstrating some lymphadenopathy consistent with the infection and a slight enlarged adrenal gland. The patient also had a CTA which was personally by me. No evidence of any pulmonary emboli. The patient did have some atelectasis right more than left at the base. The patient is denies any evidence of sleep apnea. Denies any snoring. He is usually sleeps on a recliner. Overnight we did give him some Lasix and the patient did feel clinically better. Although he is still requiring 4 L of oxygen. Review of Systems Constitutional: Constitutional: Reports fatigue and Reports fever(s) Eyes: Eyes: Reports no additional eye complaints ENT: Reports system reviewed and no additional complaints, except as documented Cardiovascular: Cardiovascular: Denies chest pain and Reports dyspnea on exertion Respiratory: Respiratory: Reports dyspnea on exertion and Denies wheezing Gastrointestinal: Gastrointestinal: Reports abdominal pain and Reports dyspepsia Musculoskeletal: Musculoskeletal: Reports as per HPI Integumentary/Breasts: Skin/Breast: Reports as per HPI, Reports erythema, Reports skin swelling and Reports sores Endocrine: Endocrine: Reports fatigue Hematologic/Lymphatic: Hematologic/Lymphatic: Reports no additional hematologic/lymphatic complaints Allergic/Immunologic: Allergic/Immunologic: Denies wheezing [facility] Past Medical History Medical History (Updated 01/19/25 @ 09:29 by Jose Amador MD) Atelectasis Hypoxia Severe sepsis HTN (hypertension) Morbid obesity Diabetic foot ulcer Diabetes mellitus Diabetic neuropathy Social History Social History Household Members: Spouse Housing: House Do you presently have visiting nurse or other home services: No Alcohol intake: current Alcohol intake frequency: 3 or more drinks per day Alcohol type: beer Patient Tobacco Use Status: Former Tobacco user Tobacco use type: Cigarette Cigarette Packs Per Day: 1 Cigarettes Per Day: 20.0 Years Smoked: 40 Smoked in Last 30 Days: Yes e-Cigarette/Vaping Use: Former Use Use of substances other than those prescribed or required for medical reasons: Yes Substance Use Type: Marijuana Currently Displaying Signs/Symptoms of Drug Intoxication Withdrawal: No Have you been hit, kicked, punched, or otherwise hurt by someone within the past year? If so, by whom?: No Do you feel safe in your current relationship?: Yes Is there a partner from a previous relationship who is making you feel unsafe now?: No Are you made to feel afraid or neglected: No Advance Directives: Yes Advance Directives Information Provided: Yes Advance Directives on File: No Advance Directives Date on File: 01/18/25 Do you have a plan to hurt others: No Plan Recently lost weight without trying: No Nutrition Risks: No Nutritional Risk service: No Current occupational status: unemployed Meds Allergies Allergy/AdvReac Type Severity Reaction Status Date / Time bee pollen (BEE STINGS) Allergy Unknown UNKNOWN Verified 01/17/25 11:22 Penicillins Allergy Unknown Unknown Verified 01/17/25 11:22 Active Medications: Current Medications Acetaminophen (Acetaminophen 325 Mg Tablet) 650 mg PO Q6H PRN PRN Reason: Pain, Mild 1-3,fever,headache Last Admin: 01/18/25 17:18 Dose: 650 mg Albuterol Sulfate (Albuterol Sulfate 90 Mcg 8 Gm Inhaler) 2 puff INHALE QID PRN PRN Reason: Wheezing Albuterol/Ipratropium (Albuterol/Iprat 2.5/0.5mg 3 Ml Ampul.Neb) 3 ml INHALE Q4H PRN PRN Reason: Shortness of Breath/Wheezing Aspirin (Aspirin 81 Mg Tab.Chew) 81 mg PO BEDTIME [facility] Last Admin: 01/18/25 20:08 Dose: 81 mg Atorvastatin Calcium (Atorvastatin Calcium 40 Mg Tablet) 40 mg PO BEDTIME [facility] Last Admin: 01/18/25 20:08 Dose: 40 mg Calcium Carbonate (Calcium Carbonate 750 Mg Tab.Chew) 750 mg PO Q4H PRN PRN Reason: Heartburn Dextrose (Dextrose 50 % 25 Gm/50 Ml Syringe) 25 gm IVPUSH Q15M PRN; Protocol PRN Reason: per Hypoglycemia Standing Ord. Empagliflozin (Empagliflozin 10 Mg Tablet) 10 mg PO DAILY [facility] Enoxaparin Sodium (Enoxaparin Sodium 40 Mg/0.4 Ml Syringe) 40 mg SUBCUT Q24H [facility] Last Admin: 01/18/25 20:09 Dose: 40 mg Gabapentin (Gabapentin 300 Mg Capsule) 300 mg PO BID [facility] Last Admin: 01/18/25 20:08 Dose: 300 mg Glucose (Glucose Gel 15 Gm Gel..Gram.) 15 gm PO Q15M PRN; Protocol PRN Reason: per Hypoglycemia Standing Ord. Hydrochlorothiazide (Hydrochlorothiazide 25 Mg Tablet) 25 mg PO DAILY [facility]; Protocol Piperacillin Sod/Tazobactam (Sod 3.375 gm/ Sodium Chloride) 50 mls @ 100 mls/hr IV Q6H [facility] Last Infusion: 01/19/25 06:10 Dose: Infused Vancomycin HCl 1,500 mg/ (Sodium Chloride) 500 mls @ 333.333 mls/hr IV Q8H [facility] Ibuprofen (Ibuprofen 400 Mg Tablet) 400 mg PO Q6H PRN PRN Reason: Fever >101 Last Admin: 01/18/25 07:53 Dose: 400 mg Insulin Glargine (Insulin Glargine,Hum.Rec.Anlog 100 Unit/Ml 10 Ml Vial) 40 unit SUBCUT DAILY@0900 [facility] Last Admin: 01/18/25 08:31 Dose: 40 unit Insulin Human Lispro (Insulin Lispro 100 Unit/Ml 3 Ml Vial) 0 unit SUBCUT QIDACHS [facility]; Protocol Last Admin: 01/19/25 07:59 Dose: Not Given Lisinopril (Lisinopril 20 Mg Tablet) 20 mg PO BID [facility]; Protocol Last Admin: 01/18/25 20:08 Dose: 20 mg Magnesium Hydroxide (Milk Of Magnesia 30 Ml Oral.Susp) 30 ml PO DAILY PRN PRN Reason: Constipation Melatonin (Melatonin 3 Mg Tablet) 6 mg PO BEDTIME PRN PRN Reason: Insomnia Multivitamins/Vitamin C (Multivitamin Tablet) 1 tab PO DAILY [facility] Last Admin: 01/18/25 08:32 Dose: 1 tab Non-Formulary Medication (Semaglutide [Ozempic]) 2 mg SUBCUT [facility] Pharmacy Consult (Consult Rx Vancomycin Dosing) 1 each MISCELLANE DAILY PRN PRN Reason: Consult order Polyethylene Glycol (Polyethylene Glycol 3350 17 Gm Powd.Pack) 17 gm PO DAILY PRN PRN Reason: Constipation Sodium Chloride (0.9 % Sodium Chloride Flush 3 Ml Syringe) 3 ml IVFLUSH QSHIFT [facility] Last Admin: 01/18/25 21:06 Dose: 3 ml Home Medications ?Medication ?Instructions ?Recorded ?Confirmed ?Last Taken ?Type gabapentin 300 mg capsule 300 mg PO BID 12/13/20 01/17/25 01/16/25 History hydrochlorothiazide 25 mg tablet 25 mg PO DAILY 12/13/20 01/17/25 01/16/25 History insulin glargine 100 unit/mL (3 60 unit subcut DAILY@0900 12/13/20 01/17/25 01/16/25 History mL) subcutaneous pen (Lantus Solostar U-100 Insulin) lisinopril 20 mg tablet 20 mg PO BID 12/13/20 01/17/25 01/16/25 History metformin 1,000 mg tablet 1,000 mg PO BID 12/13/20 01/17/25 01/16/25 History albuterol sulfate 90 mcg/actuation 2 puff inhalation QID PRN wheezing 03/20/24 01/17/25 Unknown History aerosol inhaler dapagliflozin propanediol 10 mg 10 mg PO DAILY 03/20/24 01/17/25 01/16/25 History tablet (Farxiga) multivitamin 1 tab PO DAILY 03/20/24 01/17/25 01/16/25 History omega [id number]-fish oil 1,000 mg 1 cap PO DAILY 03/20/24 01/17/25 01/16/25 History (120 mg-180 mg) capsule (Fish Oil) rosuvastatin 10 mg tablet 10 mg PO BEDTIME 03/20/24 01/17/25 01/16/25 History semaglutide 2 mg/dose (8 mg/3 mL) 2 mg subcut SA 03/20/24 01/17/25 01/15/25 History subcutaneous pen injector (Ozempic) aspirin 81 mg tablet 81 mg PO BEDTIME 01/17/25 01/17/25 01/16/25 History Physical Exam Vital Signs: Vital Signs: Last Vital Signs Temp 97.9 F 01/19/25 07:48 Pulse 95 01/19/25 07:48 Resp 20 01/19/25 07:48 BP 136/73 01/19/25 07:48 Pulse Ox 94 01/19/25 07:48 O2 Del Method Nasal Cannula 01/19/25 07:48 O2 Flow Rate 4 01/19/25 07:48 BMI result Body Mass Index 46.7 Const: General: comfortable Neck: Neck: Yes supple Chest: Chest palpation & inspection: normal inspection of the chest Resp: Effort & Inspection: normal respiratory effort Auscultation: no crackles and diminished lung sounds Cardio: Heart sounds: S1 normal heart sound present and S2 normal heart sound present GI: Inspection: Yes obesity Palpation (GI): Soft to palpation Skin: General skin exam: erythema and purpura Wounds: wounds noted Extrem: General: Yes cyanosis and Yes edema Results Laboratory Findings 01/18/25 03:54 01/19/25 06:52 ABG, PT/INR, D-dimer: PT/INR, D-dimer PT 15.8 SEC (11.2-13.5) H 01/17/25 11:39 INR 1.3 (0.9-1.1) H 01/17/25 11:39 Abnormal lab findings: Abnormal Labs 01/17/25 01/17/25 01/17/25 11:39 11:46 12:08 WBC 17.6 H MPV 9.0 L Immature Gran % (Auto) 1.4 H Neut % (Auto) 86.9 H Lymph % (Auto) 6.4 L Lymph # (Auto) 1.1 L Abs Immat Gran (auto) 0.24 H Absolute Neuts (auto) 15.3 H ESR 18 H PT 15.8 H INR 1.3 H VBG pH 7.45 H VBG HCO3 32 H Chloride 94 L BUN 17 H POC Glucose Random Glucose 174 H AST 56 H ALT 78 H C-Reactive Protein 29.89 H Total Protein 8.7 H TSH 0.17 L Ur Specific [place] Urine Protein Urine Glucose (UA) Random Vancomycin 01/17/25 01/18/25 01/18/25 20:40 03:54 07:28 WBC 15.9 H MPV 8.9 L Immature Gran % (Auto) 0.9 H Neut % (Auto) 84.7 H Lymph % (Auto) 7.4 L Lymph # (Auto) Abs Immat Gran (auto) 0.15 H Absolute Neuts (auto) 13.5 H ESR PT INR VBG pH VBG HCO3 Chloride BUN POC Glucose 239 H 169 H Random Glucose 169 H AST 71 H ALT 72 H C-Reactive Protein Total Protein TSH Ur Specific [place] Urine Protein Urine Glucose (UA) Random Vancomycin 01/18/25 01/18/25 01/18/25 11:38 12:12 17:14 WBC MPV Immature Gran % (Auto) Neut % (Auto) Lymph % (Auto) Lymph # (Auto) Abs Immat Gran (auto) Absolute Neuts (auto) ESR PT INR VBG pH VBG HCO3 Chloride BUN POC Glucose 197 H 184 H Random Glucose AST ALT C-Reactive Protein Total Protein TSH Ur Specific [place] >= 1.030 H Urine Protein 30 (1+) H Urine Glucose (UA) >=1000 H Random Vancomycin 01/18/25 01/19/25 01/19/25 20:52 06:52 07:45 WBC MPV Immature Gran % (Auto) Neut % (Auto) Lymph % (Auto) Lymph # (Auto) Abs Immat Gran (auto) Absolute Neuts (auto) ESR PT INR VBG pH VBG HCO3 Chloride BUN POC Glucose 161 H 147 H Random Glucose AST ALT C-Reactive Protein Total Protein TSH Ur Specific [place] Urine Protein Urine Glucose (UA) Random Vancomycin 7.6 L Microbiology: Microbiology 01/17/25 11:39 Blood - Venous Blood Culture - Preliminary No growth after 24 hours. 01/17/25 11:39 Blood - Venous Blood Culture - Preliminary No growth after 24 hours. Assessment and Plan (1) Venous stasis ulcer of left lower leg: Status: Acute (2) Edema, pitting: Status: Acute (3) Hypoxia: Status: Acute (4) Atelectasis: Status: Acute Plan continue oxygen supplementation to keep pox 90-96%. Will likely need some oxygen as an outpt Incentive spirometry OOB to recliner to recruitment of the lungs Awaiting ECHO Will benefit from in lab sleep study as outpt outpt PFTs consider additional diuresis Needs to keep RLE elevated Procedures Date of Service Date of Service: 01/19/25
--- NOTE | 2025-01-19 09:52 | HO.PM.IMPN ---
Subjective Subjective Date of Service: 01/19/25 Interval History: f/u sepsis, cellulitis of the leg Fevers resolved Physical Exam Vital Signs: Vital Signs: Last Vital Signs Temp 97.9 F 01/19/25 07:48 Pulse 95 01/19/25 07:48 Resp 20 01/19/25 07:48 BP 136/73 01/19/25 07:48 Pulse Ox 94 01/19/25 07:48 O2 Del Method Nasal Cannula 01/19/25 07:48 O2 Flow Rate 4 01/19/25 07:48 BMI result Body Mass Index 46.7 Objective Data Active Medications Acetaminophen (Acetaminophen 325 Mg Tablet) 650 mg PO Q6H PRN PRN Reason: Pain, Mild 1-3,fever,headache Last Admin: 01/18/25 17:18 Dose: 650 mg Documented By: GURMEET Albuterol Sulfate (Albuterol Sulfate 90 Mcg 8 Gm Inhaler) 2 puff INHALE QID PRN PRN Reason: Wheezing Albuterol/Ipratropium (Albuterol/Iprat 2.5/0.5mg 3 Ml Ampul.Neb) 3 ml INHALE Q4H PRN PRN Reason: Shortness of Breath/Wheezing Aspirin (Aspirin 81 Mg Tab.Chew) 81 mg PO BEDTIME [facility] TO [facility] Last Admin: 01/18/25 20:08 Dose: 81 mg Documented By: APRIL Atorvastatin Calcium (Atorvastatin Calcium 40 Mg Tablet) 40 mg PO BEDTIME [facility] Last Admin: 01/18/25 20:08 Dose: 40 mg Documented By: APRIL Calcium Carbonate (Calcium Carbonate 750 Mg Tab.Chew) 750 mg PO Q4H PRN PRN Reason: Heartburn Dextrose (Dextrose 50 % 25 Gm/50 Ml Syringe) 25 gm IVPUSH Q15M PRN; Protocol PRN Reason: per Hypoglycemia Standing Ord. Empagliflozin (Empagliflozin 10 Mg Tablet) 10 mg PO DAILY [facility] Enoxaparin Sodium (Enoxaparin Sodium 40 Mg/0.4 Ml Syringe) 40 mg SUBCUT Q24H [facility] Last Admin: 01/18/25 20:09 Dose: 40 mg Documented By: APRIL Gabapentin (Gabapentin 300 Mg Capsule) 300 mg PO BID [facility] Last Admin: 01/18/25 20:08 Dose: 300 mg Documented By: APRIL Glucose (Glucose Gel 15 Gm Gel..Gram.) 15 gm PO Q15M PRN; Protocol PRN Reason: per Hypoglycemia Standing Ord. Hydrochlorothiazide (Hydrochlorothiazide 25 Mg Tablet) 25 mg PO DAILY [facility]; Protocol Piperacillin Sod/Tazobactam (Sod 3.375 gm/ Sodium Chloride) 50 mls @ 100 mls/hr IV Q6H [facility] Last Infusion: 01/19/25 06:10 Dose: Infused Documented By: APRIL Vancomycin HCl 1,500 mg/ (Sodium Chloride) 500 mls @ 333.333 mls/hr IV Q8H [facility] Ibuprofen (Ibuprofen 400 Mg Tablet) 400 mg PO Q6H PRN PRN Reason: Fever >101 Last Admin: 01/18/25 07:53 Dose: 400 mg Documented By: AROLDO Insulin Glargine (Insulin Glargine,Hum.Rec.Anlog 100 Unit/Ml 10 Ml Vial) 40 unit SUBCUT DAILY@0900 [facility] Last Admin: 01/18/25 08:31 Dose: 40 unit Documented By: AROLDO Insulin Human Lispro (Insulin Lispro 100 Unit/Ml 3 Ml Vial) 0 unit SUBCUT QIDACHS [facility]; Protocol Last Admin: 01/19/25 07:59 Dose: Not Given Documented By: ELEN Non-Admin Reason: No Insulin Coverage Lisinopril (Lisinopril 20 Mg Tablet) 20 mg PO BID [facility]; Protocol Last Admin: 01/18/25 20:08 Dose: 20 mg Documented By: APRIL Magnesium Hydroxide (Milk Of Magnesia 30 Ml Oral.Susp) 30 ml PO DAILY PRN PRN Reason: Constipation Melatonin (Melatonin 3 Mg Tablet) 6 mg PO BEDTIME PRN PRN Reason: Insomnia Multivitamins/Vitamin C (Multivitamin Tablet) 1 tab PO DAILY [facility] Last Admin: 01/18/25 08:32 Dose: 1 tab Documented By: AROLDO Non-Formulary Medication (Semaglutide [Ozempic]) 2 mg SUBCUT [facility] Pharmacy Consult (Consult Rx Vancomycin Dosing) 1 each MISCELLANE DAILY PRN PRN Reason: Consult order Polyethylene Glycol (Polyethylene Glycol 3350 17 Gm Powd.Pack) 17 gm PO DAILY PRN PRN Reason: Constipation Sodium Chloride (0.9 % Sodium Chloride Flush 3 Ml Syringe) 3 ml IVFLUSH QSHIFT [facility] Last Admin: 01/18/25 21:06 Dose: 3 ml Documented By: APRIL Labs 01/18/25 03:54 01/20/25 07:57 Labs: Laboratory Results - last 24 hr 01/18/25 01/18/25 01/18/25 11:38 12:12 17:14 Hold Purple Top Estim Creat Clear Calc Estimated GFR POC Glucose 197 H 184 H Urine Color Yellow Urine Appearance Clear Urine pH 6.5 Ur Specific [place] >= 1.030 H Urine Protein 30 (1+) H Urine Glucose (UA) >=1000 H Urine Ketones Trace Urine Blood Negative Urine Nitrite Negative Ur Leukocyte Esterase Negative Urine RBC 0-2 Urine WBC 0-5 Ur Squamous Epith Cells 0-2 Urine Bacteria None Seen Hyaline Casts 0-2 Random Vancomycin 01/18/25 01/19/25 01/19/25 20:52 06:52 07:45 Hold Purple Top SEE NOTE Estim Creat Clear Calc 213.5 Estimated GFR > 60 POC Glucose 161 H 147 H Urine Color Urine Appearance Urine pH Ur Specific [place] Urine Protein Urine Glucose (UA) Urine Ketones Urine Blood Urine Nitrite Ur Leukocyte Esterase Urine RBC Urine WBC Ur Squamous Epith Cells Urine Bacteria Hyaline Casts Random Vancomycin 7.6 L Microbiology Microbiology Results: Microbiology 01/17/25 11:39 Blood Culture - Preliminary Blood - Venous No growth after 24 hours. 01/17/25 11:39 Blood Culture - Preliminary Blood - Venous No growth after 24 hours. Assessment and Plan (1) Severe sepsis: Status: Acute (2) Cellulitis: Status: Acute (3) Cellulitis of leg, right: Status: Acute Plan 59-year-old male with a past medical history HTN, HLD, dm, morbid obesity; presented to the hospital today with a chief complaint of fever. Admitted for following Sepsis d/t RLE cellulitis, recent right foot procedure by podiatry high grade fever, now resolved. Right diabetic foot infection Blood culture negative thus far Continue IV vancomycin and Zosyn Follow-up cultures ID consult for further input Wound consult follow-up Acute hypoxic respiratory failure, likley from hypoventilation No significant wheezing on exam CTA chest showed no evidence of PE or acute pulmonary findings. Noted to have bilateral lower lobe atelectasis. Concern for undiagnosed TERRIE versus OHS Supplemental oxygen p.r.n. Pulmonology consult --outpatient sleep study, PFTs, incentive spirometryt DuoNebs p.r.nMelody Trending pulse oximetry when ready for discharge Echocardiogram, EF 55 to 60 Diabetes: Insulin sliding scale Home dose of Lantus reduced to 40 Follow-up POC glucose DVT prophylaxis: Lovenox Code status: Full code Quality Stroke Does the patient have a stroke diagnosis?: No VTE Prior VTE?: No VTE Risk Level:: Medical - moderate - high VTE Device Contraindication: Treatment Not Indicated VTE Drug Contraindication: N/A - Med Ordered
[2025-01-19] MEDS: 0.9 % Sodium Chloride Flush 3 ML SYRINGE IVFLUSH ×3 (10:16→20:28)
[2025-01-19] MEDS: Insulin Glargine,Hum.rec.anlog 100 UNIT/ML 10 ML VIAL 40 UNIT SUBCUT (10:22)
--- NOTE | 2025-01-19 10:43 | MHC.CM.PN ---
Per ROUNDS, Patient is not yet medically cleared for dc and cleared to transfer to Med/Surg.
--- NOTE | 2025-01-19 11:10 | HO.WOUND ---
Wound Consult: Initial 59 yr old male admitted to [facility] [place] on 01/17/25- See progress notes and H&P for detailed history. Wound consult placed for right leg and great toe. Patient agreeable to assessment and photo documentation. Patient followed by lawn sprinkler installer Dr. Bryson outpatient for routine callus paring every 4 months. Reports recent visit with fissure to right plantar great toe area, open wound to base. Patient subsequently developed cellulitis to right leg, with blistering and weeping of serous fluid. 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 Right lateral leg- blistering and partial thickness wounding Right medial leg - intact red Etiology: cellulitis Wound Bed: moist pink/red Drainage / Odor: large serous, no odor Edges: ? fragile Iris wound: ? No Induration, Fluctuance or Warmth noted - redness and swelling Pain: none Goals of Treatment: ? drainage absorption with durafiber Right great toe Etiology: fissure with open base Measurements: 0.2cm x 2cm x 0.5cm Wound Bed: moist red Drainage / Odor: scant serosanguineous- no odor Edges: ? callused Iris wound: ? No Induration, Fluctuance or Warmth noted Pain: none - neuropathy Goals of Treatment: ? iodoflex for drainage absorption - antimicrobial effects, moist healing Right 5th toe with intact area of purple ? bruising Recommendations: Right great toe: cleanse with saline, apply iodoflex to wound bed (Iodoflex left at bedside. Note the Iodoflex will be applied brown and over the course of time as the Iodine is absorbed into the wound bed the color will change to yellow / cream signifying time to replace.), cover with foam, change every day and PRN Right leg: cleanse with saline, pat dry, apply durafiber ag to open areas, cover with fluff gauze, ABD, kerlix, change daily and PRN. Elevate leg for edema management. Re-consult wound care Nurse for wound deterioration or wound changes.
[2025-01-19 11:13] LABS: Glucose, Whole Blood 141 mg/dL (60-115)
[2025-01-19 15:28] LABS: Glucose, Whole Blood 124 mg/dL (60-115)
[2025-01-19 15:32] VITALS: BP 150/64; PULSE 94; RESP 20; TEMP 36.3; O2SAT 95
[2025-01-19 19:07] VITALS: BP 164/81; PULSE 93; RESP 18; TEMP 36.6; O2SAT 95
[2025-01-19 20:20] LABS: Glucose, Whole Blood 123 mg/dL (60-115)
[2025-01-19 23:11] VITALS: BP 158/76; PULSE 93; RESP 18; TEMP 36.5; O2SAT 95
[2025-01-20] VITALS (8 sets, daily range): BP systolic 124–151; BP diastolic 62–95; PULSE 84–99; RESP 15–20; TEMP 36.3–37.3; O2SAT 88–96
--- NOTE | 2025-01-20 00:27 | P.CNID_ITS ---
History of Present Illness Data of Consult Service Date: 01/19/25 Requesting physician: Tee Guerrero Primary Care Provider: Dm Mckeon MD HPI Reason for consult: right leg erythema He started with right lateral leg erythema and pain over a week ago. He has had cellulitis in past with sepsis. He denies tinea pedis. Review of Systems 2 Review of Systems: Yes all other systems are reviewed and are negative [facility] Past Medical History Medical History Atelectasis Hypoxia Severe sepsis HTN (hypertension) Morbid obesity Diabetic foot ulcer Diabetes mellitus Diabetic neuropathy Family History Family history: reviewed and not pertinent Social History Social History Household Members: Spouse Housing: House Do you presently have visiting nurse or other home services: No Alcohol intake: current Alcohol intake frequency: 3 or more drinks per day Alcohol type: beer Patient Tobacco Use Status: Former Tobacco user Tobacco use type: Cigarette Cigarette Packs Per Day: 1 Cigarettes Per Day: 20.0 Years Smoked: 40 e-Cigarette/Vaping Use: Former Use Substance Use Type: Marijuana Advance Directives Date on File: 01/18/25 service: No Current occupational status: unemployed Meds Allergies Allergy/AdvReac Type Severity Reaction Status Date / Time bee pollen (BEE STINGS) Allergy Unknown UNKNOWN Verified 01/17/25 11:22 Penicillins Allergy Unknown Unknown Verified 01/17/25 11:22 Active Medications: Current Medications Acetaminophen (Acetaminophen 325 Mg Tablet) 650 mg PO Q6H PRN PRN Reason: Pain, Mild 1-3,fever,headache Last Admin: 01/18/25 17:18 Dose: 650 mg Albuterol Sulfate (Albuterol Sulfate 90 Mcg 8 Gm Inhaler) 2 puff INHALE QID PRN PRN Reason: Wheezing Albuterol/Ipratropium (Albuterol/Iprat 2.5/0.5mg 3 Ml Ampul.Neb) 3 ml INHALE Q4H PRN PRN Reason: Shortness of Breath/Wheezing Aspirin (Aspirin 81 Mg Tab.Chew) 81 mg PO BEDTIME [facility] Last Admin: 01/19/25 20:27 Dose: 81 mg Atorvastatin Calcium (Atorvastatin Calcium 40 Mg Tablet) 40 mg PO BEDTIME [facility] Last Admin: 01/19/25 20:27 Dose: 40 mg Calcium Carbonate (Calcium Carbonate 750 Mg Tab.Chew) 750 mg PO Q4H PRN PRN Reason: Heartburn Dextrose (Dextrose 50 % 25 Gm/50 Ml Syringe) 25 gm IVPUSH Q15M PRN; Protocol PRN Reason: per Hypoglycemia Standing Ord. Empagliflozin (Empagliflozin 10 Mg Tablet) 10 mg PO DAILY [facility] Last Admin: 01/19/25 10:22 Dose: 10 mg Enoxaparin Sodium (Enoxaparin Sodium 40 Mg/0.4 Ml Syringe) 40 mg SUBCUT Q24H [facility] Last Admin: 01/19/25 20:27 Dose: 40 mg Gabapentin (Gabapentin 300 Mg Capsule) 300 mg PO BID [facility] Last Admin: 01/19/25 20:27 Dose: 300 mg Glucose (Glucose Gel 15 Gm Gel..Gram.) 15 gm PO Q15M PRN; Protocol PRN Reason: per Hypoglycemia Standing Ord. Hydrochlorothiazide (Hydrochlorothiazide 25 Mg Tablet) 25 mg PO DAILY [facility]; Protocol Last Admin: 01/19/25 10:23 Dose: 25 mg Piperacillin Sod/Tazobactam (Sod 3.375 gm/ Sodium Chloride) 50 mls @ 100 mls/hr IV Q6H [facility] Last Admin: 01/19/25 23:37 Dose: 100 mls/hr Vancomycin HCl 1,500 mg/ (Sodium Chloride) 500 mls @ 333.333 mls/hr IV Q8H [facility] Last Infusion: 01/19/25 19:40 Dose: Infused Ibuprofen (Ibuprofen 400 Mg Tablet) 400 mg PO Q6H PRN PRN Reason: Fever >101 Last Admin: 01/18/25 07:53 Dose: 400 mg Insulin Glargine (Insulin Glargine,Hum.Rec.Anlog 100 Unit/Ml 10 Ml Vial) 40 unit SUBCUT DAILY@0900 [facility] Last Admin: 01/19/25 10:22 Dose: 40 unit Insulin Human Lispro (Insulin Lispro 100 Unit/Ml 3 Ml Vial) 0 unit SUBCUT QIDACHS [facility]; Protocol Last Admin: 01/19/25 20:23 Dose: Not Given Lisinopril (Lisinopril 20 Mg Tablet) 20 mg PO BID [facility]; Protocol Last Admin: 01/19/25 20:27 Dose: 20 mg Magnesium Hydroxide (Milk Of Magnesia 30 Ml Oral.Susp) 30 ml PO DAILY PRN PRN Reason: Constipation Melatonin (Melatonin 3 Mg Tablet) 6 mg PO BEDTIME PRN PRN Reason: Insomnia Multivitamins/Vitamin C (Multivitamin Tablet) 1 tab PO DAILY [facility] Last Admin: 01/19/25 10:22 Dose: 1 tab Non-Formulary Medication (Semaglutide [Ozempic]) 2 mg SUBCUT SA [facility] Pharmacy Consult (Consult Rx Vancomycin Dosing) 1 each MISCELLANE DAILY PRN PRN Reason: Consult order Polyethylene Glycol (Polyethylene Glycol 3350 17 Gm Powd.Pack) 17 gm PO DAILY PRN PRN Reason: Constipation Sodium Chloride (0.9 % Sodium Chloride Flush 3 Ml Syringe) 3 ml IVFLUSH QSHIFT [facility] Last Admin: 01/19/25 20:28 Dose: 3 ml Home Medications ?Medication ?Instructions ?Recorded ?Confirmed ?Last Taken ?Type gabapentin 300 mg capsule 300 mg PO BID 12/13/2001/1701/16/25 History hydrochlorothiazide 25 mg tablet 25 mg PO DAILY 01/17/25 01/16/25 History insulin glargine 100 unit/mL (3 60 unit subcut DAILY@0 900 12/13/20 01/17/25 01/16/25 History mL) subcutaneous pen (Lantus Solostar U-100 Insulin) lisinopril 20 mg tablet 20 mg PO BID 12/13/2001/16/25 History metformin 1,000 mg tablet 1,000 mg PO BID 12/13/2003/1301/16/25 History albuterol sulfate 90 mcg/actuation 2 puff inhalation Q ID PRN wheezing 03/20/24 01/17/25 Unknown History aerosol inhaler dapagliflozin propanediol 10 mg 10 mg PO DAILY 5 01/17/25 01/16/25 History tablet (Farxiga) multivitamin 1 tab PO DAILY 03/20/2403/1301/16/25 History omega 6-ixn-qay-fish oil 1,000 mg 1 cap PO DAILY 03/2001/17/25 01/16/25 History (120 mg-180 mg) capsule (Fish Oil) rosuvastatin 10 mg tablet 10 mg PO BEDTIME 03/20/2401/16/25 History semaglutide 2 mg/dose (8 mg/3 mL) 2 mg subcut SA 03/2001/17/25 01/15/25 History subcutaneous pen injector (Ozempic) aspirin 81 mg tablet 81 mg PO BEDTIME 01/17/2501/16/25 History Physical Exam 2 Vital Signs: Vital Signs: Last Vital Signs Temp 97.7 F 01/19/25 23:11 Pulse 93 01/19/25 23:11 Resp 18 01/19/25 23:11 BP 158/76 H 01/19/25 23:11 Pulse Ox 95 01/19/25 23:11 O2 Del Method Nasal Cannula 01/19/25 23:11 O2 Flow Rate 3 01/19/25 23:11 BMI result Body Mass Index 46.7 Const: General: cooperative HEENT: Head: Yes normal to inspection Face and sinus: Yes normal facial exam Mouth: Normal oral and palatal mucosa present Teeth and gingiva: d entition normal Eyes: General: appearance normal, both eyes and all related structures P upils: Equal, round and reactive pupils present Resp: Effort & Inspection: normal respiratory effort Cardio: Rate: regular rate Rhythm: regular rhythm GI: Palpation (GI): Soft to palpation and nontender : General: Yes no CVA tenderness Back/Spine/Pelvis: Back: no CVA tenderness Skin: General skin exam: no rashes or lesions noted Neuro: General: moves all extremities Cranial nerves: Yes Equal, round and reactive pupils present Extrem: Other: right bright red lateral leg area with swelling Psych: Appearance: grossly normal Results Labs 01/18/25 03:54 01/19/25 06:52 Labs: BMP 01/19/25 06:52 Creatinine 0.65 Microbiology Microbiology Results: Microbiology 01/17/25 11:39 Blood - Venous Blood Culture - Preliminary No growth after 48 hours. 01/17/25 11:39 Blood - Venous Blood Culture - Preliminary No growth after 48 hours. Assessment and Plan (1) Diabetes mellitus: Status: Acute (2) Cellulitis: Qualifiers: Laterality: left Site of cellulitis: extremity Site of cellulitis of extremity: lower extremity Qualified Code(s): L03.116 - Cellulitis of left lower limb Status: Acute (3) Severe sepsis: Status: Acute Plan He does have h/o MRSA. He also may have strep This is more cellulitis rather than DM foot infection so staph and strep common infections Would plan to switch Zosyn to Clindamycin 900 mg very eight hours until improved if not improving tomorow Continue Vancomycin When better po Doxycycline likely for a week with Clindamycin 300 mg po tid for a week.
[2025-01-20 07:21] LABS: Glucose, Whole Blood 116 mg/dL (60-115)
[2025-01-20 08:35] LABS: Creatinine Clr Calc Pharmacy 207.1; Estimated Glomerular Filt Rate > 60
[2025-01-20] MEDS: 0.9 % Sodium Chloride Flush 3 ML SYRINGE IVFLUSH ×3 (08:43→23:53)
[2025-01-20] MEDS: Insulin Glargine,Hum.rec.anlog 100 UNIT/ML 10 ML VIAL 40 UNIT SUBCUT (08:43)
--- NOTE | 2025-01-20 08:50 | HE.PHANOTE ---
VANCO DOSE ADJUSTMENT BASED ON SCR AND TROUGH OF 11.1 DOSE INCREASED TO 1750 Q 8H TARGETING AUC OF 448. NEXT LEVEL 01/21 @ 0800
[2025-01-20] MEDS: vancomycin HCL 1,000 MG, vancomycin HCL 750 MG in 0.9 % Sodium Chloride 500 ML 267.5 MG IV ×2 (10:20→18:30)
[2025-01-20 11:26] LABS: Glucose, Whole Blood 147 mg/dL (60-115)
--- NOTE | 2025-01-20 11:50 | HO.PM.IMPN ---
Subjective Subjective Date of Service: 01/20/25 Interval History: f/u sepsis, cellulitis of the leg Fevers resolved, O2 sat remains low but assymptoma Physical Exam Vital Signs: Vital Signs: Last Vital Signs Temp 97.5 F 01/20/25 10:52 Pulse 92 01/20/25 10:52 Resp 18 01/20/25 10:52 BP 134/70 01/20/25 10:52 Pulse Ox 90 L 01/20/25 10:52 O2 Del Method Nasal Cannula 01/20/25 10:52 O2 Flow Rate 1 01/20/25 10:52 BMI result Body Mass Index 46.7 Objective Data Active Medications Acetaminophen (Acetaminophen 325 Mg Tablet) 650 mg PO Q6H PRN PRN Reason: Pain, Mild 1-3,fever,headache Last Admin: 01/20/25 10:41 Dose: 650 mg Documented By: MANDI Albuterol Sulfate (Albuterol Sulfate 90 Mcg 8 Gm Inhaler) 2 puff INHALE QID PRN PRN Reason: Wheezing Albuterol/Ipratropium (Albuterol/Iprat 2.5/0.5mg 3 Ml Ampul.Neb) 3 ml INHALE Q4H PRN PRN Reason: Shortness of Breath/Wheezing Aspirin (Aspirin 81 Mg Tab.Chew) 81 mg PO BEDTIME [facility] Last Admin: 01/19/25 20:27 Dose: 81 mg Documented By: PUJA Atorvastatin Calcium (Atorvastatin Calcium 40 Mg Tablet) 40 mg PO BEDTIME [facility] Last Admin: 01/19/25 20:27 Dose: 40 mg Documented By: PUJA Calcium Carbonate (Calcium Carbonate 750 Mg Tab.Chew) 750 mg PO Q4H PRN PRN Reason: Heartburn Dextrose (Dextrose 50 % 25 Gm/50 Ml Syringe) 25 gm IVPUSH Q15M PRN; Protocol PRN Reason: per Hypoglycemia Standing Ord. Empagliflozin (Empagliflozin 10 Mg Tablet) 10 mg PO DAILY [facility] Last Admin: 01/20/25 08:42 Dose: 10 mg Documented By: MANDI Enoxaparin Sodium (Enoxaparin Sodium 40 Mg/0.4 Ml Syringe) 40 mg SUBCUT Q24H [facility] Last Admin: 01/19/25 20:27 Dose: 40 mg Documented By: PUJA Gabapentin (Gabapentin 300 Mg Capsule) 300 mg PO BID [facility] Last Admin: 01/20/25 08:42 Dose: 300 mg Documented By: MANDI Glucose (Glucose Gel 15 Gm Gel..Gram.) 15 gm PO Q15M PRN; Protocol PRN Reason: per Hypoglycemia Standing Ord. Hydrochlorothiazide (Hydrochlorothiazide 25 Mg Tablet) 25 mg PO DAILY [facility]; Protocol Last Admin: 01/20/25 08:42 Dose: 25 mg Documented By: MANDI Piperacillin Sod/Tazobactam (Sod 3.375 gm/ Sodium Chloride) 50 mls @ 100 mls/hr IV Q6H [facility] Last Infusion: 01/20/25 06:51 Dose: Infused Documented By: PUJA Vancomycin HCl 1,000 mg/Vancomycin HCl 750 mg/ Sodium Chloride 535 mls @ 267.5 mls/hr IV Q8H [facility] Last Admin: 01/20/25 10:20 Dose: 267.5 mls/hr Documented By: MANDI Ibuprofen (Ibuprofen 400 Mg Tablet) 400 mg PO Q6H PRN PRN Reason: Fever >101 Last Admin: 01/18/25 07:53 Dose: 400 mg Documented By: AROLDO Insulin Glargine (Insulin Glargine,Hum.Rec.Anlog 100 Unit/Ml 10 Ml Vial) 40 unit SUBCUT DAILY@0900 [facility] Last Admin: 01/20/25 08:43 Dose: 40 unit Documented By: MANDI Insulin Human Lispro (Insulin Lispro 100 Unit/Ml 3 Ml Vial) 0 unit SUBCUT QIDACHS [facility]; Protocol Last Admin: 01/20/25 08:30 Dose: Not Given Documented By: MANDI Non-Admin Reason: No Insulin Coverage Lisinopril (Lisinopril 20 Mg Tablet) 20 mg PO BID [facility]; Protocol Last Admin: 01/20/25 08:42 Dose: 20 mg Documented By: MANDI Magnesium Hydroxide (Milk Of Magnesia 30 Ml Oral.Susp) 30 ml PO DAILY PRN PRN Reason: Constipation Melatonin (Melatonin 3 Mg Tablet) 6 mg PO BEDTIME PRN PRN Reason: Insomnia Multivitamins/Vitamin C (Multivitamin Tablet) 1 tab PO DAILY [facility] Last Admin: 01/20/25 08:42 Dose: 1 tab Documented By: MANDI Non-Formulary Medication (Semaglutide [Ozempic]) 2 mg SUBCUT [facility] Pharmacy Consult (Consult Rx Vancomycin Dosing) 1 each MISCELLANE DAILY PRN PRN Reason: Consult order Polyethylene Glycol (Polyethylene Glycol 3350 17 Gm Powd.Pack) 17 gm PO DAILY PRN PRN Reason: Constipation Sodium Chloride (0.9 % Sodium Chloride Flush 3 Ml Syringe) 3 ml IVFLUSH QSHIFT [facility] Last Admin: 01/20/25 08:43 Dose: 3 ml Documented By: MANDI Labs 01/18/25 03:54 01/20/25 07:57 Labs: Laboratory Results - last 24 hr 01/19/25 01/19/25 01/20/25 15:19 20:11 07:01 Estim Creat Clear Calc Estimated GFR POC Glucose 124 H 123 H 116 H Vancomycin Trough 01/20/25 01/20/25 07:57 10:54 Estim Creat Clear Calc 207.1 Estimated GFR > 60 POC Glucose 147 H Vancomycin Trough 11.1 Microbiology Microbiology Results: Microbiology 01/17/25 11:39 Blood Culture - Preliminary Blood - Venous No growth after 48 hours. 01/17/25 11:39 Blood Culture - Preliminary Blood - Venous No growth after 48 hours. Assessment and Plan (1) Severe sepsis: Status: Acute (2) Cellulitis: Status: Acute (3) Cellulitis of leg, right: Status: Acute Plan 59-year-old male with a past medical history HTN, HLD, dm, morbid obesity; presented to the hospital today with a chief complaint of fever. Admitted for following Sepsis d/t RLE cellulitis, recent right foot procedure by podiatry notting some improvement high grade fever, now resolved. Right diabetic foot infection Blood culture negative thus far Continue IV vancomycin and Zosyn for now Follow-up cultures ID consult noted Wound consult follow-up Acute hypoxic respiratory failure, likley from hypoventilation No significant wheezing on exam CTA chest showed no evidence of PE or acute pulmonary findings. Noted to have bilateral lower lobe atelectasis. Concern for undiagnosed TERRIE versus OHS Supplemental oxygen p.r.n. Pulmonology consult --outpatient sleep study, PFTs, incentive spirometryt DuoNebs p.r.n. Trending pulse oximetry when ready for discharge Echocardiogram, EF 55 to 60 Diabetes: Insulin sliding scale Home dose of Lantus reduced to 40 Follow-up POC glucose DVT prophylaxis: Lovenox Code status: Full code Quality Stroke Does the patient have a stroke diagnosis?: No VTE Prior VTE?: No VTE Risk Level:: Medical - moderate - high VTE Device Contraindication: Treatment Not Indicated VTE Drug Contraindication: N/A - Med Ordered
[2025-01-20 15:49] LABS: Glucose, Whole Blood 139 mg/dL (60-115)
[2025-01-21] VITALS (7 sets, daily range): BP systolic 124–161; BP diastolic 68–87; PULSE 84–97; RESP 16–18; TEMP 36.4–37.4; O2SAT 91–97
[2025-01-21] MEDS: vancomycin HCL 1,000 MG, vancomycin HCL 750 MG in 0.9 % Sodium Chloride 500 ML 267.5 MG IV (02:03)
[2025-01-21 07:52] LABS: Glucose, Whole Blood 163 mg/dL (60-115)
[2025-01-21] MEDS: Insulin Glargine,Hum.rec.anlog 100 UNIT/ML 10 ML VIAL 40 UNIT SUBCUT (08:04)
[2025-01-21] MEDS: 0.9 % Sodium Chloride Flush 3 ML SYRINGE IVFLUSH (08:04)
[2025-01-21 08:57] LABS: Creatinine Clr Calc Pharmacy 198.3; Estimated Glomerular Filt Rate > 60
--- NOTE | 2025-01-21 09:06 | HE.PHANOTE ---
ARSALAN Changed dosing to 2000mg Q8H as pt has ahd 3 subtheraprutic troughs. Pt renal function stable. New predicted trough 15.2, AUC 509. Next trough 12/6 @0800. Will have Fatemeh follow up in the morning after trough to adjust if renal function changes or trough comes back too high.
[2025-01-21] MEDS: vancomycin/NS 2,000 MG/500 ML PLAST..BAG 250 MG IV ×2 (10:31→18:28)
--- NOTE | 2025-01-21 10:39 | MHC.CM.PN ---
Per ROUNDS, Patient is not yet medically cleared for dc (continuing IV ABX).
[2025-01-21 11:29] LABS: Glucose, Whole Blood 115 mg/dL (60-115)
--- NOTE | 2025-01-21 12:19 | HO.PM.IMPN ---
Subjective Subjective Date of Service: 01/21/25 Interval History: f/u sepsis, cellulitis of the leg leg remains red with blisters but no expansion O2 sat drop at night but seems better today presently on 1 liter and satting 96, he reported some wheezing at night also Physical Exam Vital Signs: Vital Signs: Last Vital Signs Temp 97.9 F 01/21/25 10:54 Pulse 84 01/21/25 10:54 Resp 16 01/21/25 10:54 BP 144/68 H 01/21/25 10:54 Pulse Ox 96 01/21/25 10:54 O2 Del Method Nasal Cannula 01/21/25 10:54 O2 Flow Rate 1 01/21/25 10:54 BMI result Body Mass Index 46.7 01/21 Objective Data Active Medications Acetaminophen (Acetaminophen 325 Mg Tablet) 650 mg PO Q6H PRN PRN Reason: Pain, Mild 1-3,fever,headache Last Admin: 01/21/25 10:31 Dose: 650 mg Documented By: MANDI Albuterol Sulfate (Albuterol Sulfate 90 Mcg 8 Gm Inhaler) 2 puff INHALE QID PRN PRN Reason: Wheezing Albuterol/Ipratropium (Albuterol/Iprat 2.5/0.5mg 3 Ml Ampul.Neb) 3 ml INHALE Q4H PRN PRN Reason: Shortness of Breath/Wheezing Aspirin (Aspirin 81 Mg Tab.Chew) 81 mg PO BEDTIME [facility] Last Admin: 01/20/25 20:26 Dose: 81 mg Documented By: DONI Atorvastatin Calcium (Atorvastatin Calcium 40 Mg Tablet) 40 mg PO BEDTIME [facility] Last Admin: 01/20/25 20:26 Dose: 40 mg Documented By: DONI Calcium Carbonate (Calcium Carbonate 750 Mg Tab.Chew) 750 mg PO Q4H PRN PRN Reason: Heartburn Dextrose (Dextrose 50 % 25 Gm/50 Ml Syringe) 25 gm IVPUSH Q15M PRN; Protocol PRN Reason: per Hypoglycemia Standing Ord. Empagliflozin (Empagliflozin 10 Mg Tablet) 10 mg PO DAILY [facility] Last Admin: 01/21/25 08:03 Dose: 10 mg Documented By: MANDI Enoxaparin Sodium (Enoxaparin Sodium 40 Mg/0.4 Ml Syringe) 40 mg SUBCUT Q12H [facility] Last Admin: 01/21/25 10:38 Dose: Not Given Documented By: MANDI Non-Admin Reason: Patient Refused Gabapentin (Gabapentin 300 Mg Capsule) 300 mg PO BID [facility] Last Admin: 01/21/25 08:03 Dose: 300 mg Documented By: MANDI Glucose (Glucose Gel 15 Gm Gel..Gram.) 15 gm PO Q15M PRN; Protocol PRN Reason: per Hypoglycemia Standing Ord. Hydrochlorothiazide (Hydrochlorothiazide 25 Mg Tablet) 25 mg PO DAILY [facility]; Protocol Last Admin: 01/21/25 08:03 Dose: 25 mg Documented By: MANDI Piperacillin Sod/Tazobactam (Sod 3.375 gm/ Sodium Chloride) 50 mls @ 100 mls/hr IV Q6H [facility] Last Infusion: 01/21/25 06:39 Dose: Infused Documented By: GRAYSON Vancomycin HCl (Vancomycin/Ns) 2,000 mg in 500 mls @ 250 mls/hr IV Q8H [facility] Last Admin: 01/21/25 10:31 Dose: 250 mls/hr Documented By: MANDI Ibuprofen (Ibuprofen 400 Mg Tablet) 400 mg PO Q6H PRN PRN Reason: Fever >101 Last Admin: 01/18/25 07:53 Dose: 400 mg Documented By: AROLDO Insulin Glargine (Insulin Glargine,Hum.Rec.Anlog 100 Unit/Ml 10 Ml Vial) 40 unit SUBCUT DAILY@0900 [facility] Last Admin: 01/21/25 08:04 Dose: 40 unit Documented By: MANDI Insulin Human Lispro (Insulin Lispro 100 Unit/Ml 3 Ml Vial) 0 unit SUBCUT QIDACHS [facility]; Protocol Last Admin: 01/21/25 11:36 Dose: Not Given Documented By: MANDI Non-Admin Reason: No Insulin Coverage Lisinopril (Lisinopril 20 Mg Tablet) 20 mg PO BID [facility]; Protocol Last Admin: 01/21/25 08:04 Dose: 20 mg Documented By: MANDI Magnesium Hydroxide (Milk Of Magnesia 30 Ml Oral.Susp) 30 ml PO DAILY PRN PRN Reason: Constipation Melatonin (Melatonin 3 Mg Tablet) 6 mg PO BEDTIME PRN PRN Reason: Insomnia Multivitamins/Vitamin C (Multivitamin Tablet) 1 tab PO DAILY [facility] Last Admin: 01/21/25 08:03 Dose: 1 tab Documented By: MANDI Non-Formulary Medication (Semaglutide [Ozempic]) 2 mg SUBCUT SA [facility] Pharmacy Consult (Consult Rx Vancomycin Dosing) 1 each MISCELLANE DAILY PRN PRN Reason: Consult order Polyethylene Glycol (Polyethylene Glycol 3350 17 Gm Powd.Pack) 17 gm PO DAILY PRN PRN Reason: Constipation Sodium Chloride (0.9 % Sodium Chloride Flush 3 Ml Syringe) 3 ml IVFLUSH QSHIFT [facility] Last Admin: 01/21/25 08:04 Dose: 3 ml Documented By: MANDI Labs 01/18/25 03:54 01/21/25 07:48 Labs: Laboratory Results - last 24 hr 01/20/25 01/20/25 01/21/25 15:11 21:06 07:16 Hold Purple Top Estim Creat Clear Calc Estimated GFR POC Glucose 139 H 135 H 163 H Vancomycin Trough 01/21/25 01/21/25 07:48 10:59 Hold Purple Top SEE NOTE Estim Creat Clear Calc 198.3 Estimated GFR > 60 POC Glucose 115 Vancomycin Trough 12.9 Microbiology Microbiology Results: Microbiology 01/17/25 11:39 Blood Culture - Preliminary Blood - Venous No growth after 48 hours. 01/17/25 11:39 Blood Culture - Preliminary Blood - Venous No growth after 48 hours. Assessment and Plan (1) Severe sepsis: Status: Acute (2) Cellulitis: Status: Acute (3) Cellulitis of leg, right: Status: Acute Plan 59-year-old male with a past medical history HTN, HLD, dm, morbid obesity; presented to the hospital today with a chief complaint of fever. Admitted for following Sepsis d/t RLE cellulitis, recent right foot procedure by podiatry notting some improvement high grade fever, now resolved. Right diabetic foot infection Blood culture negative thus far Continue IV vancomycin and Zosyn for now and possibly change to PO tomorrow Follow-up cultures ID consult noted Wound consult follow-up surgery to see if need debriment Acute hypoxic respiratory failure, likley from hypoventilation No significant wheezing on exam CTA chest showed no evidence of PE or acute pulmonary findings. Noted to have bilateral lower lobe atelectasis. Concern for undiagnosed TERRIE versus [facility] Supplemental oxygen p.r.n. Pulmonology consult --outpatient sleep study, PFTs, incentive spirometryt Deanna p.r.n. Trending pulse oximetry when ready for discharge Echocardiogram, EF 55 to 60 Diabetes: Insulin sliding scale Home dose of Lantus reduced to 40 Follow-up POC glucose DVT prophylaxis: Lovenox Code status: Full code Quality Stroke Does the patient have a stroke diagnosis?: No VTE Prior VTE?: No VTE Risk Level:: Medical - moderate - high VTE Device Contraindication: Treatment Not Indicated VTE Drug Contraindication: N/A - Med Ordered
[2025-01-21 16:04] LABS: Glucose, Whole Blood 147 mg/dL (60-115)
[2025-01-21 21:26] LABS: Glucose, Whole Blood 124 mg/dL (60-115)
--- NOTE | 2025-01-21 21:27 | P.PNID_ITS ---
Subjective Subjective Date of Service: 01/21/25 Critical Care Time (minutes): 15 Comment: He feels better Objective Data Labs 01/18/25 03:54 01/21/25 07:48 Labs: Laboratory Results - last 24 hr 01/21/25 01/21/25 01/21/25 07:16 07:48 10:59 Hold Purple Top SEE NOTE Creatinine 0.70 Estim Creat Clear Calc 198.3 Estimated GFR > 60 POC Glucose 163 H 115 Vancomycin Trough 12.9 01/21/25 01/21/25 15:51 21:03 Hold Purple Top Creatinine Estim Creat Clear Calc Estimated GFR POC Glucose 147 H 124 H Vancomycin Trough Microbiology Microbiology Results: Microbiology 01/17/25 11:39 Blood - Venous Blood Culture - Preliminary No growth after 48 hours. 01/17/25 11:39 Blood - Venous Blood Culture - Preliminary No growth after 48 hours. Physical Exam 2 Vital Signs: Vital Signs: Last Vital Signs Temp 99.3 F 01/21/25 19:07 Pulse 92 01/21/25 19:07 Resp 18 01/21/25 19:07 BP 160/76 H 01/21/25 20:24 Pulse Ox 91 L 01/21/25 19:07 O2 Del Method Nasal Cannula 01/21/25 19:07 O2 Flow Rate 1 01/21/25 19:07 BMI result Body Mass Index 46.7 Const: General: cooperative HEENT: Head: Yes normal to inspection Face and sinus: Yes normal facial exam Mouth: Normal oral and palatal mucosa present Teeth and gingiva: d entition normal Eyes: General: appearance normal, both eyes and all related structures P upils: Equal, round and reactive pupils present Resp: Effort & Inspection: normal respiratory effort Cardio: Rate: regular rate Rhythm: regular rhythm GI: Palpation (GI): Soft to palpation and nontender : General: Yes no CVA tenderness Back/Spine/Pelvis: Back: no CVA tenderness Skin: General skin exam: no rashes or lesions noted Neuro: General: moves all extremities Cranial nerves: Yes Equal, round and reactive pupils present Extrem: Other: improving erythema per pic General: Yes normal to inspection Psych: Appearance: grossly normal Assessment and Plan Assessment and plan (1) Diabetic foot ulcer: Status: Acute Assessment and Plan: Clindamycin 300 tid and Doxycycline 100 mg bid for a week Time Spent With Patient Time: Total time managing care of this patient today ____ minutes.
[2025-01-22] MEDS: vancomycin/NS 2,000 MG/500 ML PLAST..BAG 250 MG IV ×3 (02:42→20:09)
[2025-01-22 03:27] VITALS: BP 162/75; PULSE 88; RESP 16; TEMP 37; O2SAT 94
[2025-01-22 07:41] VITALS: BP 132/66; PULSE 89; RESP 18; TEMP 36.4; O2SAT 91
[2025-01-22 07:42] LABS: Glucose, Whole Blood 173 mg/dL (60-115)
[2025-01-22 08:13] LABS: Creatinine Clr Calc Pharmacy 207.1; Estimated Glomerular Filt Rate > 60
--- NOTE | 2025-01-22 08:26 | HE.PHANOTE ---
Vancomycin addendum: level came back at 17.8 after increase to 2 gram q 8 hours. Will keep this dose and regimen and check a level bessie morning. Predicted AUC of 493
[2025-01-22] MEDS: Insulin Glargine,Hum.rec.anlog 100 UNIT/ML 10 ML VIAL 40 UNIT SUBCUT (09:35)
[2025-01-22] MEDS: 0.9 % Sodium Chloride Flush 3 ML SYRINGE IVFLUSH ×2 (09:36→19:33)
--- NOTE | 2025-01-22 10:11 | HO.PM.IMPN ---
Subjective Subjective Date of Service: 01/22/25 Interval History: f/u sepsis, cellulitis of the leg leg remains red with blisters but no expansion overall feels better Physical Exam Vital Signs: Vital Signs: Last Vital Signs Temp 97.5 F 01/22/25 07:41 Pulse 89 01/22/25 07:41 Resp 18 01/22/25 07:41 BP 132/66 01/22/25 07:41 Pulse Ox 91 L 01/22/25 07:41 O2 Del Method Nasal Cannula 01/22/25 07:41 O2 Flow Rate 1 01/22/25 07:41 BMI result Body Mass Index 46.7 01/21 Objective Data Active Medications Acetaminophen (Acetaminophen 325 Mg Tablet) 650 mg PO Q6H PRN PRN Reason: Pain, Mild 1-3,fever,headache Last Admin: 01/21/25 10:31 Dose: 650 mg Documented By: MANDI Albuterol Sulfate (Albuterol Sulfate 90 Mcg 8 Gm Inhaler) 2 puff INHALE QID PRN PRN Reason: Wheezing Albuterol/Ipratropium (Albuterol/Iprat 2.5/0.5mg 3 Ml Ampul.Neb) 3 ml INHALE Q4H PRN PRN Reason: Shortness of Breath/Wheezing Aspirin (Aspirin 81 Mg Tab.Chew) 81 mg PO BEDTIME [facility] Last Admin: 01/21/25 20:24 Dose: 81 mg Documented By: DONI Atorvastatin Calcium (Atorvastatin Calcium 40 Mg Tablet) 40 mg PO BEDTIME [facility] Last Admin: 01/21/25 20:24 Dose: 40 mg Documented By: DONI Calcium Carbonate (Calcium Carbonate 750 Mg Tab.Chew) 750 mg PO Q4H PRN PRN Reason: Heartburn Dextrose (Dextrose 50 % 25 Gm/50 Ml Syringe) 25 gm IVPUSH Q15M PRN; Protocol PRN Reason: per Hypoglycemia Standing Ord. Empagliflozin (Empagliflozin 10 Mg Tablet) 10 mg PO DAILY [facility] Last Admin: 01/22/25 09:38 Dose: 10 mg Documented By: JOEY Enoxaparin Sodium (Enoxaparin Sodium 40 Mg/0.4 Ml Syringe) 40 mg SUBCUT Q12H [facility] Last Admin: 01/22/25 09:39 Dose: 40 mg Documented By: JOEY Gabapentin (Gabapentin 300 Mg Capsule) 300 mg PO BID [facility] Last Admin: 01/22/25 09:37 Dose: 300 mg Documented By: JOEY Glucose (Glucose Gel 15 Gm Gel..Gram.) 15 gm PO Q15M PRN; Protocol PRN Reason: per Hypoglycemia Standing Ord. Hydrochlorothiazide (Hydrochlorothiazide 25 Mg Tablet) 25 mg PO DAILY [facility]; Protocol Last Admin: 01/22/25 09:38 Dose: 25 mg Documented By: JOEY Piperacillin Sod/Tazobactam (Sod 3.375 gm/ Sodium Chloride) 50 mls @ 100 mls/hr IV Q6H [facility] Last Infusion: 01/22/25 06:42 Dose: Infused Documented By: DONI Vancomycin HCl (Vancomycin/Ns) 2,000 mg in 500 mls @ 250 mls/hr IV Q8H [facility] Last Admin: 01/22/25 09:24 Dose: 250 mls/hr Documented By: JOEY Ibuprofen (Ibuprofen 400 Mg Tablet) 400 mg PO Q6H PRN PRN Reason: Fever >101 Last Admin: 01/18/25 07:53 Dose: 400 mg Documented By: BISHOP-DAYSI Insulin Glargine (Insulin Glargine,Hum.Rec.Anlog 100 Unit/Ml 10 Ml Vial) 40 unit SUBCUT DAILY@0900 [facility] Last Admin: 01/22/25 09:35 Dose: 40 unit Documented By: JOEY Insulin Human Lispro (Insulin Lispro 100 Unit/Ml 3 Ml Vial) 0 unit SUBCUT QIDACHS [facility]; Protocol Last Admin: 01/22/25 09:47 Dose: 2 unit Documented By: JOEY Lisinopril (Lisinopril 20 Mg Tablet) 20 mg PO BID [facility]; Protocol Last Admin: 01/22/25 09:37 Dose: 20 mg Documented By: JOEY Magnesium Hydroxide (Milk Of Magnesia 30 Ml Oral.Susp) 30 ml PO DAILY PRN PRN Reason: Constipation Melatonin (Melatonin 3 Mg Tablet) 6 mg PO BEDTIME PRN PRN Reason: Insomnia Multivitamins/Vitamin C (Multivitamin Tablet) 1 tab PO DAILY [facility] Last Admin: 01/22/25 09:38 Dose: 1 tab Documented By: JOEY Non-Formulary Medication (Semaglutide [Ozempic]) 2 mg SUBCUT [facility] Pharmacy Consult (Consult Rx Vancomycin Dosing) 1 each MISCELLANE DAILY PRN PRN Reason: Consult order Polyethylene Glycol (Polyethylene Glycol 3350 17 Gm Powd.Pack) 17 gm PO DAILY PRN PRN Reason: Constipation Sodium Chloride (0.9 % Sodium Chloride Flush 3 Ml Syringe) 3 ml IVFLUSH QSHIFT [facility] Last Admin: 01/22/25 09:36 Dose: 3 ml Documented By: JOEY Labs 01/18/25 03:54 01/22/25 07:48 Labs: Laboratory Results - last 24 hr 01/21/25 01/21/25 01/21/25 10:59 15:51 21:03 Hold Purple Top Estim Creat Clear Calc Estimated GFR POC Glucose 115 147 H 124 H Random Vancomycin 01/22/25 01/22/25 07:27 07:48 Hold Purple Top SEE NOTE Estim Creat Clear Calc 207.1 Estimated GFR > 60 POC Glucose 173 H Random Vancomycin 17.8 Microbiology Microbiology Results: Microbiology 01/17/25 11:39 Blood Culture - Preliminary Blood - Venous No growth after 48 hours. 01/17/25 11:39 Blood Culture - Preliminary Blood - Venous No growth after 48 hours. Assessment and Plan (1) Severe sepsis: Status: Acute (2) Cellulitis: Status: Acute (3) Cellulitis of leg, right: Status: Acute Plan 59-year-old male with a past medical history HTN, HLD, dm, morbid obesity; presented to the hospital today with a chief complaint of fever. Admitted for following Sepsis d/t RLE cellulitis, recent right foot procedure by podiatry notting some improvement high grade fever, now resolved. Right diabetic foot infection Blood culture negative thus far Continue IV vancomycin and Zosyn for now and possibly change to PO tomorrow Follow-up cultures ID consult noted Wound consult follow-up surgery to see if need debriment Acute hypoxic respiratory failure, likley from hypoventilation No significant wheezing on exam CTA chest showed no evidence of PE or acute pulmonary findings. Noted to have bilateral lower lobe atelectasis. Concern for undiagnosed TERRIE versus [facility] Supplemental oxygen p.r.n. Pulmonology consult --outpatient sleep study, PFTs, incentive spirometryt [employer]bs p.r.n. Trending pulse oximetry when ready for discharge Echocardiogram, EF 55 to 60 wean off O2 Diabetes: Insulin sliding scale Home dose of Lantus reduced to 40 Follow-up POC glucose DVT prophylaxis: Lovenox 40 bid d/t Code status: Full code Quality Stroke Does the patient have a stroke diagnosis?: No VTE Prior VTE?: No VTE Risk Level:: Medical - moderate - high VTE Device Contraindication: Treatment Not Indicated VTE Drug Contraindication: N/A - Med Ordered
--- NOTE | 2025-01-22 10:52 | PM.CNGS ---
History of Present Illness Consult details Consult date: 01/22/25 Reason for consult: wound care Requesting physician: Tee Guerrero Narrative: 59-year-old male with history of multiple lower extremity infections was admitted on 01/17/2025 with a right lower extremity cellulitis. He is placed on antibiotic therapy and we are consulted with regard to consideration of possible debridement of his right lower extremity. A meeting with the patient today he was sitting up in a chair with his right lower extremity partially elevated although add hip level. He reports that he is feeling ?better?. He also expresses reluctance at the idea of having his dressing taken down as ?they just changed it?. He has Kerlix rolls involving his entire foot and lower extremity up to the knee. There appears to be straw-colored fluid involving the dressing on the lateral aspect. During the visit the patient also declared that he does not want to have any surgery for his leg. ?I do not think there is anything a surgeon would do?. He appears to be doing well with Zosyn and vancomycin antibiotic therapy and said repeatedly he was feeling better. He encouraged his me to review the pictures that are in his chart. Upon looking at his chart it seems that he has involvement of his right lower extremity , especially on the lateral aspect with significant blistering and partial-thickness wounding . There is also surrounding erythema and changes consistent with a chronic stasis disease. He has a fissure in the plantar aspect of the great toe and some discoloration, possible bruising on the 5th toe of his right foot. PMFSH Past Medical History Medical History Atelectasis Hypoxia Severe sepsis HTN (hypertension) Morbid obesity Diabetic foot ulcer Diabetes mellitus Diabetic neuropathy Family History Family history: reviewed and not pertinent Social History Social History Household Members: Spouse Housing: House Do you presently have visiting nurse or other home services: No Alcohol intake: current Alcohol intake frequency: 3 or more drinks per day Alcohol type: beer Patient Tobacco Use Status: Former Tobacco user Tobacco use type: Cigarette Cigarette Packs Per Day: 1 Cigarettes Per Day: 20.0 Years Smoked: 40 e-Cigarette/Vaping Use: Former Use Substance Use Type: Marijuana Advance Directives Date on File: 01/18/25 service: No Current occupational status: unemployed Meds Allergies Allergy/AdvReac Type Severity Reaction Status Date / Time bee pollen (BEE STINGS) Allergy Unknown UNKNOWN Verified 01/17/25 11:22 Penicillins Allergy Unknown Unknown Verified 01/17/25 11:22 Active Medications: Current Medications Acetaminophen (Acetaminophen 325 Mg Tablet) 650 mg PO Q6H PRN PRN Reason: Pain, Mild 1-3,fever,headache Last Admin: 01/21/25 10:31 Dose: 650 mg Albuterol Sulfate (Albuterol Sulfate 90 Mcg 8 Gm Inhaler) 2 puff INHALE QID PRN PRN Reason: Wheezing Albuterol/Ipratropium (Albuterol/Iprat 2.5/0.5mg 3 Ml Ampul.Neb) 3 ml INHALE Q4H PRN PRN Reason: Shortness of Breath/Wheezing Aspirin (Aspirin 81 Mg Tab.Chew) 81 mg PO BEDTIME [facility] Last Admin: 01/21/25 20:24 Dose: 81 mg Atorvastatin Calcium (Atorvastatin Calcium 40 Mg Tablet) 40 mg PO BEDTIME [facility] Last Admin: 01/21/25 20:24 Dose: 40 mg Calcium Carbonate (Calcium Carbonate 750 Mg Tab.Chew) 750 mg PO Q4H PRN PRN Reason: Heartburn Dextrose (Dextrose 50 % 25 Gm/50 Ml Syringe) 25 gm IVPUSH Q15M PRN; Protocol PRN Reason: per Hypoglycemia Standing Ord. Empagliflozin (Empagliflozin 10 Mg Tablet) 10 mg PO DAILY [facility] Last Admin: 01/22/25 09:38 Dose: 10 mg Enoxaparin Sodium (Enoxaparin Sodium 40 Mg/0.4 Ml Syringe) 40 mg SUBCUT Q12H [facility] Last Admin: 01/22/25 09:39 Dose: 40 mg Gabapentin (Gabapentin 300 Mg Capsule) 300 mg PO BID [facility] Last Admin: 01/22/25 09:37 Dose: 300 mg Glucose (Glucose Gel 15 Gm Gel..Gram.) 15 gm PO Q15M PRN; Protocol PRN Reason: per Hypoglycemia Standing Ord. Hydrochlorothiazide (Hydrochlorothiazide 25 Mg Tablet) 25 mg PO DAILY [facility]; Protocol Last Admin: 01/22/25 09:38 Dose: 25 mg Piperacillin Sod/Tazobactam (Sod 3.375 gm/ Sodium Chloride) 50 mls @ 100 mls/hr IV Q6H [facility] Last Infusion: 01/22/25 06:42 Dose: Infused Vancomycin HCl (Vancomycin/Ns) 2,000 mg in 500 mls @ 250 mls/hr IV Q8H [facility] Last Admin: 01/22/25 09:24 Dose: 250 mls/hr Ibuprofen (Ibuprofen 400 Mg Tablet) 400 mg PO Q6H PRN PRN Reason: Fever >101 Last Admin: 01/18/25 07:53 Dose: 400 mg Insulin Glargine (Insulin Glargine,Hum.Rec.Anlog 100 Unit/Ml 10 Ml Vial) 40 unit SUBCUT DAILY@0900 [facility] Last Admin: 01/22/25 09:35 Dose: 40 unit Insulin Human Lispro (Insulin Lispro 100 Unit/Ml 3 Ml Vial) 0 unit SUBCUT QIDACHS [facility]; Protocol Last Admin: 01/22/25 09:47 Dose: 2 unit Lisinopril (Lisinopril 20 Mg Tablet) 20 mg PO BID [facility]; Protocol Last Admin: 01/22/25 09:37 Dose: 20 mg Magnesium Hydroxide (Milk Of Magnesia 30 Ml Oral.Susp) 30 ml PO DAILY PRN PRN Reason: Constipation Melatonin (Melatonin 3 Mg Tablet) 6 mg PO BEDTIME PRN PRN Reason: Insomnia Multivitamins/Vitamin C (Multivitamin Tablet) 1 tab PO DAILY [facility] Last Admin: 01/22/25 09:38 Dose: 1 tab Non-Formulary Medication (Semaglutide [Ozempic]) 2 mg SUBCUT SA [facility] Pharmacy Consult (Consult Rx Vancomycin Dosing) 1 each MISCELLANE DAILY PRN PRN Reason: Consult order Polyethylene Glycol (Polyethylene Glycol 3350 17 Gm Powd.Pack) 17 gm PO DAILY PRN PRN Reason: Constipation Sodium Chloride (0.9 % Sodium Chloride Flush 3 Ml Syringe) 3 ml IVFLUSH QSHIFT [facility] Last Admin: 01/22/25 09:36 Dose: 3 ml Home Medications ?Medication ?Instructions ?Recorded ?Confirmed ?Last Taken ?Type gabapentin 300 mg capsule 300 mg PO BID 12/13/20 01/17/25 01/16/25 History hydrochlorothiazide 25 mg tablet 25 mg PO DAILY 12/13/20 01/17/25 01/16/25 History insulin glargine 100 unit/mL (3 60 unit subcut DAILY@0900 12/13/20 01/17/25 01/16/25 History mL) subcutaneous pen (Lantus Solostar U-100 Insulin) lisinopril 20 mg tablet 20 mg PO BID 12/13/20 01/17/25 01/16/25 History metformin 1,000 mg tablet 1,000 mg PO BID 12/13/20 01/17/25 01/16/25 History albuterol sulfate 90 mcg/actuation 2 puff inhalation QID PRN wheezing 03/20/24 01/17/25 Unknown History aerosol inhaler dapagliflozin propanediol 10 mg 10 mg PO DAILY 03/20/24 01/17/25 01/16/25 History tablet (Farxiga) multivitamin 1 tab PO DAILY 03/20/24 01/17/25 01/16/25 History omega [id number]-fish oil 1,000 mg 1 cap PO DAILY 03/20/24 01/17/25 01/16/25 History (120 mg-180 mg) capsule (Fish Oil) rosuvastatin 10 mg tablet 10 mg PO BEDTIME 03/20/24 01/17/25 01/16/25 History semaglutide 2 mg/dose (8 mg/3 mL) 2 mg subcut SA 03/20/24 01/17/25 01/15/25 History subcutaneous pen injector (Ozempic) aspirin 81 mg tablet 81 mg PO BEDTIME 01/17/25 01/17/25 01/16/25 History Physical Exam Vital Signs: Vital Signs: Last Vital Signs Temp 97.5 F 01/22/25 07:41 Pulse 89 01/22/25 07:41 Resp 18 01/22/25 07:41 BP 132/66 01/22/25 07:41 Pulse Ox 91 L 01/22/25 07:41 O2 Del Method Nasal Cannula 01/22/25 07:41 O2 Flow Rate 1 01/22/25 07:41 BMI result Body Mass Index 46.7 Const: General: cooperative and comfortable Nutritional Appearance: obese morbidly obese HEENT: Head: Yes normal to inspection Eyes: General: appearance normal, both eyes and all related structures Neck: Neck: Yes normal visual inspection Chest: Chest palpation & inspection: normal inspection of the chest Resp: Effort & Inspection: normal respiratory effort and able to speak in complete sentences GI: Inspection: Yes obesity (Obvious morbid obesity with protuberance in a central obesity pattern) Extrem: Other: Right lower extremity elevated to the level of the hip with the patient sitting upright in a chair. It is wrapped in a Kerlix roll involving the entire foot up to the level of the knee. There is edema fluid/straw-colored fluid involving the lateral lower aspect of the dressing. Patient reluctant to have the dressing taken down at the time of the visit because ?they just changed it?. Results Labs 01/18/25 03:54 01/22/25 07:48 Labs: Abnormal lab results 01/21/25 01/21/25 01/22/25 Range/Units 15:51 21:03 07:27 POC Glucose 147 H 124 H 173 H (60-115) mg/dL BMP 01/22/25 07:48 Creatinine 0.67 Urine 01/18/25 Range/Units 12:12 Urine Color Yellow Urine Appearance Clear Urine pH 6.5 (5.0-9.0) Ur Specific [place] >= 1.030 H (1.005-1.025) Urine Protein 30 (1+) H (Neg-Trace) mg/dL Urine Glucose (UA) >=1000 H (Negative) mg/dL All other labs normal. Assessment and Plan (1) Cellulitis of leg, right: Status: Acute Plan Patient has a significant infection involving his right lower extremity. There is no indication at this point for operative debridement or management but we will continue to follow. Recommend continuation of antibiotic therapy. Trending of CBC may be helpful. Podiatry, wound care and Infectious Disease input helpful as well. Total time managing care of this patient today: 30 minutes. Procedures Date of Service Date of Service: 01/22/25
[2025-01-22 11:34] LABS: Glucose, Whole Blood 132 mg/dL (60-115)
[2025-01-22 12:00] VITALS: BP 134/65; PULSE 98; RESP 18; TEMP 36.4; O2SAT 93
[2025-01-22 15:43] VITALS: BP 152/68; PULSE 84; RESP 18; TEMP 36.1; O2SAT 93
[2025-01-22 16:30] LABS: Glucose, Whole Blood 147 mg/dL (60-115)
[2025-01-22 19:54] VITALS: BP 144/82; PULSE 88; RESP 18; TEMP 36.3; O2SAT 93
[2025-01-22 20:05] LABS: Glucose, Whole Blood 150 mg/dL (60-115)
[2025-01-22 23:21] VITALS: BP 154/74; PULSE 89; RESP 16; TEMP 36.7; O2SAT 94
[2025-01-23] VITALS (9 sets, daily range): BP systolic 137–171; BP diastolic 70–85; PULSE 77–96; RESP 16–20; TEMP 36.1–37.7; O2SAT 92–98
[2025-01-23] MEDS: 0.9 % Sodium Chloride Flush 3 ML SYRINGE IVFLUSH ×2 (01:13→16:15)
[2025-01-23] MEDS: vancomycin/NS 2,000 MG/500 ML PLAST..BAG 250 MG IV (02:02)
[2025-01-23 07:42] LABS: Glucose, Whole Blood 128 mg/dL (60-115)
[2025-01-23] MEDS: Insulin Glargine,Hum.rec.anlog 100 UNIT/ML 10 ML VIAL 40 UNIT SUBCUT (08:12)
[2025-01-23 08:22] LABS: Anion Gap 13 (12-20); Carbon Dioxide 34 mmol/L (22-29); Chloride 101 mmol/L (96-108); Creatinine Clr Calc Pharmacy 201.1; Estimated Glomerular Filt Rate > 60; Magnesium 2.5 mg/dL (1.6-2.6); Potassium 4.7 mmol/L (3.3-5.1); Sodium 143 mmol/L (135-145)
--- NOTE | 2025-01-23 09:08 | HE.PHANOTE ---
re [facility] patients level came back this morning at 19.5. patients indication is diabetic foot which would indicate a higher target level however will decrease dose to 1750 mg Q8H as [employer] is predicting that level should have been 14 however it was much greater at 19.5. will proceed with lower dose for now. will keep frequency at Q8H. next level will be pulled tomorrow @ 1000 on 01/24
--- NOTE | 2025-01-23 10:28 | P.PNIM_ITS ---
Subjective Subjective Date of Service: 01/23/25 Interval History: f/u sepsis, cellulitis of the leg leg remains red with blisters but no expansion no fever, cultures are negative Physical Exam 2 Vital Signs: Vital Signs: Last Vital Signs Temp 98.0 F 01/23/25 07:33 Pulse 92 01/23/25 07:33 Resp 18 01/23/25 07:33 BP 137/85 01/23/25 07:33 Pulse Ox 96 01/23/25 07:33 O2 Del Method Nasal Cannula 01/23/25 07:33 O2 Flow Rate 1 01/23/25 07:33 BMI result Body Mass Index 46.7 01/21 Objective Data Active Medications Acetaminophen (Acetaminophen 325 Mg Tablet) 650 mg PO Q6H PRN PRN Reason: Pain, Mild 1-3,fever,headache Last Admin: 01/21/25 10:31 Dose: 650 mg Documented By: MANDI Albuterol Sulfate (Albuterol Sulfate 90 Mcg 8 Gm Inhaler) 2 puff INHALE QID PRN PRN Reason: Wheezing Albuterol/Ipratropium (Albuterol/Iprat 2.5/0.5mg 3 Ml Ampul.Neb) 3 ml INHALE Q4H PRN PRN Reason: Shortness of Breath/Wheezing Aspirin (Aspirin 81 Mg Tab.Chew) 81 mg PO BEDTIME REPLACED BY [facility] Last Admin: 01/22/25 20:05 Dose: 81 mg Documented By: JANNA Atorvastatin Calcium (Atorvastatin Calcium 40 Mg Tablet) 40 mg PO BEDTIME REPLACED BY [facility] Last Admin: 01/22/25 20:05 Dose: 40 mg Documented By: JANNA Calcium Carbonate (Calcium Carbonate 750 Mg Tab.Chew) 750 mg PO Q4H PRN PRN Reason: Heartburn Last Admin: 01/23/25 03:54 Dose: 750 mg Documented By: GURMEET Dextrose (Dextrose 50 % 25 Gm/50 Ml Syringe) 25 gm IVPUSH Q15M PRN; Protocol PRN Reason: per Hypoglycemia Standing Ord. Empagliflozin (Empagliflozin 10 Mg Tablet) 10 mg PO DAILY REPLACED BY [facility] Last Admin: 01/23/25 08:11 Dose: 10 mg Documented By: THOMAS Enoxaparin Sodium (Enoxaparin Sodium 40 Mg/0.4 Ml Syringe) 40 mg SUBCUT Q12H REPLACED BY [facility] Last Admin: 01/23/25 08:12 Dose: 40 mg Documented By: THOMAS Gabapentin (Gabapentin 300 Mg Capsule) 300 mg PO BID REPLACED BY [facility] Last Admin: 01/23/25 08:11 Dose: 300 mg Documented By: THOMAS Glucose (Glucose Gel 15 Gm Gel..Gram.) 15 gm PO Q15M PRN; Protocol PRN Reason: per Hypoglycemia Standing Ord. Hydrochlorothiazide (Hydrochlorothiazide 25 Mg Tablet) 25 mg PO DAILY REPLACED BY [facility]; Protocol Last Admin: 01/23/25 08:11 Dose: 25 mg Documented By: THOMAS Piperacillin Sod/Tazobactam (Sod 3.375 gm/ Sodium Chloride) 50 mls @ 100 mls/hr IV Q6H REPLACED BY [facility] Last Infusion: 01/23/25 07:00 Dose: Infused Documented By: THOMAS Vancomycin HCl 1,000 mg/Vancomycin HCl 750 mg/ Sodium Chloride 535 mls @ 267.5 mls/hr IV Q8H REPLACED BY [facility] Ibuprofen (Ibuprofen 400 Mg Tablet) 400 mg PO Q6H PRN PRN Reason: Fever >101 Last Admin: 01/18/25 07:53 Dose: 400 mg Documented By: AROLDO Insulin Glargine (Insulin Glargine,Hum.Rec.Anlog 100 Unit/Ml 10 Ml Vial) 40 unit SUBCUT DAILY@0900 REPLACED BY [facility] Last Admin: 01/23/25 08:12 Dose: 40 unit Documented By: THOMAS Insulin Human Lispro (Insulin Lispro 100 Unit/Ml 3 Ml Vial) 0 unit SUBCUT QIDACHS REPLACED BY [facility]; Protocol Last Admin: 01/23/25 07:37 Dose: Not Given Documented By: THOMAS Non-Admin Reason: No Insulin Coverage Lisinopril (Lisinopril 20 Mg Tablet) 20 mg PO BID REPLACED BY [facility]; Protocol Last Admin: 01/23/25 08:11 Dose: 20 mg Documented By: THOMAS Magnesium Hydroxide (Milk Of Magnesia 30 Ml Oral.Susp) 30 ml PO DAILY PRN PRN Reason: Constipation Melatonin (Melatonin 3 Mg Tablet) 6 mg PO BEDTIME PRN PRN Reason: Insomnia Multivitamins/Vitamin C (Multivitamin Tablet) 1 tab PO DAILY REPLACED BY [facility] Last Admin: 01/23/25 08:11 Dose: 1 tab Documented By: THOMAS Non-Formulary Medication (Semaglutide [Ozempic]) 2 mg SUBCUT SA REPLACED BY [facility] Pharmacy Consult (Consult Rx Vancomycin Dosing) 1 each MISCELLANE DAILY PRN PRN Reason: Consult order Polyethylene Glycol (Polyethylene Glycol 3350 17 Gm Powd.Pack) 17 gm PO DAILY PRN PRN Reason: Constipation Last Admin: 01/23/25 03:59 Dose: 17 gm Documented By: GURMEET Sodium Chloride (0.9 % Sodium Chloride Flush 3 Ml Syringe) 3 ml IVFLUSH QSHIFT REPLACED BY [facility] Last Admin: 01/23/25 08:13 Dose: Not Given Documented By: THOMAS Non-Admin Reason: IV Running Labs 01/18/25 03:54 01/23/25 07:47 Labs: Laboratory Results - last 24 hr 01/22/25 01/22/25 01/22/25 11:19 16:25 20:02 Hold Purple Top Anion Gap Estim Creat Clear Calc Estimated GFR POC Glucose 132 H 147 H 150 H Magnesium Vancomycin Trough 01/23/25 01/23/25 07:37 07:47 Hold Purple Top SEE NOTE Anion Gap 13 Estim Creat Clear Calc 201.1 Estimated GFR > 60 POC Glucose 128 H Magnesium 2.5 Vancomycin Trough 19.5 Microbiology Microbiology Results: Microbiology 01/17/25 11:39 Blood Culture - Final Blood - Venous No growth after 5 days. 01/17/25 11:39 Blood Culture - Final Blood - Venous No growth after 5 days. Assessment and Plan (1) Severe sepsis: Status: Acute (2) Cellulitis: Status: Acute (3) Cellulitis of leg, right: Status: Acute Plan 59-year-old male with a past medical history HTN, HLD, dm, morbid obesity; presented to the hospital today with a chief complaint of fever. Admitted for following Sepsis d/t RLE cellulitis, recent right foot procedure by podiatry notting some improvement high grade fever, now resolved. Right diabetic foot infection Blood culture negative thus far Continue IV vancomycin and Zosyn for now and possibly change to PO tomorrow Follow-up cultures ID consult noted Wound consult follow-up surgery to see if need debriment Acute hypoxic respiratory failure, likley from hypoventilation No significant wheezing on exam CTA chest showed no evidence of PE or acute pulmonary findings. Noted to have bilateral lower lobe atelectasis. Concern for undiagnosed TERRIE versus OHS Supplemental oxygen p.r.n. Pulmonology consult --outpatient sleep study, PFTs, incentive spirometryt Deanna nassar Trending pulse oximetry when ready for discharge Echocardiogram, EF 55 to 60 wean off O2 Diabetes: Insulin sliding scale Home dose of Lantus reduced to 40 Follow-up POC glucose DVT prophylaxis: Lovenox 40 bid d/t Code status: Full code Quality Stroke Does the patient have a stroke diagnosis?: No VTE Prior VTE?: No VTE Risk Level:: Medical - moderate - high VTE Device Contraindication: Treatment Not Indicated VTE Drug Contraindication: N/A - Med Ordered
[2025-01-23 11:35] LABS: Glucose, Whole Blood 153 mg/dL (60-115)
--- NOTE | 2025-01-23 12:17 | PM.PNGS ---
Subjective Subjective Date of Service: 01/23/25 Interval history: Patient reports he feels ?much better?. He was on a that his dressing change early this morning showed marked improvement with much less ?oozing?. He denies any pain involving the extremity. He is sitting upright in a chair at the time of visit dangling his legs. He is very reluctant to have his leg unwrapped for examination and requests that we forego this part of the visit. Physical Exam Vital Signs: Vital Signs: Last Vital Signs Temp 97.7 F 01/23/25 11:17 Pulse 77 01/23/25 11:17 Resp 18 01/23/25 11:17 BP 152/70 H 01/23/25 11:47 Pulse Ox 96 01/23/25 11:17 O2 Del Method Nasal Cannula 01/23/25 11:17 O2 Flow Rate 1 01/23/25 11:17 BMI result Body Mass Index 46.7 Extrem: Other: Right lower extremity dangling. Toe to knee circumferential Kerlix wrapping. Minimal staining on the lateral aspect from serous drainage. No progression of erythema to the knee or above. Objective Data Active Medications Acetaminophen (Acetaminophen 325 Mg Tablet) 650 mg PO Q6H PRN PRN Reason: Pain, Mild 1-3,fever,headache Last Admin: 01/21/25 10:31 Dose: 650 mg Documented By: MANDI Albuterol Sulfate (Albuterol Sulfate 90 Mcg 8 Gm Inhaler) 2 puff INHALE QID PRN PRN Reason: Wheezing Albuterol/Ipratropium (Albuterol/Iprat 2.5/0.5mg 3 Ml Ampul.Neb) 3 ml INHALE Q4H PRN PRN Reason: Shortness of Breath/Wheezing Aspirin (Aspirin 81 Mg Tab.Chew) 81 mg PO BEDTIME [facility] Last Admin: 01/22/25 20:05 Dose: 81 mg Documented By: JANNA Atorvastatin Calcium (Atorvastatin Calcium 40 Mg Tablet) 40 mg PO BEDTIME [facility] Last Admin: 01/22/25 20:05 Dose: 40 mg Documented By: JANNA Calcium Carbonate (Calcium Carbonate 750 Mg Tab.Chew) 750 mg PO Q4H PRN PRN Reason: Heartburn Last Admin: 01/23/25 03:54 Dose: 750 mg Documented By: GURMEET Dextrose (Dextrose 50 % 25 Gm/50 Ml Syringe) 25 gm IVPUSH Q15M PRN; Protocol PRN Reason: per Hypoglycemia Standing Ord. Empagliflozin (Empagliflozin 10 Mg Tablet) 10 mg PO DAILY [facility] Last Admin: 01/23/25 08:11 Dose: 10 mg Documented By: THOMAS Enoxaparin Sodium (Enoxaparin Sodium 40 Mg/0.4 Ml Syringe) 40 mg SUBCUT Q12H [facility] Last Admin: 01/23/25 08:12 Dose: 40 mg Documented By: THOMAS Gabapentin (Gabapentin 300 Mg Capsule) 300 mg PO BID [facility] Last Admin: 01/23/25 08:11 Dose: 300 mg Documented By: THOMAS Glucose (Glucose Gel 15 Gm Gel..Gram.) 15 gm PO Q15M PRN; Protocol PRN Reason: per Hypoglycemia Standing Ord. Hydrochlorothiazide (Hydrochlorothiazide 25 Mg Tablet) 25 mg PO DAILY [facility]; Protocol Last Admin: 01/23/25 08:11 Dose: 25 mg Documented By: THOMAS Piperacillin Sod/Tazobactam (Sod 3.375 gm/ Sodium Chloride) 50 mls @ 100 mls/hr IV Q6H [facility] Last Admin: 01/23/25 12:01 Dose: 100 mls/hr Documented By: THOMAS Vancomycin HCl 1,000 mg/Vancomycin HCl 750 mg/ Sodium Chloride 535 mls @ 267.5 mls/hr IV Q8H [facility] Last Admin: 01/23/25 12:05 Dose: 267.5 mls/hr Documented By: THOMAS Ibuprofen (Ibuprofen 400 Mg Tablet) 400 mg PO Q6H PRN PRN Reason: Fever >101 Last Admin: 01/18/25 07:53 Dose: 400 mg Documented By: AROLDO Insulin Glargine (Insulin Glargine,Hum.Rec.Anlog 100 Unit/Ml 10 Ml Vial) 40 unit SUBCUT DAILY@0900 [facility] Last Admin: 01/23/25 08:12 Dose: 40 unit Documented By: THOMAS Insulin Human Lispro (Insulin Lispro 100 Unit/Ml 3 Ml Vial) 0 unit SUBCUT QIDACHS [facility]; Protocol Last Admin: 01/23/25 12:04 Dose: 2 unit Documented By: THOMAS Lisinopril (Lisinopril 20 Mg Tablet) 20 mg PO BID [facility]; Protocol Last Admin: 01/23/25 08:11 Dose: 20 mg Documented By: THOMAS Magnesium Hydroxide (Milk Of Magnesia 30 Ml Oral.Susp) 30 ml PO DAILY PRN PRN Reason: Constipation Melatonin (Melatonin 3 Mg Tablet) 6 mg PO BEDTIME PRN PRN Reason: Insomnia Multivitamins/Vitamin C (Multivitamin Tablet) 1 tab PO DAILY [facility] Last Admin: 01/23/25 08:11 Dose: 1 tab Documented By: THOMAS Non-Formulary Medication (Semaglutide [Ozempic]) 2 mg SUBCUT SA [facility] Pharmacy Consult (Consult Rx Vancomycin Dosing) 1 each MISCELLANE DAILY PRN PRN Reason: Consult order Polyethylene Glycol (Polyethylene Glycol 3350 17 Gm Powd.Pack) 17 gm PO DAILY PRN PRN Reason: Constipation Last Admin: 01/23/25 03:59 Dose: 17 gm Documented By: GURMEET Sodium Chloride (0.9 % Sodium Chloride Flush 3 Ml [facility]) [facility] Admin: 01/23/25 08:13 Dose: Not Given Documented By: THOMAS Non-Admin Reason: IV Running Labs 01/18/25 03:54 01/23/25 07:47 Labs: Laboratory Results - last 24 hr 01/22/25 01/22/25 01/23/25 16:25 20:02 07:37 Hold Purple Top Anion Gap Estim Creat Clear Calc Estimated GFR POC Glucose 147 H 150 H 128 H Magnesium Vancomycin Trough 01/23/25 01/23/25 07:47 11:31 Hold Purple Top SEE NOTE Anion Gap 13 Estim Creat Clear Calc 201.1 Estimated GFR > 60 POC Glucose 153 H Magnesium 2.5 Vancomycin Trough 19.5 Microbiology Microbiology Results: Microbiology 01/17/25 11:39 Blood Culture - Final Blood - Venous No growth after 5 days. 01/17/25 11:39 Blood Culture - Final Blood - Venous No growth after 5 days. Procedures Date of Service Date of Service: 01/23/25 Progress Note: A&P Time Spent With Patient Time: I told the patient I was going to that he was improving. I added that I did not think there was any role for surgery at this point. He agreed with me. ?I do not want anything like that done. ? We will continue to follow for the time being. He said he was happy with that plan. Total time managing care of this patient today _30___ minutes. Quality Stroke Does the patient have a stroke diagnosis?: No VTE Prior VTE?: No VTE Risk Level:: Medical - moderate - high VTE Device Contraindication: Treatment Not Indicated VTE Drug Contraindication: N/A - Med Ordered
[2025-01-23] MEDS: vancomycin HCL 1,000 MG, vancomycin HCL 750 MG in 0.9 % Sodium Chloride 500 ML 267.5 MG IV ×2 (12:41→21:14)
[2025-01-23 16:07] LABS: Glucose, Whole Blood 161 mg/dL (60-115)
[2025-01-23 19:41] LABS: Glucose, Whole Blood 138 mg/dL (60-115)
[2025-01-24 03:16] VITALS: BP 146/87; PULSE 97; RESP 20; TEMP 36.9; O2SAT 94
[2025-01-24] MEDS: vancomycin HCL 1,000 MG, vancomycin HCL 750 MG in 0.9 % Sodium Chloride 500 ML 267.5 MG IV (03:44)
[2025-01-24 07:05] VITALS: BP 133/69; PULSE 85; RESP 20; TEMP 36.7; O2SAT 94
[2025-01-24 07:20] LABS: Glucose, Whole Blood 216 mg/dL (60-115)
[2025-01-24 07:46] LABS: Creatinine Clr Calc Pharmacy 201.1; Estimated Glomerular Filt Rate > 60
[2025-01-24] MEDS: Insulin Glargine,Hum.rec.anlog 100 UNIT/ML 10 ML VIAL 40 UNIT SUBCUT (08:04)
--- NOTE | 2025-01-24 10:01 | PM.PNGS ---
Subjective Subjective Date of Service: 01/24/25 Interval history: Complains of right lower extremity pain. Has been elevating leg minimally. Thinks drainage continues to improve, dressing changes having to be less frequent. Physical Exam Vital Signs: Vital Signs: Last Vital Signs Temp 98.0 F 01/24/25 07:05 Pulse 85 01/24/25 07:05 Resp 20 01/24/25 07:05 BP 133/69 01/24/25 07:05 Pulse Ox 94 01/24/25 07:05 O2 Del Method Nasal Cannula 01/24/25 07:05 O2 Flow Rate 1 01/24/25 07:05 BMI result Body Mass Index 46.7 Const: General: comfortable, no acute distress and alert Orientation/consciousness: patient oriented x3 Resp: Other: mildly short of breath Skin: Other: warm and dry Neuro: General: patient oriented x3 and moves all extremities Extrem: Other: right lower leg- skin thickening and loss of hair throughout pretibial region with edema most significant distally, scattered bulla throughout, intact bulla of proximal medial aspect with serous appearing fluid in place, some small skin tears on the lateral aspect- deepening of pigmentation at/surrounding bulla sites Objective Data Active Medications Acetaminophen (Acetaminophen 325 Mg Tablet) 650 mg PO Q6H PRN PRN Reason: Pain, Mild 1-3,fever,headache Last Admin: 01/23/25 16:11 Dose: 650 mg Documented By: THOMAS Albuterol Sulfate (Albuterol Sulfate 90 Mcg 8 Gm Inhaler) 2 puff INHALE QID PRN PRN Reason: Wheezing Albuterol/Ipratropium (Albuterol/Iprat 2.5/0.5mg 3 Ml Ampul.Neb) 3 ml INHALE Q4H PRN PRN Reason: Shortness of Breath/Wheezing Aspirin (Aspirin 81 Mg Tab.Chew) 81 mg PO BEDTIME [facility] Last Admin: 01/23/25 20:18 Dose: 81 mg Documented By: CATERINA Atorvastatin Calcium (Atorvastatin Calcium 40 Mg Tablet) 40 mg PO BEDTIME [facility] Last Admin: 01/23/25 20:18 Dose: 40 mg Documented By: CATERINA Calcium Carbonate (Calcium Carbonate 750 Mg Tab.Chew) 750 mg PO Q4H PRN PRN Reason: Heartburn Last Admin: 01/23/25 03:54 Dose: 750 mg Documented By: GURMEET Dextrose (Dextrose 50 % 25 Gm/50 Ml Syringe) 25 gm IVPUSH Q15M PRN; Protocol PRN Reason: per Hypoglycemia Standing Ord. Empagliflozin (Empagliflozin 10 Mg Tablet) 10 mg PO DAILY [facility] Last Admin: 01/24/25 08:05 Dose: 10 mg Documented By: YANIRA Enoxaparin Sodium (Enoxaparin Sodium 40 Mg/0.4 Ml Syringe) 40 mg SUBCUT Q12H [facility] Last Admin: 01/24/25 08:05 Dose: 40 mg Documented By: YANIRA Gabapentin (Gabapentin 300 Mg Capsule) 300 mg PO BID [facility] Last Admin: 01/24/25 08:05 Dose: 300 mg Documented By: YANIRA Glucose (Glucose Gel 15 Gm Gel..Gram.) 15 gm PO Q15M PRN; Protocol PRN Reason: per Hypoglycemia Standing Ord. Hydrochlorothiazide (Hydrochlorothiazide 25 Mg Tablet) 25 mg PO DAILY [facility]; Protocol Last Admin: 01/24/25 08:04 Dose: 25 mg Documented By: YANIRA Piperacillin Sod/Tazobactam (Sod 3.375 gm/ Sodium Chloride) 50 mls @ 100 mls/hr IV Q6H [facility] Last Infusion: 01/24/25 07:02 Dose: Infused Documented By: YANIRA Vancomycin HCl 1,000 mg/Vancomycin HCl 750 mg/ Sodium Chloride 535 mls @ 267.5 mls/hr IV Q8H [facility] Last Infusion: 01/24/25 06:07 Dose: Infused Documented By: CATERINA Ibuprofen (Ibuprofen 400 Mg Tablet) 400 mg PO Q6H PRN PRN Reason: Fever >101 Last Admin: 01/18/25 07:53 Dose: 400 mg Documented By: BISHOP-DAYSI Insulin Glargine (Insulin Glargine,Hum.Rec.Anlog 100 Unit/Ml 10 Ml Vial) 40 unit SUBCUT DAILY@0900 [facility] Last Admin: 01/24/25 08:04 Dose: 40 unit Documented By: YANIRA Insulin Human Lispro (Insulin Lispro 100 Unit/Ml 3 Ml Vial) 0 unit SUBCUT QIDACHS [facility]; Protocol Last Admin: 01/24/25 08:04 Dose: 4 unit Documented By: YANIRA Lisinopril (Lisinopril 20 Mg Tablet) 20 mg PO BID [facility]; Protocol Last Admin: 01/24/25 08:05 Dose: 20 mg Documented By: YNAIRA Magnesium Hydroxide (Milk Of Magnesia 30 Ml Oral.Susp) 30 ml PO DAILY PRN PRN Reason: Constipation Melatonin (Melatonin 3 Mg Tablet) 6 mg PO BEDTIME PRN PRN Reason: Insomnia Multivitamins/Vitamin C (Multivitamin Tablet) 1 tab PO DAILY [facility] Last Admin: 01/24/25 08:05 Dose: 1 tab Documented By: YANIRA Non-Formulary Medication (Semaglutide [Ozempic]) 2 mg SUBCUT SA [facility] Pharmacy Consult (Consult Rx Vancomycin Dosing) 1 each MISCELLANE DAILY PRN PRN Reason: Consult order Polyethylene Glycol (Polyethylene Glycol 3350 17 Gm Powd.Pack) 17 gm PO DAILY PRN PRN Reason: Constipation Last Admin: 01/23/25 03:59 Dose: 17 gm Documented By: GURMEET Sodium Chloride (0.9 % Sodium Chloride Flush 3 Ml Syringe) 3 ml IVFLUSH QSHIFT [facility] Last Admin: 01/24/25 08:05 Dose: Not Given Documented By: YANIRA Non-Admin Reason: Previously Administered Labs 01/18/25 03:54 01/24/25 06:57 Labs: Laboratory Results - last 24 hr 01/23/25 01/23/25 01/23/25 11:31 15:57 19:30 Hold Purple Top Estim Creat Clear Calc Estimated GFR POC Glucose 153 H 161 H 138 H 01/24/25 01/24/25 06:57 07:10 Hold Purple Top SEE NOTE Estim Creat Clear Calc 201.1 Estimated GFR > 60 POC Glucose 216 H Procedures Date of Service Date of Service: 01/24/25 Progress Note: A&P Assessment and plan (1) Cellulitis of leg, right: Status: Acute Plan Bulla do not appear to infected themselves, serous fluid containing, do not think they are attributing to the cellulitis and seem to be draining on their own. Continues to be no need for debridement. Continue good local daily wound care as per wound care recommendations. Can follow up with wound care center upon discharge. Recommended right leg elevation to continue to reduce edema to allow for healing. Time Spent With Patient Time: Total time managing care of this patient today ____ minutes. Quality Stroke Does the patient have a stroke diagnosis?: No VTE Prior VTE?: No VTE Risk Level:: Medical - moderate - high VTE Device Contraindication: Treatment Not Indicated VTE Drug Contraindication: N/A - Med Ordered
[2025-01-24 10:51] LABS: Glucose, Whole Blood 168 mg/dL (60-115)
[2025-01-24 10:53] VITALS: BP 143/67; PULSE 88; RESP 20; TEMP 36.1; O2SAT 93
--- NOTE | 2025-01-24 11:36 | P.DS_ITS ---
DS: Providers Provider Date of Service: 01/24/25 Date of admission: 01/17/25 18:35 Date of discharge: 01/24/25 Primary care physician: Dm Mckeon MD Consults: 01/17/25 19:13 Consult to Infectious Diseases Routine Consulting Provider: [facility] Infectious Disease Center Reason for consultation: DM foot infection 01/18/25 00:07 Consult to Pulmonology Routine Consulting Provider: [facility] Pulmonology Services Reason for consultation: Acute hypoxic respiratory failure 01/18/25 11:15 Consult to Wound Care Routine Consulting Provider: [facility] Wound Care Management Reason for consultation: skin crack to right toe and open skin area to RLE 01/21/25 14:56 Consult to General Surgery Routine Consulting Provider: [facility] General Surgeons Reason for consultation: leg wound ? need for debridment Has provider been notified: No DS: Diagnosis Discharge Diagnosis (1) Cellulitis of leg, right: Status: Acute DS: Summary Hospital Course Hospital Course: admission hpi Chief Complaint: foot infection 59-year-old male with a past medical history HTN, HLD, dm, morbid obesity; presented to the hospital today with a chief complaint of fever. Patient mentioned that since Friday she has been having shortness of breath when he checked his oxygen levels at home it was pretty low. Denies any asthma or smoking history. Denies any COPD history. Denies any chest pain or palpitations. With past couple days he noted to have fevers. Has had right foot infection with wound. Went to the [facility] where they incised the bottom of the great toe; later he noted to have increased redness on his right leg. Denies any cough or sputum production. Denies any sick contacts. Review of all other systems is negative except mentioned above ER course: Per ER team, patient noted to have right foot wound on the plantar surface of the great toe and erythema extending into the leg up to upper 3rd of the leg; patient was febrile. Given IV fluids. Given antibiotics. Later patient was found to be hypoxic placed on supplemental oxygen. CTA chest showed evidence of pulmonary embolism or any acute pulmonary findings. No significant wheezing on exam. Hospial course: 59-year-old male with a past medical history HTN, HLD, dm, morbid obesity; presented to the hospital today with a chief complaint of fever. Admitted for following Sepsis d/t RLE cellulitis, recent right foot procedure by podiatry. The leg was very erythematous and was having high grade fevers, blood cultures were negative. He was treated with IV vanocyin and Zosyn. Over the course of hospitalization, fever resolved. Erytheme, although not expanded, the area developped blisters and bula. He was seen by ID and recommendation to transition to oral Doxyc and Clindamcyin. He was seen by General surgery with no indication for debridment but recommend follow up with wound clinic. Will transition to oral Doxy 100 mg and Clidamcyin 300 mg Acute hypoxic respiratory failure, likley from hypoventilation No wheezing on exam CTA chest showed no evidence of PE or acute pulmonary findings. Noted to have bilateral lower lobe atelectasis. Concern for undiagnosed TERRIE versus OHS. He also has 45 year history of smoking. Echo is unremarkable with EF 55 to 60%. Was seen by Felling Machine Operator while in hosptial and should follow up with them on outpatient basis. He will need PFTs and sleep studies done. Arrangment is being made for home O2 Diabetes: Resume home regiment DVT prophylaxis: Lovenox 40 bid d/t Code status: Full code Time Attestation Discharge Coordination Time (in mins): 45 Quality: Safe Use of Opioids Does Pt have an Active Cancer Diagnosis on the Problem List?: No Quality: Stroke Does the patient have a stroke diagnosis?: No Physical Exam Vital Signs: Vital Signs: Last Vital Signs Temp 97.0 F 01/24/25 10:53 Pulse 88 01/24/25 10:53 Resp 20 01/24/25 10:53 BP 143/67 H 01/24/25 10:53 Pulse Ox 93 01/24/25 10:53 O2 Del Method Nasal Cannula 01/24/25 10:53 O2 Flow Rate 1 01/24/25 10:53 BMI result Body Mass Index 46.7 DS: Data Data Completed and Pending Completed studies during hospitalization [Text1]: Procedures Insertion of Infusion Device into Superior Vena Cava, Percutaneous Approach (12/12/20) Labs on day of discharge: Laboratory Results - last 24 hr 01/23/25 01/23/25 01/24/25 15:57 19:30 06:57 Hold Purple Top SEE NOTE Creatinine 0.69 Estim Creat Clear Calc 201.1 Estimated GFR > 60 POC Glucose 161 H 138 H Random Vancomycin 01/24/25 01/24/25 01/24/25 07:10 10:14 10:45 Hold Purple Top Creatinine Estim Creat Clear Calc Estimated GFR POC Glucose 216 H 168 H Random Vancomycin 16.9 Discharge Plan Discharge Anticipated Discharge Date/Time: 01/24/25 11:47 Patient Disposition: Home Health Service Discharge Diagnosis: Sepsis, cellulitis of the right leg, hypoxia and hypoventilation Referrals: Hiral ASH[facility] [Outside] - 1 Week [facility] Wound Care [Outside] - 1 Week Hannah Goodwin MD [Physician, General Surgery] - 1 Week Jose Amador MD [Physician, Pulmonology] - 1 Week Dm Mckeon MD [Primary Care Provider, Internal Medicine] - 1 Week Discharge Medications: Continued lisinopril 20 mg tablet 20 mg PO BID gabapentin 300 mg capsule 300 mg PO BID hydrochlorothiazide 25 mg tablet 25 mg PO DAILY insulin glargine [Lantus Solostar U-100 Insulin] 100 unit/mL (3 mL) insulin pen 60 unit subcut DAILY@0900 metformin 1,000 mg tablet 1,000 mg PO BID aspirin 81 mg Tablet 81 mg PO BEDTIME multivitamin Tablet 1 tab PO DAILY albuterol sulfate 90 mcg/actuation HFA aerosol inhaler 2 puff inhalation QID PRN (Reason: wheezing) rosuvastatin 10 mg tablet 10 mg PO BEDTIME omega 3-axx-kqu-fish oil [Fish Oil] 1,000 (120-180) mg Capsule 1 cap PO DAILY dapagliflozin propanediol [Farxiga] 10 mg tablet 10 mg PO DAILY Ozempic 2 mg/dose (8 mg/3 mL) pen injector 2 mg subcut SA Discharge Orders: Discharge Order (Routine); Ordered 01/24/25 Ordered By: Tee Guerrero Diet: Diabetic diet Activity on Discharge: As tolerated Stand Alone Forms: Patient Portal Discharge page Print Language: Wolof Activity Restrictions/Additional Instructions: Wound care recommendations for discharge: Right great toe: cleanse with saline, apply iodoflex to wound bed (Iodoflex left at bedside. Note the Iodoflex will be applied brown and over the course of time as the Iodine is absorbed into the wound bed the color will change to yellow / cream signifying time to replace.), cover with foam, change every other day and PRN Right leg/bilateral legs open wounds: cleanse with saline, pat dry, apply durafiber ag to open areas, cover with fluff gauze, ABD, kerlix, change every other day and PRN. Elevate leg for edema management. Care Plan Goals: recovery from sepsis, cellulitis of the leg, hypoxia Health Concerns: Sepsis cellulitis of the left leg Hypoxia Plan of Treatment: Take Clindamyin and Doxycyline as recommended and follow up with your doctor in a week, call for appointment Follow up with the wound care clinic Use oxygen as directed Follow up with lung Doctor(Perry) for arrangement for sleep study and pulmonary function tests Assessment: see above Patient Instructions: Clindamycin (By mouth), Doxycycline (By mouth) Discharge Date/Time: 01/24/25 16:09
[2025-01-24] MEDS: Albuterol/Iprat 2.5/0.5MG 3 ML AMPUL.NEB INHALE (12:20)
[2025-01-24 12:24] VITALS: PULSE 92; RESP 15; O2SAT 97
[2025-01-24 12:28] LABS: MANUAL DIFF FLAG NO
[2025-01-24 12:34] LABS: Hematocrit 44.5 % (42.0-52.0); Hemoglobin 13.9 g/dl (14.0-18.0); Imm Gran Abs Auto 0.23 X10*3/uL (0.00-0.03); Imm Gran Pct Auto 2.7 % (0.0-0.4); Lymphocytes Absolute Auto 1.8 X10*3/uL (1.2-4.9); Mean Corpuscular HGB Conc 31.2 g/dl (31.0-36.0); Mean Corpuscular Hemoglobin 29.6 pg (27.0-33.0); Mean Corpuscular Volume 94.9 fL (80.0-98.0); NRBC Abs Auto 0.000 X10*3/uL (0.0-0.012); NRBC Pct Auto 0.0 /100WBC (0.0-0.2); Red Blood Count 4.69 X10*6/uL (4.60-5.80); White Blood Count 8.5 X10*3/uL (4.8-10.8)
[2025-01-24 12:42] LABS: Platelet Count 400 X10*3/uL (160-400)
[2025-01-24 13:17] VITALS: PULSE 101; PULSE 103; PULSE 104; PULSE 106; PULSE 107; O2SAT 86; O2SAT 87; O2SAT 88; O2SAT 89; O2SAT 90
--- NOTE | 2025-01-24 13:50 | MHC.CM.PN ---
Per MD, Patient will be medically cleared for dc to home today, with services; a referral was made to [facility], who has been made aware of today's dc.
--- NOTE | 2025-01-24 14:26 | W.MHC.F2F ---
Service Date Service Date: 01/24/25 Encounter Date of encounter: 01/24/25 Reasons for Services Signs and symptoms assessed: right leg wound, swelling and cellulitis Reason for mcfp: wound care and medication management Homebound: Leaving the home is medically contraindicated at this time without the asist of a device and/or another person due th the listed conditions above and below. Reason homebound: shortness of breath with minimal effort, pain with ambulation and weakness related to hospital stay Homebound supporting statement: homebound due to swelling and wound of the right leg, sob with need for oxygen, and therefore needs the assistance of another person Certification: Based on the above findings, I certify that this patient is confined to the home and needs intermittent mcfp care, physical therapy and/or speech therapy, or continues to need occupational therapy. The patient is under my care, and I have initiated the establishment of the plan of care. The patient will be followed by a physician who will periodically review the plan of care. Time Spent With Patient Time: Total time managing care of this patient today ____ minutes.
== END 2025-01-24 16:09 | disposition home health service (06) | DRG 720 ==
LOC: HO.ED 18:17 → HO.EDOVER 18:41 → HO.IMC 01-18 16:18
PROVIDERS: Hospitalist; Admitting Provider Family Medicine; Emergency Provider Emergency Medicine Emergency Medical Services; PCP Internal Medicine; Visit Provider Internal Medicine
DX: A41.9 Sepsis, unspecified organism (principal); J96.01 Acute respiratory failure with hypoxia; Z68.42 Body mass index [BMI] 45.0-49.9, adult; L03.115 Cellulitis of right lower limb; E66.2 Morbid (severe) obesity with alveolar hypoventilation; J98.11 Atelectasis; E11.621 Type 2 diabetes mellitus with foot ulcer; L97.519 Non-pressure chronic ulcer of other part of right foot with unspecified severity; Z20.822 Contact with and (suspected) exposure to COVID-19; Z87.891 Personal history of nicotine dependence; Z86.14 Personal history of Methicillin resistant Staphylococcus aureus infection; Z79.4 Long term (current) use of insulin; Z79.82 Long term (current) use of aspirin; Z79.84 Long term (current) use of oral hypoglycemic drugs; Z79.899 Other long term (current) drug therapy
CPT/HCPCS: 36415; 71045; 71275; 73630; 74177; 80051; 80053; 80202; 80307; 81001; 82565; 82803; 82947; 83605; 83690; 83735; 84439; 84443; 84484; 85025; 85610; 85652; 85730; 86140; 87040; 87637; 87651; 93005; 93306; 93971; 99285; J1650; J1938; J2543; J3373; J3374; Q9957; Q9967

== ENCOUNTER → 2025-01-17 11:35 | Outpatient (BNV) | payer BC, SELFPAY | PROVIDERS: Emergency Provider Emergency Medicine Emergency Medical Services; PCP Internal Medicine; Visit Provider Radiology Diagnostic Radiology | DX: K76.0 Fatty (change of) liver, not elsewhere classified (principal); I25.10 Atherosclerotic heart disease of native coronary artery without angina pectoris; R16.0 Hepatomegaly, not elsewhere classified; R05.9 Cough, unspecified; R50.9 Fever, unspecified; R22.41 Localized swelling, mass and lump, right lower limb | CPT/HCPCS: 71045; 71275; 74177; 93971 ==

== ENCOUNTER → 2025-01-17 11:45 | Outpatient (BNV) | payer BC, SELFPAY | PROVIDERS: Admitting Provider Family Medicine; Emergency Provider Emergency Medicine Emergency Medical Services; PCP Internal Medicine; Visit Provider Internal Medicine | DX: R00.0 Tachycardia, unspecified (principal) | CPT/HCPCS: 93010 ==

== ENCOUNTER 2025-01-17 18:35 | Outpatient (BNV) | payer BC, SELFPAY | END 2025-01-19 11:36 | PROVIDERS: Admitting Provider Family Medicine; Emergency Provider Emergency Medicine Emergency Medical Services; PCP Internal Medicine; Visit Provider Radiology Diagnostic Radiology | DX: L97.519 Non-pressure chronic ulcer of other part of right foot with unspecified severity (principal) | CPT/HCPCS: 73630 ==

== ENCOUNTER 2025-01-17 18:35 | Outpatient (BNV) | payer BC, SELFPAY | END 2025-01-18 07:00 | PROVIDERS: Admitting Provider Family Medicine; Emergency Provider Emergency Medicine Emergency Medical Services; PCP Internal Medicine; Visit Provider Internal Medicine | DX: R09.02 Hypoxemia (principal) | CPT/HCPCS: 93306 ==

== ENCOUNTER → 2025-01-17 18:35 | Outpatient (BNV) | payer BC, SELFPAY | PROVIDERS: Admitting Provider Family Medicine; Emergency Provider Emergency Medicine Emergency Medical Services; PCP Internal Medicine; Visit Provider Internal Medicine | DX: E11.9 Type 2 diabetes mellitus without complications (principal); A41.9 Sepsis, unspecified organism; R65.20 Severe sepsis without septic shock; L03.116 Cellulitis of left lower limb | CPT/HCPCS: 99232; 99254 ==

== ENCOUNTER → 2025-01-17 18:35 | Outpatient (BNV) | payer BC, SELFPAY | PROVIDERS: Admitting Provider Family Medicine; Emergency Provider Emergency Medicine Emergency Medical Services; PCP Internal Medicine; Visit Provider Internal Medicine | DX: A41.9 Sepsis, unspecified organism (principal); R65.20 Severe sepsis without septic shock; L03.116 Cellulitis of left lower limb; L03.115 Cellulitis of right lower limb | CPT/HCPCS: 99222; 99232; 99233; G0180 ==

== ENCOUNTER → 2025-01-17 18:35 | Outpatient (BNV) | payer BC, SELFPAY | PROVIDERS: Admitting Provider Family Medicine; Emergency Provider Emergency Medicine Emergency Medical Services; PCP Internal Medicine; Visit Provider Hospitalist | DX: I83.028 Varicose veins of left lower extremity with ulcer other part of lower leg (principal); R60.9 Edema, unspecified; R09.02 Hypoxemia; J98.11 Atelectasis | CPT/HCPCS: 99223 ==

== ENCOUNTER → 2025-01-17 18:35 | Outpatient (BNV) | payer BC, SELFPAY | PROVIDERS: Admitting Provider Family Medicine; Emergency Provider Emergency Medicine Emergency Medical Services; PCP Internal Medicine; Visit Provider Surgery | DX: L03.115 Cellulitis of right lower limb (principal) | CPT/HCPCS: 99232 ==

== ENCOUNTER 2025-02-02 14:20 | Outpatient (AMB) | payer BC, SELFPAY ==
--- NOTE | 2025-02-02 14:22 | A.OFFVIS_ITS ---
Vital Signs 02/02/25 14:23 Height 6 ft 5 in Weight 383 lb 6 oz BMI 45.5 BP 138/62 Blood Pressure Location Rt brachial Position Sitting Pulse 112 H Pulse Source Pulse Oximeter Pulse Oximetry (%) 92 Oxygen Delivery Method Nasal Cannula Oxygen Flow Rate 1 Intake Visit Reasons: S/P hospital FU dyspnea Allergies bee pollen (BEE STINGS) Allergy (Unknown, Verified 02/02/25 14:26) UNKNOWN Penicillins Allergy (Unknown, Verified 02/02/25 14:26) Unknown HPI Comments Details: Jeff is a 59-year-old male, former 90 pack year smoker, quit 2022 with underlying moderate COPD, diabetes with neuropathy, hypertension, high cholesterol, TERRIE not using CPAP, morbid obesity, fatty liver, and h/o renal cell carcinoma s/p partial nephrectomy. He was [place] [facility] [place] admission 01/17-01/23 for acute hypoxic respiratory failure and sepsis secondary to cellulitis of RLL. Per patient his home oxygen saturation was in the 70s prior to admission. CTA negative for PE. Blood cultures were negative. He was treated with IV vancomycin and Zosyn, ultimately transitioned to oral doxycycline and clindamycin per ID. Hypoxia felt to be related to hypoventilation. Following his recent hospitalization, he was discharged on continuous home oxygen. He uses a home concentrator at 1.5 L/min, which maintain s his saturation around 94-95%, and uses a portable tank at 1 L/min when out of the house. He has tested his oxygen levels off the device and his saturation dropped to 85% after a walk a few days prior. The patient has a significant smoking history of approximately 28-rubp-ticxe, having quit two years ago. He reports a gradual onset of shortness of breath over time, noting he would become winded with activities like carrying groceries, which he previously did not pay much attention to. He began using a home pulse oximeter and observed his saturation levels dropping below 88%. He reports occasional wheezing, which is relieved by his albuterol inhaler, and notes his chronic cough has nearly resolved since smoking cessation. He denies prior h/o asthma or COPD however prior PFT 2022 demonstrated moderate COPD. He also reports no prior need for supplemental oxygen however reviewed prior records from cardiology 2023 which found patient to be hypoxic at 87%. He has undergone a stress test in 2022 which demonstrates a large fixed severe inferior defect although patient asymptomatic therefore medications were held other than ASA/statin. His past medical history is significant for renal carcinoma treated with a partial nephrectomy around 2009, with no recurrence on 5- and 10-year surveillance MRIs per pt. He had a sleep study many years ago and was prescribed a CPAP, which he did not tolerate; he currently sleeps semi-upright in a recliner to manage symptoms. He undergoes annual CT scans for lung cancer screening, through [facility], which have shown stable pulmonary nodules but no emphysema. Pulmonology History - 63-lers-kdeb smoking history, quit two years ago. - Progressive dyspnea on exertion. - Pulmonary function test (2022) showing moderate COPD (Gold category 2) with ai r trapping and restriction, though the patient was unaware of the diagnosis. - Recent hospitalization for hypoxia, resulting in a new prescription for continuous home oxygen therapy. DME [employer]. - Past albuterol inhaler use on an as-needed basis for wheezing. - History of suspected sleep apnea, unknown severity, with prior CPAP intolerance. - Annual screening CT scans of the lungs show stable pulmonary nodules and no emphysema. Results - Pulmonary Function Test (August 2022): Revealed a moderate obstructive defect consistent with Gold 2 COPD (FEV1/FVC ratio of 67%) and significant air trapping with a residual volume of 197%. - CT Chest (October 2024): Showed a couple of nodules that were unchanged since a prior scan in 2022. No evidence of emphysema. Noted severe coronary calcifications. -CT Scan (during recent hospitalization): negative PE - Labs (from 2022): Showed elevated hemoglobin suggesting possible hypoxia [facility] Medical History Atelectasis Hypoxia Severe sepsis HTN (hypertension) Morbid obesity Diabetic foot ulcer Diabetes mellitus Diabetic neuropathy Social History Household Members: Spouse Housing: House Do you presently have visiting nurse or other home services: No Alcohol intake: current Alcohol intake frequency: 3 or more drinks per day Alcohol type: beer Patient Tobacco Use Status: Former Tobacco user Tobacco use type: Cigarette Cigarette Packs Per Day: 1 Cigarettes Per Day: 20.0 Years Smoked: 40 e-Cigarette/Vaping Use: Former Use Substance Use Type: Marijuana Advance Directives Date on File: 01/18/25 service: No Current occupational status: unemployed Review of Systems Narrative Const Denies chills, Denies excessive sweating, Denies fever(s), Denies headache(s) and Denies night sweats Eyes Denies dry eyes and Denies irritation ENT Reports Normal hearing present, Denies headache(s), Denies nasal congestion, Denies nasal discharge, Denies post nasal drip and Denies sore throat Card Denies chest pain, Denies chest pain at rest, Denies chest pain with activity, Denies claudication, Denies orthopnea and Denies paroxysmal nocturnal dyspnea Resp Denies chest congestion, Denies excessive phlegm production, Denies pain on inspiration, Denies pain with cough and Denies stridor Neuro Reports Normal hearing present and Denies headache(s) Endo Denies excessive sweating Physical Exam Exam Exam: Vital Signs: Last Vital Signs Pulse 112 H 02/02/25 14:23 BP 138/62 02/02/25 14:23 Pulse Ox 92 02/02/25 14:23 Oxygen Delivery Method Nasal Cannula 02/02/25 14:23 Oxygen Flow Rate 1 02/02/25 14:23 BMI result Body Mass Index 45.5 Const General: cooperative, comfortable, no acute distress, well developed and alert Nutritional Appearance: obese Orientation/consciousness: patient oriented x3 Limitations: no limitations HEENT Head: Yes normal to inspection, Yes normocephalic and Yes atraumatic Ears: hearing grossly normal bilaterally and external ears normal Eyes General: appearance normal, both eyes and all related structures Eyelids: Yes eyelids normal Sclerae: sclerae normal EOM: EOMs intact bilaterally Neck Neck: Yes normal visual inspection and Yes no lymphadenopathy Lymphatic: no lymphadenopathy noted Chest Chest palpation & inspection: normal inspection of the chest Resp Effort & Inspection: normal respiratory effort, able to speak in complete sentences, no audible wheezes, no cough, no stridor, not tachypneic, no tripod positioning, no use of accessory muscles and prolonged expiratory phase Auscultation: diminished lung sounds Cardio Jugular venous distension: no JVD Rhythm: regular rhythm Skin Other: warm, dry General skin exam: no rashes or lesions noted Neuro General: patient oriented x3 Cranial nerves: Yes Normal hearing present Cognition (Neuro): normal cognition Gait exam (Neuro): Normal gait present Psych Appearance: grossly normal and well kempt Speech and movement: Normal speech and movement present and Clear speech present Affect: normal affect Attitude: cooperative Thought process: Normal thought process present Thought content: Normal thought content present Insight: Good insight present (Psych) Judgement: Fair judgement present (Psych) Results Reviewed Results Reviewed: Stress Test NM Myocard Perf SPECT Multi 08:32:11 Summary 1. There is a large fixed severe inferior defect seen both on rest and post maximal exercise images. There is also a small fixed apical defect of moderate severity. This is consistent with scarring of the inferior wall and apex. No ischemia seen. 2. There is absence of inferior wall thickening. Calculated ejection fraction post exercise is 57%, which may be an overestimation. 3. The ECG results will be reported separately. Signatures _ _ Signed By: Navid Jackson MD Assessment & Plan Assessment & Plan (1) Tachycardia: Code(s): R00.0 - Tachycardia, unspecified Category: Medical (2) COPD (chronic obstructive pulmonary disease): Code(s): J44.9 - Chronic obstructive pulmonary disease, unspecified Category: Medical (3) Hypoventilation associated with obesity: Code(s): E66.2 - Morbid (severe) obesity with alveolar hypoventilation Category: Medical (4) History of acute respiratory failure: Code(s): Z87.09 - Personal history of other diseases of the respiratory system Category: Medical (5) Personal history of tobacco use: Code(s): Z87.891 - Personal history of nicotine dependence Category: Social Hx Plan Per recent hospitalization the patient has new-onset hypoxia requiring continuous oxygen, a sequela of his recent septic illness, however it has been documented previously that he has been hypoxic. He requested a prescription for a portable oxygen concentrator (POC) for upcoming travel. We were unable to complete the required 6-minute walk test to qualify for a POC due to tachycardic response, creating a safety issue. During the attempted walk test, the patient's heart rate increased significantly to 183 bpm after minimal exertion, less than 50 yds and the test was immediately stopped. Due to this severe tachycardia, my colleague, Mony, and I strongly recommended that he go to the emergency room for urgent evaluation, explaining the potential fatal risks. The patient refused this recommendation against medical advice, stating his commitment to his travel plans. Informed him the POC could not be prescribed without a completed test to determine necessary oxygen requirements with a portable device. Therefore, a prescription for a POC could not be provided today. An arrangement was made to reattempt the test tomorrow at the hospital-based office with physician supervision to ensure patient safety and to see if he qualifies for a POC. This was reviewed with Dr. Grayson. The patient's PFT from 2022 confirms a diagnosis of moderate COPD with significant air trapping, of which he was previously unaware. His 32-boki-thvp smoking history is the primary contributor. Given his symptoms and PFT results, a daily maintenance inhaler is recommended. Repeating the PFT will be held in consideration for a future visit. The patient carries a prior diagnosis of TERRIE, unknown severity, and has a history of CPAP intolerance. We discussed repeating a sleep study however patient only agreeable to an at-home overnight oximetry test to ensure proper liter flow at [facility], currently using 1.5L, recommended test be performed on room air. The patient has agreed to undergo this testing upon his return from vacation. A previous CT scan revealed severe coronary artery calcifications. While the patient denies chest pain, this finding is concerning in the context of his significant dyspnea and new-onset severe exertional tachycardia. Again advised patient to seek emergent care which he continued to refuse. He is established with cardiology and should be following with them closely. All questions were answered and patient is in agreement of plan. Will follow up in 4 weeks or sooner if needed. Patient Instructions - You have an appointment tomorrow at 10:00 AM at our office in [facility] to try the walk test again. The office is in the main lobby. - It is very important that you wear your oxygen at all times as prescribed, especially when driving a car. It is not safe for you or others for you to drive without it. - Bring your oxygen tank with you to your appointment tomorrow. - We strongly recommend you go to the hospital emergency room to be checked out for your very fast heart rate. You have chosen not to go at this time. - We will order an at-home test to check your oxygen levels while you sleep. We will do this after you return from your trip. Orders: Orders Overnight Pulse Oximetry Today G47.34 - Idiopathic sleep related nonobstructive alveolar hypoventilation Coding Level of Care Code New Pt Level 5 (43958) Diagnoses Tachycardia R00.0 COPD (chronic obstructive pulmonary disease) J44.9 Hypoventilation associated with obesity E66.2 History of acute respiratory failure Z87.09 Personal history of tobacco use Z87.891 Time Spent (min) 50
[2025-02-02 14:23] VITALS: BP 138/62; PULSE 112; O2SAT 92; BMI 45.5
--- OUTSIDE RECORDS SUMMARY | 2025-02-02 19:09 | XMS_ITS | Clinical Summary ---
Author Organization [facility] Address [address] [place] [address] Phone Care Team Providers Care Band Head Saw Operator Name Role Phone Pcp, Unknown Primary Care [...] Medical Devices Not on file [place] [facility]: [place] [address] [place] [address] [place], [place] [address] [place], [place] [address] Care Teams Band Head Saw Operator Relationship Specialty Start Date End Date Pcp, Unknown PCP - General 04/15/22 Additional Source Comments The information contained in this document represents components of the legal health record. It is not the complete legal health record.[facility]
--- OUTSIDE RECORDS SUMMARY | 2025-02-02 19:09 | XMS_ITS | Encounter Summary ---
Author Organization [facility] Address [address] [place] [phone] Phone Care Team Providers Care Fiberglass Boat Assembly Supervisor Name Role Phone Pcp, Unknown Primary Care Provider Unavailabl e Reason for Referral * Consultation (Within 1 month) - Closed Specialty Diagnoses / Procedures Referred By Contac t Referred To Contact Endocrinology Diagnoses Type 2 diabetes mellitus without complication, unspecified whether terminologist insulin use Dm Mckeon MD [address] [place] [id number] Phone: tel: fax: [address] [address] Phone: tel: Referral ID Status Reason Start Date Expiration Date Visits Re quested Visits Authorized [id number] Closed 04/19/2022 04/20/2023 1 1 Encounter Details Date Type Department Care Team (Latest Contact Info) Description 04/19/2022 Transcribe Orders [facility] [address] [place] [id number] Elias Núñez DO [address] [place] [phone] [email or web address] Type 2 diabetes mellitus without complication, unspecified whether terminologist insulin use (Primary Dx) Social History Tobacco [...] Associated Diagnoses Order Schedule Ambulatory referral to [facility] Endocrinology Outpatient Referral Routine Type 2 diabetes mellitus without complication, unspecified whether terminologist insulin use Ordered: 04/19/2022 documented as of this encounter Visit Diagnoses Diagnosis Type 2 diabetes mellitus without complication, unspecified whether jail insulin use- Primary documented in this encounter Care Teams Fiberglass Boat Assembly Supervisor Relationship Specialty Start Date End Date Pcp, Unknown PCP - General 04/15/22 documented as of this encounter Additional Source Comments The information contained in this document represents components of the legal health record. It is not the complete legal health record.[facility]
--- OUTSIDE RECORDS SUMMARY | 2025-02-02 19:09 | XMS_ITS | Patient Health Record ---
Author Organization [facility] Address [address] [place] [address] Care Team Providers Care Team Guide Name Role Phone Linda LORENZO, Dm Primary Care Provider Jose Hawk Unavailable [phone] Allergies Allergen (clinical drug ingredient) Drug/Non Drug Allergy documented on EMR Reaction Allergy Type Onset Date Status amoxicillin Amoxicillin Unknown Drug Allergy Act lisa Penicillin Unknown Drug Allergy Active Bee Sting Unknown Allergy Active Reason For Referral No Information Medications Medication SIG (Take, Route, Frequency, Duration) Notes Start Date End Date Status hydroCHLOROthiazide 25mg Active Victoza 18 MG/3ML 0.2 ml Subcutaneous Once a day; Duration: 30 day(s) Not-Taking Lisinopril 40mg Acti ve Metformin & Diet Manage Prod 1000mg Active Azithromycin 250 MG 2 tablets on the first day, then 1 tablet daily for 4 days Orally Once a day; Duration: 5 day(s) 08/11/2020 Not-Taking Doxycycline Not-Taki ng Farxiga Active Lantus SoloStar 65 mg Not-Taking Gabapentin 100mg daily Active HumaLOG 25 mg dinner time Not- Taking Lantus Active Ammonium Lactate 12 % 1 application Externally Twice a day; Duration: 365 days Active Extra Depth Orthopedic Shoes (1 Pair) with Customized Heat Molded Multidensity Innersoles (3 Pair) as directed Dx: IDDM/Polyneuropathy (E10.42), Hammertoe Foot Deformity (M20.41,M20.42), Preulcerative Skin Lesion(s) (L85.1) 08/24/2019 Active Urea 50 % 1 application to affected area on feet Externally Twice a day; Duration: 30 days 11/03/2014 Active Invokana 300 mg Not- Taking Immunizations Vaccine Route Administration Date Status Comme nts Influenza Unknown 11/08/2014 Administered Influenza Unknown 10/18/2017 Administered Influenza Unknown 11/17/2021 Administered COVID-19 Moderna Vaccine Unknown 04/23/2020 Administered COVID-19 Moderna Vaccine Unknown 11/21/2021 Administered 05/21/2020,2020 2020,2021 Social History Tobacco Use: Social History Observation Description Date Details (start date - stop date) Current Smoker NA - NA Tobacco Use/Smoking Question Answer Notes Are you a: current smoker Alcohol Screen Question Answer Notes Did you have a drink containing alcohol in the p ast year? Yes Points 0 Interpretation Negative Tobacco use other than smoking: Question Answer Notes Are you an other tobacco user? No Section Notes: declined tobacco and alcohol use declined tobacco and alcohol use declined tobacco and alcohol use declined tobacco and alcohol use declined tobacco and alcohol use declined tobacco and alcohol use declined tobacco and alcohol use declined tobacco and alcohol use declined tobacco and alcohol use declined tobacco and alcohol use declined tobacco and alcohol use declined tobacco and alcohol use declined tobacco and alcohol use declined tobacco and alcohol use declined tobacco and alcohol use declined tobacco and alcohol use declined tobacco and alcohol use declined tobacco and alcohol use declined tobacco and alcohol use declined tobacco and alcohol use declined tobacco and alcohol use eyes 12/2014 flu 11/2014 declined tobacco and alcohol use eyes 12/2014 flu 11/2014 declined tobacco and alcohol use eyes 12/2014 flu 11/2014 Problems Problem Type SNOMED Code ICD Code Onset Dates Problem Status W/U Status Risk Notes Problem Acquired hammer toe of right foot (8734246318000646 ) Other hammer toe(s) (acquired), right foot (M20.41) Active confirmed Problem Acquired hammer toe of left foot (4814263373386385 ) Other hammer toe(s) (acquired), left foot (M20.42) Active confirmed Problem Polyneuropathy due to diabetes mellitus type I (033550092) Type 1 diabetes mellitus with diabetic polyneuropathy (E10.42) Active confirmed Plan Of Treatment Pending Test Test Name Order Date Hemoglobin A1c 06/02/2014 61837-IIEEOTY NAIL, 6 OR MORE 08/24/2014 13427-KVXSXQW NAIL, 6 OR MORE 06/02/2014 27855-JUQSYDQ NAIL, 6 OR MORE 11/03/2014 29653-KBDJVAR NAIL, 6 OR MORE 03/27/2015 04545-SZTJIRA NAIL, 6 OR MORE 07/27/2015 83443-TRMTTFM NAIL, 6 OR MORE 01/18/2016 22623-EONXOZU NAIL, 6 OR MORE 04/18/2016 15198-UWCIBAN NAIL, 6 OR MORE 10/24/2016 63550-XXBNCDS NAIL, 6 OR MORE 05/09/2017 66867-CBMZODU NAIL, 6 OR MORE 11/07/2017 49130-MZEHTXF NAIL, 6 OR MORE 02/27/2018 14652-XEDLLKS NAIL, 6 OR MORE 06/26/2018 45428-OIHQVBO NAIL, 6 OR MORE 09/25/2018 23624-IXKFWVA NAIL, 6 OR MORE 01/22/2019 11793-BVGAZKO NAIL, 6 OR MORE 08/24/2019 49444-QYVNWNL NAIL, 6 OR MORE 01/04/2020 02967-TUGNBXI NAIL, 6 OR MORE 11/14/2010 47372-BXMZTZQ NAIL, 6 OR MORE 01/28/2011 45384-LDSSERR NAIL, 6 OR MORE 04/01/2011 36442-YSCHCUC NAIL, 6 OR MORE 06/03/2011 31790-AFKMHNF NAIL, 6 OR MORE 08/12/2011 51288-OPTDACF NAIL, 6 OR MORE 10/23/2011 74413-CTNMFMD NAIL, 6 OR MORE 01/02/2012 79070-GRWPIUC NAIL, 6 OR MORE 03/11/2012 68677-TKFLVIS NAIL, 6 OR MORE 05/20/2012 03481-JBCKCVP NAIL, 6 OR MORE 08/12/2012 81578-QCEGDMI NAIL, 6 OR MORE 11/02/2012 55884-EHQRMQZ NAIL, 6 OR MORE 01/28/2013 70012-VSHZXFC NAIL, 6 OR MORE 04/08/2013 29161-GUMLSFE NAIL, 6 OR MORE 06/16/2013 55604-LCKYSYL NAIL, 6 OR MORE 09/15/2013 35630-IIYDXMM NAIL, 6 OR MORE 12/13/2013 74504-FMOYZSO NAIL, 6 OR MORE 03/14/2014 69363-IOJBTEB NAIL, 6 OR MORE 05/05/2020 86863-WOOBHWJ NAIL, 6 OR MORE 10/02/2021 44532-PKDAEPK NAIL, 6 OR MORE 01/29/2022 97916-Hgfnhisz Plate 01/29/2022 46646-Xsfdanfx Plate 10/02/2021 13289-Slmmtoto Plate 05/05/2020 62984-Sdcygsmg Plate 03/14/2014 43904-Sqagqjrn Plate 12/13/2013 58088-Vquezjzd Plate 09/15/2013 43139-Whzopvlk Plate 06/16/2013 53828-Xlvlkbve Plate 04/08/2013 38627-Txrqyyqm Plate 01/28/2013 37655-Kqljezfz Plate 11/02/2012 43292-Fnfzvpdd Plate 08/12/2012 14693-Arsifkls Plate 05/20/2012 03453-Kftazwvv Plate 03/11/2012 43165-Utmyxbru Plate 01/02/2012 92724-Lbggjxhf Plate 10/23/2011 60158-Hxacznlc Plate 08/12/2011 55185-Xiutqlpt Plate 06/03/2011 66296-Qorgutkj Plate 04/01/2011 34378-Owjvlqhq Plate 11/14/2010 37508-Ymgcaovj Plate 01/04/2020 43664-Ecormasy Plate 08/24/2019 20512-Ifvmykac Plate 01/22/2019 03007-Vewdltbb Plate 09/25/2018 07967-Xybrfmzi Plate 06/26/2018 52202-Rprrstes Plate 02/27/2018 42807-Avfazjhx Plate 11/07/2017 41575-Xsbrbuss Plate 05/09/2017 90403-Bkstqkng Plate 04/18/2016 35164-Ssdokssp Plate 10/24/2016 02159-Exrlexbm Plate 01/18/2016 97691-Bzxnuaag Plate 07/27/2015 86653-Jbbqesqq Plate 11/03/2014 44924-Javtzokk Plate 01/28/2011 36902-Uekorxyx Plate 03/27/2015 51522-Gtusdylv Plate 06/02/2014 71113-Pdwyhqgc Plate 08/24/2014 09228-Gxphdcie Plate Each Additional 09/2014 64740-Botcfrjq Plate Each Additional 11917-Ohofkckl Plate Each Additional 09/2015 29311-Whkyxwqe Plate Each Additional 58510-Tmsyucsf Plate Each Additional 10/2015 81327-Lyrrznpn Plate Each Additional 02/2015 11714-Rrqafqzd Plate Each Additional 20969-Avafsdet Plate Each Additional 08/2016 04586-Zqatobaa Plate Each Additional 03/2016 33735-Bxlaafqm Plate Each Additional 27107-Gqzzllwy Plate Each Additional 55317-Homqjijc Plate Each Additional 12/2018 43548-Vdttnlyj Plate Each Additional 11/2018 89957-Mnrggvls Plate Each Additional 10/2018 99571-Vsdmoznw Plate Each Additional 07/2018 60119-Lvvvtbfx Plate Each Additional 08/2019 69747-Nsinribj Plate Each Additional 80796-Holbymof Plate Each Additional 01/2011 01187-Amjvmfyy Plate Each Additional 06749-Lcuieqmd Plate Each Additional 18452-Cvjnbyna Plate Each Additional 64052-Ewthlexx Plate Each Additional 06/2011 02358-Gmgzlbvw Plate Each Additional 18744-Xstwyklf Plate Each Additional 12612-Xeapidyi Plate Each Additional 04/2012 31906-Ytuaiixq Plate Each Additional 49927-Cznxnsqv Plate Each Additional 00312-Glkzcudv Plate Each Additional 01/2013 59611-Sbnizmsk Plate Each Additional 05115-Ifpablsl Plate Each Additional 51720-Ekfuehix Plate Each Additional 86004-Rcwnzqez Plate Each Additional 22757-Hmywjfqd Plate Each Additional 44032-Myweagdd Plate Each Additional 42451-Iccyezox Plate Each Additional 70432-Hpxoiaow Plate Each Additional 06045-EGVSUVX SKIN/TISSUE 06/15/2020 35993-LCCT SKIN LESIONS, OVER 4 01/30/20 22 14959-ULDR SKIN LESIONS, OVER 4 10/03/19 22 77755-ZDUN SKIN LESIONS, OVER 4 05/06/19 21 46784-PRCM SKIN LESIONS, OVER 4 03/14/19 15 41999-MSDB SKIN LESIONS, OVER 4 12/14/19 14 41625-UFUK SKIN LESIONS, OVER 4 09/16/19 14 95045-ZCTT SKIN LESIONS, OVER 4 06/17/19 14 44692-GNNJ SKIN LESIONS, OVER 4 04/08/19 14 66553-EDJE SKIN LESIONS, OVER 4 01/29/20 13 24155-AYYP SKIN LESIONS, OVER 4 11/03/19 13 48437-HQJK SKIN LESIONS, OVER 4 08/13/19 13 19872-KSTS SKIN LESIONS, OVER 4 05/21/19 13 58279-UNYG SKIN LESIONS, OVER 4 03/11/19 13 65447-RLMP SKIN LESIONS, OVER 4 01/02/20 12 43762-MLEL SKIN LESIONS, OVER 4 10/23/19 12 47956-QYKN SKIN LESIONS, OVER 4 08/12/19 12 60891-OAJL SKIN LESIONS, OVER 4 06/03/19 12 24995-UMKN SKIN LESIONS, OVER 4 04/01/19 12 23508-TQIQ SKIN LESIONS, OVER 4 11/15/19 11 66525-HZDH SKIN LESIONS, OVER 4 01/04/20 20 84880-MWDO SKIN LESIONS, OVER 4 08/24/19 20 84990-YAGI SKIN LESIONS, OVER 4 01/23/20 19 44821-MXVT SKIN LESIONS, OVER 4 09/26/19 19 09276-DMYK SKIN LESIONS, OVER 4 06/27/19 19 60779-GCNA SKIN LESIONS, OVER 4 02/27/19 19 99828-WJBK SKIN LESIONS, OVER 4 11/08/19 18 71565-FWSA SKIN LESIONS, OVER 4 05/10/19 18 45840-SPLY SKIN LESIONS, OVER 4 04/19/19 17 86771-FRYT SKIN LESIONS, OVER 4 10/25/19 17 57189-ONHX SKIN LESIONS, OVER 4 01/18/20 16 77591-KKSF SKIN LESIONS, OVER 4 07/27/19 16 19619-KSJV SKIN LESIONS, OVER 4 11/04/19 15 84449-UJZX SKIN LESIONS, OVER 4 03/27/19 16 61270-RRCJ SKIN LESIONS, OVER 4 01/29/20 11 53496-BESU SKIN LESIONS, OVER 4 06/03/19 15 57835-FWEX SKIN LESIONS, OVER 4 08/25/19 15 Insurance Providers Payer Name Payer Address Payer Phone Subscriber Number Group Number Insured Name Patient Relationship to Insured Coverage Start Date Coverage End Date [facility] [address] [facility] [place] [id number] Charis Romero Spouse - patient is the spouse of the insured Medical (General) History Medical History History ICD Code hypertension mumps measles chicken pox Diabetic type ll Surgical History Surgery Date(Month/Year) kidney surgery 03/24/2013 colonoscopy 04/13/2015 Hospitalization History Reason Date(Month/Year) [place]- abdominal pain 11/2012 [facility]gent Care - abcessed cyst 11/22/13 Urgent care -removal of drain, dressing change 11/23/13 [facility] 07[facility]17[facility]20 [facility]- sepsis L great toe 6 days 1
--- OUTSIDE RECORDS SUMMARY | 2025-02-02 19:09 | XMS_ITS | Clinical Summary ---
Author Organization [facility] Address [address] [place] [address] Phone Care Team Providers Care Coffee Shop Manager Name Role Phone Dm Mckeon MD Primary [...] into the skin at bedtime. Active lisinopriL (PRINIVIL,ZESTRI L) 20 mg tablet Take 20 mg by mouth 2 times daily. Active metFORMIN (GLUCOPHAGE) 1,000 mg tablet Take 1,000 mg by mouth 2 times daily (with meals). Active mv-min/folic/K1/ lycopen/lutein (CENTRUM SILVER MEN ORAL) Take by mouth. Activ e nvthm-qc-6-dha-e rd-uaxhjey-pgq (MegaRed Harrison-3 Krill Oil) 825-36-44-50 mg capsule Take by mouth. Activ e silver sulfADIAZINE (Silvadene) 1 % cream Apply topically 1 (one) time each day. 50 g 5 026 Active albuterol HFA (PROAIR HFA ; PROVENTIL [...] 1 (one) time each day. 4 Active hydroCHLOROthiaz messi (HYDRODIURIL) 25 mg tablet Take 1 tablet (25 mg total) by mouth 1 (one) time each day. 4 Active rosuvastatin (CRESTOR) 10 mg tablet Take 1 tablet (10 mg total) by mouth 1 (one) time each day. Active semaglutide (Ozempic) 2 mg/dose (8 mg/3 mL) injection pen Inject 2 mg under the skin every 7 (seven) days. Active bisacodyL (DULCOLAX) 5 mg EC tablet Take 2 tablets by mouth right before beginning bowel prep. See instructions provided by the office 2 tablet 5 Active polyethylene glycol (Golytely) 236-22.74-6.74 -5.86 gram solution Take 4L by mouth once for one dose. May substitue any PEG. Starting at 2PM the day before your procedure drink 1 8oz glasses at your own pace until you complete half of the gallon. Finish 2nd half of the gallon at 8PM. 4000 mL 5 Active Encounters Date Type Department Care Team Description 01/05/2025 9:00 AM EST Office Visit Orthopedic Surgery - [address] [address] Jon Bryson, DPM Arthritis of both ankles (Primary Dx); Hammer toe of left foot; Acquired hammer toe of right foot; Metatarsalgia of both feet; Ingrowing nail; Pain in toe of right foot; Dermatophytosis of nail; Type II diabetes mellitus with peripheral circulatory disorder (CMS/HCC V24, CMS/HCC V28); Diabetic mononeuropathy simplex ([facility] V24, [facility] V28); Pain in toe of left foot; Corns and callosities; Peripheral venous insufficiency 11/09/2024 Telephone Gastroenterology - [address] [phone] Favio Martinez MD from Last 3 Months Social History Tobacco Use Types Packs/Day Years Used Date Smoking Tobacco: Every Day Smokeless Tobacco: Current Sex and Gender Information Value Date Recorded Sex Assigned at Not on file Legal Sex Male 4:25 PM EST Gender Identity Not on file Sexual Orientation Not on file Last Filed Vital Signs Vital Sign Reading [...] Care Team (Late st Contact Info) Description 04/01/2025 8:30 AM EST Appointment [facility] [address] [place] [phone] Favio Martinez MD [address] [address] 04/07/2025 9:30 AM EST Office Visit Orthopedic Surgery - [place] [address] [phone] Jon Bryson DPM [address] [phone] Health Maintenance Due Date Last Done [...] Date Diagnosed Date Autogenerated Problem 12/20/2024 Insurance [facility] Care Teams Coffee Shop Manager Relationship Specialty Start Date End Date Dm Mckeon MD [address] [facility] [address] [place], [place] PCP - General Internal Medicine 12/25/20
== END 2025-02-02 15:31 | disposition home or self-care (01) ==
LOC: HO.HPSW 14:21
PROVIDERS: PCP Pediatrics; Visit Provider Nurse Practitioner Family
DX: R00.0 Tachycardia, unspecified (principal); J44.9 Chronic obstructive pulmonary disease, unspecified; E66.2 Morbid (severe) obesity with alveolar hypoventilation; Z87.09 Personal history of other diseases of the respiratory system; Z87.891 Personal history of nicotine dependence
CPT/HCPCS: 99205

== ENCOUNTER 2025-02-03 10:07 | Outpatient (AMB) | payer BC, SELFPAY ==
[2025-02-03 10:33] VITALS: BP 136/78; PULSE 112; O2SAT 91; BMI 45.4
--- NOTE | 2025-02-03 10:33 | A.OFFVIS_ITS ---
Vital Signs 02/03/25 10:33 Height 6 ft 5 in Weight 383 lb BMI 45.4 BP 136/78 Blood Pressure Location Lt brachial Position Sitting Pulse 112 H Pulse Source Pulse Oximeter Pulse Oximetry (%) 91 L Oxygen Delivery Method Room Air Intake Visit Reasons: COPD Telemetry Monitor Required: No Allergies bee pollen (BEE STINGS) Allergy (Unknown, Verified 02/03/25 10:34) UNKNOWN Penicillins Allergy (Unknown, Verified 02/03/25 10:34) Unknown Medication List - Last Reconciled 02/03/25 by Mony Deleon, MECHANICAL MAINTENANCE SUPERVISOR albuterol sulfate 90 mcg/actuation 2 puffs inhalation QID PRN aspirin 81 mg PO BEDTIME dapagliflozin propanediol (Farxiga) 10 mg PO DAILY gabapentin 300 mg PO BID hydrochlorothiazide 25 mg PO DAILY insulin glargine (Lantus Solostar U-100 Insulin) 60 units subcut DAILY@0900 lisinopril 20 mg PO BID metformin 1,000 mg PO BID multivitamin 1 tab PO DAILY omega 3-fla-nfv-fish oil 1,000 (120-180) mg (Fish Oil) 1 cap PO DAILY rosuvastatin 10 mg PO BEDTIME semaglutide (Ozempic) 2 mg subcut SA PFSH Medical History Atelectasis Hypoxia Severe sepsis HTN (hypertension) Morbid obesity Diabetic foot ulcer Diabetes mellitus Diabetic neuropathy Social History Household Members: Spouse Housing: House Do you presently have visiting nurse or other home services: No Alcohol intake: current Alcohol intake frequency: 3 or more drinks per day Alcohol type: beer Patient Tobacco Use Status: Former Tobacco user Tobacco use type: Cigarette Cigarette Packs Per Day: 1 Cigarettes Per Day: 20.0 Years Smoked: 40 e-Cigarette/Vaping Use: Former Use Substance Use Type: Marijuana Advance Directives Date on File: 01/18/25 service: No Current occupational status: unemployed Physical Exam Vital Signs: Last Vital Signs Pulse 112 H 02/03/25 10:33 BP 136/78 02/03/25 10:33 Pulse Ox 91 L 02/03/25 10:33 Oxygen Delivery Method Room Air 02/03/25 10:33 BMI result Body Mass Index 45.4 Office Procedures 6 Minute Walk Time:: 10:10 SPO2 % at rest: 93 Pulse at rest: 112 SPO2 % during excercise: 86 (Pt placed on 2 pulsed O2 sat 88after 5 minutes increased 3 pulsed O2 sat 93) Pulse during excercise: 138 SPO2 % after excercise: 94 Pulse after excercise: 136 Distance in yards walked: 300 Gertrudis Score: 2 Supplemental Oxygen: Recommend O2 @ 1lpm cont flow /pulsed O2 3 with exertion 23647 - 6 Minute Walk Assessment & Plan Assessment & Plan (1) Supplemental oxygen dependent: Code(s): Z99.81 - Dependence on supplemental oxygen Category: Medical Plan In office 6 minute walk/supplemental oxygen test performed patient requires supplemental oxygen at 1 L pulse flow or setting 3 on Inogen to maintain normal oximetry with exertion. Coding Level of Care Code Est Pt Level 1 (04494) Diagnoses Supplemental oxygen dependent Z99.81 CPT Codes Coding ([id number])
[2025-02-03 10:41] VITALS: PULSE 112; O2SAT 93
--- OUTSIDE RECORDS SUMMARY | 2025-02-03 12:24 | XMS_ITS | Patient Health Record ---
Author Organization [facility] Address [address] [place] [address] Care Team Providers Care Disability Case Manager Name Role Phone Linda LORENZO, Dm Primary Care Provider Jose Hawk Unavailable [phone] Allergies Allergen (clinical drug ingredient) Drug/Non Drug [...] Problem Acquired hammer toe of right foot (5331027731189586 ) Other hammer toe(s) (acquired), right foot (M20.41) Active confirmed Problem Acquired hammer toe of left foot (2567311016107329 ) Other hammer toe(s) (acquired), left foot (M20.42) Active confirmed Problem Polyneuropathy due to diabetes mellitus type I (811698292) Type 1 diabetes mellitus with diabetic polyneuropathy (E10.42) Active confirmed Plan Of Treatment Pending Test Test Name Order Date Hemoglobin A1c 06/02/2014 72396-QDPFQFG NAIL, 6 OR MORE 08/24/2014 19792-VNBNULX NAIL, 6 OR MORE 06/02/2014 16894-AXIXKER NAIL, 6 OR MORE 11/03/2014 75607-WHQCJZQ NAIL, 6 OR MORE 03/27/2015 74479-HYSROYE NAIL, 6 OR MORE 07/27/2015 45894-VGICJKA NAIL, 6 OR MORE 01/18/2016 75740-MARACCO NAIL, 6 OR MORE 04/18/2016 02556-UIWJMIN NAIL, 6 OR MORE 10/24/2016 81222-NOJLCZM NAIL, 6 OR MORE 05/09/2017 76795-UQJAHCK NAIL, 6 OR MORE 11/07/2017 50992-GUTBFQZ NAIL, 6 OR MORE 02/27/2018 37536-RJWHZVB NAIL, 6 OR MORE 06/26/2018 04649-VRBOFWH NAIL, 6 OR MORE 09/25/2018 88354-DRLBPEL NAIL, 6 OR MORE 01/22/2019 47774-EFILNOX NAIL, 6 OR MORE 08/24/2019 42911-CXSZMQY NAIL, 6 OR MORE 01/04/2020 53614-PONRVIU NAIL, 6 OR MORE 11/14/2010 73982-TSCERFT NAIL, 6 OR MORE 01/28/2011 80190-WWDKOIF NAIL, 6 OR MORE 04/01/2011 50808-NEIYABT NAIL, 6 OR MORE 06/03/2011 94195-FSPSTLR NAIL, 6 OR MORE 08/12/2011 70611-GQKMWBH NAIL, 6 OR MORE 10/23/2011 14820-VSOILGZ NAIL, 6 OR MORE 01/02/2012 33876-VMCHLPB NAIL, 6 OR MORE 03/11/2012 98639-SLBXMPI NAIL, 6 OR MORE 05/20/2012 94698-XWUVVSD NAIL, 6 OR MORE 08/12/2012 82528-FGECNKQ NAIL, 6 OR MORE 11/02/2012 73132-WQCEHUN NAIL, 6 OR MORE 01/28/2013 14053-OSGJTEU NAIL, 6 OR MORE 04/08/2013 84762-DCYDNAP NAIL, 6 OR MORE 06/16/2013 46243-JGHVXFW NAIL, 6 OR MORE 09/15/2013 85307-ELPTXPR NAIL, 6 OR MORE 12/13/2013 42423-PLIXBXM NAIL, 6 OR MORE 03/14/2014 53408-SQTVRMG NAIL, 6 OR MORE 05/05/2020 71349-MRWAEVA NAIL, 6 OR MORE 10/02/2021 69961-VIXLRBL NAIL, 6 OR MORE 01/29/2022 41712-Dckrqogf Plate 01/29/2022 74481-Uqfcijlh Plate 10/02/2021 94735-Kjsxnqez Plate 05/05/2020 83357-Vtoispjz Plate 03/14/2014 48482-Tmudzdad Plate 12/13/2013 68708-Barifhgk Plate 09/15/2013 31903-Zunyhwnf Plate 06/16/2013 54047-Dbpckjww Plate 04/08/2013 00631-Onpgxrzt Plate 01/28/2013 11877-Myxtlagl Plate 11/02/2012 02724-Asuzpkow Plate 08/12/2012 65327-Gvltnvlx Plate 05/20/2012 46072-Pkymmloy Plate 03/11/2012 32912-Vkkiopma Plate 01/02/2012 75808-Zwzkrgxo Plate 10/23/2011 60956-Knnuhjhu Plate 08/12/2011 23901-Vuzcvutu Plate 06/03/2011 75087-Ktnqqcvj Plate 04/01/2011 27168-Ixqgkcmo Plate 11/14/2010 65519-Frmndlny Plate 01/04/2020 20452-Lxjfpygi Plate 08/24/2019 97817-Awgqyfhh Plate 01/22/2019 53195-Ktwuvfhd Plate 09/25/2018 93603-Mzgnbqyg Plate 06/26/2018 02969-Kaqvypds Plate 02/27/2018 84119-Ejvibzsu Plate 11/07/2017 05159-Rntqrjgz Plate 05/09/2017 01070-Nenwfqki Plate 04/18/2016 81742-Wxvlazfp Plate 10/24/2016 26239-Koqevvdx Plate 01/18/2016 43552-Ismzcymz Plate 07/27/2015 07424-Gfkklvts Plate 11/03/2014 45049-Hybnidfk Plate 01/28/2011 65919-Pcvnzhye Plate 03/27/2015 39806-Rkvdswuv Plate 06/02/2014 58249-Mjjgpfka Plate 08/24/2014 28644-Xabdclbx Plate Each Additional 09/2014 48172-Vmuiohvu Plate Each Additional 33981-Xketmypw Plate Each Additional 09/2015 62373-Stqbiqoa Plate Each Additional 15379-Upkfeslb Plate Each Additional 10/2015 73620-Xciirvkw Plate Each Additional 02/2015 07095-Dhhhmuwy Plate Each Additional 33859-Tcqgfjpx Plate Each Additional 08/2016 87113-Ddgxecdm Plate Each Additional 03/2016 82799-Blojoxef Plate Each Additional 46260-Ojvukjzm Plate Each Additional 77344-Dpocxtrn Plate Each Additional 12/2018 03215-Hprhjkbe Plate Each Additional 11/2018 47452-Eedywpis Plate Each Additional 10/2018 78943-Gilvtypj Plate Each Additional 07/2018 33438-Rpnthufk Plate Each Additional 08/2019 01654-Scitmgtj Plate Each Additional 98043-Ntwzfgco Plate Each Additional 01/2011 41693-Xbzjdvas Plate Each Additional 41664-Yruespmg Plate Each Additional 63222-Kyktmycb Plate Each Additional 97063-Lfuappyu Plate Each Additional 06/2011 03068-Vhadtjle Plate Each Additional 73350-Igzkxmys Plate Each Additional 87574-Onnysktz Plate Each Additional 04/2012 59956-Njpyaufs Plate Each Additional 35742-Svpoustf Plate Each Additional 00884-Csjnbkde Plate Each Additional 01/2013 39444-Cyxxjdjz Plate Each Additional 04121-Ippatxyl Plate Each Additional 22832-Fiovxbre Plate Each Additional 31756-Tqmcgxlw Plate Each Additional 32796-Reufbbgj Plate Each Additional 98787-Fusknuvf Plate Each Additional 42591-Nxkqukju Plate Each Additional 23274-Ryicribf Plate Each Additional 82408-EDTYCNU SKIN/TISSUE 06/15/2020 12519-OZTK SKIN LESIONS, OVER 4 01/30/20 22 41650-PXPM SKIN LESIONS, OVER 4 10/03/19 22 06329-RBUO SKIN LESIONS, OVER 4 05/06/19 21 46083-RUZK SKIN LESIONS, OVER 4 03/14/19 15 20340-SVKC SKIN LESIONS, OVER 4 12/14/19 14 55808-QZAD SKIN LESIONS, OVER 4 09/16/19 14 09214-UUYE SKIN LESIONS, OVER 4 06/17/19 14 61470-TOEB SKIN LESIONS, OVER 4 04/08/19 14 26167-TTFF SKIN LESIONS, OVER 4 01/29/20 13 55328-MZLI SKIN LESIONS, OVER 4 11/03/19 13 89274-QGIU SKIN LESIONS, OVER 4 08/13/19 13 11108-DUQK SKIN LESIONS, OVER 4 05/21/19 13 77178-RVVB SKIN LESIONS, OVER 4 03/11/19 13 44056-NDHB SKIN LESIONS, OVER 4 01/02/20 12 16927-YAJR SKIN LESIONS, OVER 4 10/23/19 12 44438-TBTC SKIN LESIONS, OVER 4 08/12/19 12 18051-RHRU SKIN LESIONS, OVER 4 06/03/19 12 06572-PRFW SKIN LESIONS, OVER 4 04/01/19 12 09162-IXED SKIN LESIONS, OVER 4 11/15/19 11 54574-VXZK SKIN LESIONS, OVER 4 01/04/20 20 65890-ANBM SKIN LESIONS, OVER 4 08/24/19 20 72218-JEQL SKIN LESIONS, OVER 4 01/23/20 19 75518-AIQI SKIN LESIONS, OVER 4 09/26/19 19 14420-USPW SKIN LESIONS, OVER 4 06/27/19 19 74721-ILLL SKIN LESIONS, OVER 4 02/27/19 19 67551-NFBT SKIN LESIONS, OVER 4 11/08/19 18 68609-LCQN SKIN LESIONS, OVER 4 05/10/19 18 21192-GSJM SKIN LESIONS, OVER 4 04/19/19 17 09373-PKIB SKIN LESIONS, OVER 4 10/25/19 17 43175-BWUM SKIN LESIONS, OVER 4 01/18/20 16 27534-ASJU SKIN LESIONS, OVER 4 07/27/19 16 21241-OWPQ SKIN LESIONS, OVER 4 11/04/19 15 15605-DFQN SKIN LESIONS, OVER 4 03/27/19 16 69482-HAOL SKIN LESIONS, OVER 4 01/29/20 11 47217-XGCK SKIN LESIONS, OVER 4 06/03/19 15 66047-URRC SKIN LESIONS, OVER 4 08/25/19 15 Insurance Providers Payer Name Payer Address Payer Phone Subscriber Number Group Number Insured Name Patient Relationship to Insured Coverage Start Date Coverage End Date [facility] [address] [facility] [place] [id number] Charis Romero Spouse - patient is the spouse of the insured Medical (General) History Medical History History ICD Code hypertension mumps measles chicken pox Diabetic type ll Surgical History Surgery Date(Month/Year) kidney surgery 03/24/2013 colonoscopy 04/13/2015 Hospitalization History Reason Date(Month/Year) [place]- abdominal pain 11/2012 [facility]gent [facility] - abcessed cyst 11/22/13 Urgent care -removal of drain, dressing change 11/23/13 [facility] 07[facility]17[facility]20 [facility]- sepsis L great toe 6 days 1
--- OUTSIDE RECORDS SUMMARY | 2025-02-03 12:24 | XMS_ITS | Encounter Summary ---
Author Organization [facility] Address [address] [place] [id number] Phone Care Team Providers Care Band Sawmill Operator Name Role Phone Pcp, Unknown Primary Care Provider Unavailabl e Reason for Referral * Consultation (Within 1 month) - Closed Specialty Diagnoses / Procedures Referred By Contac t Referred To Contact Endocrinology Diagnoses Type 2 diabetes mellitus without complication, unspecified whether rn long term care insulin use Dm Mckeon MD [address] [place] [id number] Phone: tel: fax: [address] [address] Phone: tel: Referral ID Status Reason Start Date Expiration Date Visits Re quested Visits Authorized [id number] Closed 04/19/2022 04/20/2023 1 1 Encounter Details Date Type Department Care Team (Latest Contact Info) Description 04/19/2022 Transcribe Orders [facility] [address] [place] [id number] Elias Núñez DO [address] [place] [id number] [email or web address] Type 2 diabetes mellitus without complication, unspecified whether rn long term care insulin use (Primary Dx) Social History Tobacco [...] Associated Diagnoses Order Schedule Ambulatory referral to [facility] Endocrinology Outpatient Referral Routine Type 2 diabetes mellitus without complication, unspecified whether rn long term care insulin use Ordered: 04/19/2022 documented as of this encounter Visit Diagnoses Diagnosis Type 2 diabetes mellitus without complication, unspecified whether group home insulin use- Primary documented in this encounter Care Teams Band Sawmill Operator Relationship Specialty Start Date End Date Pcp, Unknown PCP - General 04/15/22 documented as of this encounter Additional Source Comments The information contained in this document represents components of the legal health record. It is not the complete legal health record.[facility]
--- OUTSIDE RECORDS SUMMARY | 2025-02-03 12:24 | XMS_ITS | Clinical Summary ---
Author Organization [address] [facility] Address [address] [place] [address] Phone Care Team Providers Care Truck Hop Name Role Phone Dm Mckeon MD Primary Care Provider [phone] Allergies Active Allergy Reactions Criticality Noted Date [...] MEN ORAL) Take by mouth. Activ e [id number]-[id number]-[id number] ft-[id number]-wpw (MegaRed [place]-3 Krill Oil) [id number] mg capsule Take by mouth. Activ e [...] AM EST Office Visit Orthopedic Surgery - [address] [phone] Jon Bryson, DPM Arthritis of both ankles (Primary Dx); Hammer toe of left foot; Acquired hammer toe of right foot; Metatarsalgia of both feet; Ingrowing nail; Pain in toe of right foot; Dermatophytosis of nail; Type II diabetes mellitus with peripheral circulatory disorder (CMS/HCC V24, CMS/HCC V28); Diabetic mononeuropathy simplex ([facility] V24, [facility] V28); Pain in toe of left foot; Corns and callosities; Peripheral venous insufficiency 11/09/2024 Telephone Gastroenterology - [address] [phone] Favio Martinez MD from Last 3 Months [...] Info) Description 04/01/2025 8:30 AM EST Appointment [facility] Endoscopy [address] [place] [phone] Favio Martinez MD [address] [address] 04/07/2025 9:30 AM EST Office Visit Orthopedic Surgery - [place] [address] [phone] Jon Bryson DPM [address] [phone] Health Maintenance Due Date Last [...] Date Diagnosed Date Autogenerated Problem 12/20/2024 Insurance [facility] Care Teams Truck Hop Relationship Specialty Start Date End Date Dm Mckeon MD [address] [facility] [address] [place], [place] PCP - General Internal Medicine 12/25/20
--- OUTSIDE RECORDS SUMMARY | 2025-02-03 12:25 | XMS_ITS | Clinical Summary ---
Author Organization [facility] Address [address] [place] [address] Phone Care Team Providers Care Pediatric Neurologist Name Role Phone Pcp, Unknown Primary Care [...] on [place] [address] [place] [address] [place], [place] [address] [place], [place] [address] Care Teams Pediatric Neurologist Relationship Specialty Start Date End Date Pcp, Unknown PCP - General 04/15/22 Additional Source Comments The information contained in this document represents components of the legal health record. It is not the complete legal health record.[facility]
== END 2025-02-03 11:45 | disposition home or self-care (01) ==
LOC: HO.HPS 10:07
PROVIDERS: PCP Pediatrics; Visit Provider Internal Medicine Pulmonary Disease
DX: Z99.81 Dependence on supplemental oxygen (principal)
CPT/HCPCS: 99499

== ENCOUNTER → 2025-02-03 10:07 | Outpatient (BNVA) | payer BC, SELFPAY | PROVIDERS: PCP Pediatrics; Visit Provider Internal Medicine Pulmonary Disease | DX: J44.9 Chronic obstructive pulmonary disease, unspecified (principal); Z99.81 Dependence on supplemental oxygen | CPT/HCPCS: 94618 ==

== ENCOUNTER 2025-02-16 08:00 | Outpatient (RCR) | payer BC, SELFPAY | END 2025-02-16 16:19 | disposition home or self-care (01) | LOC: HO.WCC 08:00 | PROVIDERS: PCP Pediatrics; Visit Provider Colon & Rectal Surgery | DX: E11.621 Type 2 diabetes mellitus with foot ulcer (principal); L97.512 Non-pressure chronic ulcer of other part of right foot with fat layer exposed; S80.811A Abrasion, right lower leg, initial encounter; E11.40 Type 2 diabetes mellitus with diabetic neuropathy, unspecified; E11.51 Type 2 diabetes mellitus with diabetic peripheral angiopathy without gangrene; L84 Corns and callosities; R60.0 Localized edema; I10 Essential (primary) hypertension; Z99.81 Dependence on supplemental oxygen; Z79.4 Long term (current) use of insulin; Z79.84 Long term (current) use of oral hypoglycemic drugs; Z87.891 Personal history of nicotine dependence | CPT/HCPCS: 11055; 29581; 97597; 97598; 99213 ==